=== PATIENT | male | born 1960 | race Caucasian/White ===

== ENCOUNTER 2020-09-14 10:01 | Inpatient (IN) | payer OTHER ==
[2020-09-14] MEDS ORDERED: Glucagon,Human Recombinant 1 MG Vial IM PRN (13:56)
[2020-09-14] MEDS ORDERED: TADALAFIL 10 MG PO PRN (13:56)
[2020-09-14] MEDS ORDERED: 50% Dextrose in Water 50 ML Syringe IVPUSH PRN (13:56)
[2020-09-14] MEDS ORDERED: Vancomycin/Water for INJ (PEG) 1.5 GM/300 ML Premix IV SCH (14:00)
--- OUTSIDE RECORDS SUMMARY | 2020-09-14 14:24 | XMSREPORT ---
:1960 Author Organization [facility] s Address [facility] [address] [place] [address] Care Team Providers Name Role Phone Jennifer Simon MD Primary Care Provider Jennifer Simon MD Attributed Provider Yazan Waller MD Unavailable Reason for Referral FCC Prior Auth (Routine) Status Reason Specialty Diagnoses / Referred By Referred To Procedures Contact Contact NOT REQUIRED Diagnoses Postoperative infection, unspecified type, initial encounter Timi Faith Procedures HOME INFUSION ADULT KURTIS Olvera MD [address] [place] [address] Reason for Visit Reason Comments Weakness Pt reports pain in neck and back; has apt with neurosurgery at 1130 but he has been getting progressive ly worse and today cannot walk. hx of brain tumor, had partial resection on 07/15 Fever reports fevers for 2 we eks. Auth/Cert Status Reason Specialty Diagnoses / Procedures Referred By Daysi haddad Referred To Contact Encounter Details Date Type Department Care Team Description 08/30/2020 - Hospital Encounter [facility] Sophia Sunshine MD [address] [place] [address] Infection of PROJECT CONTROL ANALYST 09/14/2020 CENTER 6AB NEURO Shell Charlton MD [address] [place] [address] [phone] (ventriculoperitone [facility] Brandy Agrawal MD [address] [place] [address], [place] [address] al) shunt (HCC) [address] Tereso Reeves MD [address] [place] [phone] [place] [address] Marcy Dawn MD [address] [place] [address], [place] [address] [phone] Saran Adams MD [address] [place] [phone] Yosvany Mcconnell MD [address] [place] [id number] Alex Leigh MD [address] [place] [address] [phone] Allergies No Known Active Allergiesdocumented as of this encounter (statuses as of 09/14/2020) Medications Medication Sig Dispensed Refills Start Date End Date Status multivitamin Take 1 tablet by 0 Active (CENTRUM SILVER) mouth 1 time per tablet day. tadalafil (CIALIS) Take 1 tablet (10 9 tablet 11 10/14/2019 Active 10 MG tablet mg) by mouth 1 time a day as needed for other (Specify) (ED) Take prior to anticipated sexual activity. omeprazole TAKE 1 CAPSULE BY 90 capsule 3 10/14/2019 Active (PRILOSEC) 20 mg MOUTH DAILY EVERY capsule MORNING lisinopril Take 1 tablet (20 90 tablet 3 10/14/2019 Active (PRINIVIL, ZESTRIL) mg) by mouth 1 time 20 mg per day tabletIndications: Essential hypertension Additional Information Patient not taking. Informan t: Self, Reported on 08/30/2020 glipiZIDE (GLUCOTROL) Take 1 tablet (10 90 tablet 3 10/14/2019 Active 10 mg mg) by mouth 1 time tabletIndications: a day with Controlled type 2 breakfast diabetes mellitus without complication, without long-term current use of insulin ([facility]) insulin needle Use once daily with 300 each 3 12/18/2019 Active ([employer]ICARE SHORT PEN Lantus E11.9 NEEDLES) 31G X 8 mm (5/16") ShortIndications: Controlled type 2 diabetes mellitus without complication, without long-term current use of insulin ([facility]) simvastatin (ZOCOR) 80 TAKE 1/2 TABLET BY 45 tablet 3 02/09/20 20 Active mg tabletIndications: MOUTH DAILY Mixed hyperlipidemia GENERIC FOR ZOCOR metFORMIN (GLUCOPHAGE) TAKE 1 TABLET BY 180 tablet 1 0 Active 500 MG MOUTH TWICE A DAY tabletIndications: WITH MEALS Controlled type 2 diabetes mellitus without complication, without long-term current use of insulin ([facility]) aspirin 325 mg tablet Take 325 mg by 0 Active mouth 1 time per day cefepime (MAXIPIME) Administer 2,000 mg 0 09/10/202009/15 Active 2,000 mg in sodium intravenously Every 8 chloride 0.9% 50 12 hours 21 mLIndications: Postoperative infection, unspecified type, initial encounter vancomycin (VANCOCIN) Administer 1,500 mg 0 09/11/19 21 09/15 Active 1,500 mg in sodium intravenously Every 8 chloride 0.9% 250 12 hours 21 mLIndications: Postoperative infection, unspecified type, initial encounter metroNIDAZOLE (FLAGYL) Take 1 tablet (500 93 tablet 0 09/11/19 21 09/15 Active 500 mg mg) by mouth 3 12/03 tabletIndications: times a day 21 Postoperative infection, unspecified type, initial encounter insulin glargine Inject 20 Units 15 mL 1 09/14/2020 Active (LANTUS SOLOSTARE) subcutaneously subcutaneous injection every night at solution bedtime (pen)Indications: Controlled type 2 diabetes mellitus without complication, without long-term current use of insulin ([facility]) carVEDilol (COREG) Take 1 tablet 180 tablet 4 09/14/20200 Active 3.125 mg (3.125 mg) by mouth 10/03 tabletIndications: 2 times a day with 22 Essential hypertension meals amLODIPine (NORVASC) 5 Take 1 tablet (5 90 tablet 4 09/14/20200 Active mg tabletIndications: mg) by mouth every 10/03 Essential hypertension night at bedtime 22 levETIRAcetam (KEPPRA) Take 1 tablet (500 60 tablet 0 07/21/19 21 08/14 Discontinued 500 mg mg) by mouth 2 11/02 (entry engineer tabletIndications: S/P times a day 21 error) craniotomy Previous medication prescribed by Neurosurgery and should be continued as initial written LANTUS SOLOSTARE INJECT 50 UNITS 15 mL 1 08/09/2020 Discontinued subcutaneous injection SUBCUTANEOUSLY (Reorder) solution EVERY NIGHT AT 21 (pen)Indications: BEDTIME MAX DAILY Controlled type 2 DOSE-50 UNITS diabetes mellitus without complication, without long-term current use of insulin (HCC) documented as of this encounter (statuses as of 09/14/2020) Active Problems Problem Noted Date 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 Esophageal reflux Hypospadias Diabetes type 2, controlled Mixed hyperlipidemia documented as of this encounter (statuses as of 09/14/2020) Resolved Problems Problem Noted Date Resolved Date Special screening for malignant neoplasm of prostate 009 06/03/2013 Type II or unspecified type diabetes mellitus without 06/03/2013 mention of complication, not stated as uncontrolled Obesity 06/03/2013 Ulcer of thigh 09/28/2016 Astigmatism 06/03/2013 documented as of this encounter (statuses as of 09/14/2020) Immunizations Name Administration Dates Next Due Pneumococcal Polysaccharide PPSV23 11/05/2008 TDAP 11/05/2008 documented as of this encounter Social History Tobacco Use Types Packs/Day Years Used Date Current Every Day Smoker Cigarettes 1 45 Smokeless Tobacco: Never Used Tobacco Cessation: Ready to Quit: No; Co unseling Given: No Comments: 08/31/20: 0.5 PPD Alcohol Use Standard Drinks/Week Comments Not Currently 0 (1 standard drink = 0.6 oz pure alcoho l) 12 pack at least every week Alcohol Habits Answer Date Recorded How often do you have a drink containing alcohol? Monthly or less 09/11/2020 How many drinks containing alcohol do you have on a Patient refused 09/11/2020 typical day when you are drinking? How often do you have six or more drinks on one Patient refu sed 09/11/2020 occasion? Physical Activity Answer Date Recorded On average, how many days per week do you engage in moderate 0 days 02/17/2019 to strenuous exercise (like walking fast, running, jogging, dancing, swimming, biking, or other activities that cause a light or heavy sweat)? On average, how many minutes do you engage in exercise at No t asked this level? Sexually Active Control Partners Comments Yes Female Sex Assigned at Date Recorded Not on file documented as of this encounter Last Filed Vital Signs Vital Sign Reading Time Taken Comments Blood Pressure 159/130 09/14/2020 10:05 AM CDT Pulse 91 09/14/2020 10:05 AM CDT Temperature 36.9 C (98.5 F) 09/14/2020 10:05 AM CDT Respiratory Rate 18 09/14/2020 10:05 AM CDT Oxygen Saturation 93% 09/14/2020 10:05 AM CDT Inhaled Oxygen Concentration - - Weight 87.8 kg (193 lb 8 oz) 09/13/2020 9:50 AM CDT Height 182.9 cm (6') 08/30/2020 4:02 PM CDT Body Mass Index 26.24 08/30/2020 4:02 PM CDT documented in this encounter Functional Status Functional Status Response Date of Assessment Is the person deaf or does he/she have serious difficulty No 11/16/2017 hearing? Is this person blind or does he/she have difficulty No 11/16/2017 seeing even when wearing glasses? Do you have difficulty with walking, balance, climbing No 07/13/2020 stairs, or had a fall in the last 3 months? Does the patient have difficulty dressing or bathing? No 11/16/2017 Because of a physical, mental, or emotional condition; No 11/16/2017 does this person have difficulty doing errands alone such as visiting a doctor's office or shopping? Cognitive Status Response Date of Assessment Because of a physical, mental, or emotional condition; No 11/16/2017 does this person have serious difficulty concentrating, remembering, or making decisions? documented as of this encounter Discharge Summaries Not on filedocumented in this encounter Discharge Instructions Katerin Frausto RN - 09/02/2020 Images from the original note were not included. Discharge Instructions: Caring for Your Peripherally Inserted Central Catheter (PICC) You are going home with a peripherally inserted central catheter (PICC). This small, soft tube has been placed in a vein in your arm. It is often used when treatment requires medicines or nutrition forweeks or months. At home, you need to take care of your PICC to keep it working.Because a PICC line has a high infection risk, you must take extra care washing your hands and preventing the spread ofgerms. This sheet will help you remember what to do to care for your PICC at home. Understanding your role A nurse or other healthcare provider will teach you and your caregivers how to care for the PICC.Before leaving the hospital, make sure you understand what to do at home, how long you may need the PICC, and when to have a follow-up visit. You will likely be told to flush the PICC with saline or heparin solution. You may also be told to change the catheters injection caps and change the dressing (bandage). Or, a nurse may do this for you during a follow-up visit. Only do these things if youre told to, following the instructionsyou were given. Protecting the PICC If the PICC gets damaged, it wont work right and could raise your chance of infection. Call your healthcare team right away if any damage occurs. To protect the PICC at home: Prevent infection. Use good hand hygiene by following the guidelines on this sheet. Dont touchthe catheter or dressing unless you need to. And always clean your hands before and after you come in contact with any part of the PICC. Your caregivers, family members, and any visitors should use good hand hygiene, too. Keep the PICC dry. The catheter and dressing must stay dry. Dont take baths, go swimming, use a hot tub, or do other things that could get the PICC wet. Take a sponge bath to avoid getting your catheter wet, unless your healthcare provider tells you otherwise. Ask your provider about the best way to keep your catheter dry when bathing or showering. If the dressing does get wet, change it only if you have been shown how. Otherwise, call your healthcare team right away for help. Avoid damage. Dont use any sharp or pointy objects around the catheter. This includes scissors, pins, knives, razors, or anything else that could cut it or put a hole in it (puncture it). Also, dont let anything pull or rub on the catheter, such as clothing. Watch for signs of problems. Pay attention to how much of the catheter sticks out from your skin.If this changes at all, let your healthcare provider know. Also watch for cracks, leaks, or other damage. If the dressing becomes dirty, loose, or wet, change it (if you have been instructed to). Or call your healthcare team right away. Avoid lowering your chest below your waist. This includes bending at the waist to do things like tying your shoes. When your chest is below your waist, especially for a long time, the catheters internal tip could slip out of place in the vein. Tell your healthcare team if you vomit or have severe coughing. This can also make the catheter slip out of place. Protecting your arm The arm with the PICC is at risk for developing blood clots (thrombosis). This is a serious problem.To help prevent it: As much as possible, use the arm with the PICC in it for normal daily activities. Lack of movement can lead to blood clots. So its important to move your arm as you normally would. Your healthcare team may suggest light arm exercises. Avoid activities or exercises that require major use of your arm, such as sports, unless your healthcare provider says its OK. Avoid any activities that cause mild pain in your arm. Talk to your healthcare team if you have concerns about pain or range of motion. Dont lift anything heavier than 10 pounds with the affected arm. Drink plenty of water. Staying hydrated helps keep clots from forming. Prevent infection with good hand hygiene A PICC can let germs into your body. This can lead to serious and sometimes deadly infections. To prevent infection, its very important that you, your caregivers, and others around you use good handhygiene. This means washing your hands well with soap and water, and cleaning them with an alcohol-based hand gel as directed. Never touch the PICC or dressing without first using one of these methods. To wash your hands with soap and water: Wet your hands with warm water. (Avoid hot water, which can cause skin irritation when you wash your hands often.) Apply enough soap to cover the whole surface of your hands, including your fingers. Rub your hands together vigorously for at least 15 seconds. Make sure to rub the front and back of each hand up to the wrist, your fingers and fingernails, between the fingers, and each thumb. Rinse your hands with warm water. Dry your hands completely with a new, unused paper towel. Dont use a cloth towel or other reusable towel. These can harbor germs. Use the paper towel to turn off the faucet, then throw it away. If youre in a bathroom, also use a paper towel to open the door instead of touching the handle. When you dont have access to soap and water: Use an alcohol-based hand gel to clean your hands.The gel should have at least 60% alcohol. Follow the instructions on the package. Your healthcare team can answer any questions you have about when to use hand gel, or when its better to wash with soap and water. When to seek medical care Call your provider right away if you have any of the following: Pain or burning in your shoulder, chest, back, arm, or leg Fever of 100.4F (38.0C) or higher Chills Signs of infection at the catheter site (pain, redness, drainage, burning, or stinging) Coughing, wheezing, or shortness of breath A racing or irregular heartbeat Muscle stiffness or trouble moving Tightness in your arm, above the catheter site Gurgling noises coming from the catheter The catheter falls out, breaks, cracks, leaks, or has other damage Date Last Reviewed: 10/15/201519995664-2826 [employer]. [address] [place] [address]. All rights reserved. This information is not intended as a substitute for professional medical care. Always follow your healthcare professional's instructions. Central Line Infections Good handwashing helps prevent central line infections. You need a central line as part of your treatment. Its also called a central venous access device(CVAD) or central venous catheter (CVC). A small, soft tube called a catheter is put in a vein that leads to your heart. The central line is used instead of a standard IV (intravenous) line. It does not need to be replaced as often as a standard IV. This means less pain and fewer needlesticks during treatment. But central lines come with a risk of infection. This sheet tells you more about central line infections and what hospitals are doing to prevent them. And it explains how an infection is treated, if one occurs. Types of central lines With a central line, a catheter is inserted into your body through a vein that leads to the large vein near the heart (vena cava). Types of central lines and their risk of infection are listed below. Which type is best for you depends on your needs and your overall health. Your healthcare provider cantell you which type of line you need, and why. Peripherally inserted central catheter (PICC).This is placed in a large vein in the upper arm, or near the bend of the elbow. Subclavian line. Thisis placed in a vein that runs behind the collarbone. Internal jugular line.This is placed into a large vein in the neck. Infection risk is higher than with a PICC or subclavian line, but lower than with a femoral line. Femoral line.This may be placed in a large vein in the groin. This site is generally not usedbecause of an increased risk for infection. Tunneled catheter. This is run through the soft tissue under the skin before it enters a vein. A small cuff helps hold the catheter in place. Both the tunnel and the cuff help prevent infection. This type of catheter may be placed in any of the above locations. Port. This small device is placed completely under the skin on the arm or chest. Its connectedto a catheter that is threaded into the vena cava. Types of infections A central line provides a direct path into your bloodstream. This gives germs possible access into your body. All types of central lines are associated with some risk of infection. Often, the germs that cause a central line infection come from your own skin. There are 2 possible types of infection: Local infection. This can occur where the central line enters your body. Symptoms include redness, pain, or swelling at or near the catheter site, pain or tenderness along the path of the catheter, and drainage from the skin around the catheter. Systemic infection (also called bacteremia). This can occur if germs get into the bloodstream. This is very serious and can be fatal. Symptoms include sudden fever, shaking chills, a racing heartbeat, confusion, change in behavior, and a skin rash. Risk factors for infection Anyone who has a central line can get an infection. Your risk is higher if you: Are in the intensive care unit (ICU). Have a weakened immune system or serious illness. Are receiving bone marrow or chemotherapy. Have the line for an extended time. Have a central line in your neck or groin. How central line infections are treated Treatment depends on the type of central line, how severe the infection is, and your overall health.Your healthcare provider will prescribe antibiotics to fight the infection. The line may also need to be removed. In some cases, the line is flushed with high doses of antibiotics. This may kill the germs causing the infection, so the line doesnt have to be removed. What hospitals do to prevent infection Hospitals have a plan to reduce central line infections. This plan includes: Good hand hygiene. Hospital staff clean their hands before and after touching the line. They washtheir hands with soap and water. Or they use an alcohol-based hand aircraft cabin cleaner containing at least 60% alcohol. Using sterile practices during placement. The healthcare worker who places the line wears germ-free (sterile) clothing including a long-sleeved gown and gloves. Before the line is placed, your skin is cleaned with an antiseptic solution. During placement, you are fully covered with a large sterile sheet (a sterile drape). Only the spot where the line is placed is exposed. After placement, the sitewhere the line enters the body is covered with a sterile bandage (dressing). Choosing a lower-risk vein. Whenever possible, the line is placed in the vein that's right for your treatment and has the lowest infection risk. Some hospitals use lines coated with an antiseptic toreduce the chance of infection. Checking for infection. The line is checked frequently for infection. It is removed as soon as you no longer need it. What you can do to prevent infection Before you get a central line, ask questions. Find out why you need the line and where it will be placed. Learn what steps the hospital is taking to reduce your infection risk. Once the line has been placed, you, your caretakers, and any visitors can help prevent infection by doing the following: Use good hand hygiene. Wash your hands often with soap and water, and use alcohol-based hand gel as directed. To clean your hands effectively, follow the guidelines on this sheet. Visitors should wash hands well when they arrive and when they leave. Make sure healthcare staff clean their hands. They should use soap and water or an alcohol-based hand aircraft cabin cleaner before and after checking the line. Dont be afraid to remind them. Keep the line dry. Follow your providers guidelines for showering. If the dressing does get wet, tell your healthcare provider right away. Dont touch the line. Even when your hands are clean, try not to touch the catheter or dressing. Learn the sterile dressing technique. This is important if you will be caring for the line at home. Your provider can show you what to do. Risk for blood clot If a blood clot forms it can block blood flow through the vein where the catheter is placed. Signs of a blood clot include pain or swelling in the neck, face, chest, or arm. If you have any of these symptoms, call your healthcare provider right away. You may need an ultrasound exam to locate the bloodclot and receive treatment with a blood thinner. How to wash your hands To protect the central line from germs, its very important to wash your hands often and clean them well. You and anyone who comes in contact with you should follow these steps: Wet your hands with warm water. (Avoid hot water. It can cause skin irritation when you wash yourhands often.) Apply enough soap to cover the entire surface of your hands, including your fingers. Rub your hands together briskly for at least 15 seconds. Make sure to rub the front and back of each hand up to the wrist, your fingers and fingernails, between the fingers, and each thumb. Rinse your hands with warm water. Dry your hands completely with a new, unused paper towel. Dont use a cloth towel or other reusable towel. These can harbor germs. Use the paper towel to turn off the faucet, then throw it away. If youre in a bathroom, also use a paper towel to open the door instead of touching the handle. Using alcohol-based hand gels When you dont have access to soap and water, alcohol-based hand gels are a good choice for cleaning your hands. The gel should have at least 60% alcohol. Note that some germs can't be killed by alcohol. Your healthcare team can answer any questions you have about when to use hand gel, or when its better to wash with soap and water. Follow these steps: Spread about 1 tablespoon of gel in the palm of one hand. (Check the package for specific guidelines.) Rub your hands together briskly. Clean the backs of your hands, the palms, between your fingers, and up your wrists. Rub until the gel is gone and your hands are completely dry. When to seek medical care Call your healthcare provider right away if you have a central line and develop any of the following: Pain or burning in your shoulder, chest, back, arm, or leg Fever of 100.4F (38.0C) or higher Chills Signs of infection at the catheter site (pain, redness, drainage, burning, or stinging) Coughing, wheezing, or shortness of breath A racing or irregular heartbeat Muscle stiffness or trouble moving Gurgling noises coming from the catheter The catheter falls out, breaks, cracks, leaks, or has other damage Date Last Reviewed: 10/15/201519997424-3281 [employer]. [address] [place] [address]. All rights reserved. This information is not intended as a substitute for professional medical care. Always follow your healthcare professional's instructions. Problems with your PICC: Sunday through Sunday 8am - 6:00pm Call - Ask for PICC Nurse on beeper #[phone] Evenings My Aggie Nurse - [phone] or Rescue Nurse Call Ask for the Rescue Nurse documented in this encounter Medications at Time of Discharge Medication Sig Dispensed Refills Start Date End Date insulin glargine Inject 20 Units 15 mL 1 09/14/2020 (LANTUS SOLOSTARE) subcutaneously every subcutaneous injection night at bedtime solution (pen)Indications: Controlled type 2 diabetes mellitus without complication, without long-term current use of insulin ([facility]) carVEDilol (COREG) Take 1 tablet (3.125 180 tablet 4 021 09/19/2021 3.125 mg mg) by mouth 2 times a tabletIndications: day with meals Essential hypertension amLODIPine (NORVASC) 5 Take 1 tablet (5 mg) 90 tablet 4 04/202009/19/2021 mg tabletIndications: by mouth every night Essential hypertension at bedtime metroNIDAZOLE (FLAGYL) Take 1 tablet (500 mg) 93 tablet 0 0 09/10/2020 10/11/2020 500 mg by mouth 3 times a day tabletIndications: Postoperative infection, unspecified type, initial encounter aspirin 325 mg tablet Take 325 mg by mouth 1 0 time per day metFORMIN (GLUCOPHAGE) TAKE 1 TABLET BY MOUTH 180 tablet 1 1 05/31/2019 500 MG TWICE A DAY WITH tabletIndications: MEALS Controlled type 2 diabetes mellitus without complication, without long-term current use of insulin ([facility]) simvastatin (ZOCOR) 80 TAKE 1/2 TABLET BY 45 tablet 3 02/08 mg tabletIndications: MOUTH DAILY GENERIC Mixed hyperlipidemia FOR ZOCOR tadalafil (CIALIS) 10 Take 1 tablet (10 mg) 9 tablet 11 MG tablet by mouth 1 time a day as needed for other (Specify) (ED) Take prior to anticipated sexual activity. omeprazole (PRILOSEC) TAKE 1 CAPSULE BY 90 capsule 3 020 20 mg capsule MOUTH DAILY EVERY MORNING glipiZIDE (GLUCOTROL) Take 1 tablet (10 mg) 90 tablet 3 10 mg by mouth 1 time a day tabletIndications: with breakfast Controlled type 2 diabetes mellitus without complication, without long-term current use of insulin ([facility]) multivitamin (CENTRUM Take 1 tablet by mouth 0 SILVER) tablet 1 time per day. cefepime (MAXIPIME) Administer 2,000 mg 0 021 10/11/2020 2,000 mg in sodium intravenously Every 12 chloride 0.9% 50 hours mLIndications: Postoperative infection, unspecified type, initial encounter vancomycin (VANCOCIN) Administer 1,500 mg 0 09/1010/11/2020 1,500 mg in sodium intravenously Every 12 chloride 0.9% 250 hours mLIndications: Postoperative infection, unspecified type, initial encounter insulin needle Use once daily with 300 each 3 12/18/2019 ([facility] SHORT PEN Lantus E11.9 NEEDLES) 31G X 8 mm (16") ShortIndications: Controlled type 2 diabetes mellitus without complication, without long-term current use of insulin ([facility]) lisinopril (PRINIVIL, Take 1 tablet (20 mg) 90 tablet 3 ZESTRIL) 20 mg by mouth 1 time per tabletIndications: day Essential hypertension documented as of this encounter Progress Notes Zev Cortez PA-C - 09/14/2020 9:58 AM CDT Neurosurgery Daily Progress Note Sandra Johns is a 60year old male who wasadmitted on 08/30/2020 for reinforcer shunt removal and placement of right frontal EVD, performed byDr. Ruggiero, due to activeinfection. Patient has a hx of resection of hemangioblastoma x 3 along with right PROJECT CONTROL ANALYST shunt placement and repair of pseudomeningocele. Patientleft AMA and did not follow up. Came to ER with wound drainage, fever, abscess near shunt catheter. Underwent a suboccipital washout and cranioplasty on 09/03/[address] Ruggiero. The EVD was subsequently pulled later in the day. S: Laying in bed No pain No complaints Denies drainage from incision No acute events overnight O: Current Vital Signs BP: 132/74 Temp: 97.8 F (36.6 C) Pulse: 70 Resp: 16 Physical Exam: Neurologic Exam: Psych/Mental Status: Level of Alertness: Alert Orientation: Oriented to conversation Memory: Intact in regular conversation Speech/Language: Spontaneous speech, clear, fluent, and appropriate Cranial Nerves: Dysarthria: None Pupils: Equal, round, reactive to light CN 3, 4, 6 (EOM): Extraocular movements intact, no nystagmus. CN 5 (Trigeminal): Normal facial sensation CN 7 (Facial): Normal strength and symmetry. CN 8 (Auditory): Intact to finger rub bilaterally. CN 9, 10 (Glossopharyngeal): Palate elevates symmetrically. CN 11 (Spinal Accessory): Trapezius and SCM with full strength bilaterally. CN 12 (Hypoglossal): Tongue is midline on protrusion. Motor: Right: deltoid 5/5,bicep 5/5, tricep 5/5 Left: deltoid 5/5,bicep 5/5, tricep 5/5 Right: Iliopsoas 5/5, quadricep 5/5, hamstring 5/5, DF 5/5, PF 5/5 Left: Iliopsoas 5/5, quadricep 5/5, hamstring 5/5, DF 5/5, PF 5/5 Sensory: Sensation: Intact to light touch Gait: Not tested Wound: Wound edges well approx; clean and dry; nylon No drainage from incision appreciated A: 11 Days Post-Op S/P Procedure(s): SUBOCCIPITAL WOUND WASH OUT, CRANIOPLASTY Hx of PROJECT CONTROL ANALYST shunt infection Hx of type 2 DM Hx of mixed hyperlipidemia Hx of smoking Hx of essential hypertension Hx of brain tumor Hx of aspiration pneumonia P: Continue to monitor incision closely for drainage Care per primary team Diet as tolerated ID following Therapies following , recommend low intensity SCDs and heparin SQ for DVT prophylaxis No plan for subsequent shunt placement. ID antibiotic regimen in place for outpatient. Waiting on SNF placement. Okay to discharge once placement is found. Follow-up orders are entered. Sutures out on 09/24/20. 6 week follow-up in neurosurgery clinic. This patient was discussed with Dr. Ruggiero and he agrees with the assessment and plan. Luz Maria Shafer PA-C - 09/13/2020 7:55 AM CDT Neurosurgery Daily Progress Note Sandra Johns is a 60year old male who wasadmitted on 08/30/2020 for reinforcer shunt removal and placement of right frontal EVD, performed byDr. Ruggiero, due to activeinfection. Patient has a hx of resection of hemangioblastoma x 3 along with right PROJECT CONTROL ANALYST shunt placement and repair of pseudomeningocele. Patientleft AMA and did not follow up. Came to ER with wound drainage, fever, abscess near shunt catheter. Underwent a suboccipital washout and cranioplasty on 09/03/[address] Ruggiero. The EVD was subsequently pulled later in the day. S: Laying in bed No complaints Denies drainage from incision No acute events overnight O: Current Vital Signs BP: 154/84 Temp: 98.4 F (36.9 C) Pulse: 85 Resp: 16 Physical Exam: Neurologic Exam: Psych/Mental Status: Level of Alertness: Alert Orientation: Oriented to conversation Memory: Intact in regular conversation Speech/Language: Spontaneous speech, clear, fluent, and appropriate Cranial Nerves: Dysarthria: None Pupils: Equal, round, reactive to light CN 3, 4, 6 (EOM): Extraocular movements intact, no nystagmus. CN 5 (Trigeminal): Normal facial sensation CN 7 (Facial): Normal strength and symmetry. CN 8 (Auditory): Intact to finger rub bilaterally. CN 9, 10 (Glossopharyngeal): Palate elevates symmetrically. CN 11 (Spinal Accessory): Trapezius and SCM with full strength bilaterally. CN 12 (Hypoglossal): Tongue is midline on protrusion. Motor: Right: deltoid 5/5,bicep 5/5, tricep 5/5 Left: deltoid 5/5,bicep 5/5, tricep 5/5 Right: Iliopsoas 5/5, quadricep 5/5, hamstring 5/5, DF 5/5, PF 5/5 Left: Iliopsoas 5/5, quadricep 5/5, hamstring 5/5, DF 5/5, PF 5/5 Sensory: Sensation: Intact to light touch Gait: Not tested Wound: Wound edges well approx; clean and dry; nylon No drainage from incision appreciated A: 10 Days Post-Op S/P Procedure(s): SUBOCCIPITAL WOUND WASH OUT, CRANIOPLASTY Hx of PROJECT CONTROL ANALYST shunt infection Hx of type 2 DM Hx of mixed hyperlipidemia Hx of smoking Hx of essential hypertension Hx of brain tumor Hx of aspiration pneumonia P: Continue to monitor incision closely for drainage Care per primary team Diet as tolerated ID following Therapies following , recommend low intensity SCDs and heparin SQ for DVT prophylaxis No plan for subsequent shunt placement. ID antibiotic regimen in place for outpatient. Waiting on SNF placement. This patient was discussed with Dr. Ruggiero and he agrees with the assessment and plan. Yosvany Mcconnell MD - 09/12/2020 2:19 PM CDT 60-year-old male admitted on 08/30/2020 for PROJECT CONTROL ANALYST shunt removal and placement of right frontal EVD, performed by Dr. Ruggiero secondary to active infection. Patient has a significant history of resection of hemangioblastoma x3 along with right PROJECT CONTROL ANALYST shunt placement and repair of pseudomeningocele. Patient had left AMA and did not follow-up. Subsequently came to the ER with wound drainage, fever, abscess near shunt catheter. Patient underwent suboccipital washout and cranioplasty on 09/03/[address] Thomas. EVD was subsequently pulled later on the same day. Per neurosurgery currently no plan forsubsequent shunt placement. Patient is on long-term IV antibiotics. Currently on vancomycin being dosed by pharmacy, cefepime 2 g twice daily and p.o. Flagyl 500 mg 3 times daily. Operative cultureswere not reactive and hence patient will need broad empiric regimen to be continued. Per infectiousdisease bus info consultant, patient will need 6 weeks of current antibiotic regimen to treat the deep infection in the posterior fossa with hardware. The collection at the distal terminus of the shunt was toosmall to aspirate so infectious diseases recommended a repeat CT scan of the abdomen in 1 week to ensure resolution following completion of current antibiotic therapy, he will also need to continue suppression antibiotic therapy as he has hardware in place. 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 3 times daily. Antibiotic regimen duration: 6 weeks. Patient will need to go to SNF to complete his IV antibiotics. Per ID will then subsequently need suppressive therapy as he has hardware Patient will need repeat CT of the abdomen and pelvis in 1 week to ensure the collection at the distal terminus of the shunt has resolved. Currently patient is hemodynamically stable, afebrile. Normal WBC count. On Keppra On pain control as needed regimen, bowel regimen, DVT prophylaxis per neurosurgery team: On subcutaneous heparin 5000 units every 12 hours. Scalp Suture removal - will need to be discussed with neurosurgery prior to discharge Patient is less angry today. He did allow me to examine him. Though he says no to all review of systems question. I think he tries to minimize. Hence review of system remains unreliable. Once again doubts remain about his insight about his own medical condition and hence we will continue to use his Anahy as substitute decision-maker. Hence patient cannot sign out AGAINST MEDICAL ADVICE. We will continue fall risk precautions, have a bed alarm. Physical deconditioning: PT, OT Dietitian Evaluation: Moderate (non-severe) protein calorie malnutrition Admission BMI: 27.89 Hypertension: Continue lisinopril and Norvasc. T2DM: Continue sliding scale insulin. Continue Lantus. Glipizide and Metformin on hold Aspirin has been restarted by neuro ICU. Anemia: Hemoglobin stable Moderate (non-severe) protein calorie malnutrition Admission BMI: 27.89 GI prophylaxis on PPI DVT prophylaxis: On subcutaneous heparin 5000 units every 12 hours CODE STATUS: Full code. DISPOSITION Awaiting placement to SNF where he will complete his IV antibiotic regimen. Plan of care discussed with bedside RN and his Anahy. INTERVAL HISTORY Patient less angry today Still not cooperating with ROS . Review of system: UNRELIABLE due to patient's uncooperation. PHYSICAL EXAMINATION Current Vital Signs Temp: 98 F (36.7 C) BP: 146/86 Pulse: 87 O2 Device: Room Air O2 Flow Rate (L/min): 2 l/min Resp: 16 Pain Ratin (out of 10) Weight: 89.8 kg (197 lb 15.6 oz) SpO2: 94 % Vitals reviewed Constitutional: No distress HEENT: Surgical sutures in place. Surrounding skin healthy. Neurological: He is alert awake. Does not answer orientation questions. Does not participate in discussion to assess his insight. Moving all extremities well. Eyes: PERRLA, EOMI, conjunctive are normal. Chest: Clear to auscultation, Cardiovascular: S1-S2 heard, RRR, no murmur Abdomen: Soft nontender no guarding or rigidity, bowel sounds normal. Skin: No rash Behavior:angry Medications/pertinent test results/allergies/nursing notes reviewed. Luz Maria Shafer PA-C - 09/12/2020 10:42 AM CDT Neurosurgery Daily Progress Note Sandra Johns is a 60 year old male who was admitted on 08/30/2020 for a PROJECT CONTROL ANALYST shunt removal and placement of right frontal EVD, performed by Dr. Ruggiero, due to active infection. Patient has a hx of resection of hemangioblastoma x 3 along with right PROJECT CONTROL ANALYST shunt placement and repair of pseudomeningocele. Patient left AMA and did not follow up. Came to ER with wound drainage, fever, abscess near shunt catheter. Underwent a suboccipital washout and cranioplasty on 09/03/[address] Ruggiero. The EVD was subsequently pulled later in the day. S: Laying in bed, family in room No complaints Denies drainage from incision No acute events overnight O: Current Vital Signs BP: 141/75 Temp: 98.4 F (36.9 C) Pulse: 87 Resp: 16 Physical Exam: Neurologic Exam: Psych/Mental Status: Level of Alertness: Alert Orientation: Oriented to conversation Memory: Intact in regular conversation Speech/Language: Spontaneous speech, clear, fluent, and appropriate Cranial Nerves: Dysarthria: None Pupils: Equal, round, reactive to light CN 3, 4, 6 (EOM): Extraocular movements intact, no nystagmus. CN 5 (Trigeminal): Normal facial sensation CN 7 (Facial): Normal strength and symmetry. CN 8 (Auditory): Intact to finger rub bilaterally. CN 9, 10 (Glossopharyngeal): Palate elevates symmetrically. CN 11 (Spinal Accessory): Trapezius and SCM with full strength bilaterally. CN 12 (Hypoglossal): Tongue is midline on protrusion. Motor: Right: deltoid 5/5,bicep 5/5, tricep 5/5 Left: deltoid 5/5,bicep 5/5, tricep 5/5 Right: Iliopsoas 5/5, quadricep 5/5, hamstring 5/5, DF 5/5, PF 5/5 Left: Iliopsoas 5/5, quadricep 5/5, hamstring 5/5, DF 5/5, PF 5/5 Sensory: Sensation: Intact to light touch Gait: Not tested Wound: Wound edges well approx; clean and dry; nylon No drainage from incision appreciated A: 9 Days Post-Op S/P Procedure(s): SUBOCCIPITAL WOUND WASH OUT, CRANIOPLASTY Hx of PROJECT CONTROL ANALYST shunt infection Hx of type 2 DM Hx of mixed hyperlipidemia Hx of smoking Hx of essential hypertension Hx of brain tumor Hx of aspiration pneumonia P: Continue to monitor incision closely for drainage Care per primary team Diet as tolerated ID following Therapies following , recommend low intensity SCDs and heparin SQ for DVT prophylaxis No plan for subsequent shunt placement. ID antibiotic regimen in place for outpatient. Waiting on SNF placement. This patient was discussed with Dr. Ruggiero and he agrees with the assessment and plan. Yosvany Mcconnell MD - 09/11/2020 7:30 PM CDT 60-year-old male admitted on 08/30/2020 for PROJECT CONTROL ANALYST shunt removal and placement of right frontal EVD, performed by Dr. Ruggiero secondary to active infection. Patient has a significant history of resection of hemangioblastoma x3 along with right PROJECT CONTROL ANALYST shunt placement and repair of pseudomeningocele. Patient had left AMA and did not follow-up. Subsequently came to the ER with wound drainage, fever, abscess near shunt catheter. Patient underwent suboccipital washout and cranioplasty on 09/03/[address] Thomas. EVD was subsequently pulled later on the same day. Per neurosurgery currently no plan forsubsequent shunt placement. Patient is on long-term IV antibiotics. Currently on vancomycin being dosed by pharmacy, cefepime 2 g twice daily and p.o. Flagyl 500 mg 3 times daily. Operative cultureswere not reactive and hence patient will need broad empiric regimen to be continued. Per infectiousdisease bus info consultant, patient will need 6 weeks of current antibiotic regimen to treat the deep infection in the posterior fossa with hardware. The collection at the distal terminus of the shunt was toosmall to aspirate so infectious diseases recommended a repeat CT scan of the abdomen in 1 week to ensure resolution following completion of current antibiotic therapy, he will also need to continue suppression antibiotic therapy as he has hardware in place. 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 3 times daily. Antibiotic regimen duration: 6 weeks. Patient will need to go to SNF to complete his IV antibiotics. Per ID will then subsequently need suppressive therapy as he has hardware Patient will need repeat CT of the abdomen and pelvis in 1 week to ensure the collection at the distal terminus of the shunt has resolved. Currently patient is hemodynamically stable, afebrile. Normal WBC count. On Keppra On pain control as needed regimen, bowel regimen, DVT prophylaxis per neurosurgery team: On subcutaneous heparin 5000 units every 12 hours. Patient's mood is quite angry. He does not cooperate with review of system. He wants me to just examine him and get out of the room. His Anahy was present in the room. He does not give an opportunity for me to discuss with him whether he understands the gravity of his current illness. At this time I am not sure whether patient really understands or has proper insight of his underlying medical conditions and the need for his current level of care. Till we get a good understanding of patient's decision making capacity, we will use his Anahy as he is substitute decision-maker. Daughter is agreeable with this plan of care. Hence patient cannot sign out AGAINST MEDICAL ADVICE. We will continue fall risk precautions, have a bed alarm. Physical deconditioning: PT, OT Hypertension: Continue lisinopril and Norvasc. T2DM: Continue sliding scale insulin. Continue Lantus. Glipizide and Metformin on hold Aspirin has been restarted by neuro ICU. Anemia: Hemoglobin stable Moderate (non-severe) protein calorie malnutrition Admission BMI: 27.89 GI prophylaxis on PPI DVT prophylaxis: On subcutaneous heparin 5000 units every 12 hours CODE STATUS: Full code. DISPOSITION Awaiting placement to SNF where he will complete his IV antibiotic regimen. Total time spent in direct care of patient greater than 35 minutes. Greater than 50% time spent in counseling and coordination of care including detailed discussion with bedside RN and his Anahy. INTERVAL HISTORY Patient angry does not want to talk. He wants me to get out of the room. However upon further request he does allow me to examine him. Review of system: Limited due to patient's uncooperation. PHYSICAL EXAMINATION Vitals reviewed Constitutional: No distress HEENT: Surgical sutures in place. Surrounding skin healthy. Neurological: He is alert awake. Does not answer orientation questions. Does not participate in discussion to assess his insight. Moving all extremities well. Eyes: PERRLA, EOMI, conjunctive are normal. Chest: Clear to auscultation, Cardiovascular: S1-S2 heard, RRR, no murmur Abdomen: Soft nontender no guarding or rigidity, bowel sounds normal. Skin: No rash Behavior:angry Medications/pertinent test results/allergies/nursing notes reviewed. Luz Maria Shafer PA-C - 09/11/2020 9:55 AM CDT Neurosurgery Daily Progress Note Sandra Johns is a 60 year old male who was admitted on 08/30/2020 for a PROJECT CONTROL ANALYST shunt removal and placement of right frontal EVD, performed by Dr. Ruggiero, due to active infection. Patient has a hx of resection of hemangioblastoma x 3 along with right PROJECT CONTROL ANALYST shunt placement and repair of pseudomeningocele. Patient left AMA and did not follow up. Came to ER with wound drainage, fever, abscess near shunt catheter. Underwent a suboccipital washout and cranioplasty on 09/03/[address] Ruggiero. The EVD was subsequently pulled later in the day. S: Laying in bed No complaints Denies drainage from incision No acute events overnight O: Current Vital Signs BP: 142/83 Temp: 98.3 F (36.8 C) Pulse: 84 Resp: 16 Physical Exam: Neurologic Exam: Psych/Mental Status: Level of Alertness: Alert Orientation: Oriented to conversation Memory: Intact in regular conversation Speech/Language: Spontaneous speech, clear, fluent, and appropriate Cranial Nerves: Dysarthria: None Pupils: Equal, round, reactive to light CN 3, 4, 6 (EOM): Extraocular movements intact, no nystagmus. CN 5 (Trigeminal): Normal facial sensation CN 7 (Facial): Normal strength and symmetry. CN 8 (Auditory): Intact to finger rub bilaterally. CN 9, 10 (Glossopharyngeal): Palate elevates symmetrically. CN 11 (Spinal Accessory): Trapezius and SCM with full strength bilaterally. CN 12 (Hypoglossal): Tongue is midline on protrusion. Motor: Right: deltoid 5/5,bicep 5/5, tricep 5/5 Left: deltoid 5/5,bicep 5/5, tricep 5/5 Right: Iliopsoas 5/5, quadricep 5/5, hamstring 5/5, DF 5/5, PF 5/5 Left: Iliopsoas 5/5, quadricep 5/5, hamstring 5/5, DF 5/5, PF 5/5 Sensory: Sensation: Intact to light touch Gait: Not tested Wound: Wound edges well approx; clean and dry; nylon No drainage from incision appreciated A: 8 Days Post-Op S/P Procedure(s): SUBOCCIPITAL WOUND WASH OUT, CRANIOPLASTY Hx of PROJECT CONTROL ANALYST shunt infection Hx of type 2 DM Hx of mixed hyperlipidemia Hx of smoking Hx of essential hypertension Hx of brain tumor Hx of aspiration pneumonia P: Continue to monitor incision closely for drainage Care per primary Diet as tolerated ID following Therapies following , recommend low intensity SCDs and heparin SQ for DVT prophylaxis No plan for subsequent shunt placement. ID antibiotic regimen in place for outpatient. Waiting on SNF placement. This patient was discussed with Dr. Ruggiero and he agrees with the assessment and plan. NIAT Manuel Mcintosh PA-C - 09/10/2020 3:39 PM CDT Neurosurgery Progress Note Sandra Johns is a 60 y.o. M who was admitted on 08/30/2020 for a PROJECT CONTROL ANALYST shunt removal and placement of right frontal EVD, performewd by Dr. Ruggiero, due to active infection. Patient has a hx of resection of hemangioblastoma x 3 along with right PROJECT CONTROL ANALYST shunt placement and repair of pseudomeningocele. Patient left AMA and did not follow up. Came ot ER with wound drainage, fever, abscess near shunt catheter. Underwent a suboccipital washout on 09/03/2020. The EVD was subsequently pulled later in the day. S: Resting in bed No acute events overnight States he will leave today. States a family member is coming to pick him up, as he does not want to be here any longer. O: Vital Signs: Temp: 98.6 F (37 C) | BP: 154/91 | Pulse: 90 | Resp: 18 | Pain Ratin (out of 10) | Weight: 98 kg (216 lb 0.8 oz) | O2 Device: Room Air O2 Flow Rate (L/min): 2 l/min | SpO2: 97 % Physical Exam General: alert, no distress ENT: Swallowing intact Neuro: alert, oriented, normal speech Cranial Nerve Function Pupils: Equal, round, reactive to light Visual montoya: Full to confrontation Cranial nerves III, IV, (Extraocular movement): Extraocular movements intact, no nystagmus Cranial nerve V (Trigeminal): Normal facial sensation Cranial nerve VII (Facial): Normal strength and symmetry Cranial nerve VIII (Auditory): Intact to finger rub bilaterally Cranial nerve IX, X (Glossopharyngeal): Palate elevates symmetrically Cranial nerve XI (Spinal accessory): Trapezius and SCM with full strength bilaterally Cranial nerve XII (Hypoglossal): Tongue is midline on protrusion Upper Extremities: Right: Deltoid 5/5,bicep 5/5, tricep 5/5, wrist flexor 5/5, wrist extensor 5/5, hand intrinsic 5/5 Left: Deltoid 5/5,bicep 5/5, tricep 5/5, wrist flexor 5/5, wrist extensor 5/5, hand intrinsic 5/5 Sensation intact in bilateral upper extremities Lower Extremities: Right: Iliopsoas 5/5, quadricep 5/5, hamstring 5/5, DF 5/5, PF 5/5 Left: Iliopsoas 5/5, quadricep 5/5, hamstring 5/5, DF 5/5, PF 5/5 Sensation intact in bilateral L4-S1 dermatomes Wound: Clean, dry, well approx: Nylon suture. No subsequent drainage after over sew on 09/09/2020. Radiology: CT head w/out contrast 09/09/2020: IMPRESSION: No signs of hydrocephalus. No new intracranial abnormality. Fluid collection seen about the suboccipital cranioplasty suggesting pseudomeningocele demonstrates slight interval decrease in size. Post op CT head 08/31/2020: Expected post surgical changes. Some vasogenic edema. Removal of PROJECT CONTROL ANALYST shunt. Head CT 09/06/2020: No significant enlargement in ventricles Head CT 09/09/2020: Pseudomeningocele, slightly enlarged, otherwise no other significant changes A: 7 Days Post-Op Status Post: Procedure(s): SUBOCCIPITAL WOUND WASH OUT, CRANIOPLASTY S/p craniotomy Type II DM Hyperlipidemia HTN P: Monitor incision closely for drainage. Care per primary Diet as tolerated Keppra 500 mg BID x 7 days (last dose 09/10/2020) Neuros every 4 hours ID following PT/OT , recommend low intensity at time of discharge. SCDs for DVT prophylaxis, okay for chemoprophylaxis from neurosurgery standpoint No plan for subsequent shunt placement. ID antibiotic regimen in place for outpatient. Waiting on SNF placement. This patient was discussed with Dr. Ruggiero and he agrees with the assessment and plan. Saran Adams MD - 09/10/2020 1:34 PM CDT Images from the original note were not included. DAILY PROGRESS NOTE SUMMARY This is a 60-year-old gentleman with medical history significant for hypertension, diabetes, and history of hemangioblastoma, who is admitted to the hospital for management of infected PROJECT CONTROL ANALYST shunt. ASSESSMENT & PLAN #. 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 - Status post shunt removal and right frontal ventriculostomy placement on 08/31/2020. - On cefepime, vancomycin, and Flagyl per ID. - Status post suboccipital wound washout and cranioplasty on 09/03/2020. - EVD displaced by patient and subsequently removed by neurosurgery on 09/03/2020. - No fevers. No leukocytosis. Most recent head CT shows increase in size of pseudomeningocele. Further procedures per neurosurgery. Abx plan finalized by ID. - On Keppra. - Pain control, bowel regimen, DVT prophylaxis per neurosurgery. #. Hypertension. On lisinopril and norvasc. BP elevated, start Coreg. #. Diabetes. Continue current dose of lantus. Change SSI to low dose algorithm. Glipizide and metformin on hold. - Home dose of aspirin restarted by Neuro ICU. #. Anemia. Hemoglobin stable around 10. #. GI prophylaxis. On PPI. #. DVT prophylaxis. On subcutaneous heparin. #. CODE STATUS. Full code per admission orders. Disposition: Pending placement for IV abx. This note was created, at least in part, with the use of [employer] Voice Dictation System. Inadvertenttypographical errors, due to software recognition problems, may still exist. SUBJECTIVE/ROS No acute events overnight. No new complaints this am. No new cp, sob, or abdominal pain. Patient reports that he is not eating and drinking, as he wants to go home. No headache or nausea. Medications cefepime (MAXIPIME) 2000 mg/20 mL in sterile water IV syringe 2,000 mg IV Every 12 hours 2,000 mg at 09/10/20 0524 metroNIDAZOLE (FLAGYL) tablet 500 mg 500 mg Oral 3 times a day 500 mg at 09/10/20 0756 amLODIPine (NORVASC) tablet 5 mg 5 mg Oral at bedtime 5 mg at 09/09/20 2136 insulin glargine (LANTUS) SQ injection 20 Units Subcutaneous at bedtime 20 Units at 09/09/20 214 insulin aspart (NovoLOG) SQ correction scale (Adult) 2-8 Units Subcutaneous 3 times a day dextrose 50% IV solution 50 mL 25 g IV PRN per parameter glucagon for injection 1 mg vial 1 mg 1 mg Intramuscular PRN per parameter glucose chewable tablet 16 g 4 tablet Oral PRN per parameter Or carbohydrate 15 g 15 g Oral PRN per parameter lisinopril (PRINIVIL, ZESTRIL) tablet 20 mg 20 mg Oral Daily 20 mg at 09/10/20 0756 levETIRAcetam (KEPPRA) tablet 500 mg 500 mg Oral 2 times a day 500 mg at 09/10/20 0756 vancomycin (VANCOCIN) 1,750 mg in sodium chloride 0.9% 500 mL (Locked) 1,750 mg IV Every 12 hours 1,750 mg at 09/10/20 0149 aspirin tablet 325 mg 325 mg Oral daily 325 mg at 09/10/20 0756 heparin (porcine) injection solution 5,000 Units 5,000 Units Subcutaneous Every 12 hours 5,000 Units at 09/10/20 0756 sodium chloride 0.9% flush (adult) 10 mL 10 mL IV 2 times a day and prn 10 mL at 09/07/202032 sodium chloride 0.9% flush (adult) 10 mL 10 mL IV 2 times a day and prn 10 mL at 09/10/20 0757 sodium chloride 0.9% flush (adult) 10 mL 10 mL IV 2 times a day and prn 10 mL at 09/09/20 2138 acetaminophen (TYLENOL) tablet 650 mg 650 mg Oral Every 4 hours prn 650 mg at 09/04/20 181 nalOXone (NARCAN) injection solution (vial) 0.4 mg 0.4 mg Injection Every 2 minutes prn nalOXone (NARCAN) injection solution (vial) 0.2 mg 0.2 mg Injection Every 2 minutes prn senna-docusate sodium (SENOKOT-S;PERICOLACE) tablet 1 tablet 1 tablet Oral 2 times a day 1 tablet at 09/07/20 1008 docusate sodium (COLACE) capsule 100 mg 100 mg Oral 2 times a day 100 mg at 09/07/20 1009 polyethylene glycol (MIRALAX) packet 1 packet 1 packet Oral Daily 1 packet at 09/04/20 0835 lactulose oral solution (10 gm/15 mL) 30 mL 30 mL Oral Daily bisacodyl (DULCOLAX) suppository 10 mg 10 mg Rectal Daily ondansetron (ZOFRAN) injection solution 4 mg 4 mg IV Every 4 hours prn benzocaine-menthol (CEPACOL w/ BENZOCAINE) lozenge 1 lozenge 1 lozenge Mouth/Throat Every 4 hours prn 1 lozenge at 09/03/202110 HYDROcodone-acetaminophen (NORCO) 7.5-325 mg tablet 1 tablet 1 tablet Oral Every 4 hours prn HYDROcodone-acetaminophen (NORCO) 7.5-325 mg tablet 2 tablet 2 tablet Oral Every 4 hours prn morphine preservative free injection solution (conc: 2 mg/mL) 2 mg 2 mg IV Every 3 hours prn omeprazole (priLOSEC) capsule 20 mg 20 mg Oral 1 time a day before breakfast 20 mg at 09/10/20 0524 sodium chloride 0.9% flush (adult) 10 mL 10 mL IV Daily and prn 10 mL at 09/09/20 1205 simvastatin (ZOCOR) tablet 40 mg 40 mg Oral at bedtime 40 mg at 09/09/202136 senna-docusate sodium (SENOKOT-S;PERICOLACE) tablet 2 tablet 2 tablet Oral 2 times a day prn And bisacodyl (DULCOLAX) suppository 10 mg 10 mg Rectal 1 time a day prn And docusate sodium (THEREVAC-SB MINI;ENEMEEZ MINI) 283 MG enema 1 enema 1 enema Rectal 1 time a day prn melatonin tablet 3 mg 3 mg Oral Bedtime prn 3 mg at 09/02/20 2324 acetaminophen (TYLENOL) tablet 1,000 mg 1,000 mg Oral Every 8 hours 1,000 mg at 09/10/20 0524 labetalol (NORMODYNE;TRANDATE) IV solution 20 mg 20 mg IV Every 3 hours prn 20 mg at 09/06/20 1327 hydrALAZINE (APRESOLINE) injection solution 20 mg 20 mg IV Every 3 hours prn 20 mg at 09/05/20 0315 LORazepam (ATIVAN) 2 mg/mL injection solution 2 mg 2 mg IV Every 2 hours prn 2 mg at 09/03/20 0245 sodium chloride 0.9% flush (adult) 10 mL 10 mL IV 2 times a day and prn 10 mL at 09/07/202032 OBJECTIVE Current Vital Signs Temp: 98.6 F (37 C) BP: 154/91 Pulse: 90 O2 Device: Room Air O2 Flow Rate (L/min): 2 l/min Resp: 18 Pain Ratin (out of 10) Weight: 98 kg (216 lb 0.8 oz) SpO2: 97 % Vitals Min/Max Last 24 Hours Vital Signs Min/Max (last 24 hours) Flowsheet Row Name Min Max Temp 97.7 F (36.5 C) 98.7 F (37.1 C) BP: Systolic 153 166 BP: Diastolic 70 93 Pulse 84 90 Resp 16 18 SpO2 93 % 97 % Intake and Output Last 24 Hours 09/09 0700 - 09/10 0659 In: 860 Out: 1900 Lines and Drains Patient Lines/Drains/Airways Status Active Lines Name: Placement date: Placement time: Site: Days: PICC Single Lumen Purple 09/02/20 1442 Basilic 7 Incision 07/15/20 Lower;Dorsal Head Incision 07/15/20 0858 Head 57 Incision 08/31/20 Upper;Dorsal;Right Head Incision 08/31/20 Head 10 Incision 09/03/20 Lower Head Incision 09/03/20 0816 Head 7 Physical Exam General Appearance: lying in bed, does not appear to be in acute distress Lungs: No use of accessory muscles of respiration, CTA lisset Heart: normal S1 S2, no pedal edema. Abdomen: soft, normal BS, non tender Neurological: alert, answering questions. Diagnostics and Labs Labs (Last day) 09/10/20 0843 - 09/10/20 0843 CHEMISTRY 09/10/20 0843 CHEMISTRY Creatinine 0.80-1.30 (mg/dL) 0.69 eGFR >=60 (mL/min/1.73m2) >90 eGFR Non- >=60 (mL/min/1.73m2) >90 09/10/20 1109 - 09/09/20 1746 GLUCOSE POINT OF CARE 09/10/20 1109 09/10/20 0514 09/09/20 2143 09/09/20 1746 GLUCOSE POINT OF CARE Glucose POC 70-99 (mg/dL) 96 92 113 91 09/10/20 0843 - 09/10/20 0843 OTHER 09/10/20 0843 OTHER Age (Years) 60 Saran Adams MD - 09/09/2020 6:58 PM CDT Images from the original note were not included. DAILY PROGRESS NOTE SUMMARY This is a 60-year-old gentleman with medical history significant for hypertension, diabetes, and history of hemangioblastoma, who is admitted to the hospital for management of infected PROJECT CONTROL ANALYST shunt. ASSESSMENT & PLAN #. 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 - Status post shunt removal and right frontal ventriculostomy placement on 08/31/2020. - On cefepime, vancomycin, and Flagyl per ID. - Status post suboccipital wound washout and cranioplasty on 09/03/2020. - EVD displaced by patient and subsequently removed by neurosurgery on 09/03/2020. - No fevers. No leukocytosis. Further procedures per neurosurgery. Abx plan finalized by ID. - On Keppra. - Pain control, bowel regimen, DVT prophylaxis per neurosurgery. #. Hypertension. On lisinopril and norvasc. #. Diabetes. Continue current dose of lantus. Change SSI to low dose algorithm. Glipizide and metformin on hold. - Home dose of aspirin restarted by Neuro ICU. #. Anemia. Hemoglobin stable around 10. #. GI prophylaxis. On PPI. #. DVT prophylaxis. On subcutaneous heparin. #. CODE STATUS. Full code per admission orders. Disposition: Pending placement for IV abx. This note was created, at least in part, with the use of [employer] System. Inadvertenttypographical errors, due to software recognition problems, may still exist. SUBJECTIVE/ROS No acute events overnight. No new complaints this am. No chest pain. No shortness of breath. No abdomen pain. Medications cefepime (MAXIPIME) 2000 mg/20 mL in sterile water IV syringe 2,000 mg IV Every 12 hours 2,000 mg at 09/09/20 1746 metroNIDAZOLE (FLAGYL) tablet 500 mg 500 mg Oral 3 times a day 500 mg at 09/09/20 1522 amLODIPine (NORVASC) tablet 5 mg 5 mg Oral at bedtime 5 mg at 09/08/202102 insulin glargine (LANTUS) SQ injection 20 Units Subcutaneous at bedtime 20 Units at 09/08/202107 insulin aspart (NovoLOG) SQ correction scale (Adult) 2-8 Units Subcutaneous 3 times a day dextrose 50% IV solution 50 mL 25 g IV PRN per parameter glucagon for injection 1 mg vial 1 mg 1 mg Intramuscular PRN per parameter glucose chewable tablet 16 g 4 tablet Oral PRN per parameter Or carbohydrate 15 g 15 g Oral PRN per parameter lisinopril (PRINIVIL, ZESTRIL) tablet 20 mg 20 mg Oral Daily 20 mg at 09/09/20 0951 levETIRAcetam (KEPPRA) tablet 500 mg 500 mg Oral 2 times a day 500 mg at 09/09/20 0951 vancomycin (VANCOCIN) 1,750 mg in sodium chloride 0.9% 500 mL (Locked) 1,750 mg IV Every 12 hours 1,750 mg at 09/09/20 1411 aspirin tablet 325 mg 325 mg Oral daily 325 mg at 09/09/20 0951 heparin (porcine) injection solution 5,000 Units 5,000 Units Subcutaneous Every 12 hours 5,000 Units at 09/09/20950 sodium chloride 0.9% flush (adult) 10 mL 10 mL IV 2 times a day and prn 10 mL at 09/07/202032 sodium chloride 0.9% flush (adult) 10 mL 10 mL IV 2 times a day and prn 10 mL at 09/07/202032 sodium chloride 0.9% flush (adult) 10 mL 10 mL IV 2 times a day and prn 10 mL at 09/08/202002 acetaminophen (TYLENOL) tablet 650 mg 650 mg Oral Every 4 hours prn 650 mg at 09/04/201812 nalOXone (NARCAN) injection solution (vial) 0.4 mg 0.4 mg Injection Every 2 minutes prn nalOXone (NARCAN) injection solution (vial) 0.2 mg 0.2 mg Injection Every 2 minutes prn senna-docusate sodium (SENOKOT-S;PERICOLACE) tablet 1 tablet 1 tablet Oral 2 times a day 1 tablet at 09/07/20 1008 docusate sodium (COLACE) capsule 100 mg 100 mg Oral 2 times a day 100 mg at 09/07/20 1009 polyethylene glycol (MIRALAX) packet 1 packet 1 packet Oral Daily 1 packet at 09/04/20 0835 lactulose oral solution (10 gm/15 mL) 30 mL 30 mL Oral Daily bisacodyl (DULCOLAX) suppository 10 mg 10 mg Rectal Daily ondansetron (ZOFRAN) injection solution 4 mg 4 mg IV Every 4 hours prn benzocaine-menthol (CEPACOL w/ BENZOCAINE) lozenge 1 lozenge 1 lozenge Mouth/Throat Every 4 hours prn 1 lozenge at 09/03/202110 HYDROcodone-acetaminophen (NORCO) 7.5-325 mg tablet 1 tablet 1 tablet Oral Every 4 hours prn HYDROcodone-acetaminophen (NORCO) 7.5-325 mg tablet 2 tablet 2 tablet Oral Every 4 hours prn morphine preservative free injection solution (conc: 2 mg/mL) 2 mg 2 mg IV Every 3 hours prn omeprazole (priLOSEC) capsule 20 mg 20 mg Oral 1 time a day before breakfast 20 mg at 09/09/20 0951 sodium chloride 0.9% flush (adult) 10 mL 10 mL IV Daily and prn 10 mL at 09/09/20 1205 simvastatin (ZOCOR) tablet 40 mg 40 mg Oral at bedtime 40 mg at 09/08/202001 senna-docusate sodium (SENOKOT-S;PERICOLACE) tablet 2 tablet 2 tablet Oral 2 times a day prn And bisacodyl (DULCOLAX) suppository 10 mg 10 mg Rectal 1 time a day prn And docusate sodium (THEREVAC-SB MINI;ENEMEEZ MINI) 283 MG enema 1 enema 1 enema Rectal 1 time a day prn melatonin tablet 3 mg 3 mg Oral Bedtime prn 3 mg at 09/02/20 2324 acetaminophen (TYLENOL) tablet 1,000 mg 1,000 mg Oral Every 8 hours 1,000 mg at 09/09/20 1522 labetalol (NORMODYNE;TRANDATE) IV solution 20 mg 20 mg IV Every 3 hours prn 20 mg at 09/06/20 1327 hydrALAZINE (APRESOLINE) injection solution 20 mg 20 mg IV Every 3 hours prn 20 mg at 09/05/20 0315 LORazepam (ATIVAN) 2 mg/mL injection solution 2 mg 2 mg IV Every 2 hours prn 2 mg at 09/03/20 0245 sodium chloride 0.9% flush (adult) 10 mL 10 mL IV 2 times a day and prn 10 mL at 09/07/202032 OBJECTIVE Current Vital Signs Temp: 98.7 F (37.1 C) BP: 153/70 Pulse: 84 O2 Device: Room Air O2 Flow Rate (L/min): 2 l/min Resp: 16 Pain Ratin (out of 10) Weight: 98 kg (216 lb 0.8 oz) SpO2: 93 % Vitals Min/Max Last 24 Hours Vital Signs Min/Max (last 24 hours) Flowsheet Row Name Min Max Temp 98.2 F (36.8 C) 98.7 F (37.1 C) BP: Systolic 134 184 BP: Diastolic 70 104 Pulse 80 91 Resp 16 18 SpO2 93 % 95 % MAP (mm Hg) 90 mm Hg 90 mm Hg Intake and Output Last 24 Hours 09/08 0700 - 09/09 0659 In: 630 Out: 2500 Lines and Drains Patient Lines/Drains/Airways Status Active Lines Name: Placement date: Placement time: Site: Days: PICC Single Lumen Purple 09/02/20 1442 Basilic 7 Incision 07/15/20 Lower;Dorsal Head Incision 07/15/20 0858 Head 56 Incision 08/31/20 Upper;Dorsal;Right Head Incision 08/31/20 Head 9 Incision 09/03/20 Lower Head Incision 09/03/20 0816 Head 6 Physical Exam General Appearance: lying in bed, does not appear to be in acute distress Lungs: No use of accessory muscles of respiration, CTA lisset Heart: normal S1 S2, no pedal edema. Abdomen: soft, normal BS, non tender Neurological: alert, answering questions. Diagnostics and Labs Labs (Last day) 09/09/20 0624 - 09/09/20 06 CHEMISTRY 09/09/20 0624 CHEMISTRY Creatinine 0.80-1.30 (mg/dL) 0.65 eGFR >=60 (mL/min/1.73m2) >90 eGFR Non- >=60 (mL/min/1.73m2) >90 09/09/20 1746 - 09/08/20 2102 GLUCOSE POINT OF CARE 09/09/20 1746 09/09/20 1158 09/09/20 0530 09/08/20 2112 09/08/20 2102 GLUCOSE POINT OF CARE Glucose POC 70-99 (mg/dL) 91 102 108 191 207 09/09/20 0624 - 09/09/20 0624 OTHER 09/09/20 0624 OTHER Age (Years) 60 Chidi Andrea PA-C - 09/09/2020 12:50 PM CDT Neurosurgery Progress Note Sandra Johns is a 60yr old male admitted on 08/30/2020 and underwent PROJECT CONTROL ANALYST shunt removal and placement of right frontal EVD with Dr. Ruggiero for infection. Patient has a hx of resection of hemangioblastoma x 3 along with right PROJECT CONTROL ANALYST shunt placement and repair of pseudomeningocele. He subsequently left AMA and did not follow up. Came ot ER with wound drainage, fever, abscess near shunt catheter. Underwent a suboccipital washout on 09/03/2020. The EVD was subsequently pulled later in the day. S: Resting in bed No acute events overnight No complaints O: Vital Signs: Temp: 98.3 F (36.8 C) | BP: 154/95 | Pulse: 91 | Resp: 18 | Pain Ratin (out of 10) | Weight: 98 kg (216 lb 0.8 oz) | O2 Device: Room Air O2 Flow Rate (L/min): 2 l/min | SpO2: 93 % Physical Exam General: alert, no distress ENT: Swallowing intact Neuro: alert, oriented, normal speech Cranial Nerve Function Pupils: Equal, round, reactive to light Visual montoya: Full to confrontation Cranial nerves III, IV, (Extraocular movement): Extraocular movements intact, no nystagmus Cranial nerve V (Trigeminal): Normal facial sensation Cranial nerve VII (Facial): Normal strength and symmetry Cranial nerve VIII (Auditory): Intact to finger rub bilaterally Cranial nerve IX, X (Glossopharyngeal): Palate elevates symmetrically Cranial nerve XI (Spinal accessory): Trapezius and SCM with full strength bilaterally Cranial nerve XII (Hypoglossal): Tongue is midline on protrusion Upper Extremities: Right: Deltoid 5/5,bicep 5/5, tricep 5/5, wrist flexor 5/5, wrist extensor 5/5, hand intrinsic 5/5 Left: Deltoid 5/5,bicep 5/5, tricep 5/5, wrist flexor 5/5, wrist extensor 5/5, hand intrinsic 5/5 Sensation intact in bilateral upper extremities Lower Extremities: Right: Iliopsoas 5/5, quadricep 5/5, hamstring 5/5, DF 5/5, PF 5/5 Left: Iliopsoas 5/5, quadricep 5/5, hamstring 5/5, DF 5/5, PF 5/5 Sensation intact in bilateral L4-S1 dermatomes Wound: small amount of drainage of inferior portion of dressing, Nylon with oversew on inferior portion of wound. Well-approximated. Unable to express any drainage. No active drainage Labs 09/07/2020: WBC: 10.3 Hgb: 10.7 Na: 141 Radiology: Post op CT head 08/31/2020: Expected post surgical changes. Some vasogenic edema. Removal of PROJECT CONTROL ANALYST shunt. Head CT 09/06/2020: No significant enlargement in ventricles Head CT 09/09/2020: Pseudomeningocele, slightly enlarged, otherwise no other significant changes A: 6 Days Post-Op Status Post: Procedure(s): SUBOCCIPITAL WOUND WASH OUT, CRANIOPLASTY GERD Hypospadias DM2 Hyperlipidemia HTN Astigmatism Smoker S/p craniotomy P: Monitor incision closely for drainage. Care per primary Diet as tolerated Keppra 500 mg BID x 7 days (last dose 09/10/2020) Neuros every 4 hours ID following PT/OT , recommend low intensity SCDs for DVT prophylaxis, okay for chemoprophylaxis from neurosurgery standpoint No plan for subsequent shunt placement, abx plan per ID. Please contact Jamar Andrea PA-C for any neurosurgical questions/concerns until 5pm; After 5pm please contact neurosurgery PA environmental programs specialist This patient was discussed with Dr. Ruggiero and he agrees with the assessment and plan. Saran Adams MD - 09/08/2020 9:56 PM CDT Images from the original note were not included. DAILY PROGRESS NOTE SUMMARY This is a 60-year-old gentleman with medical history significant for hypertension, diabetes, and history of hemangioblastoma, who is admitted to the hospital for management of infected PROJECT CONTROL ANALYST shunt. ASSESSMENT & PLAN #. 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 - Status post shunt removal and right frontal ventriculostomy placement on 08/31/2020. - On cefepime, vancomycin, and Flagyl per ID. - Status post suboccipital wound washout and cranioplasty on 09/03/2020. - EVD displaced by patient and subsequently removed by neurosurgery on 09/03/2020. - No fevers. No leukocytosis. Further procedures per neurosurgery. abx plan finalized by ID. - On Keppra. - Pain control, bowel regimen, DVT prophylaxis per neurosurgery. #. Hypertension. On lisinopril and norvasc. BP elevated. Increase dose of norvasc. #. Diabetes. Low blood glucose today. Will decrease dose of lantus. Change SSI to low dose algorithm. Glipizide and metformin on hold. - Home dose of aspirin restarted by Neuro ICU. #. Anemia. Hemoglobin stable around 10. #. GI prophylaxis. On PPI. #. DVT prophylaxis. On subcutaneous heparin. #. CODE STATUS. Full code per admission orders. Disposition: Pending placement for IV abx. This note was created, at least in part, with the use of [employer] System. Inadvertenttypographical errors, due to software recognition problems, may still exist. SUBJECTIVE/ROS No acute events overnight. No new complaints this am. No chest pain. No shortness of breath. No abdomen pain. Medications cefepime (MAXIPIME) 2000 mg/20 mL in sterile water IV syringe 2,000 mg IV Every 12 hours 2,000 mg at 09/08/20 173 metroNIDAZOLE (FLAGYL) tablet 500 mg 500 mg Oral 3 times a day 500 mg at 09/08/202002 amLODIPine (NORVASC) tablet 5 mg 5 mg Oral at bedtime 5 mg at 09/08/202102 insulin glargine (LANTUS) SQ injection 20 Units Subcutaneous at bedtime 20 Units at 09/08/202107 [START ON 09/09/2020] insulin aspart (NovoLOG) SQ correction scale (Adult) 2-8 Units Subcutaneous 3 times a day dextrose 50% IV solution 50 mL 25 g IV PRN per parameter glucagon for injection 1 mg vial 1 mg 1 mg Intramuscular PRN per parameter glucose chewable tablet 16 g 4 tablet Oral PRN per parameter Or carbohydrate 15 g 15 g Oral PRN per parameter lisinopril (PRINIVIL, ZESTRIL) tablet 20 mg 20 mg Oral Daily 20 mg at 09/08/20 1015 levETIRAcetam (KEPPRA) tablet 500 mg 500 mg Oral 2 times a day 500 mg at 09/08/202001 vancomycin (VANCOCIN) 1,750 mg in sodium chloride 0.9% 500 mL (Locked) 1,750 mg IV Every 12 hours 1,750 mg at 09/08/20 1419 aspirin tablet 325 mg 325 mg Oral daily 325 mg at 09/08/20 1015 heparin (porcine) injection solution 5,000 Units 5,000 Units Subcutaneous Every 12 hours 5,000 Units at 09/08/202004 sodium chloride 0.9% flush (adult) 10 mL 10 mL IV 2 times a day and prn 10 mL at 09/07/202032 sodium chloride 0.9% flush (adult) 10 mL 10 mL IV 2 times a day and prn 10 mL at 09/07/202032 sodium chloride 0.9% flush (adult) 10 mL 10 mL IV 2 times a day and prn 10 mL at 09/08/202002 acetaminophen (TYLENOL) tablet 650 mg 650 mg Oral Every 4 hours prn 650 mg at 09/04/201812 nalOXone (NARCAN) injection solution (vial) 0.4 mg 0.4 mg Injection Every 2 minutes prn nalOXone (NARCAN) injection solution (vial) 0.2 mg 0.2 mg Injection Every 2 minutes prn senna-docusate sodium (SENOKOT-S;PERICOLACE) tablet 1 tablet 1 tablet Oral 2 times a day 1 tablet at 09/07/20 1008 docusate sodium (COLACE) capsule 100 mg 100 mg Oral 2 times a day 100 mg at 09/07/20 1009 polyethylene glycol (MIRALAX) packet 1 packet 1 packet Oral Daily 1 packet at 09/04/20 0835 lactulose oral solution (10 gm/15 mL) 30 mL 30 mL Oral Daily bisacodyl (DULCOLAX) suppository 10 mg 10 mg Rectal Daily ondansetron (ZOFRAN) injection solution 4 mg 4 mg IV Every 4 hours prn benzocaine-menthol (CEPACOL w/ BENZOCAINE) lozenge 1 lozenge 1 lozenge Mouth/Throat Every 4 hours prn 1 lozenge at 09/03/202110 HYDROcodone-acetaminophen (NORCO) 7.5-325 mg tablet 1 tablet 1 tablet Oral Every 4 hours prn HYDROcodone-acetaminophen (NORCO) 7.5-325 mg tablet 2 tablet 2 tablet Oral Every 4 hours prn morphine preservative free injection solution (conc: 2 mg/mL) 2 mg 2 mg IV Every 3 hours prn omeprazole (priLOSEC) capsule 20 mg 20 mg Oral 1 time a day before breakfast 20 mg at 09/08/20 1015 sodium chloride 0.9% flush (adult) 10 mL 10 mL IV Daily and prn 10 mL at 09/08/20 1017 simvastatin (ZOCOR) tablet 40 mg 40 mg Oral at bedtime 40 mg at 09/08/202001 senna-docusate sodium (SENOKOT-S;PERICOLACE) tablet 2 tablet 2 tablet Oral 2 times a day prn And bisacodyl (DULCOLAX) suppository 10 mg 10 mg Rectal 1 time a day prn And docusate sodium (THEREVAC-SB MINI;ENEMEEZ MINI) 283 MG enema 1 enema 1 enema Rectal 1 time a day prn melatonin tablet 3 mg 3 mg Oral Bedtime prn 3 mg at 09/02/202323 acetaminophen (TYLENOL) tablet 1,000 mg 1,000 mg Oral Every 8 hours 1,000 mg at 09/08/202102 labetalol (NORMODYNE;TRANDATE) IV solution 20 mg 20 mg IV Every 3 hours prn 20 mg at 09/06/20 1327 hydrALAZINE (APRESOLINE) injection solution 20 mg 20 mg IV Every 3 hours prn 20 mg at 09/05/20 0315 LORazepam (ATIVAN) 2 mg/mL injection solution 2 mg 2 mg IV Every 2 hours prn 2 mg at 09/03/20 0245 sodium chloride 0.9% flush (adult) 10 mL 10 mL IV 2 times a day and prn 10 mL at 09/07/202032 OBJECTIVE Current Vital Signs Temp: 98.5 F (36.9 C) BP: 152/81 Pulse: 88 O2 Device: Room Air O2 Flow Rate (L/min): 2 l/min Resp: 18 Pain Ratin (out of 10) Weight: 98 kg (216 lb 0.8 oz) SpO2: 95 % Vitals Min/Max Last 24 Hours Vital Signs Min/Max (last 24 hours) Flowsheet Row Name Min Max Temp 97.7 F (36.5 C) 98.5 F (36.9 C) BP: Systolic 126 152 BP: Diastolic 81 105 Pulse 80 90 Resp 16 18 SpO2 92 % 95 % Intake and Output Last 24 Hours 09/07 0700 - 09/08 0659 In: 1125 Out: 2875 Lines and Drains Patient Lines/Drains/Airways Status Active Lines Name: Placement date: Placement time: Site: Days: PICC Single Lumen Purple 09/02/20 1442 Basilic 6 Incision 07/15/20 Lower;Dorsal Head Incision 07/15/20 0858 Head 55 Incision 08/31/20 Upper;Dorsal;Right Head Incision 08/31/20 Head 8 Incision 09/03/20 Lower Head Incision 09/03/20 0816 Head 5 Physical Exam General Appearance: lying in bed, does not appear to be in acute distress Lungs: No use of accessory muscles of respiration, CTA lisset Heart: normal S1 S2, no pedal edema. Abdomen: soft, normal BS, non tender Neurological: alert, answering questions. 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 PROJECT CONTROL ANALYST shunt and deep cranial infection:Final antibiotic plan in place. per neurosurgery, no plans to replace shunt. Thus, can complete six weeks of his current therapy. Stop date 10/11/2020. Continue vanco per kinetics, cefepime 2 g BID, and PO flagyl 500 mg PO TID. Operative cultures non dir ective, so will need the broad, empiric regimen continued. Needs six weeks for the deep infection in the posterior fossa with hardware. The collection at the distal terminus of the shunt was too small to aspirate, so should repeat a CT scan of the abdomen in one week to ensure resolution. will needsuppression as hardware in place.will need placement to complete his abx. 2. Thank you. Will follow more peripherally/electronically. Awaiting placement now. Interval History Sandra Johns is seen in f/u Afebrile. Denies headache, pain. Denies N/V. Ate fine yesterday, not feeling hungry this am. Expressing desire to go home. Rest of ROS as above otherwise (-) Antibiotics Antibiotics: Antibiotics (From admission, onward) Start Stop Route Frequency Ordered 09/08/20 1700 cefepime (MAXIPIME) 2000 mg/20 mL in sterile water IV syringe -- IV Every twelve hours 09/08/20 0916 09/08/20 1500 metroNIDAZOLE (FLAGYL) tablet 500 mg -- PO Three times a day 09/08/20 0916 09/05/20 1430 vancomycin (VANCOCIN) 1,750 mg in sodium chloride 0.9% 500 mL (Locked) -- IV Every twelve hours 09/05/20 1401 09/04/20 0200 vancomycin (VANCOCIN) 2,000 mg in sodium chloride 0.9% 500 mL (Locked) Status: Discontinued 09/05 1401 IV Every twelve hours 09/03/20 1441 09/03/20 1545 vancomycin (VANCOCIN) 500 mg in sodium chloride 0.9% 100 mL 09/03 1726 IV One time 09/03/20 1441 09/03/20 0925 ceFAZolin (ANCEF) 2000 mg/20 mL sterile water IV syringe (ceFAZolin (ANCEF) 2 g IV (for patient weight 120 kg OR LESS or weight NOT available)) Status: Discontinued 09/03 0933 IV Give in OR 09/03/20 0924 08/31/20 214 vancomycin (VANCOCIN) 1,000 mg in sodium chloride irrigation 0.9 % 1,000 mL OR Irrigation Status: Discontinued 08/31 2247 INTRAOP 08/31/20 2148 08/30/20 2100 cefepime (MAXIPIME) 2000 mg/20 mL in sterile water IV syringe Status: Discontinued 09/08 0916 IV Every eight hours 08/30/20 1531 08/30/20 2100 metroNIDAZOLE (FLAGYL) IV piggyback in sodium chloride 0.79% (premix) 500 mg Status: Discontinued 09/08 0916 IV Every eight hours 08/30/20 1535 08/30/20 1430 vancomycin (VANCOCIN) 2,000 mg in sodium chloride 0.9% 500 mL (Locked) 08/30 1648 IV One time 08/30/20 1328 08/30/20 1330 cefepime (MAXIPIME) 2000 mg/20 mL in sterile water IV syringe (ED - Emergency Department Antibiotics) 08/30 1338 IV Now 08/30/20 1327 08/30/20 1330 metroNIDAZOLE (FLAGYL) IV piggyback in sodium chloride 0.79% (premix) 500 mg (ED - Emergency Department Antibiotics) 08/30 1442 IV Now 08/30/20 1327 08/30/20 1330 ED STAT 1x VANCOMYCIN DOSE ADJUST (ED - Emergency Department Antibiotics) Status:Discontinued 08/30 1328 IV Now 08/30/20 1327 08/30/20 0130 vancomycin (VANCOCIN) 1,500 mg in sodium chloride 0.9% 250 mL (Locked) Status: Discontinued 09/03 1441 IV Every twelve hours 08/30/20 1540 Physical Exam Current Vital Signs Temp: 97.8 F (36.6 C) BP: 152/83 Pulse: 90 O2 Device: Room Air O2 Flow Rate (L/min): 2 l/min Resp: 17 Pain Ratin (out of 10) Weight: 98 kg (216 lb 0.8 oz) SpO2: 93 % Maximum Temperatures (last 24 hours) Temperature Maximum Max Temp 99.2 F (37.3 C) Physical Exam Constitutional: General: He is not in acute distress. HENT: Head: Comments: Incisions c/d/i Cardiovascular: Rate and Rhythm: Normal rate and regular rhythm. Pulmonary: Effort: No respiratory distress. Breath sounds: Normal breath sounds. No wheezing or rales. Abdominal: General: Bowel sounds are normal. Palpations: Abdomen is soft. Skin: Comments: picc c/d/i Neurological: Mental Status: He is alert. Labs and Imaging reviewed Lab Results Component Value Date WBC 10.3 09/07/2020 NUCRBC 0 09/06/2020 RBC 3.76 (L) 09/07/2020 HEMOGLOBIN 10.7 (L) 09/07/2020 HEMATOCRIT 32.5 (L) 09/07/2020 MCV 86.4 09/07/2020 MCH 28.5 09/07/2020 MCHC 32.9 09/07/2020 PLTCOUNT 483 (H) 09/07/2020 NEUTROPCT 70.6 09/06/2020 LYMPHSPCT 17.8 09/06/2020 MONOSPCT 6.6 09/06/2020 EOSPCT 3.3 09/06/2020 BASOPHILPCT 0.5 09/06/2020 Lab Results Component Value Date ALBUMIN 2.5 (L) 09/07/2020 ALBUMIN 2.5 (L) 09/07/2020 BILITOTAL 0.2 09/07/2020 CA 8.4 (L) 09/07/2020 CL 108 09/07/2020 CREATSERUM 0.64 (L) 09/07/2020 GLUCOSE 75 09/08/2020 ALKPHOS 92 09/07/2020 POTASSIUM 3.4 (L) 09/07/2020 NA 141 09/07/2020 AST 15 09/07/2020 BUN 4 (L) 09/07/2020 PROTEINTOTAL 5.1 (L) 09/07/2020 CO2 25 09/07/2020 ALT 19 09/07/2020 Lab Results Component Value Date ESR 74 (H) 08/30/2020 Lab Results Component Value Date CRP 201.6 (H) 08/30/2020 Medical Decision Making I have reviewed all the new labs, x-rays, pertinent microbiology, and provider notes from the last 24 hours. Chidi Andrea PA-C - 09/08/2020 9:20 AM CDT Neurosurgery Progress Note Sandra Johns is a 60yr old male admitted on 08/30/2020 and underwent PROJECT CONTROL ANALYST shunt removal and placement of right frontal EVD with Dr. Ruggiero for infection. Patient has a hx of resection of hemangioblastoma x 3 along with right PROJECT CONTROL ANALYST shunt placement and repair of pseudomeningocele. He subsequently left AMA and did not follow up. Came ot ER with wound drainage, fever, abscess near shunt catheter. Underwent a suboccipital washout on 09/03/2020. The EVD was subsequently pulled later in the day. S: Resting in bed No acute events overnight No complaints O: Vital Signs: Temp: 97.8 F (36.6 C) | BP: 152/83 | Pulse: 90 | Resp: 17 | Pain Ratin (out of 10) | Weight: 98 kg (216 lb 0.8 oz) | O2 Device: Room Air O2 Flow Rate (L/min): 2 l/min | SpO2: 93 % Physical Exam General: alert, no distress ENT: Swallowing intact Neuro: alert, oriented, normal speech Cranial Nerve Function Pupils: Equal, round, reactive to light Visual montoya: Full to confrontation Cranial nerves III, IV, (Extraocular movement): Extraocular movements intact, no nystagmus Cranial nerve V (Trigeminal): Normal facial sensation Cranial nerve VII (Facial): Normal strength and symmetry Cranial nerve VIII (Auditory): Intact to finger rub bilaterally Cranial nerve IX, X (Glossopharyngeal): Palate elevates symmetrically Cranial nerve XI (Spinal accessory): Trapezius and SCM with full strength bilaterally Cranial nerve XII (Hypoglossal): Tongue is midline on protrusion Upper Extremities: Right: Deltoid 5/5,bicep 5/5, tricep 5/5, wrist flexor 5/5, wrist extensor 5/5, hand intrinsic 5/5 Left: Deltoid 5/5,bicep 5/5, tricep 5/5, wrist flexor 5/5, wrist extensor 5/5, hand intrinsic 5/5 Sensation intact in bilateral upper extremities Lower Extremities: Right: Iliopsoas 5/5, quadricep 5/5, hamstring 5/5, DF 5/5, PF 5/5 Left: Iliopsoas 5/5, quadricep 5/5, hamstring 5/5, DF 5/5, PF 5/5 Sensation intact in bilateral L4-S1 dermatomes Wound: small amount of drainage of inferior portion of dressing, Nylon with oversew on inferior portion of wound. Well-approximated. Unable to express any drainage. No active drainage Labs 09/07/2020: WBC: 10.3 Hgb: 10.7 Na: 141 Radiology: Post op CT head 08/31/2020: Expected post surgical changes. Some vasogenic edema. Removal of PROJECT CONTROL ANALYST shunt. Head CT 09/06/2020: No significant enlargement in ventricles A: 5 Days Post-Op Status Post: Procedure(s): SUBOCCIPITAL WOUND WASH OUT, CRANIOPLASTY GERD Hypospadias DM2 Hyperlipidemia HTN Astigmatism Smoker S/p craniotomy P: Monitor incision closely for drainage. Care per primary Diet as tolerated Keppra 500 mg BID x 7 days (last dose 09/10/2020) Neuros every 4 hours ID following PT/OT , recommend low intensity SCDs for DVT prophylaxis, okay for chemoprophylaxis from neurosurgery standpoint No plan for subsequent shunt placement, abx plan per ID. Please contact Jamar Andrea PA-C for any neurosurgical questions/concerns until 5pm; After 5pm please contact neurosurgery PA environmental programs specialist This patient was discussed with Dr. Ruggiero and he agrees with the assessment and plan. Saran Adams MD - 09/07/2020 6:08 PM CDT Images from the original note were not included. DAILY PROGRESS NOTE SUMMARY This is a 60-year-old gentleman with medical history significant for hypertension, diabetes, and history of hemangioblastoma, who is admitted to the hospital for management of infected PROJECT CONTROL ANALYST shunt. ASSESSMENT & PLAN #. 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 - Status post shunt removal and right frontal ventriculostomy placement on 08/31/2020. - On cefepime, vancomycin, and Flagyl per ID. - Status post suboccipital wound washout and cranioplasty on 09/03/2020. - EVD displaced by patient and subsequently removed by neurosurgery on 09/03/2020. - No fevers. No leukocytosis. Further management per neurosurgery and ID. - On Keppra. - Pain control, bowel regimen, DVT prophylaxis per neurosurgery. #. Hypertension. On lisinopril. BP elevated. Add low dose norvasc. #. Diabetes. Blood glucose well controlled on the current insulin regimen. Glipizide and metforminon hold. - Home dose of aspirin restarted by Neuro ICU. #. Anemia. Hemoglobin stable around 10. #. GI prophylaxis. On PPI. #. DVT prophylaxis. On subcutaneous heparin. #. CODE STATUS. Full code per admission orders. Disposition: Per neurosurgery/ID recommendations. This note was created, at least in part, with the use of [employer] Voice Dictation System. Inadvertenttypographical errors, due to software recognition problems, may still exist. SUBJECTIVE/ROS At the time of my visit patient is lying in bed and appears comfortable. No chest pain. No shortness of breath. No abdomen pain. Medications magnesium sulfate IV replacement (premix) 4 g 4 g IV 1 time 4 g at 09/06/20 1716 [START ON 09/07/2020] lisinopril (PRINIVIL, ZESTRIL) tablet 20 mg 20 mg Oral Daily levETIRAcetam (KEPPRA) tablet 500 mg 500 mg Oral 2 times a day 500 mg at 09/06/20 0811 vancomycin (VANCOCIN) 1,750 mg in sodium chloride 0.9% 500 mL (Locked) 1,750 mg IV Every 12 hours 1,750 mg at 09/06/20 1433 aspirin tablet 325 mg 325 mg Oral daily 325 mg at 09/06/20 0811 heparin (porcine) injection solution 5,000 Units 5,000 Units Subcutaneous Every 12 hours 5,000 Units at 09/06/20 0811 insulin glargine (LANTUS) SQ injection 30 Units Subcutaneous at bedtime 30 Units at 09/05/20 2307 sodium chloride 0.9% flush (adult) 10 mL 10 mL IV 2 times a day and prn 10 mL at 09/05/202004 sodium chloride 0.9% flush (adult) 10 mL 10 mL IV 2 times a day and prn 10 mL at 09/06/20 0813 sodium chloride 0.9% flush (adult) 10 mL 10 mL IV 2 times a day and prn 10 mL at 09/05/202003 acetaminophen (TYLENOL) tablet 650 mg 650 mg Oral Every 4 hours prn 650 mg at 09/04/20 181 nalOXone (NARCAN) injection solution (vial) 0.4 mg 0.4 mg Injection Every 2 minutes prn nalOXone (NARCAN) injection solution (vial) 0.2 mg 0.2 mg Injection Every 2 minutes prn senna-docusate sodium (SENOKOT-S;PERICOLACE) tablet 1 tablet 1 tablet Oral 2 times a day 1 tablet at 09/04/20 0835 docusate sodium (COLACE) capsule 100 mg 100 mg Oral 2 times a day 100 mg at 09/04/20 0834 polyethylene glycol (MIRALAX) packet 1 packet 1 packet Oral Daily 1 packet at 09/04/20 0835 lactulose oral solution (10 gm/15 mL) 30 mL 30 mL Oral Daily bisacodyl (DULCOLAX) suppository 10 mg 10 mg Rectal Daily ondansetron (ZOFRAN) injection solution 4 mg 4 mg IV Every 4 hours prn benzocaine-menthol (CEPACOL w/ BENZOCAINE) lozenge 1 lozenge 1 lozenge Mouth/Throat Every 4 hours prn 1 lozenge at 09/03/20 211 HYDROcodone-acetaminophen (NORCO) 7.5-325 mg tablet 1 tablet 1 tablet Oral Every 4 hours prn HYDROcodone-acetaminophen (NORCO) 7.5-325 mg tablet 2 tablet 2 tablet Oral Every 4 hours prn morphine preservative free injection solution (conc: 2 mg/mL) 2 mg 2 mg IV Every 3 hours prn omeprazole (priLOSEC) capsule 20 mg 20 mg Oral 1 time a day before breakfast 20 mg at 09/06/20 0532 sodium chloride 0.9% flush (adult) 10 mL 10 mL IV Daily and prn 10 mL at 09/04/20 0836 insulin aspart (NovoLOG) SQ correction scale (Adult) 2-12 Units Subcutaneous 3 times a day 2 Units at 09/04/20 1639 simvastatin (ZOCOR) tablet 40 mg 40 mg Oral at bedtime 40 mg at 09/05/202001 senna-docusate sodium (SENOKOT-S;PERICOLACE) tablet 2 tablet 2 tablet Oral 2 times a day prn And bisacodyl (DULCOLAX) suppository 10 mg 10 mg Rectal 1 time a day prn And docusate sodium (THEREVAC-SB MINI;ENEMEEZ MINI) 283 MG enema 1 enema 1 enema Rectal 1 time a day prn melatonin tablet 3 mg 3 mg Oral Bedtime prn 3 mg at 09/02/20 2324 acetaminophen (TYLENOL) tablet 1,000 mg 1,000 mg Oral Every 8 hours 1,000 mg at 09/06/20 1432 labetalol (NORMODYNE;TRANDATE) IV solution 20 mg 20 mg IV Every 3 hours prn 20 mg at 09/06/20 1327 hydrALAZINE (APRESOLINE) injection solution 20 mg 20 mg IV Every 3 hours prn 20 mg at 09/05/20 0315 LORazepam (ATIVAN) 2 mg/mL injection solution 2 mg 2 mg IV Every 2 hours prn 2 mg at 09/03/20 0245 cefepime (MAXIPIME) 2000 mg/20 mL in sterile water IV syringe 2,000 mg IV Every 8 hours 2,000 mg at 09/06/20 1309 metroNIDAZOLE (FLAGYL) IV piggyback in sodium chloride 0.79% (premix) 500 mg 500 mg IV Every 8 hours 500 mg at 09/06/20 1316 sodium chloride 0.9% flush (adult) 10 mL 10 mL IV 2 times a day and prn 10 mL at 09/04/202045 OBJECTIVE Current Vital Signs Temp: 98.1 F (36.7 C) BP: 159/78 Pulse: 80 O2 Device: Room Air O2 Flow Rate (L/min): 2 l/min Resp: 16 Pain Ratin (out of 10) Weight: 98 kg (216 lb 0.8 oz) SpO2: 93 % Vitals Min/Max Last 24 Hours Vital Signs Min/Max (last 24 hours) Flowsheet Row Name Min Max Temp 98.1 F (36.7 C) 98.8 F (37.1 C) BP: Systolic 137 191 BP: Diastolic 70 115 Pulse 74 102 Resp 16 18 SpO2 93 % 100 % MAP (mm Hg) 120 mm Hg 120 mm Hg Intake and Output Last 24 Hours 09/05 0700 - 09/06 0659 In: 1059 Out: 2450 Lines and Drains Patient Lines/Drains/Airways Status Active Lines Name: Placement date: Placement time: Site: Days: PICC Single Lumen Purple 09/02/20 1442 Basilic 4 Incision 07/15/20 Lower;Dorsal Head Incision 07/15/20 0858 Head 53 Incision 08/31/20 Upper;Dorsal;Right Head Incision 08/31/20 Head 6 Incision 09/03/20 Lower Head Incision 09/03/20 0816 Head 3 Physical Exam General Appearance: lying in bed, does not appear to be in acute distress Lungs: No use of accessory muscles of respiration, CTA lisset Heart: normal S1 S2, no pedal edema. Abdomen: soft, normal BS, non tender Neurological: alert, answering questions. Diagnostics and Labs Labs (Last day) 09/06/20 08 - 09/06/20 08 CBC 09/06/20 08 CBC WBC 4.0-11.0 (K/uL) 9.8 RBC 4.40-5.80 (M/uL) 3.84 Hemoglobin 13.5-17.5 (g/dL) 10.8 Hematocrit 40.0-50.0 (%) 33.5 MCV 80.0-98.0 (fL) 87.2 MCH 25.5-34.0 (pg) 28.1 MCHC 31.5-36.5 (g/dL) 32.2 RDW-CV 11.5-15.5 (%) 14.4 RDW-SD 35.5-50.0 (fl) 45.7 Platelet Count 140-400 (K/uL) 478 MPV 8.5-12.0 (fL) 8.0 09/06/20 08 - 09/06/20 08 CHEMISTRY 09/06/20 0810 09/06/20 08 CHEMISTRY Glucose 70-100 (mg/dL) 107 Sodium 135-145 (meq/L) 142 Potassium 3.5-5.3 (meq/L) 3.7 Chloride 99-110 (meq/L) 109 CO2 20-29 (meq/L) 23 Anion Gap with K 6-20 (meq/L) 14 BUN 6-22 (mg/dL) 4 Creatinine 0.80-1.30 (mg/dL) 0.64 BUN/Creatinine Ratio 10.0-25.0 6.3 Calcium 8.5-10.5 (mg/dL) 8.4 Corrected Calcium 8.5-10.5 (mg/dL) 9.6 Phosphorus 2.5-4.5 (mg/dL) 2.6 Magnesium 1.8-2.4 (mg/dL) 1.4 Albumin 3.5-5.0 (g/dL) 2.5 eGFR >=60 (mL/min/1.73m2) >90 eGFR Non- >=60 (mL/min/1.73m2) >90 09/06/20 0810 - 09/06/20 0810 DIFFERENTIAL 09/06/20 0810 DIFFERENTIAL Seg Neut Absolute 1.8-8.0 (K/uL) 6.9 Lymphocytes Absolute 0.8-4.1 (K/uL) 1.7 Monocytes Absolute 0.0-1.0 (K/uL) 0.7 Eosinophils Absolute 0.0-0.7 (K/uL) 0.3 Basophil Absolute 0.0-0.2 (K/uL) 0.1 Immature Granulocyte Absolute 0.00-0.06 (K/uL) 0.12 Neutrophils Percent (%) 70.6 Neutrophils Abs. (Segs and Bands) (/uL) 6,900 Lymphocytes Percent (%) 17.8 Monocytes Percent (%) 6.6 Immature Granulocyte Percent (%) 1.2 Eosinophils Percent (%) 3.3 Basophil Percent (%) 0.5 Nucleated RBC (/100 WBC's) 0 09/06/20 1727 - 09/05/20 2156 GLUCOSE POINT OF CARE 09/06/20 1727 09/06/20 1123 09/06/20 0513 09/05/20 2156 GLUCOSE POINT OF CARE Glucose POC 70-99 (mg/dL) 162 99 97 117 09/06/20 0810 - 09/06/20 0810 OTHER 09/06/20 0810 OTHER Age (Years) 60 Chidi Andrea PA-C - 09/07/2020 8:43 AM CDT Neurosurgery Progress Note Sandra Mansoor Johns is a 60yr old male admitted on 08/30/2020 and underwent PROJECT CONTROL ANALYST shunt removal and placement of right frontal EVD with Dr. Ruggiero for infection. Patient has a hx of resection of hemangioblastoma x 3 along with right PROJECT CONTROL ANALYST shunt placement and repair of pseudomeningocele. He subsequently left AMA and did not follow up. Came ot ER with wound drainage, fever, abscess near shunt catheter. Underwent a suboccipital washout on 09/03/2020. The EVD was subsequently pulled later in the day. S: Resting in bed No acute events overnight No complaints O: Vital Signs: Temp: 98.3 F (36.8 C) | BP: 167/94 | Pulse: 89 | Resp: 16 | Pain Ratin (out of 10) | Weight: 98 kg (216 lb 0.8 oz) | O2 Device: Room Air O2 Flow Rate (L/min): 2 l/min | SpO2: 94 % Physical Exam General: alert, no distress ENT: Swallowing intact Neuro: alert, oriented, normal speech Cranial Nerve Function Pupils: Equal, round, reactive to light Visual montoya: Full to confrontation Cranial nerves III, IV, (Extraocular movement): Extraocular movements intact, no nystagmus Cranial nerve V (Trigeminal): Normal facial sensation Cranial nerve VII (Facial): Normal strength and symmetry Cranial nerve VIII (Auditory): Intact to finger rub bilaterally Cranial nerve IX, X (Glossopharyngeal): Palate elevates symmetrically Cranial nerve XI (Spinal accessory): Trapezius and SCM with full strength bilaterally Cranial nerve XII (Hypoglossal): Tongue is midline on protrusion Upper Extremities: Right: Deltoid 5/5,bicep 5/5, tricep 5/5, wrist flexor 5/5, wrist extensor 5/5, hand intrinsic 5/5 Left: Deltoid 5/5,bicep 5/5, tricep 5/5, wrist flexor 5/5, wrist extensor 5/5, hand intrinsic 5/5 Sensation intact in bilateral upper extremities Lower Extremities: Right: Iliopsoas 5/5, quadricep 5/5, hamstring 5/5, DF 5/5, PF 5/5 Left: Iliopsoas 5/5, quadricep 5/5, hamstring 5/5, DF 5/5, PF 5/5 Sensation intact in bilateral L4-S1 dermatomes Wound: small amount of drainage of inferior portion of dressing, Nylon with oversew on inferior portion of wound. Well-approximated. Unable to express any drainage. No active drainage Labs 09/07/2020: WBC: 10.3 Hgb: 10.7 Na: 141 Radiology: Post op CT head 08/31/2020: Expected post surgical changes. Some vasogenic edema. Removal of PROJECT CONTROL ANALYST shunt. Head CT 09/06/2020: No significant enlargement in ventricles A: 4 Days Post-Op Status Post: Procedure(s): SUBOCCIPITAL WOUND WASH OUT, CRANIOPLASTY GERD Hypospadias DM2 Hyperlipidemia HTN Astigmatism Smoker S/p craniotomy P: Monitor incision closely for drainage. Care per primary Diet as tolerated Carmen 500 mg BID x 7 days (last dose 09/10/2020) Neuros every 4 hours ID following PT/OT consulted - had conversation with patient regarding importance of getting up with PT/OT from discharge standpoint. Patient not eager to work with PT/OT but understands importance. SCDs for DVT prophylaxis, okay for chemoprophylaxis from neurosurgery standpoint No plan for subsequent shunt placement, abx plan per ID. Please contact Jamar Andrea PA-C for any neurosurgical questions/concerns until 5pm; After 5pm please contact neurosurgery PA environmental programs specialist This patient was discussed with Dr. Ruggiero and he agrees with the assessment and plan. Saran Adams MD - 09/06/2020 7:58 PM CDT Images from the original note were not included. DAILY PROGRESS NOTE SUMMARY This is a 60-year-old gentleman with medical history significant for hypertension, diabetes, and history of hemangioblastoma, who is admitted to the hospital for management of infected PROJECT CONTROL ANALYST shunt. ASSESSMENT & PLAN #. 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 - Status post shunt removal and right frontal ventriculostomy placement on 08/31/2020. - On cefepime, vancomycin, and Flagyl per ID. - Status post suboccipital wound washout and cranioplasty on 09/03/2020. - EVD displaced by patient and subsequently removed by neurosurgery on 09/03/2020. - No fevers. No leukocytosis. Repeat head CT ordered by neurosurgery today. Further management per neurosurgery and ID. - On Keppra. - Pain control, bowel regimen, DVT prophylaxis per neurosurgery. #. Hypertension. Increase the dose of lisinopril. Currently needing prn labetalol and hydralazine. #. Diabetes. Blood glucose well controlled on the current insulin regimen. Glipizide and metforminon hold. - Home dose of aspirin restarted by Neuro ICU. #. Anemia. Hemoglobin stable around 10. #. Hypomagnesemia. Replace. #. GI prophylaxis. On PPI. #. DVT prophylaxis. On subcutaneous heparin. #. CODE STATUS. Full code per admission orders. Disposition: Per neurosurgery/ID recommendations. This note was created, at least in part, with the use of [employer] Voice Dictation System. Inadvertenttypographical errors, due to software recognition problems, may still exist. SUBJECTIVE/ROS At the time of my visit patient is lying in bed and appears comfortable. No chest pain. No shortness of breath. No abdomen pain. He asks if he will have surgery. Medications magnesium sulfate IV replacement (premix) 4 g 4 g IV 1 time 4 g at 09/06/20 1716 [START ON 09/07/2020] lisinopril (PRINIVIL, ZESTRIL) tablet 20 mg 20 mg Oral Daily levETIRAcetam (KEPPRA) tablet 500 mg 500 mg Oral 2 times a day 500 mg at 09/06/20 0811 vancomycin (VANCOCIN) 1,750 mg in sodium chloride 0.9% 500 mL (Locked) 1,750 mg IV Every 12 hours 1,750 mg at 09/06/20 1433 aspirin tablet 325 mg 325 mg Oral daily 325 mg at 09/06/20 0811 heparin (porcine) injection solution 5,000 Units 5,000 Units Subcutaneous Every 12 hours 5,000 Units at 09/06/20 0811 insulin glargine (LANTUS) SQ injection 30 Units Subcutaneous at bedtime 30 Units at 09/05/20 2307 sodium chloride 0.9% flush (adult) 10 mL 10 mL IV 2 times a day and prn 10 mL at 09/05/202004 sodium chloride 0.9% flush (adult) 10 mL 10 mL IV 2 times a day and prn 10 mL at 09/06/20 0813 sodium chloride 0.9% flush (adult) 10 mL 10 mL IV 2 times a day and prn 10 mL at 09/05/202003 acetaminophen (TYLENOL) tablet 650 mg 650 mg Oral Every 4 hours prn 650 mg at 09/04/20 181 nalOXone (NARCAN) injection solution (vial) 0.4 mg 0.4 mg Injection Every 2 minutes prn nalOXone (NARCAN) injection solution (vial) 0.2 mg 0.2 mg Injection Every 2 minutes prn senna-docusate sodium (SENOKOT-S;PERICOLACE) tablet 1 tablet 1 tablet Oral 2 times a day 1 tablet at 09/04/20 0835 docusate sodium (COLACE) capsule 100 mg 100 mg Oral 2 times a day 100 mg at 09/04/20 0834 polyethylene glycol (MIRALAX) packet 1 packet 1 packet Oral Daily 1 packet at 09/04/20 0835 lactulose oral solution (10 gm/15 mL) 30 mL 30 mL Oral Daily bisacodyl (DULCOLAX) suppository 10 mg 10 mg Rectal Daily ondansetron (ZOFRAN) injection solution 4 mg 4 mg IV Every 4 hours prn benzocaine-menthol (CEPACOL w/ BENZOCAINE) lozenge 1 lozenge 1 lozenge Mouth/Throat Every 4 hours prn 1 lozenge at 09/03/20 211 HYDROcodone-acetaminophen (NORCO) 7.5-325 mg tablet 1 tablet 1 tablet Oral Every 4 hours prn HYDROcodone-acetaminophen (NORCO) 7.5-325 mg tablet 2 tablet 2 tablet Oral Every 4 hours prn morphine preservative free injection solution (conc: 2 mg/mL) 2 mg 2 mg IV Every 3 hours prn omeprazole (priLOSEC) capsule 20 mg 20 mg Oral 1 time a day before breakfast 20 mg at 09/06/20 0532 sodium chloride 0.9% flush (adult) 10 mL 10 mL IV Daily and prn 10 mL at 09/04/20 0836 insulin aspart (NovoLOG) SQ correction scale (Adult) 2-12 Units Subcutaneous 3 times a day 2 Units at 09/04/20 1639 simvastatin (ZOCOR) tablet 40 mg 40 mg Oral at bedtime 40 mg at 09/05/202001 senna-docusate sodium (SENOKOT-S;PERICOLACE) tablet 2 tablet 2 tablet Oral 2 times a day prn And bisacodyl (DULCOLAX) suppository 10 mg 10 mg Rectal 1 time a day prn And docusate sodium (THEREVAC-SB MINI;ENEMEEZ MINI) 283 MG enema 1 enema 1 enema Rectal 1 time a day prn melatonin tablet 3 mg 3 mg Oral Bedtime prn 3 mg at 09/02/20 2324 acetaminophen (TYLENOL) tablet 1,000 mg 1,000 mg Oral Every 8 hours 1,000 mg at 09/06/20 1432 labetalol (NORMODYNE;TRANDATE) IV solution 20 mg 20 mg IV Every 3 hours prn 20 mg at 09/06/20 1327 hydrALAZINE (APRESOLINE) injection solution 20 mg 20 mg IV Every 3 hours prn 20 mg at 09/05/20 0315 LORazepam (ATIVAN) 2 mg/mL injection solution 2 mg 2 mg IV Every 2 hours prn 2 mg at 09/03/20 0245 cefepime (MAXIPIME) 2000 mg/20 mL in sterile water IV syringe 2,000 mg IV Every 8 hours 2,000 mg at 09/06/20 1309 metroNIDAZOLE (FLAGYL) IV piggyback in sodium chloride 0.79% (premix) 500 mg 500 mg IV Every 8 hours 500 mg at 09/06/20 1316 sodium chloride 0.9% flush (adult) 10 mL 10 mL IV 2 times a day and prn 10 mL at 09/04/202045 OBJECTIVE Current Vital Signs Temp: 98.1 F (36.7 C) BP: 159/78 Pulse: 80 O2 Device: Room Air O2 Flow Rate (L/min): 2 l/min Resp: 16 Pain Ratin (out of 10) Weight: 98 kg (216 lb 0.8 oz) SpO2: 93 % Vitals Min/Max Last 24 Hours Vital Signs Min/Max (last 24 hours) Flowsheet Row Name Min Max Temp 98.1 F (36.7 C) 98.8 F (37.1 C) BP: Systolic 137 191 BP: Diastolic 70 115 Pulse 74 102 Resp 16 18 SpO2 93 % 100 % MAP (mm Hg) 120 mm Hg 120 mm Hg Intake and Output Last 24 Hours 09/05 0700 - 09/06 0659 In: 1059 Out: 2450 Lines and Drains Patient Lines/Drains/Airways Status Active Lines Name: Placement date: Placement time: Site: Days: PICC Single Lumen Purple 09/02/20 1442 Basilic 4 Incision 07/15/20 Lower;Dorsal Head Incision 07/15/20 0858 Head 53 Incision 08/31/20 Upper;Dorsal;Right Head Incision 08/31/20 Head 6 Incision 09/03/20 Lower Head Incision 09/03/20 0816 Head 3 Physical Exam General Appearance: lying in bed, does not appear to be in acute distress Lungs: No use of accessory muscles of respiration, CTA lisset Heart: normal S1 S2, no pedal edema. Abdomen: soft, normal BS, non tender Neurological: alert, answering questions. Diagnostics and Labs Labs (Last day) 09/06/20809 - 09/06/20 08 CBC 09/06/20 08 CBC WBC 4.0-11.0 (K/uL) 9.8 RBC 4.40-5.80 (M/uL) 3.84 Hemoglobin 13.5-17.5 (g/dL) 10.8 Hematocrit 40.0-50.0 (%) 33.5 MCV 80.0-98.0 (fL) 87.2 MCH 25.5-34.0 (pg) 28.1 MCHC 31.5-36.5 (g/dL) 32.2 RDW-CV 11.5-15.5 (%) 14.4 RDW-SD 35.5-50.0 (fl) 45.7 Platelet Count 140-400 (K/uL) 478 MPV 8.5-12.0 (fL) 8.0 09/06/20 08 - 09/06/20 08 CHEMISTRY 09/06/20 0809/06/20 08 CHEMISTRY Glucose 70-100 (mg/dL) 107 Sodium 135-145 (meq/L) 142 Potassium 3.5-5.3 (meq/L) 3.7 Chloride 99-110 (meq/L) 109 CO2 20-29 (meq/L) 23 Anion Gap with K 6-20 (meq/L) 14 BUN 6-22 (mg/dL) 4 Creatinine 0.80-1.30 (mg/dL) 0.64 BUN/Creatinine Ratio 10.0-25.0 6.3 Calcium 8.5-10.5 (mg/dL) 8.4 Corrected Calcium 8.5-10.5 (mg/dL) 9.6 Phosphorus 2.5-4.5 (mg/dL) 2.6 Magnesium 1.8-2.4 (mg/dL) 1.4 Albumin 3.5-5.0 (g/dL) 2.5 eGFR >=60 (mL/min/1.73m2) >90 eGFR Non- >=60 (mL/min/1.73m2) >90 09/06/20 0810 - 09/06/20 0810 DIFFERENTIAL 09/06/20 0810 DIFFERENTIAL Seg Neut Absolute 1.8-8.0 (K/uL) 6.9 Lymphocytes Absolute 0.8-4.1 (K/uL) 1.7 Monocytes Absolute 0.0-1.0 (K/uL) 0.7 Eosinophils Absolute 0.0-0.7 (K/uL) 0.3 Basophil Absolute 0.0-0.2 (K/uL) 0.1 Immature Granulocyte Absolute 0.00-0.06 (K/uL) 0.12 Neutrophils Percent (%) 70.6 Neutrophils Abs. (Segs and Bands) (/uL) 6,900 Lymphocytes Percent (%) 17.8 Monocytes Percent (%) 6.6 Immature Granulocyte Percent (%) 1.2 Eosinophils Percent (%) 3.3 Basophil Percent (%) 0.5 Nucleated RBC (/100 WBC's) 0 09/06/20 1727 - 09/05/20 2156 GLUCOSE POINT OF CARE 09/06/20 1727 09/06/20 1123 09/06/20 0513 09/05/20 2156 GLUCOSE POINT OF CARE Glucose POC 70-99 (mg/dL) 162 99 97 117 09/06/20 0810 - 09/06/20 0810 OTHER 09/06/20 0810 OTHER Age (Years) 60 Chidi Andrea PA-C - 09/06/2020 10:33 AM CDT Neurosurgery Progress Note Sandra Mansoor Johns is a 60yr old male admitted on 08/30/2020 and underwent PROJECT CONTROL ANALYST shunt removal and placement of right frontal EVD with Dr. Ruggiero for infection. Patient has a hx of resection of hemangioblastoma x 3 along with right PROJECT CONTROL ANALYST shunt placement and repair of pseudomeningocele. He subsequently left AMA and did not follow up. Came ot ER with wound drainage, fever, abscess near shunt catheter. Underwent a suboccipital washout on 09/03/2020. The EVD was subsequently pulled later in the day. S: Resting in bed No acute events overnight No complaints O: Vital Signs: Temp: 98.1 F (36.7 C) | BP: 137/70 | Pulse: 74 | Resp: 16 | Pain Ratin (out of 10) | Weight: 98 kg (216 lb 0.8 oz) | O2 Device: Room Air O2 Flow Rate (L/min): 2 l/min | SpO2: 93 % Physical Exam General: alert, no distress ENT: Swallowing intact Neuro: alert, oriented, normal speech Cranial Nerve Function Pupils: Equal, round, reactive to light Visual montoya: Full to confrontation Cranial nerves III, IV, (Extraocular movement): Extraocular movements intact, no nystagmus Cranial nerve V (Trigeminal): Normal facial sensation Cranial nerve VII (Facial): Normal strength and symmetry Cranial nerve VIII (Auditory): Intact to finger rub bilaterally Cranial nerve IX, X (Glossopharyngeal): Palate elevates symmetrically Cranial nerve XI (Spinal accessory): Trapezius and SCM with full strength bilaterally Cranial nerve XII (Hypoglossal): Tongue is midline on protrusion Upper Extremities: Right: Deltoid 5/5,bicep 5/5, tricep 5/5, wrist flexor 5/5, wrist extensor 5/5, hand intrinsic 5/5 Left: Deltoid 5/5,bicep 5/5, tricep 5/5, wrist flexor 5/5, wrist extensor 5/5, hand intrinsic 5/5 Sensation intact in bilateral upper extremities Lower Extremities: Right: Iliopsoas 5/5, quadricep 5/5, hamstring 5/5, DF 5/5, PF 5/5 Left: Iliopsoas 5/5, quadricep 5/5, hamstring 5/5, DF 5/5, PF 5/5 Sensation intact in bilateral L4-S1 dermatomes Wound: small amount of drainage of inferior portion of dressing, Nylon with oversew on inferior portion of wound. Well-approximated. Unable to express any drainage. No active drainage Labs 09/06/2020: WBC: 9.8 Hgb: 10.8 Na: 142 Radiology: Post op CT head 08/31/2020: Expected post surgical changes. Some vasogenic edema. Removal of PROJECT CONTROL ANALYST shunt. A: 3 Days Post-Op Status Post: Procedure(s): SUBOCCIPITAL WOUND WASH OUT, CRANIOPLASTY GERD Hypospadias DM2 Hyperlipidemia HTN Astigmatism Smoker S/p craniotomy P: Monitor incision closely for drainage. Head CT today Care per primary Diet as tolerated Keppra 500 mg BID x 7 days (last dose 09/10/2020) Neuros every 4 hours ID following PT/OT consulted SCDs for DVT prophylaxis, okay for chemoprophylaxis from neurosurgery standpoing Please contact Jamar Andrea PA-C for any neurosurgical questions/concerns until 5pm; After 5pm please contact neurosurgery PA environmental programs specialist This patient was discussed with Dr. Ruggiero and he agrees with the assessment and plan. 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 PROJECT CONTROL ANALYST shunt and deep cranial infection:continue with the current IV antibiotics, the cefepime,vancomycin and the flagyl. Operative cultures non directive, so will need the broad, empiric regimen continued. PROJECT CONTROL ANALYST shunt removed and externalized. Had EVD drain, which patient self removed. Currently day #6/14 day course. abx for the infected shunt complete on 09/14, so can have shunt replaced after that if needed. Will need six weeks total for the infection in the posterior fossa. The collection at the distal terminus too small to aspirate, so should repeat a CT scan of the abdomen prior to re-inserting the shunt to ensure resolution. will need suppression as hardware in place.will needplacement to complete his abx. 2. Thank you. Following. Interval History Sandra Johns is seen in f/u Remains afebrile. Had wound washout and cranioplasty on Sunday. Pulled EVD out over w/e. Denies pain, headache, N/V. Just wants to be left alone to sleep Rest of ROS as above otherwise (-) Antibiotics Antibiotics: Antibiotics (From admission, onward) Start Stop Route Frequency Ordered 09/05/20 1430 vancomycin (VANCOCIN) 1,750 mg in sodium chloride 0.9% 500 mL (Locked) -- IV Every twelve hours 09/05/20 1401 09/04/20 0200 vancomycin (VANCOCIN) 2,000 mg in sodium chloride 0.9% 500 mL (Locked) Status: Discontinued 09/05 1401 IV Every twelve hours 09/03/20 1441 09/03/20 1545 vancomycin (VANCOCIN) 500 mg in sodium chloride 0.9% 100 mL 09/03 1726 IV One time 09/03/20 1441 09/03/20 0925 ceFAZolin (ANCEF) 2000 mg/20 mL sterile water IV syringe (ceFAZolin (ANCEF) 2 g IV (for patient weight 120 kg OR LESS or weight NOT available)) Status: Discontinued 09/03 0933 IV Give in OR 09/03/20 0924 08/31/20 214 vancomycin (VANCOCIN) 1,000 mg in sodium chloride irrigation 0.9 % 1,000 mL OR Irrigation Status: Discontinued 08/31 2247 INTRAOP 08/31/20 2148 08/30/20 2100 cefepime (MAXIPIME) 2000 mg/20 mL in sterile water IV syringe -- IV Every eight hours 08/30/20 1531 08/30/20 2100 metroNIDAZOLE (FLAGYL) IV piggyback in sodium chloride 0.79% (premix) 500 mg -- IV Every eight hours 08/30/20 1535 08/30/20 1430 vancomycin (VANCOCIN) 2,000 mg in sodium chloride 0.9% 500 mL (Locked) 08/30 1648 IV One time 08/30/20 1328 08/30/20 1330 cefepime (MAXIPIME) 2000 mg/20 mL in sterile water IV syringe (ED - Emergency Department Antibiotics) 08/30 1338 IV Now 08/30/20 1327 08/30/20 1330 metroNIDAZOLE (FLAGYL) IV piggyback in sodium chloride 0.79% (premix) 500 mg (ED - Emergency Department Antibiotics) 08/30 1442 IV Now 08/30/20 1327 08/30/20 1330 ED STAT 1x VANCOMYCIN DOSE ADJUST (ED - Emergency Department Antibiotics) Status:Discontinued 08/30 1328 IV Now 08/30/20 1327 08/30/20 0130 vancomycin (VANCOCIN) 1,500 mg in sodium chloride 0.9% 250 mL (Locked) Status: Discontinued 09/03 1441 IV Every twelve hours 08/30/20 1540 Physical Exam Current Vital Signs Temp: 98.1 F (36.7 C) BP: 137/70 Pulse: 74 O2 Device: Room Air O2 Flow Rate (L/min): 2 l/min Resp: 16 Pain Ratin (out of 10) Weight: 98 kg (216 lb 0.8 oz) SpO2: 93 % Maximum Temperatures (last 24 hours) Temperature Maximum Max Temp 98.8 F (37.1 C) Physical Exam Constitutional: General: He is not in acute distress. HENT: Head: Comments: Incisions right temporal area c/d/i Cardiovascular: Rate and Rhythm: Normal rate and regular rhythm. Heart sounds: No murmur heard. Pulmonary: Effort: No respiratory distress. Breath sounds: Normal breath sounds. No wheezing or rales. Abdominal: General: Bowel sounds are normal. Palpations: Abdomen is soft. Neurological: Mental Status: He is alert. Mental status is at baseline. Labs and Imaging reviewed Lab Results Component Value Date WBC 9.8 09/06/2020 NUCRBC 0 09/06/2020 RBC 3.84 (L) 09/06/2020 HEMOGLOBIN 10.8 (L) 09/06/2020 HEMATOCRIT 33.5 (L) 09/06/2020 MCV 87.2 09/06/2020 MCH 28.1 09/06/2020 MCHC 32.2 09/06/2020 PLTCOUNT 478 (H) 09/06/2020 NEUTROPCT 70.6 09/06/2020 LYMPHSPCT 17.8 09/06/2020 MONOSPCT 6.6 09/06/2020 EOSPCT 3.3 09/06/2020 BASOPHILPCT 0.5 09/06/2020 Lab Results Component Value Date ALBUMIN 2.5 (L) 09/06/2020 BILITOTAL 0.4 08/30/2020 CA 8.4 (L) 09/06/2020 CL 109 09/06/2020 CREATSERUM 0.64 (L) 09/06/2020 GLUCOSE 107 (H) 09/06/2020 ALKPHOS 220 (H) 08/30/2020 POTASSIUM 3.7 09/06/2020 NA 142 09/06/2020 AST 30 08/30/2020 BUN 4 (L) 09/06/2020 PROTEINTOTAL 6.3 08/30/2020 CO2 23 09/06/2020 ALT 42 08/30/2020 Lab Results Component Value Date ESR 74 (H) 08/30/2020 Lab Results Component Value Date CRP 201.6 (H) 08/30/2020 Medical Decision Making I have reviewed all the new labs, x-rays, pertinent microbiology, and provider notes from the last 24 hours. Mignon Adrian, PHARM D - 09/05/2020 2:02 PM CDT Mr. Johns continues on Vancomycin per pharmacy protocol for [employer] infection. Labs: WBC Date/Time Value Ref Range Status 09/05/2020 10:08 AM 9.9 4.0 - 11.0 K/uL Final 09/04/2020 08:02 AM 13.5 (H) 4.0 - 11.0 K/uL Final 09/03/2020 06:13 AM 10.7 4.0 - 11.0 K/uL Final 07/28/2020 03:55 PM 17.3 (H) 4.0 - 11.0 K/uL Final 02/14/2019 09:07 AM 8.1 4.0 - 11.0 K/uL Final 11/21/2017 08:44 AM 11.2 (H) 4.0 - 11.0 K/uL Final Lab Results Component Value Date CREATSERUM 0.66 (L) 09/05/2020 CREATSERUM 0.67 (L) 09/04/2020 CREATSERUM 0.62 (L) 09/03/2020 Vancomycin Trough Date/Time Value Ref Range Status 09/05/2020 01:38 PM 20.2 (H) 10.0 - 20.0 ug/mL Final Cultures: Lab Results Component Value Date CULTGROWTH No growth 09/01/2020 Max Temperature: Temp (24hrs), Av.3 F (36.8 C), Min:98 F (36.7 C), Max:98.6 F (37 C) Estimated CrCl: Estimated Creatinine Clearance: 129 mL/min (A) (based on SCr of 0.66 mg/dL (L)). ml/min Intake/Output: Intake/Output Summary (Last 24 hours) at 09/05/2020 1402 Last data filed at 09/05/2020 1200 Gross per 24 hour Intake 1586 ml Output 2075 ml Net -489 ml Other Active Antimicrobials: Antibiotics (From admission, onward) Start Stop Route Frequency Ordered 09/05/20 1430 vancomycin (VANCOCIN) 1,750 mg in sodium chloride 0.9% 500 mL (Locked) -- IV Every twelve hours 09/05/20 1401 09/04/20 0200 vancomycin (VANCOCIN) 2,000 mg in sodium chloride 0.9% 500 mL (Locked) Status: Discontinued 09/05 1401 IV Every twelve hours 09/03/20 1441 09/03/20 1545 vancomycin (VANCOCIN) 500 mg in sodium chloride 0.9% 100 mL 09/03 1726 IV One time 09/03/20 1441 09/03/20 0925 ceFAZolin (ANCEF) 2000 mg/20 mL sterile water IV syringe (ceFAZolin (ANCEF) 2 g IV (for patient weight 120 kg OR LESS or weight NOT available)) Status: Discontinued 09/03 0933 IV Give in OR 09/03/20 0924 08/31/20 2147 vancomycin (VANCOCIN) 1,000 mg in sodium chloride irrigation 0.9 % 1,000 mL OR Irrigation Status: Discontinued 08/31 2247 INTRAOP 08/31/20 2148 08/30/20 2100 cefepime (MAXIPIME) 2000 mg/20 mL in sterile water IV syringe -- IV Every eight hours 08/30/20 1531 08/30/20 2100 metroNIDAZOLE (FLAGYL) IV piggyback in sodium chloride 0.79% (premix) 500 mg -- IV Every eight hours 08/30/20 1535 08/30/20 1430 vancomycin (VANCOCIN) 2,000 mg in sodium chloride 0.9% 500 mL (Locked) 08/30 1648 IV One time 08/30/20 1328 08/30/20 1330 cefepime (MAXIPIME) 2000 mg/20 mL in sterile water IV syringe (ED - Emergency Department Antibiotics) 08/30 1338 IV Now 08/30/20 1327 08/30/20 1330 metroNIDAZOLE (FLAGYL) IV piggyback in sodium chloride 0.79% (premix) 500 mg (ED - Emergency Department Antibiotics) 08/30 1442 IV Now 08/30/20 1327 08/30/20 1330 ED STAT 1x VANCOMYCIN DOSE ADJUST (ED - Emergency Department Antibiotics) Status:Discontinued 08/30 1328 IV Now 08/30/20 1327 08/30/20 0130 vancomycin (VANCOCIN) 1,500 mg in sodium chloride 0.9% 250 mL (Locked) Status: Discontinued 09/03 1441 IV Every twelve hours 08/30/20 1540 Assessment/Plan: The trough level is higher than the desired goal of 15-20 mg/L. Vancomycin will be changed to 1750 q12 dose/interval. Pharmacy will continue to monitor per the pharmacokinetic service policy. Mignon Adrian, PHARM D Zev Cortez PA-C - 09/05/2020 1:14 PM CDT Neurosurgery Progress Note Sandra Mansoor Johns is a 60yr old male admitted on 08/30/2020 and underwent PROJECT CONTROL ANALYST shunt removal and placement of right frontal EVD with Dr. Ruggiero for infection. Patient has a hx of resection of hemangioblastoma x 3 along with right PROJECT CONTROL ANALYST shunt placement and repair of pseudomeningocele. He subsequently left AMA and did not follow up. Came ot ER with wound drainage, fever, abscess near shunt catheter. Underwent a suboccipital washout on 09/03/2020. The EVD was subsequently pulled later in the day. S: Resting in bed No acute events overnight No complaints O: Vital Signs: Temp: 98.6 F (37 C) | BP: 150/91 | Pulse: 83 | Resp: 18 | Pain Rating: Other (specify) (Sleeping) (out of 10) | Weight: 98 kg (216 lb 0.8 oz) | O2 Device: Room Air O2 Flow Rate (L/min): 2 l/min | SpO2: 91 % Physical Exam General: alert, no distress ENT: Swallowing intact Neuro: alert, oriented, normal speech Cranial Nerve Function Pupils: Equal, round, reactive to light Visual montoya: Full to confrontation Cranial nerves III, IV, (Extraocular movement): Extraocular movements intact, no nystagmus Cranial nerve V (Trigeminal): Normal facial sensation Cranial nerve VII (Facial): Normal strength and symmetry Cranial nerve VIII (Auditory): Intact to finger rub bilaterally Cranial nerve IX, X (Glossopharyngeal): Palate elevates symmetrically Cranial nerve XI (Spinal accessory): Trapezius and SCM with full strength bilaterally Cranial nerve XII (Hypoglossal): Tongue is midline on protrusion Upper Extremities: Right: Deltoid 5/5,bicep 5/5, tricep 5/5, wrist flexor 5/5, wrist extensor 5/5, hand intrinsic 5/5 Left: Deltoid 5/5,bicep 5/5, tricep 5/5, wrist flexor 5/5, wrist extensor 5/5, hand intrinsic 5/5 Sensation intact in bilateral upper extremities Lower Extremities: Right: Iliopsoas 5/5, quadricep 5/5, hamstring 5/5, DF 5/5, PF 5/5 Left: Iliopsoas 5/5, quadricep 5/5, hamstring 5/5, DF 5/5, PF 5/5 Sensation intact in bilateral L4-S1 dermatomes Wound: Nylon. Well-approximated. Suboccipital wound is draining small amount of serosanguinous drainage from inferior most aspect of incision, dressing completely soaked Cleaned wound, injected 4 cc lidocaine 1% with epi 1:100,000 subcutaneously. 2-0 nylon running suture placed aseptically at area of drainage. Patient tolerated procedure well. Drainage ceased. Mepilex dressing applied. Labs 09/05/2020: WBC: 9.9 Hgb: 10.5 Na: 143 Radiology: Post op CT head 08/31/2020: Expected post surgical changes. Some vasogenic edema. Removal of PROJECT CONTROL ANALYST shunt. A: 2 Days Post-Op Status Post: Procedure(s): SUBOCCIPITAL WOUND WASH OUT, CRANIOPLASTY GERD Hypospadias DM2 Hyperlipidemia HTN Astigmatism Smoker S/p craniotomy P: Monitor incision for drainage. Head CT ordered, please complete Sunday AM Care per primary Diet as tolerated Keppra 500 mg BID x 7 days (last dose 09/10/2020) Okay for floor status Neuros every 4 hours ID following PT/OT consulted SCDs for DVT prophylaxis, okay for chemoprophylaxis from neurosurgery standpoing Please contact Zev Bowman PA-C for any neurosurgical questions/concerns until 5pm; After 5pm please contact neurosurgery PA environmental programs specialist This patient was discussed with Dr. Ruggiero and he agrees with the assessment and plan. NIATReji Olvera MelanieREMY-TRAIN GATEMAN - 09/05/2020 8:44 AM CDT Neuro Critical Care Progress Note Chief Complaint: s/p post suboccipital wound washout and cranioplasty History of present illness: Sandra Johns is a 60 y/o male with a past medical history significant for diabetes mellitus, essential hypertension, hyperlipidemia, and hemangioblastoma s/p resection x 3 (last surgery on 07/15), s/p right PROJECT CONTROL ANALYST shunt, repair of pseudomeningocele, pt left AMA several times, came in 08/30 with deep cranial i nfection and an infected PROJECT CONTROL ANALYST shunt, intra abdominal abcess, and sepsis. Patient was seen by ID and started on abx. On 08/31 s/p PROJECT CONTROL ANALYST shunt removal and placement of EVD under GA. Pt was subsequently extubated 09/01. On 09/03/2020 pt was taken back to the OR and is now s/p suboccipital wound washout and cranioplasty. 09/03: EVD displaced by pt and it was subsequently removed by neurosurgery. Interval History: Patient seen and evaluated this morning. Hemodynamically stable, no acute events overnight. Oxygenating well on RA. Neurologically unchanged, non focal neuro exam. Tolerating diet. Voiding. 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) Pneumonia Pseudomeningocele Past Surgical History: Procedure Laterality Date CRANIECTOMY EXC TUMOR INFRATENTRIAL POSTR FOSSA CEREBELLOPONTINE ANGLE [id number] CRANIOTOMY N/A 08/31/2017 Procedure: 15 MRI SUBOCCIPITAL CRANIOTOMY FOR TUMOR WITH STEALTH NAVIGATION;; Surgeon: Terrell Ruggiero MD CRANIOTOMY N/A 07/15/2020 Procedure: SUBOCCIPITAL CRANIOTOMY W/ AWAKE ARTERIAL LINE;; Surgeon: Terrell Ruggiero MD DEBRIDEMENT PROCEDURE Bilateral 09/04/2017 Procedure: SUBOCCIPITAL WOUND REVISION;; Surgeon: Terrell Ruggiero MD TEETH EXTRACTION VENTRICULOSTOMY Right 08/31/2020 Procedure: RIGHT VENTRICULOPERITONEAL SHUNT REMOVAL AND RIGHT FRONTAL VENTRICULOSTOMY PLACEMENT;; Surgeon: Terrell Ruggiero MD PROJECT CONTROL ANALYST & VA SHUNTS Right 11/20/2017 Procedure: RIGHT FRONTAL VENTRICULAR PERITONEAL SHUNT INSERTION, ASPIRATION OF PSEUDOMENINGOCELE;;Surgeon: Terrell Ruggiero MD Prior to Admission medications Medication Sig Start Date End Date Taking? Authorizing Provider aspirin 325 mg tablet Take 325 mg by mouth 1 time per day Yes Provider, Abstract LANTUS SOLOSTARE subcutaneous injection solution (pen) INJECT 50 UNITS SUBCUTANEOUSLY EVERY NIGHT ATBEDTIME MAX DAILY DOSE-50 UNITS 08/09/20 Yes Dejuan Simon MD metFORMIN (GLUCOPHAGE) 500 MG tablet TAKE 1 TABLET BY MOUTH TWICE A DAY WITH MEALS 03/30/20 Yes Dejuan Simon MD simvastatin (ZOCOR) 80 mg tablet TAKE 1/2 TABLET BY MOUTH DAILY GENERIC FOR ZOCOR 02/09/20 Yes Dejuan Simon MD tadalafil (CIALIS) 10 MG tablet Take 1 tablet (10 mg) by mouth 1 time a day as needed for other (Specify) (ED) Take prior to anticipated sexual activity. 10/14/19 Yes Dejuan Simon MD omeprazole (PRILOSEC) 20 mg capsule TAKE 1 CAPSULE BY MOUTH DAILY EVERY MORNING 10/14/19 Yes Dejuan Simon MD glipiZIDE (GLUCOTROL) 10 mg tablet Take 1 tablet (10 mg) by mouth 1 time a day with breakfast 10/14/19 Yes Dejuan Simon MD multivitamin (CENTRUM SILVER) tablet Take 1 tablet by mouth 1 time per day. Yes Provider, Abstract insulin needle (ULTICARE SHORT PEN NEEDLES) 31G X 8 mm (16") Short Use once daily with Lantus E11.9 12/18/19 Dejuan Simon MD lisinopril (PRINIVIL, ZESTRIL) 20 mg tablet Take 1 tablet (20 mg) by mouth 1 time per day Patient not taking: Reported on 08/30/2020 10/14/19 Dejuan Simon MD No Known Allergies Social History Tobacco Use Smoking status: Current Every Day Smoker Packs/day: 1.00 Years: 45.00 Pack years: 45.00 Types: Cigarettes Smokeless tobacco: Never Used Tobacco comment: 08/31/20: 0.5 PPD Substance Use Topics Alcohol use: Not Currently Comment: 12 pack at least every week Family History Problem Relation Age of Onset Other Father Pneumonia Negative Mother Breast Cancer Mother Diabetes Cousin Breast Cancer Maternal Grandmother Blindness Neg Hx Cataracts Neg Hx Glaucoma Neg Hx Macular Degeneration Neg Hx PHYSICAL EXAMINATION: Temp: 98.6 F (37 C) BP: 146/77 Pulse: 89 O2 Device: Room Air O2 Flow Rate (L/min): 2 l/min Resp: 17 Pain Ratin (out of 10) Weight: 98 kg (216 lb 0.8 oz) SpO2: 90 % Maximum Temperatures (last 24 hours) Temperature Maximum Max Temp 98.6 F (37 C) General: Laying bed, no current distress. HEENT: Pupils equal and reactive; conjunctiva and lids unremarkable. Sclera anicteric. Old EVD site CDI. Neck: Supple. No masses or thyromegaly. Trachea midline. Resp: Clear lung sounds bilaterally. Regular respiratory rate and effort. CV: Regular rhythm, normal rate. No murmurs or extra sounds auscultated. Abdomen: incision noted, Soft, non-tender, non-distended. No guarding, no rigidity, no rebound. Ext: No lower extremity edema or varicosities, pulses positive Skin: No rashes, lesions, or subcutaneous nodules, no petechiae. Neuro: Alert, oriented x 4. Pupils PERRL. EOM intact. Speech clear. Following all commands. Strength5/5 in all four extremities. Sensation intact. Lines: PIV LABS: Lab Results Component Value Date WBC 13.5 (H) 09/04/2020 NUCRBC 0 09/04/2020 RBC 3.65 (L) 09/04/2020 HEMOGLOBIN 10.3 (L) 09/04/2020 HEMATOCRIT 31.5 (L) 09/04/2020 MCV 86.3 09/04/2020 MCH 28.2 09/04/2020 MCHC 32.7 09/04/2020 PLTCOUNT 471 (H) 09/04/2020 NEUTROPCT 78.9 09/04/2020 LYMPHSPCT 12.9 09/04/2020 MONOSPCT 5.8 09/04/2020 EOSPCT 1.0 09/04/2020 BASOPHILPCT 0.4 09/04/2020 Lab Results Component Value Date GLUCOSE 151 (H) 09/05/2020 BUN 10 09/04/2020 CREATSERUM 0.67 (L) 09/04/2020 BCRATIO 14.9 09/04/2020 NA 141 09/04/2020 POTASSIUM 3.7 09/04/2020 CL 112 (H) 09/04/2020 CO2 21 09/04/2020 CA 8.2 (L) 09/04/2020 PROTEINTOTAL 6.3 08/30/2020 ALBUMIN 2.5 (L) 09/03/2020 ALKPHOS 220 (H) 08/30/2020 AST 30 08/30/2020 ALT 42 08/30/2020 BILITOTAL 0.4 08/30/2020 CT head: 09/03/20 1. The tip of the right frontal ventriculostomy catheter is in the scalp. Ventricular system has slightly increased in size compared to the prior exam. 2. Interval postsurgical changes of washout of the suboccipital craniotomy/cranioplasty. Previously seen extracranial fluid collection has nearly completely resolved with ill-defined foci of fluid and air about the cranioplasty. 3. Nonspecific ill-defined fluid/edema in the right temporal scalp. 4. Similar appearance of low density surgical cavity in the central/left cerebellum consistent with tumor resection. Relevant diagnostic, laboratory and radiological studies have been reviewed in the Electronic Medical Record. 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 Infected PROJECT CONTROL ANALYST shunt 3. Intracranial and intra abdominal abscess 4. S/p shunt removal and EVD placement 5. Status post washout and cranioplasty 6. Sepsis 7. Delirium 8. Hypomagnesemia 9. History of Diabetes mellitus type 2 ASSESSMENT & PLAN Hemodynamics: Hemodynamically unstable, on inotropic support. Keep SBP 100-160 PRN labetalol and hydralazine available MICROSOFT DEVELOPER: S/P removal of infected PROJECT CONTROL ANALYST shunt and placement of EVD, status post suboccipital wound washout and cranioplasty on 09/03 EVD displaced by pt and subsequently removed on 09/03 Continue antibiotics as per ID closely monitor neuro status Continue aspirin 325 mg daily per home regimen Continue Keppra 500 mg twice a day for seizure prophylaxis (last dose 09/10) STAT head CT for any change in neuro exam Continue neuro exams as ordered Cardiovascular: Normal sinus rhythm, no current issues. History of hyperlipidemia - continue Zocor 40 mg daily Pulmonary: Extubated 09/01, adequate oxygenation on RA. Keep SpO2 > 92%. Infectious Diseases: Sepsis, abx per ID, vancomycin, cefepime, flagyl CSF and OR cultures remain negative. Patient will be needing needing 6 weeks of antibiotics - appreciate ID follow-up and recommendations Renal/Fluids/Elecrlytes and Metabolic: Stable kidney functions, will monitor urine output, electrolytes and kidney functions Replace electrolytes per critical care protocol. Hematology: Anemia secondary to acute illness stable. Hgb stable. No signs of bleeding. GI: No active issues - tolerating diet. Bowel regimen as ordered. Endocrine: History of diabetes mellitus type 2. Blood sugar is monitored as per critical care protocol and patient is on insulin sliding scale. Continue scheduled Lantus Health Maintenance: Continue Omeprazole for stress ulcer prophylaxis and SCD for DVT prophylaxis. OT/PT and speech ordered. Critical care time spent with this patient for evaluation, assessment and management of the above problems is 37 minutes not including procedure time. This patient was discussed with Dr. Reeves, he agrees with the assessment and plan [facility] NIATMelanie Pruitt APRN-CNP - 09/04/2020 12:52 PM CDT Neuro Critical Care Progress Note Chief complaint: s/p post suboccipital wound washout and cranioplasty History of present illness: Sandra Johns is a 60 y/o male with a past medical history significant for diabetes mellitus, essential hypertension, hyperlipidemia, and hemangioblastoma s/p resection x 3 (last surgery on 07/15), s/p right PROJECT CONTROL ANALYST shunt, repair of pseudomeningocele, pt left AMA several times, came in 08/30 with deep cranial i nfection and an infected PROJECT CONTROL ANALYST shunt, intra abdominal abcess, and sepsis. Patient was seen by ID and started on abx. On 08/31 s/p PROJECT CONTROL ANALYST shunt removal and placement of EVD under GA. Pt was subsequently extubated 09/01. On 09/03/2020 pt was taken back to the OR and is now s/p suboccipital wound washout and cranioplasty. 09/03: EVD displaced by pt and it was subsequently removed by neurosurgery. Interval History: Patient seen and evaluated this morning. No acute events overnight, hemodynamically stable, oxygenating well on RA. SBP < 160. Alert, oriented x 4, following commands in all four extremities. 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) Pneumonia Pseudomeningocele Past Surgical History: Procedure Laterality Date CRANIECTOMY EXC TUMOR INFRATENTRIAL POSTR FOSSA CEREBELLOPONTINE ANGLE [id number] CRANIOTOMY N/A 08/31/2017 Procedure: 15 MRI SUBOCCIPITAL CRANIOTOMY FOR TUMOR WITH STEALTH NAVIGATION;; Surgeon: Terrell Ruggiero MD CRANIOTOMY N/A 07/15/2020 Procedure: SUBOCCIPITAL CRANIOTOMY W/ AWAKE ARTERIAL LINE;; Surgeon: Terrell Ruggiero MD DEBRIDEMENT PROCEDURE Bilateral 09/04/2017 Procedure: SUBOCCIPITAL WOUND REVISION;; Surgeon: Terrell Ruggiero MD TEETH EXTRACTION VENTRICULOSTOMY Right 08/31/2020 Procedure: RIGHT VENTRICULOPERITONEAL SHUNT REMOVAL AND RIGHT FRONTAL VENTRICULOSTOMY PLACEMENT;; Surgeon: Terrell Ruggiero MD PROJECT CONTROL ANALYST & VA SHUNTS Right 11/20/2017 Procedure: RIGHT FRONTAL VENTRICULAR PERITONEAL SHUNT INSERTION, ASPIRATION OF PSEUDOMENINGOCELE;;Surgeon: Terrell Ruggiero MD Prior to Admission medications Medication Sig Start Date End Date Taking? Authorizing Provider aspirin 325 mg tablet Take 325 mg by mouth 1 time per day Yes Provider, Abstract LANTUS SOLOSTARE subcutaneous injection solution (pen) INJECT 50 UNITS SUBCUTANEOUSLY EVERY NIGHT ATBEDTIME MAX DAILY DOSE-50 UNITS 08/09/20 Yes Dejuan Simon MD metFORMIN (GLUCOPHAGE) 500 MG tablet TAKE 1 TABLET BY MOUTH TWICE A DAY WITH MEALS 03/30/20 Yes Dejuan Simon MD simvastatin (ZOCOR) 80 mg tablet TAKE 1/2 TABLET BY MOUTH DAILY GENERIC FOR ZOCOR 02/09/20 Yes Dejuan Simon MD tadalafil (CIALIS) 10 MG tablet Take 1 tablet (10 mg) by mouth 1 time a day as needed for other (Specify) (ED) Take prior to anticipated sexual activity. 10/14/19 Yes Dejuan Simon MD omeprazole (PRILOSEC) 20 mg capsule TAKE 1 CAPSULE BY MOUTH DAILY EVERY MORNING 10/14/19 Yes Dejuan Simon MD glipiZIDE (GLUCOTROL) 10 mg tablet Take 1 tablet (10 mg) by mouth 1 time a day with breakfast 10/14/19 Yes Dejuan Simon MD multivitamin (CENTRUM SILVER) tablet Take 1 tablet by mouth 1 time per day. Yes Provider, Abstract insulin needle (ULTICARE SHORT PEN NEEDLES) 31G X 8 mm (516") Short Use once daily with Lantus E11.9 12/18/19 Dejuan Simon MD lisinopril (PRINIVIL, ZESTRIL) 20 mg tablet Take 1 tablet (20 mg) by mouth 1 time per day Patient not taking: Reported on 08/30/2020 10/14/19 Dejuan Simon MD No Known Allergies Social History Tobacco Use Smoking status: Current Every Day Smoker Packs/day: 1.00 Years: 45.00 Pack years: 45.00 Types: Cigarettes Smokeless tobacco: Never Used Tobacco comment: 08/31/20: 0.5 PPD Substance Use Topics Alcohol use: Not Currently Frequency: Monthly or less Comment: 12 pack at least every week Family History Problem Relation Age of Onset Other Father Pneumonia Negative Mother Breast Cancer Mother Diabetes Cousin Breast Cancer Maternal Grandmother Blindness Neg Hx Cataracts Neg Hx Glaucoma Neg Hx Macular Degeneration Neg Hx PHYSICAL EXAMINATION: Temp: 96.4 F (35.8 C) BP: 119/72 Pulse: 78 O2 Device: Room Air O2 Flow Rate (L/min): 2 l/min Resp: 22 Pain Ratin (out of 10) Weight: 98 kg (216 lb 0.8 oz) SpO2: 93 % Maximum Temperatures (last 24 hours) Temperature Maximum Max Temp 98.2 F (36.8 C) General: Laying in bed. No current distress. HEENT: Pupils equal and reactive; conjunctiva and lids unremarkable. Sclera anicteric. Old EVD site CDI. Neck: Supple. No masses or thyromegaly. Trachea midline. Resp: Clear lung sounds bilaterally. Regular respiratory rate and effort. CV: Regular rhythm, normal rate. No murmurs or extra sounds auscultated. Abdomen: incision noted, Soft, non-tender, non-distended. No guarding, no rigidity, no rebound. No hepatomegaly, no splenomegaly. No masses palpated. Ext: No lower extremity edema or varicosities, pulses positive Skin: No rashes, lesions, or subcutaneous nodules, no petechiae. Neuro: Alert, oriented x 4. Pupils PERRL, EOM intact. Speech clear. Following all commands. Strengthequal and 5/5 in all four extremities. Lines: PIV LABS: Lab Results Component Value Date WBC 13.5 (H) 09/04/2020 NUCRBC 0 09/04/2020 RBC 3.65 (L) 09/04/2020 HEMOGLOBIN 10.3 (L) 09/04/2020 HEMATOCRIT 31.5 (L) 09/04/2020 MCV 86.3 09/04/2020 MCH 28.2 09/04/2020 MCHC 32.7 09/04/2020 PLTCOUNT 471 (H) 09/04/2020 NEUTROPCT 78.9 09/04/2020 LYMPHSPCT 12.9 09/04/2020 MONOSPCT 5.8 09/04/2020 EOSPCT 1.0 09/04/2020 BASOPHILPCT 0.4 09/04/2020 Lab Results Component Value Date GLUCOSE 199 (H) 09/04/2020 BUN 10 09/04/2020 CREATSERUM 0.67 (L) 09/04/2020 BCRATIO 14.9 09/04/2020 NA 141 09/04/2020 POTASSIUM 3.7 09/04/2020 CL 112 (H) 09/04/2020 CO2 21 09/04/2020 CA 8.2 (L) 09/04/2020 PROTEINTOTAL 6.3 08/30/2020 ALBUMIN 2.5 (L) 09/03/2020 ALKPHOS 220 (H) 08/30/2020 AST 30 08/30/2020 ALT 42 08/30/2020 BILITOTAL 0.4 08/30/2020 CT head: 09/03/20 1. The tip of the right frontal ventriculostomy catheter is in the scalp. Ventricular system has slightly increased in size compared to the prior exam. 2. Interval postsurgical changes of washout of the suboccipital craniotomy/cranioplasty. Previously seen extracranial fluid collection has nearly completely resolved with ill-defined foci of fluid and air about the cranioplasty. 3. Nonspecific ill-defined fluid/edema in the right temporal scalp. 4. Similar appearance of low density surgical cavity in the central/left cerebellum consistent with tumor resection. Relevant diagnostic, laboratory and radiological studies have been reviewed in the Electronic Medical Record. 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 Infected PROJECT CONTROL ANALYST shunt 3. Intracranial and intra abdominal abscess 4. S/p shunt removal and EVD placement 5. Status post washout and cranioplasty 6. Sepsis 7. Delirium 8. History of Diabetes mellitus type 2 ASSESSMENT & PLAN Hemodynamics: Hemodynamically unstable, on inotropic support. Keep SBP 100-160 PRN labetalol and hydralazine available MICROSOFT DEVELOPER: S/P removal of infected PROJECT CONTROL ANALYST shunt and placement of EVD, status post suboccipital wound washout and cranioplasty - follow-up CT scan of the head reviewed EVD displaced by pt and subsequently removed on 09/03 Continue antibiotics as per ID closely monitor neuro status Will restart home dose aspirin 325 mg daily. Continue Keppra 500 mg twice a day for seizure prophylaxis (last dose 09/10) STAT head CT for any change in neuro exam Continue neuro exams as ordered Cardiovascular: Normal sinus rhythm, no current issues. History of hyperlipidemia - continue Zocor 40 mg daily Pulmonary: Extubated 09/01, adequate oxygenation on RA. Keep SpO2 > 92%. If needed nebs. Infectious Diseases: Sepsis, abx per ID, vancomycin, cefepime, flagyl, csf cultures and OR culturesso far negative. Patient will be needing needing 6 weeks of antibiotics - appreciate ID follow-up and recommendations Renal/Fluids/Elecrlytes and Metabolic: Stable kidney functions, will monitor urine output, electrolytes and kidney functions Replace electrolytes per critical care protocol. Hematology: Anemia secondary to acute illness stable. Hgb 10.3. no signs of bleeding. GI: No active issues - advance diet as tolerated. Endocrine: History of diabetes mellitus type 2. Blood sugar is monitored as per critical care protocol and patient is on insulin sliding scale. Continue scheduled Lantus Health Maintenance: Continue Omeprazole for stress ulcer prophylaxis and SCD for DVT prophylaxis. OT/PT and speech ordered. Critical care time spent with this patient for evaluation, assessment and management of the above problems is 38 minutes not including procedure time. This patient was discussed with Dr. Reeves, he agrees with the assessment and plan [facility] Chidi Andrea PA-C - 09/04/2020 9:54 AM CDT Neurosurgery Progress Note Sandra Johns is a 60yr old male admitted on 08/30/2020 and underwent PROJECT CONTROL ANALYST shunt removal and placement of right frontal EVD with Dr. Ruggiero for infection. Patient has a hx of resection of hemangioblastoma x 3 along with right PROJECT CONTROL ANALYST shunt placement and repair of pseudomeningocele. He subsequently left AMA and did not follow up. Came ot ER with wound drainage, fever, abscess near shunt catheter. Underwent a suboccipital washout on 09/03/2020. The EVD was subsequently pulled later in the day. S: Awake, alert Resting in bed O: Vital Signs: Temp: 96.4 F (35.8 C) | BP: 119/72 | Pulse: 78 | Resp: 22 | Pain Ratin (out of 10) | Weight: 98 kg (216 lb 0.8 oz) | O2 Device: Room Air O2 Flow Rate (L/min): 2 l/min | SpO2: 93 % Physical Exam General: healthy, alert, no distress ENT: Swallowing intact Neuro: alert, oriented, normal speech Suboccipital wound clean, dry, well approximated, nylon Upper Extremities: Right: Deltoid 5/5,bicep 5/5, tricep 5/5, wrist flexor 5/5, wrist extensor 5/5, hand intrinsic 5/5 Left: Deltoid 5/5,bicep 5/5, tricep 5/5, wrist flexor 5/5, wrist extensor 5/5, hand intrinsic 5/5 Sensation intact in bilateral upper extremities Lower Extremities: Right: Iliopsoas 5/5, quadricep 5/5, hamstring 5/5, DF 5/5, PF 5/5 Left: Iliopsoas 5/5, quadricep 5/5, hamstring 5/5, DF 5/5, PF 5/5 Sensation intact in bilateral L4-S1 dermatomes Cranial Nerve Function Pupils: Equal, round, reactive to light Visual montoya: Full to confrontation Cranial nerves III, IV, (Extraocular movement): Extraocular movements intact, no nystagmus Cranial nerve V (Trigeminal): Normal facial sensation Cranial nerve VII (Facial): Normal strength and symmetry Cranial nerve VIII (Auditory): Intact to finger rub bilaterally Cranial nerve IX, X (Glossopharyngeal): Palate elevates symmetrically Cranial nerve XI (Spinal accessory): Trapezius and SCM with full strength bilaterally Cranial nerve XII (Hypoglossal): Tongue is midline on protrusion Labs 09/04/2020: WBC: 13.5 Hgb: 10.3 Na: 141 Radiology: Post op CT head 08/31/2020: Expected post surgical changes. Some vasogenic edema. Removal of PROJECT CONTROL ANALYST shunt A: 1 Day Post-Op Status Post: Procedure(s): SUBOCCIPITAL WOUND WASH OUT, CRANIOPLASTY GERD Hypospadias DM2 Hyperlipidemia HTN Astigmatism Smoker S/p craniotomy P: NCC primary Diet as tolerated Keppra 500 mg BID x 7 days (last dose 09/10/2020) Neuros every 2 hours ID following PT/OT consulted SCDs for DVT prophylaxis Please contact Jamar Andrea PA-C for any neurosurgical questions/concerns until 5pm; After 5pm please contact neurosurgery PA environmental programs specialist This patient was discussed with Dr. Ruggiero and he agrees with the assessment and plan. Chidi Andrea PA-C [facility] [place], [place] Trang Wagner RP - 09/03/2020 2:44 PM CDT Mr. Johns continues on Vancomycin per pharmacy protocol for MICROSOFT DEVELOPER infection. The patient is on day 5 of receiving Vancomycin and current dose is (dose/interval): Vancomyin [id number]. Labs: WBC Date/Time Value Ref Range Status 09/03/2020 06:13 AM 10.7 4.0 - 11.0 K/uL Final 09/02/2020 06:19 AM 11.2 (H) 4.0 - 11.0 K/uL Final 09/01/2020 06:06 AM 17.6 (H) 4.0 - 11.0 K/uL Final 07/28/2020 03:55 PM 17.3 (H) 4.0 - 11.0 K/uL Final 02/14/2019 09:07 AM 8.1 4.0 - 11.0 K/uL Final 11/21/2017 08:44 AM 11.2 (H) 4.0 - 11.0 K/uL Final Lab Results Component Value Date CREATSERUM 0.62 (L) 09/03/2020 CREATSERUM 0.68 (L) 09/02/2020 CREATSERUM 0.79 (L) 09/01/2020 Vancomycin Trough Date/Time Value Ref Range Status 09/03/2020 02:13 PM 10.6 10.0 - 20.0 ug/mL Final Assessment/Plan: The trough level is lower than the desired goal of 15-20 mg/L. Vancomycin will be changed to 2gm q12hr. Pharmacy will continue to monitor per the pharmacokinetic service policy. Trang Epps, PharmD NIATTereso Reeves MD - 09/03/2020 11:48 AM CDT Neuro-critical care progress note History of present illness: 60 y/o male with hemangioblastoma s/p resection x 3 latest 07/15, s/p R evp general counsel shunt, repair of pseudomeningocele, pt left AMA several times, came in 08/30 with deep cranial infection and an infected PROJECT CONTROL ANALYST shunt, intra abdominal abcess, sepsis, seen by ID on abx, 08/31 s/p Display Fabrication Supervisor shunt removal and placement of evdunder GA on 08/31, extubated 09/01 He was taken back to OR on 09/03/2020 and is now status post suboccipital wound washout & cranioplasty Patient seen and evaluated in ICU, drowsy and arousable to voice following commands ICP 6-8 overnight did use when necessary medications to keep systolic blood pressure less than 160 overnight. 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) Pneumonia Pseudomeningocele Past Surgical History: Procedure Laterality Date CRANIECTOMY EXC TUMOR INFRATENTRIAL POSTR FOSSA CEREBELLOPONTINE ANGLE [id number] CRANIOTOMY N/A 08/31/2017 Procedure: 15 MRI SUBOCCIPITAL CRANIOTOMY FOR TUMOR WITH STEALTH NAVIGATION;; Surgeon: Terrell Ruggiero MD CRANIOTOMY N/A 07/15/2020 Procedure: SUBOCCIPITAL CRANIOTOMY W/ AWAKE ARTERIAL LINE;; Surgeon: Terrell Ruggiero MD DEBRIDEMENT PROCEDURE Bilateral 09/04/2017 Procedure: SUBOCCIPITAL WOUND REVISION;; Surgeon: Terrell Ruggiero MD TEETH EXTRACTION VENTRICULOSTOMY Right 08/31/2020 Procedure: RIGHT VENTRICULOPERITONEAL SHUNT REMOVAL AND RIGHT FRONTAL VENTRICULOSTOMY PLACEMENT;; Surgeon: Terrell Ruggiero MD PROJECT CONTROL ANALYST & VA SHUNTS Right 11/20/2017 Procedure: RIGHT FRONTAL VENTRICULAR PERITONEAL SHUNT INSERTION, ASPIRATION OF PSEUDOMENINGOCELE;;Surgeon: Terrell Ruggiero MD Prior to Admission medications Medication Sig Start Date End Date Taking? Authorizing Provider aspirin 325 mg tablet Take 325 mg by mouth 1 time per day Yes Provider, Abstract BEBE SOLOSTARE subcutaneous injection solution (pen) INJECT 50 UNITS SUBCUTANEOUSLY EVERY NIGHT ATBEDTIME MAX DAILY DOSE-50 UNITS 08/09/20 Yes Dejuan Simon MD metFORMIN (GLUCOPHAGE) 500 MG tablet TAKE 1 TABLET BY MOUTH TWICE A DAY WITH MEALS 03/30/20 Yes Dejuan Simon MD simvastatin (ZOCOR) 80 mg tablet TAKE 1/2 TABLET BY MOUTH DAILY GENERIC FOR ZOCOR 02/09/20 Yes Dejuan Simon MD tadalafil (CIALIS) 10 MG tablet Take 1 tablet (10 mg) by mouth 1 time a day as needed for other (Specify) (ED) Take prior to anticipated sexual activity. 10/14/19 Yes Dejuan Simon MD omeprazole (PRILOSEC) 20 mg capsule TAKE 1 CAPSULE BY MOUTH DAILY EVERY MORNING 10/14/19 Yes Dejuan Simon MD glipiZIDE (GLUCOTROL) 10 mg tablet Take 1 tablet (10 mg) by mouth 1 time a day with breakfast 10/14/19 Yes Dejuan Simon MD multivitamin (CENTRUM SILVER) tablet Take 1 tablet by mouth 1 time per day. Yes Provider, Abstract insulin needle (ULTICARE SHORT PEN NEEDLES) 31G X 8 mm (516") Short Use once daily with Lantus E11.9 12/18/19 Dejuan Simon MD lisinopril (PRINIVIL, ZESTRIL) 20 mg tablet Take 1 tablet (20 mg) by mouth 1 time per day Patient not taking: Reported on 08/30/2020 10/14/19 Dejuan Simon MD No Known Allergies Social History Tobacco Use Smoking status: Current Every Day Smoker Packs/day: 1.00 Years: 45.00 Pack years: 45.00 Types: Cigarettes Smokeless tobacco: Never Used Tobacco comment: 08/31/20: 0.5 PPD Substance Use Topics Alcohol use: Not Currently Frequency: Monthly or less Comment: 12 pack at least every week Family History Problem Relation Age of Onset Other Father Pneumonia Negative Mother Breast Cancer Mother Diabetes Cousin Breast Cancer Maternal Grandmother Blindness Neg Hx Cataracts Neg Hx Glaucoma Neg Hx Macular Degeneration Neg Hx PHYSICAL EXAMINATION: Temp: 99 F (37.2 C) BP: 157/90 Pulse: 91 O2 Device: Room Air O2 Flow Rate (L/min): 2 l/min Resp: 18 Pain Ratin (out of 10) Weight: 92.6 kg (204 lb 2.3 oz) SpO2: 92 % Maximum Temperatures (last 24 hours) Temperature Maximum Max Temp 100.6 F (38.1 C) 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 Sclera anicteric, Neck: Supple. No masses or thyromegaly. Trachea midline. Resp: Clear lung sounds bilaterally, on 2 L oxygen CV: Regular rhythm, normal rate. No murmurs or extra sounds auscultated. Abdomen: incision noted, Soft, non-tender, non-distended. No guarding, no rigidity, no rebound. No hepatomegaly, no splenomegaly. No masses palpated. Ext: No lower extremity edema or varicosities, pulses positive Skin: No rashes, lesions, or subcutaneous nodules, no petechiae. Burns catheter in place LABS: Lab Results Component Value Date WBC 10.7 09/03/2020 NUCRBC 0 09/03/2020 RBC 3.76 (L) 09/03/2020 HEMOGLOBIN 10.7 (L) 09/03/2020 HEMATOCRIT 32.2 (L) 09/03/2020 MCV 85.6 09/03/2020 MCH 28.5 09/03/2020 MCHC 33.2 09/03/2020 PLTCOUNT 435 (H) 09/03/2020 NEUTROPCT 75.8 09/03/2020 LYMPHSPCT 13.3 09/03/2020 MONOSPCT 6.3 09/03/2020 EOSPCT 3.0 09/03/2020 BASOPHILPCT 0.6 09/03/2020 Lab Results Component Value Date GLUCOSE 144 (H) 09/03/2020 BUN 6 09/03/2020 CREATSERUM 0.62 (L) 09/03/2020 BCRATIO 9.7 (L) 09/03/2020 NA 142 09/03/2020 POTASSIUM 3.6 09/03/2020 CL 111 (H) 09/03/2020 CO2 20 09/03/2020 CA 8.3 (L) 09/03/2020 PROTEINTOTAL 6.3 08/30/2020 ALBUMIN 2.5 (L) 09/03/2020 ALKPHOS 220 (H) 08/30/2020 AST 30 08/30/2020 ALT 42 08/30/2020 BILITOTAL 0.4 08/30/2020 CT head: 09/03/20 1. The tip of the right frontal ventriculostomy catheter is in the scalp. Ventricular system has slightly increased in size compared to the prior exam. 2. Interval postsurgical changes of washout of the suboccipital craniotomy/cranioplasty. Previously seen extracranial fluid collection has nearly completely resolved with ill-defined foci of fluid and air about the cranioplasty. 3. Nonspecific ill-defined fluid/edema in the right temporal scalp. 4. Similar appearance of low density surgical cavity in the central/left cerebellum consistent with tumor resection. Relevant diagnostic, laboratory and radiological studies have been reviewed in the Electronic Medical Record. 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 Infected PROJECT CONTROL ANALYST shunt intracranial and intra abdominal abscess S/p shunt removal and Evd placement Status post washout and cranioplasty Sepsis Delirium dm2 ASSESSMENT & PLAN Hemodynamics: Hemodynamically unstable, on inotropic support, goal sbp 100-160 MICROSOFT DEVELOPER: S/P removal of infected PROJECT CONTROL ANALYST shunt and placement of EVD, status post suboccipital wound washout and cranioplasty - follow-up CT scan of the head reviewed Cont to hold asa, Continue antibiotics as per ID closely monitor neuro status EVD discontinued Continue Keppra 500 mg twice a day for seizure prophylaxis Cardiovascular: PVCs overnight did require labetalol and hydralazine to keep systolic blood pressureless than 160 overnight otherwise normal sinus rhythm. Continue Zocor - discontinue dopamine Pulmonary: extubated 09/01, stable, wean oxygen as tolerated If needed nebs. Infectious Diseases: sepsis, abx per ID, vancomycin, cefepime, flagyl, csf cultures and OR culturesso far negative., Patient will be needing needing 6 weeks of antibiotics - appreciate ID follow-up and recommendations Renal/Fluids/Elecrlytes and Metabolic: Stable kidney functions, will monitor urine output, electrolytes and kidney functions Hematology: Anemia secondary to acute illness, continue to monitor GI: No active issues - nothing by mouth overnight for procedure today. Endocrine: Blood sugar is monitored as per critical care protocol and patient is on insulin sliding scale Health Maintenance: Omeprazole for stress ulcer prophylaxis and SCD for DVT prophylaxis. Critical care time spent with this patient for evaluation, assessment and management of the above problems is 38 minutes not including procedure time. Tereso Reeves MD Critical Care/ Neuro Critical Care Terrell Taylor MD - 09/03/2020 7:12 AM CDT Neurosurgery staff note: Mr. Johns is a 30 y/o man with a suboccipital craniotomy for tumor x 3. Pt has pseudomeningocele and elevated wbc. Concerning for infection. He was offered a suboccipital wound washout and cranioplasty for relief of his symptoms. Risks and goals were discussed with him and his . They agreed to proceed with the operation and signed consent. Chidi Davis PA-C - 09/02/2020 11:59 AM CDT Neurosurgery Progress Note Sandra Johns is a 60yr old male admitted on 08/30/2020 and underwent PROJECT CONTROL ANALYST shunt removal and placement of right frontal EVD with Dr. Ruggiero for infection. Patient has a hx of resection of hemangioblastoma x 3 along with right PROJECT CONTROL ANALYST shunt placement and repair of pseudomeningocele. He subsequently left AMA and did not follow up. Came ot ER yesterday with wound drainage, fever, abscess near shunt catheter. S: Awake, alert Resting in bed Extubated yesterday O: Vital Signs: Temp: 99.7 F (37.6 C) | BP: 159/74 | Pulse: 94 | Resp: 27 | Pain Ratin (out of 10) | Weight: 92.6 kg (204 lb 2.3 oz) | O2 Device: NC - no humidity O2 Flow Rate (L/min): 2 l/min | SpO2: (!) 88 % Physical Exam General: healthy, alert, no distress ENT: Swallowing intact Neuro: alert, oriented, normal speech Occipital wound with some drainage, EVD in place Upper Extremities: Right: Deltoid 5/5,bicep 5/5, tricep 5/5, wrist flexor 5/5, wrist extensor 5/5, hand intrinsic 5/5 Left: Deltoid 5/5,bicep 5/5, tricep 5/5, wrist flexor 5/5, wrist extensor 5/5, hand intrinsic 5/5 Sensation intact in bilateral upper extremities Lower Extremities: Right: Iliopsoas 5/5, quadricep 5/5, hamstring 5/5, DF 5/5, PF 5/5 Left: Iliopsoas 5/5, quadricep 5/5, hamstring 5/5, DF 5/5, PF 5/5 Sensation intact in bilateral L4-S1 dermatomes Cranial Nerve Function Pupils: Equal, round, reactive to light Visual montoya: Full to confrontation Cranial nerves III, IV, (Extraocular movement): Extraocular movements intact, no nystagmus Cranial nerve V (Trigeminal): Normal facial sensation Cranial nerve VII (Facial): Normal strength and symmetry Cranial nerve VIII (Auditory): Intact to finger rub bilaterally Cranial nerve IX, X (Glossopharyngeal): Palate elevates symmetrically Cranial nerve XI (Spinal accessory): Trapezius and SCM with full strength bilaterally Cranial nerve XII (Hypoglossal): Tongue is midline on protrusion Drain: 199 cc output of EVD. EVD patent and flowing. 10cm above EAC Labs 09/02/2020: WBC: 11.2 Hgb: 10.0 Na: 140 Radiology: Post op CT head 08/31/2020: Expected post surgical changes. Some vasogenic edema. Removal of PROJECT CONTROL ANALYST shunt A: 2 Days Post-Op Status Post: Procedure(s): RIGHT VENTRICULOPERITONEAL SHUNT REMOVAL AND RIGHT FRONTAL VENTRICULOSTOMY PLACEMENT GERD Hypospadias DM2 Hyperlipidemia HTN Astigmatism Smoker S/p craniotomy P: NCC primary Diet as tolerated EVD 10 cm above EAC, record output every 8 hours Neuros every 2 hours ID following PT/OT consulted SCDs for DVT prophylaxis OR tomorrow for wound washout with Dr. Ruggiero NPO at midnight Preop orders entered Please contact Jamar Andrea PA-C for any neurosurgical questions/concerns until 5pm; After 5pm please contact neurosurgery PA environmental programs specialist This patient was discussed with Dr. Ruggiero and he agrees with the assessment and plan. 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, s/p R evp general counsel shunt, repair of pseudomeningocele, pt left AMA several times, came in 08/30 with deep cranial infection and an infected PROJECT CONTROL ANALYST shunt, intra abdominal abcess, sepsis, seen by ID on abx, 08/31 s/p Display Fabrication Supervisor shunt removal and placement of evdunder [place] on 08/31, extubated 5/19 Patient seen and examined this morning, Minimal output from EVD, ICP stable, intermittent agitated and does not follow commands 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) Pneumonia Pseudomeningocele Past Surgical History: Procedure Laterality Date CRANIECTOMY EXC TUMOR INFRATENTRIAL POSTR FOSSA CEREBELLOPONTINE ANGLE [id number] CRANIOTOMY N/A 08/31/2017 Procedure: 15 MRI SUBOCCIPITAL CRANIOTOMY FOR TUMOR WITH STEALTH NAVIGATION;; Surgeon: Terrell Ruggiero MD CRANIOTOMY N/A 07/15/2020 Procedure: SUBOCCIPITAL CRANIOTOMY W/ AWAKE ARTERIAL LINE;; Surgeon: Terrell Ruggiero MD DEBRIDEMENT PROCEDURE Bilateral 09/04/2017 Procedure: SUBOCCIPITAL WOUND REVISION;; Surgeon: Terrell Ruggiero MD TEETH EXTRACTION VENTRICULOSTOMY Right 08/31/2020 Procedure: RIGHT VENTRICULOPERITONEAL SHUNT REMOVAL AND RIGHT FRONTAL VENTRICULOSTOMY PLACEMENT;; Surgeon: Terrell Ruggiero MD PROJECT CONTROL ANALYST & VA SHUNTS Right 11/20/2017 Procedure: RIGHT FRONTAL VENTRICULAR PERITONEAL SHUNT INSERTION, ASPIRATION OF PSEUDOMENINGOCELE;;Surgeon: Terrell Ruggiero MD Prior to Admission medications Medication Sig Start Date End Date Taking? Authorizing Provider aspirin 325 mg tablet Take 325 mg by mouth 1 time per day Yes Provider, Abstract BEBE SOLOSTARE subcutaneous injection solution (pen) INJECT 50 UNITS SUBCUTANEOUSLY EVERY NIGHT ATBEDTIME MAX DAILY DOSE-50 UNITS 08/09/20 Yes Dejuan Simon MD metFORMIN (GLUCOPHAGE) 500 MG tablet TAKE 1 TABLET BY MOUTH TWICE A DAY WITH MEALS 03/30/20 Yes Dejuan Simon MD simvastatin (ZOCOR) 80 mg tablet TAKE 1/2 TABLET BY MOUTH DAILY GENERIC FOR ZOCOR 02/09/20 Yes Dejuan Simon MD tadalafil (CIALIS) 10 MG tablet Take 1 tablet (10 mg) by mouth 1 time a day as needed for other (Specify) (ED) Take prior to anticipated sexual activity. 10/14/19 Yes Dejuan Simon MD omeprazole (PRILOSEC) 20 mg capsule TAKE 1 CAPSULE BY MOUTH DAILY EVERY MORNING 10/14/19 Yes Dejuan Simon MD glipiZIDE (GLUCOTROL) 10 mg tablet Take 1 tablet (10 mg) by mouth 1 time a day with breakfast 10/14/19 Yes Dejuan Simon MD multivitamin (CENTRUM SILVER) tablet Take 1 tablet by mouth 1 time per day. Yes Provider, Abstract insulin needle (ULTICARE SHORT PEN NEEDLES) 31G X 8 mm (516") Short Use once daily with Lantus E11.9 12/18/19 Dejuan Simon MD lisinopril (PRINIVIL, ZESTRIL) 20 mg tablet Take 1 tablet (20 mg) by mouth 1 time per day Patient not taking: Reported on 08/30/2020 10/14/19 Dejuan Simon MD No Known Allergies Social History Tobacco Use Smoking status: Current Every Day Smoker Packs/day: 1.00 Years: 45.00 Pack years: 45.00 Types: Cigarettes Smokeless tobacco: Never Used Tobacco comment: 08/31/20: 0.5 PPD Substance Use Topics Alcohol use: Not Currently Frequency: Monthly or less Comment: 12 pack at least every week Family History Problem Relation Age of Onset Other Father Pneumonia Negative Mother Breast Cancer Mother Diabetes Cousin Breast Cancer Maternal Grandmother Blindness Neg Hx Cataracts Neg Hx Glaucoma Neg Hx Macular Degeneration Neg Hx PHYSICAL EXAMINATION: Temp: 99.7 F (37.6 C) BP: 159/74 Pulse: 94 O2 Device: NC - no humidity O2 Flow Rate (L/min): 2 l/min Resp: 27 Pain Ratin (out of 10) Weight: 92.6 kg (204 lb 2.3 oz) SpO2: (!) 88 % Maximum Temperatures (last 24 hours) Temperature Maximum Max Temp 100.6 F (38.1 C) evd in place, CSF output noted MICROSOFT DEVELOPER - awake alert oriented 3, moves all extremities, following commands, speech slightly dysarthric HEENT: Pupils equal and reactive; conjunctiva and lids unremarkable. Sclera anicteric, Neck: Supple. No masses or thyromegaly. Trachea midline. Resp: Clear lung sounds bilaterally, on 2 L oxygen CV: Regular rhythm, normal rate. No murmurs or extra sounds auscultated. Abdomen: incision noted, Soft, non-tender, non-distended. No guarding, no rigidity, no rebound. No hepatomegaly, no splenomegaly. No masses palpated. Ext: No lower extremity edema or varicosities, pulses positive Skin: No rashes, lesions, or subcutaneous nodules, no petechiae. Burns catheter in place LABS: Lab Results Component Value Date WBC 11.2 (H) 09/02/2020 NUCRBC 0 09/02/2020 RBC 3.45 (L) 09/02/2020 HEMOGLOBIN 10.0 (L) 09/02/2020 HEMATOCRIT 30.3 (L) 09/02/2020 MCV 87.8 09/02/2020 MCH 29.0 09/02/2020 MCHC 33.0 09/02/2020 PLTCOUNT 430 (H) 09/02/2020 NEUTROPCT 78.6 09/02/2020 LYMPHSPCT 10.6 09/02/2020 MONOSPCT 7.0 09/02/2020 EOSPCT 2.7 09/02/2020 BASOPHILPCT 0.5 09/02/2020 Lab Results Component Value Date GLUCOSE 120 (H) 09/02/2020 BUN 10 09/02/2020 CREATSERUM 0.68 (L) 09/02/2020 BCRATIO 14.7 09/02/2020 NA 140 09/02/2020 POTASSIUM 3.4 (L) 09/02/2020 CL 111 (H) 09/02/2020 CO2 19 (L) 09/02/2020 CA 8.1 (L) 09/02/2020 PROTEINTOTAL 6.3 08/30/2020 ALBUMIN 2.4 (L) 09/02/2020 ALKPHOS 220 (H) 08/30/2020 AST 30 08/30/2020 ALT 42 08/30/2020 BILITOTAL 0.4 08/30/2020 Relevant diagnostic, laboratory and radiological studies have been reviewed in the Electronic Medical Record. PROBLEM LIST: Infected PROJECT CONTROL ANALYST shunt intracranial and intra abdminal abscess S/p shunt removal and Evd placement Sepsis Delirium dm2 ASSESSMENT & PLAN Hemodynamics: Hemodynamically unstable, on inotropic support, goal sbp 100-160 MICROSOFT DEVELOPER: Pod 2 from removal of infected PROJECT CONTROL ANALYST shunt and placement of EVD, continue EVD at 10 plan as discussed with neurosurgery is OR for incision and drainage Cont to hold asa, Continue antibiotics as per ID Neurochecks every 2 Monitor CSF output, the nondraining more than 20 mL per hour Cardiovascular: prolong qt, cont to monitor. Bradycardia on and off Pulmonary: extubated 09/01, stable, wean oxygen as tolerated If needed nebs. Infectious Diseases: sepsis, abx per ID, vancomycin, cefepime, flagyl, csf cultures and OR culturesso far negative., As per ID for PICC line placement is okay, we'll proceed with same today as patient needing 6 weeks of antibiotics Renal/Fluids/Elecrlytes and Metabolic: Stable kidney functions, will monitor urine output, electrolytes and kidney functions Hematology: Anemia secondary to acute illness, continue to monitor GI: No active issues Nutrition: Diet as tolerated Endocrine: Blood sugar is monitored as per critical care protocol and patient is on insulin sliding scale Health Maintenance: Famotidine for stress ulcer prophylaxis and SCD for DVT prophylaxis. Critical care time spent with this patient for evaluation, assessment and management of the above problems is 35 minutes [place] [id number] Brandy Agrawal MD 09/02/2020 11:32 AM CDT Beeper [id number] Timi marshall MD - 09/02/2020 10:16 AM CDT [facility] INFECTIOUS DISEASE PROGRESS NOTE Impression 60 y/o male with hemangioblastoma s/p resection 07/15, now with a deep cranial infection and an infected PROJECT CONTROL ANALYST shunt Plan 1. PROJECT CONTROL ANALYST shunt and deep cranial infection:continue with the current IV antibiotics, the cefepime,vancomycin and the flagyl. PROJECT CONTROL ANALYST shunt removed and externalized, will plan 10-14 days device free period. Currently day #2/10-14 day course. Continue to follow CSF cultures, likely will be non directive. The collection at the distal terminus too small to aspirate, so should repeat a CT scan of the abdomen prior to re-inserting the shunt to ensure resolution. Will also repeat CSF cx 48 hours prior to re-implantation. To have posterior fossa surgery on Sunday per the chart for I and D and hardware removal. This will require six weeks total to treat. picc may be placed today. 2. Thank you. Following. Interval History Sandra Mansoor Johns is seen in f/u Tc and T max 100.6. RN relates no ID concerns. Pateint denies headache, no N/V. State he aches all over. pleasant this am Rest of ROS as above otherwise (-) Antibiotics Antibiotics: Antibiotics (From admission, onward) Start Stop Route Frequency Ordered 08/31/202146 vancomycin (VANCOCIN) 1,000 mg in sodium chloride irrigation 0.9 % 1,000 mL OR Irrigation Status: Discontinued 08/31 224 INTRAOP 08/31/20 21408/30/20 2100 cefepime (MAXIPIME) 2000 mg/20 mL in sterile water IV syringe -- IV Every eight hours 08/30/20 1531 08/30/20 2100 metroNIDAZOLE (FLAGYL) IV piggyback in sodium chloride 0.79% (premix) 500 mg -- IV Every eight hours 08/30/20 1535 08/30/20 1430 vancomycin (VANCOCIN) 2,000 mg in sodium chloride 0.9% 500 mL (Locked) 08/30 1648 IV One time 08/30/20 1328 08/30/20 1330 cefepime (MAXIPIME) 2000 mg/20 mL in sterile water IV syringe (ED - Emergency Department Antibiotics) 08/30 1338 IV Now 08/30/20 1327 08/30/20 1330 metroNIDAZOLE (FLAGYL) IV piggyback in sodium chloride 0.79% (premix) 500 mg (ED - Emergency Department Antibiotics) 08/30 1442 IV Now 08/30/20 1327 08/30/20 1330 ED STAT 1x VANCOMYCIN DOSE ADJUST (ED - Emergency Department Antibiotics) Status:Discontinued 08/30 1328 IV Now 08/30/20 1327 08/30/20 0130 vancomycin (VANCOCIN) 1,500 mg in sodium chloride 0.9% 250 mL (Locked) -- IV Every twelve hours 08/30/20 1540 Physical Exam Current Vital Signs Temp: 99.7 F (37.6 C) BP: 159/74 Pulse: 94 O2 Device: NC - no humidity O2 Flow Rate (L/min): 2 l/min Resp: 27 Pain Ratin (out of 10) Weight: 92.6 kg (204 lb 2.3 oz) SpO2: (!) 88 % Maximum Temperatures (last 24 hours) Temperature Maximum Max Temp 100.6 F (38.1 C) Physical Exam Constitutional: No distress. HENT: No erythema at EVD exit site Cardiovascular: Normal rate and regular rhythm. Pulmonary/Chest: Breath sounds normal. No respiratory distress. He has no wheezes. He has no rales. Abdominal: Soft. Bowel sounds are normal. He exhibits no distension. There is no abdominal tenderness. obese Neurological: He is alert. Labs and Imaging reviewed Lab Results Component Value Date WBC 11.2 (H) 09/02/2020 NUCRBC 0 09/02/2020 RBC 3.45 (L) 09/02/2020 HEMOGLOBIN 10.0 (L) 09/02/2020 HEMATOCRIT 30.3 (L) 09/02/2020 MCV 87.8 09/02/2020 MCH 29.0 09/02/2020 MCHC 33.0 09/02/2020 PLTCOUNT 430 (H) 09/02/2020 NEUTROPCT 78.6 09/02/2020 LYMPHSPCT 10.6 09/02/2020 MONOSPCT 7.0 09/02/2020 EOSPCT 2.7 09/02/2020 BASOPHILPCT 0.5 09/02/2020 Lab Results Component Value Date ALBUMIN 2.4 (L) 09/02/2020 BILITOTAL 0.4 08/30/2020 CA 8.1 (L) 09/02/2020 CL 111 (H) 09/02/2020 CREATSERUM 0.68 (L) 09/02/2020 GLUCOSE 162 (H) 09/02/2020 ALKPHOS 220 (H) 08/30/2020 POTASSIUM 3.4 (L) 09/02/2020 NA 140 09/02/2020 AST 30 08/30/2020 BUN 10 09/02/2020 PROTEINTOTAL 6.3 08/30/2020 CO2 19 (L) 09/02/2020 ALT 42 08/30/2020 Lab Results Component Value Date ESR 74 (H) 08/30/2020 Lab Results Component Value Date CRP 201.6 (H) 08/30/2020 Medical Decision Making I have reviewed all the new labs, x-rays, pertinent microbiology, and provider notes from the last 24 hours. Chidi Yadav PA-C - 09/01/2020 11:00 AM CDT Neurosurgery Progress Note Sandra Johns is a 60yr old male admitted on 08/30/2020 and underwent PROJECT CONTROL ANALYST shunt removal and placement of right frontal EVD with Dr. Ruggiero for infection. Patient has a hx of resection of hemangioblastoma x 3 along with right PROJECT CONTROL ANALYST shunt placement and repair of pseudomeningocele. He subsequently left AMA and did not follow up. Came ot ER yesterday with wound drainage, fever, abscess near shunt catheter. S: Intubated Mildly sedated O: Vital Signs: Temp: 96.8 F (36 C) | BP: 124/69 | Pulse: 73 | Resp: 13 | Pain Ratin (out of 10) | Weight: 92.6 kg (204 lb 2.3 oz) | O2 Device: Ventilator O2 Flow Rate (L/min): 70 l/min | SpO2: 95 % Physical Exam General:alert, intubated, mildly sedated. Opens eyes to voice Neuro: Following commands in all 4 extremities. 5/5 machine strap buckler strength. Restrained in BUE. Incisions clean, dry, well approximated, nylon Drain: 0 cc output of EVD. EVD patent and flowing. Slightly pink CSF in tubing proximal to site. 10cm above EAC Labs 09/01/2020: WBC: 17.6 Hgb: 10.6 Na: 143 Radiology: Post op CT head 08/31/2020: Expected post surgical changes. Some vasogenic edema. Removal of PROJECT CONTROL ANALYST shunt A: 1 Day Post-Op Status Post: Procedure(s): RIGHT VENTRICULOPERITONEAL SHUNT REMOVAL AND RIGHT FRONTAL VENTRICULOSTOMY PLACEMENT GERD Hypospadias DM2 Hyperlipidemia HTN Astigmatism Smoker S/p craniotomy P: NCC primary Diet as tolerated EVD 10 cm above EAC, record output every 8 hours Neuros every 2 hours ID following PT/OT consulted SCDs for DVT prophylaxis Please contact Jamar Andrea PA-C for any neurosurgical questions/concerns until 5pm; After 5pm please contact neurosurgery PA environmental programs specialist This patient was discussed with Dr. Ruggiero and he agrees with the assessment and plan. 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) Pneumonia Pseudomeningocele Past Surgical History: Procedure Laterality Date CRANIECTOMY EXC TUMOR INFRATENTRIAL POSTR FOSSA CEREBELLOPONTINE ANGLE [id number] CRANIOTOMY N/A 08/31/2017 Procedure: 15 MRI SUBOCCIPITAL CRANIOTOMY FOR TUMOR WITH STEALTH NAVIGATION;; Surgeon: Terrell Ruggiero MD CRANIOTOMY N/A 07/15/2020 Procedure: SUBOCCIPITAL CRANIOTOMY W/ AWAKE ARTERIAL LINE;; Surgeon: Terrell Ruggiero MD DEBRIDEMENT PROCEDURE Bilateral 09/04/2017 Procedure: SUBOCCIPITAL WOUND REVISION;; Surgeon: Terrell Ruggiero MD TEETH EXTRACTION VENTRICULOSTOMY Right 08/31/2020 Procedure: RIGHT VENTRICULOPERITONEAL SHUNT REMOVAL AND RIGHT FRONTAL VENTRICULOSTOMY PLACEMENT;; Surgeon: Terrell Ruggiero MD PROJECT CONTROL ANALYST & VA SHUNTS Right 11/20/2017 Procedure: RIGHT FRONTAL VENTRICULAR PERITONEAL SHUNT INSERTION, ASPIRATION OF PSEUDOMENINGOCELE;;Surgeon: Terrell Ruggiero MD Prior to Admission medications Medication Sig Start Date End Date Taking? Authorizing Provider aspirin 325 mg tablet Take 325 mg by mouth 1 time per day Yes Provider, Abstract LANTUS SOLOSTARE subcutaneous injection solution (pen) INJECT 50 UNITS SUBCUTANEOUSLY EVERY NIGHT ATBEDTIME MAX DAILY DOSE-50 UNITS 08/09/20 Yes Dejuan Simon MD metFORMIN (GLUCOPHAGE) 500 MG tablet TAKE 1 TABLET BY MOUTH TWICE A DAY WITH MEALS 03/30/20 Yes Dejuan Simon MD simvastatin (ZOCOR) 80 mg tablet TAKE 1/2 TABLET BY MOUTH DAILY GENERIC FOR ZOCOR 02/09/20 Yes Dejuan Simon MD tadalafil (CIALIS) 10 MG tablet Take 1 tablet (10 mg) by mouth 1 time a day as needed for other (Specify) (ED) Take prior to anticipated sexual activity. 10/14/19 Yes Dejuan Simon MD omeprazole (PRILOSEC) 20 mg capsule TAKE 1 CAPSULE BY MOUTH DAILY EVERY MORNING 10/14/19 Yes Dejuan Simon MD glipiZIDE (GLUCOTROL) 10 mg tablet Take 1 tablet (10 mg) by mouth 1 time a day with breakfast 10/14/19 Yes Dejuan Simon MD multivitamin (CENTRUM SILVER) tablet Take 1 tablet by mouth 1 time per day. Yes Provider, Abstract insulin needle (ULTICARE SHORT PEN NEEDLES) 31G X 8 mm (516") Short Use once daily with Lantus E11.9 12/18/19 Dejuan Simon MD lisinopril (PRINIVIL, ZESTRIL) 20 mg tablet Take 1 tablet (20 mg) by mouth 1 time per day Patient not taking: Reported on 08/30/2020 10/14/19 Dejuan Simon MD No Known Allergies Social History Tobacco Use Smoking status: Current Every Day Smoker Packs/day: 1.00 Years: 45.00 Pack years: 45.00 Types: Cigarettes Smokeless tobacco: Never Used Tobacco comment: 08/31/20: 0.5 PPD Substance Use Topics Alcohol use: Not Currently Frequency: Monthly or less Comment: 12 pack at least every week Family History Problem Relation Age of Onset Other Father Pneumonia Negative Mother Breast Cancer Mother Diabetes Cousin Breast Cancer Maternal Grandmother Blindness Neg Hx Cataracts Neg Hx Glaucoma Neg Hx Macular Degeneration Neg Hx PHYSICAL EXAMINATION: Temp: 96.8 F (36 C) BP: 132/68 Pulse: 75 O2 Device: Ventilator O2 Flow Rate (L/min): 70 l/min Resp: 16 Pain Ratin (out of 10) Weight: 92.6 kg (204 lb 2.3 oz) SpO2: 95 % Maximum Temperatures (last 24 hours) Temperature Maximum Max Temp 99 F (37.2 C) evd in place, no output, flat waveform MICROSOFT DEVELOPER - eyes closed, sedated, has restraints, moves all extremities to pain, not following commands HEENT: Pupils equal and reactive; conjunctiva and lids unremarkable. Sclera anicteric, ET in place. Neck: Supple. No masses or thyromegaly. Trachea midline. Resp: on vent, clear lungs sound b/l CV: Regular rhythm, normal rate. No murmurs or extra sounds auscultated. Abdomen: incision noted, Soft, non-tender, non-distended. No guarding, no rigidity, no rebound. No hepatomegaly, no splenomegaly. No masses palpated. Ext: No lower extremity edema or varicosities, pulses positive Skin: No rashes, lesions, or subcutaneous nodules, no petechiae. LABS: Lab Results Component Value Date WBC 17.6 (H) 09/01/2020 NUCRBC 0 09/01/2020 RBC 3.64 (L) 09/01/2020 HEMOGLOBIN 10.6 (L) 09/01/2020 HEMATOCRIT 32.8 (L) 09/01/2020 MCV 90.1 09/01/2020 MCH 29.1 09/01/2020 MCHC 32.3 09/01/2020 PLTCOUNT 504 (H) 09/01/2020 NEUTROPCT 81.8 09/01/2020 LYMPHSPCT 8.1 09/01/2020 MONOSPCT 7.0 09/01/2020 EOSPCT 1.9 09/01/2020 BASOPHILPCT 0.3 09/01/2020 Lab Results Component Value Date GLUCOSE 149 (H) 09/01/2020 BUN 14 09/01/2020 CREATSERUM 0.79 (L) 09/01/2020 BCRATIO 17.7 09/01/2020 NA 143 09/01/2020 POTASSIUM 4.0 09/01/2020 CL 110 09/01/2020 CO2 22 09/01/2020 CA 8.2 (L) 09/01/2020 PROTEINTOTAL 6.3 08/30/2020 ALBUMIN 2.7 (L) 09/01/2020 ALKPHOS 220 (H) 08/30/2020 AST 30 08/30/2020 ALT 42 08/30/2020 BILITOTAL 0.4 08/30/2020 Relevant diagnostic, laboratory and radiological studies have been reviewed in the Electronic Medical Record. 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 Continue antibiotics as per ID Cardiovascular: prolong qt, cont to monitor. Bradycardia requiring dopamine support Pulmonary: full vent support overnight, cxr reviewed If needed nebs. Wean sedation and SBT trial for extubation today Infectious Diseases: sepsis, abx per ID, vancomycin, cefepime, flagyl, sent csf cultures. OR cultures pending., Renal/Fluids/Elecrlytes and Metabolic: Stable kidney functions, will monitor urine output, electrolytes and kidney functions Hematology: Anemia secondary to acute illness, continue to monitor GI: No active issues Nutrition: npo. Endocrine: Blood sugar is monitored as per critical care protocol and patient is on insulin sliding scale Health Maintenance: Famotidine for stress ulcer prophylaxis and SCD for DVT prophylaxis. Critical care time spent with this patient for evaluation, assessment and management of the above problems is 35 minutes [place] including [place]. 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 PROJECT CONTROL ANALYST shunt and deep cranial infection: s/p PROJECT CONTROL ANALYST shunt removal and EVD placement. Follow on CSF cultures. As prior, plan on treating 2-3 weeks prior to replacing shunt. The collection at the distalterminus too small to aspirate, so should repeat a CT scan of the abdomen prior to re-inserting the shunt to ensure resolution. To have posterior fossa surgery later this week for I and D and hardwareremoval. continue vancomycin, cefepime, and flagyl. Can have a picc line tomorrow. Planning on a likely six week course of IV abx. Day #3 abx. 2. Thank you. Following. Interval History Sandra Mansoor Johns is seen in f/u Afebrile. Had PROJECT CONTROL ANALYST shunt removal and EVD last pm. Currently intubated, sedated, hopefully extubationthis am. On dopamine, phenylephrine, and propofol gtts. RN relates no ID concerns. Rest of ROS as above otherwise (-) Antibiotics Antibiotics: Antibiotics (From admission, onward) Start Stop Route Frequency Ordered 08/31/20 214 vancomycin (VANCOCIN) 1,000 mg in sodium chloride irrigation 0.9 % 1,000 mL OR Irrigation Status: Discontinued 08/31 2247 INTRAOP 08/31/20 2148 08/30/20 2100 cefepime (MAXIPIME) 2000 mg/20 mL in sterile water IV syringe -- IV Every eight hours 08/30/20 1531 08/30/20 2100 metroNIDAZOLE (FLAGYL) IV piggyback in sodium chloride 0.79% (premix) 500 mg -- IV Every eight hours 08/30/20 1535 08/30/20 1430 vancomycin (VANCOCIN) 2,000 mg in sodium chloride 0.9% 500 mL (Locked) 08/30 1648 IV One time 08/30/20 1328 08/30/20 1330 cefepime (MAXIPIME) 2000 mg/20 mL in sterile water IV syringe (ED - Emergency Department Antibiotics) 08/30 1338 IV Now 08/30/20 1327 08/30/20 1330 metroNIDAZOLE (FLAGYL) IV piggyback in sodium chloride 0.79% (premix) 500 mg (ED - Emergency Department Antibiotics) 08/30 1442 IV Now 08/30/20 1327 08/30/20 1330 ED STAT 1x VANCOMYCIN DOSE ADJUST (ED - Emergency Department Antibiotics) Status:Discontinued 08/30 1328 IV Now 08/30/20 1327 08/30/20 0130 vancomycin (VANCOCIN) 1,500 mg in sodium chloride 0.9% 250 mL (Locked) -- IV Every twelve hours 08/30/20 1540 Physical Exam Current Vital Signs Temp: 96.8 F (36 C) BP: 128/68 Pulse: 72 O2 Device: Ventilator O2 Flow Rate (L/min): 70 l/min Resp: 16 Pain Ratin (out of 10) Weight: 92.6 kg (204 lb 2.3 oz) SpO2: 96 % Maximum Temperatures (last 24 hours) Temperature Maximum Max Temp 99 F (37.2 C) Physical Exam Constitutional: No distress. Intubated HENT: EVD exit site c/d/i Cardiovascular: Normal rate and regular rhythm. No murmur heard. Pulmonary/Chest: No respiratory distress. He has no wheezes. Abdominal: Soft. Bowel sounds are normal. Neurological: Intubated Labs and Imaging reviewed Lab Results Component Value Date WBC 17.6 (H) 09/01/2020 NUCRBC 0 09/01/2020 RBC 3.64 (L) 09/01/2020 HEMOGLOBIN 10.6 (L) 09/01/2020 HEMATOCRIT 32.8 (L) 09/01/2020 MCV 90.1 09/01/2020 MCH 29.1 09/01/2020 MCHC 32.3 09/01/2020 PLTCOUNT 504 (H) 09/01/2020 NEUTROPCT 81.8 09/01/2020 LYMPHSPCT 8.1 09/01/2020 MONOSPCT 7.0 09/01/2020 EOSPCT 1.9 09/01/2020 BASOPHILPCT 0.3 09/01/2020 Lab Results Component Value Date ALBUMIN 2.7 (L) 09/01/2020 BILITOTAL 0.4 08/30/2020 CA 8.2 (L) 09/01/2020 CL 110 09/01/2020 CREATSERUM 0.79 (L) 09/01/2020 GLUCOSE 149 (H) 09/01/2020 ALKPHOS 220 (H) 08/30/2020 POTASSIUM 4.0 09/01/2020 NA 143 09/01/2020 AST 30 08/30/2020 BUN 14 09/01/2020 PROTEINTOTAL 6.3 08/30/2020 CO2 22 09/01/2020 ALT 42 08/30/2020 Lab Results Component Value Date ESR 74 (H) 08/30/2020 Lab Results Component Value Date CRP 201.6 (H) 08/30/2020 Medical Decision Making I have reviewed all the new labs, x-rays, pertinent microbiology, and provider notes from the last 24 hours. 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 PROJECT CONTROL ANALYST shunt and deep cranial infection: continue current IV antibiotics, the cefepime, flagyl and vancomycin. Will await operative cultures to see if directive. To have shunt removed and externalized this pm. To have posterior fossa surgery later this week for I and D and hardware removal. Will need a prolonged course of IV abx as per yesterday's note. 2. Thank you. Following. Anahy at bedside. Interval History Sandra Mansoor Johns is seen in f/u Fevers have come down nicely since admission. Tachycardia, hypertension improved as well. patient states he aches all over, feels weak. Bruce at times. Denies headache. Rest of ROS as above otherwise (-) Antibiotics Antibiotics: Antibiotics (From admission, onward) Start Stop Route Frequency Ordered 08/30/20 2100 cefepime (MAXIPIME) 2000 mg/20 mL in sterile water IV syringe -- IV Every eight hours 08/30/20 1531 08/30/20 2100 metroNIDAZOLE (FLAGYL) IV piggyback in sodium chloride 0.79% (premix) 500 mg -- IV Every eight hours 08/30/20 1535 08/30/20 1430 vancomycin (VANCOCIN) 2,000 mg in sodium chloride 0.9% 500 mL (Locked) 08/30 1648 IV One time 08/30/20 1328 08/30/20 1330 cefepime (MAXIPIME) 2000 mg/20 mL in sterile water IV syringe (ED - Emergency Department Antibiotics) 08/30 1338 IV Now 08/30/20 1327 08/30/20 1330 metroNIDAZOLE (FLAGYL) IV piggyback in sodium chloride 0.79% (premix) 500 mg (ED - Emergency Department Antibiotics) 08/30 1442 IV Now 08/30/20 1327 08/30/20 1330 ED STAT 1x VANCOMYCIN DOSE ADJUST (ED - Emergency Department Antibiotics) Status:Discontinued 08/30 132 IV Now 08/30/20 1327 08/30/20 0130 vancomycin (VANCOCIN) 1,500 mg in sodium chloride 0.9% 250 mL (Locked) -- IV Every twelve hours 08/30/20 1540 Physical Exam Current Vital Signs Temp: 98.8 F (37.1 C) BP: 127/111 Pulse: 81 O2 Device: Room Air Resp: 18 Pain Ratin (out of 10) Weight: 93.3 kg (205 lb 11 oz) SpO2: 95 % Maximum Temperatures (last 24 hours) Temperature Maximum Max Temp 99.5 F (37.5 C) Physical Exam Constitutional: No distress. Cardiovascular: Normal rate and regular rhythm. No murmur heard. Pulmonary/Chest: Breath sounds normal. No respiratory distress. He has no wheezes. He has no rales. Neurological: He is alert. Labs and Imaging reviewed Lab Results Component Value Date WBC 16.3 (H) 08/31/2020 NUCRBC 0 08/30/2020 RBC 3.68 (L) 08/31/2020 HEMOGLOBIN 10.8 (L) 08/31/2020 HEMATOCRIT 31.8 (L) 08/31/2020 MCV 86.4 08/31/2020 MCH 29.3 08/31/2020 MCHC 34.0 08/31/2020 PLTCOUNT 400 08/31/2020 NEUTROPCT 82.9 08/30/2020 LYMPHSPCT 9.3 08/30/2020 MONOSPCT 6.5 08/30/2020 EOSPCT 0.0 08/30/2020 BASOPHILPCT 0.3 08/30/2020 Lab Results Component Value Date ALBUMIN 2.7 (L) 08/31/2020 BILITOTAL 0.4 08/30/2020 CA 8.1 (L) 08/31/2020 CL 107 08/31/2020 CREATSERUM 0.75 (L) 08/31/2020 GLUCOSE 131 (H) 08/31/2020 ALKPHOS 220 (H) 08/30/2020 POTASSIUM 3.9 08/31/2020 NA 139 08/31/2020 AST 30 08/30/2020 BUN 15 08/31/2020 PROTEINTOTAL 6.3 08/30/2020 CO2 21 08/31/2020 ALT 42 08/30/2020 Lab Results Component Value Date ESR 74 (H) 08/30/2020 Lab Results Component Value Date CRP 201.6 (H) 08/30/2020 Medical Decision Making I have reviewed all the new labs, x-rays, pertinent microbiology, and provider notes from the last 24 hours. Terrell Ruggiero MD - 08/31/2020 7:50 AM CDT Neurosurgery staff note: Mr. Johns is a 60 y/o man who underwent resection of a hemangioblastoma x 3 (), rightvp shunt placement, repair of pseudomeningocele. The patient has left ama several times and has hadwound drainage and refuses to come in. He was brought to the ER on 08/30 with minimal wound drainageand CT abd demonstrated abscess near shunt catheter. I have offered him right evp general counsel shunt removal and right frontal ventriculostomy placement for relief of his symptoms. Risks and goals were discussed with him. He agreed to proceed and signed consent. Will discuss posterior fossa surgery later this week to remove/replace hardware and wash out posterior fossa wound. 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 Most recent craniectomy wasperformed on 07/15/[address] Ruggiero - 08/30/2020: Presents to ED febrile to 104, tachycardic. ED labs significant for troponin 0.038, WBC14.7 with left shift, hemoglobin 11.6 (stable from previous), elevated alkaline phosphatase at 220, normal AST and ALT, CRP elevated at 21.6, ESR elevated at 74, lactate 1.2, procalcitonin 2.23, Covid 19 negative, U/A showing negative bacteria, LE negative, nitrate negative. CXR showing no acute cardiopulmonary process. Abdominal ultrasound showing no clear cause for abdominal pain. CT head with contrast showing increased fluid in the suboccipital region status post suboccipital craniectomy and cranioplasty with peripheral postcontrast enhancement is worrisome for abscess, Additionally, there is intracranial air in the midline posterior fossa which is typically not seen 1.5 months postoperatively which is also concerning for infection, neurosurgery consultation recommended. CT abdomen and pelvis showing findings worrisome for infected fluid/abscess in the abdomen near the PROJECT CONTROL ANALYST shunt catheter tip and within the ventral abdomen at the level of the gallbladder, perihepatic fluid appears encapsulatedas well worrisome for additional locus of abscess, submucosal edema/thickening at the ascending colon may be reactive to inflammatory peritoneal fluid. - 08/31/2020: Patient declined echo overnight. NPO for likely surgery tonight. Plan: - Neurosurgery consulted, appreciate recs. - Plan for right evp general counsel shunt removal and right frontal ventriculostomy placement at 21:20 today. - ID consulted, appreciate recs - This will require multiple surgeries, a prolonged hospital stay, a prolonged course of IV abx, and placement in SNF/rehab facility to complete his IV abx course. - Patient will need externalization of the shunt, and then a minimum 2, perhaps 3 weeks of an external shunt (EVD) and then re-placement of shunt only when it is confirmed safe to do so. - Explained that this problem (infection in resection bed) will require at least six weeks of IV abx to treat. - Medications scheduled: NS @ 100ml/hr, vancomycin, cefepime, metronidazole, acetaminophen 1000mg TID, melatonin - Medications PRN: acetaminophen, oxycodone 2.5/5, ondansetron, quetiapine, senna-docusate, bisacodyl suppository, docusate enema - Hold home lisinopril pending possible procedure - Labs daily: CBC, RFP, magnesium - F/U blood cultures - Delirium bundle # Hypertension - At home takes lisinopril - 08/30/2020: BP as high as 191/105, labetalol PRN ordered. May be in part related to pain, delirium.Patient had chest pain late in the evening, workup including troponin was overall negative. Plan: - Medications scheduled: hydralazine TID - Medications PRN: labetalol - Hold home lisinopril pending likely operation, likely resume lisinopril post-op # Type 2 Diabetes Mellitus - Baseline A1C was 5.9 on 07/28/2020 - Home regimen: metformin, glipizide, Lantus 50U at bedtime Plan: - Medications scheduled: low-dose sliding scale insulin, insulin glargine 25U - Hypoglycemia protocol - POC glucose checks four times per day # Wheezing: auscultated 08/31/2020, started duonebs PRN # Hypomagnesemia: replaced 08/31/2020 Chronic Medical Conditions: # HLD: home simvastatin # GERD: home omeprazole DVT Prophylaxis: SCDs pending possible procedure Diet: NPO except meds pending possible procedure Therapies: PT, OT, speech Code Status: DNR per , patient does not have capacity at time of admission Recommendations at Discharge: None HPI / History / ROS History Chief Complaint/Presenting Problem: Generalized weakness, fever, confusion, pain (head, neck, abdominal) History of Present Illness: Sandra Johns is a 60yr old male with a past medical history of hemangioblastoma resected March 2002 and two times since then, GERD, hyperlipidemia, type 2 diabetes who presented to the [facility] ED via family vehicle on 08/30/2020 with a chief complaint of generalized weakness. On the day of admission, history is primarily obtained from the patient's and the patient's stepson were present in the room with Mr. Johns. They describe that the patient has had long-term generalized weakness and increased irritability (uses a walker at baseline) which became acutely worse 1 week prior to admission. Around that time he also became more confused and more reclusive, only leaving his room to use the restroom and occasionally eat meals. He also developed posterior head, neck, and abdominal pain. Then, about 3-4 days ago, the patient began to develop fever with several temperatures measured around 101. The patient had a previously planned postoperative appointment with Dr. Ruggiero on the day of admission but as they were driving to [place] they decided to bring him to the emergency room because of his ongoing symptoms instead of going to the appointment. Of note, the patient's family wish the medical team to know the patient has a history of leaving leaving AM. They note that his last reason for leaving AMA was due to frequent neuro checks overnight. The purpose of these neuro checks was described as patient's family. The patient smokes 0.5 PPD, denies upper use, denies illicit drug use Interval History Overnight had chest pain. Mr. Johns feels that his symptoms are about the same overall. He is reluctant to answer questions and quickly becomes angry. Does still have some pain but does not think any changes would help. Wonders about surgery today. No other questions or concerns expressed this morning. Review of Systems A complete 12 point review of systems performed and negative except as listed in the HPI. Physical / Results Physical Exam/Vitals Vitals ranges (last 30hr): Temp: [98.5 F (36.9 C)-104.3 F (40.2 C)] Pulse: [80-118] BP: (111-191)/(56-105) Pain Ratin Resp: [16-29] SpO2: [91 %-98 %] Cardiac Rhythm: Sinus tachycardia Current Vital Signs: BP 119/75 Pulse 81 Temp 98.5 F (36.9 C) Resp 16 Ht 182.9 cm (72") Wt 93.3 kg (205 lb 11 oz) SpO2 97% BMI 27.9 kg/m2 Physical Exam: Physical Exam Constitutional: No distress. Disheveled. HENT: Head: Atraumatic. Cardiovascular: Normal rate and regular rhythm. No murmur heard. No cyanosis Pulmonary/Chest: Effort normal. No respiratory distress. He has wheezes (mild bilateral). He has no rales. Abdominal: He exhibits no distension. Musculoskeletal: General: No deformity. Neurological: He is alert. Alert, does answer some questions, but no significant change from admission. Patient does not have capacity Skin: Skin is warm and dry. He is not diaphoretic. Psychiatric: His affect is angry. He is agitated and aggressive. He expresses inappropriate judgment. Patient Lines/Drains/Airways Status Active Lines Name: Placement date: Placement time: Site: Days: Peripheral IV 08/31/20 Forearm Left;Posterior 08/31/20 0256 Forearm less than 1 Incision 11/20/17 Lateral;Right Head 11/20/17 Head 1015 Incision 11/20/17 Right Abdomen 11/20/17 Abdomen 1015 Incision 11/20/17 Head Puncture site 11/20/17 0920 Head 1015 Incision 07/15/20 Lower;Dorsal Head Incision 07/15/20 0858 Head 47 Intake/Output: Urine Output Yesterday (24hr): 08/30 0700 - 08/31 0659 In: 3109 [Oral:240] Out: 300 [Urine:300] Intake and Output Since Admit: 07/17 1900 - 08/31 1859 In: 3109 [Oral:240] Out: 550 [Urine:550] Net: 2559 Weight change: Labs All labs/imaging and nursing documentation reviewed. All pertinent positives and negatives reflectedin the assessment and plan. Lab Results Component Value Date GLUCOSE 131 (H) 08/31/2020 GLUCOSE 155 (H) 08/31/2020 WBC 16.3 (H) 08/31/2020 WBC 14.7 (H) 08/30/2020 HEMOGLOBIN 10.8 (L) 08/31/2020 HEMOGLOBIN 11.6 (L) 08/30/2020 MCV 86.4 08/31/2020 MCV 84.6 08/30/2020 PLTCOUNT 400 08/31/2020 PLTCOUNT 478 (H) 08/30/2020 INR 0.9 (L) 11/12/2017 INR 1.0 (L) 08/27/2017 CREATSERUM 0.75 (L) 08/31/2020 CREATSERUM 1.02 08/30/2020 NA 139 08/31/2020 NA 135 08/30/2020 POTASSIUM 3.9 08/31/2020 POTASSIUM 3.7 08/30/2020 MAGNESIUM 1.3 (L) 08/31/2020 MAGNESIUM 1.9 07/17/2020 CACORR 9.1 08/31/2020 CACORR 9.9 08/30/2020 PHOSPHORUS 3.2 08/31/2020 PHOSPHORUS 2.0 (L) 07/17/2020 Lab Results Component Value Date TROPONINI 0.026 08/31/2020 TROPONINI 0.038 (H) 08/30/2020 BNP 129 (H) 08/31/2020 BNP 40 07/15/2020 LACACDPLS 1.2 08/30/2020 PROCALCITON 2.23 (H) 08/30/2020 PROCALCITON 0.09 (H) 07/29/2020 DDIMER 1.14 (H) 07/29/2020 ANIONGAPK 15 08/31/2020 ANIONGAPK 19 08/30/2020 Lab Results Component Value Date AST 30 08/30/2020 AST 46 (H) 07/29/2020 ALT 42 08/30/2020 ALT 73 (H) 07/29/2020 ALKPHOS 220 (H) 08/30/2020 ALKPHOS 58 07/29/2020 BILITOTAL 0.4 08/30/2020 ALBUMIN 2.7 (L) 08/31/2020 Lab Results Component Value Date CULTGROWTH No Growth - Will continue to monitor for 5 days. 08/30/2020 Medications Continuous medications: sodium chloride, Last Rate: 100 mL/hr at 08/31/20 1300 Scheduled medications: omeprazole, 20 mg, daily simvastatin, 40 mg, at bedtime insulin glargine, 25 Units, at bedtime insulin aspart, 2-8 Units, 3 times a day cefepime, 2,000 mg, Every 8 hours metroNIDAZOLE, 500 mg, Every 8 hours sodium chloride, 10 mL, 2 times a day and prn vancomycin, 1,500 mg, Every 12 hours acetaminophen, 1,000 mg, Every 8 hours hydrALAZINE, 50 mg, 3 times a day melatonin, 6 mg, at bedtime PRN medications: albuterol-ipratropium, 3 mL, 4 times a day prn dextrose, 25 g, PRN per parameter glucagon, 1 mg, PRN per parameter dextrose, 4 tablet, PRN per parameter Or carbohydrate, 15 g, PRN per parameter nalOXone, 0.4 mg, Every 2 minutes prn nalOXone, 0.2 mg, Every 2 minutes prn melatonin, 3 mg, Bedtime prn senna-docusate sodium, 2 tablet, 2 times a day prn And bisacodyl, 10 mg, 1 time a day prn And docusate sodium, 1 enema, 1 time a day prn ondansetron, 4 mg, 4 times a day prn And ondansetron, 4 mg, 4 times a day prn labetalol, 20 mg, Every 3 hours prn oxyCODONE, 2.5 mg, Every 6 hours prn Or oxyCODONE, 5 mg, Every 6 hours prn QUEtiapine, 12.5 mg, Bedtime prn Consults CONSULT NEUROSURGERY CONSULT NEUROSURGERY VANCOMYCIN: PHARMACY TO DOSE CONSULT INFECTIOUS DISEASE NUTRITION REFERRAL NICOTINE / TOBACCO CESSATION REFERRAL Kenny Grissom MD Transitional Year Resident, PGY-1 [place], [place] 1 Associated attestation - Shell Charlton MD - 08/31/2020 8:39 PM CDT I reviewed resident's chart and agree with documentation below, I examined the patient myself and discussed plan of care with patient and resident. Mignon Celestin, PHARM D - 08/30/2020 3:41 PM CDT Vancomycin Initial Consult Note Mr. Johns was admitted on 08/30/2020 and today has been initiated on Vancomycin per pharmacy protocol for suspected PROJECT CONTROL ANALYST shunt infection. Labs: No results found for: KEVEN WBC Date/Time Value Ref Range Status 08/30/2020 10:12 AM 14.7 (H) 4.0 - 11.0 K/uL Final 07/28/2020 03:55 PM 17.3 (H) 4.0 - 11.0 K/uL Final Lab Results Component Value Date CREATSERUM 1.02 08/30/2020 Max Temperature: Temp (24hrs), Av.6 F (39.2 C), Min:100.9 F (38.3 C), Max:104.3 F (40.2 C) Estimated CrCl: Estimated Creatinine Clearance: 83.5 mL/min (based on SCr of 1.02 mg/dL). ml/min Intake/Output: No intake or output data in the 24 hours ending 08/30/20 1541 Other Active Antimicrobial Agents: Plan: Patient had received a one time dose of vancomycin 2000 mg in the ED. We will initiate a dose of 1500 every 12 hours. The goal trough range will be 15-20 mcg/ml. Pharmacy will monitor and if indicated, adjust dose and/or frequency per the Pharmacy and Therapeutics Committee approved pharmacokinetic service policy. Thank you very much for the consult. We will continue to follow along with you. Mignon Adrian, PHARM D Trang barton [facility] - 08/30/2020 1:34 PM CDT 08/30/2020 1:34 PM CDT Patient was seen by pharmacy for medication reconciliation. Home medications have been reconciled and updated on the home medications list to match the patient's home usage. Other information: Aspirin taken today. Prior to Admission Medications Prescriptions Last Dose Informant Patient Reported? Taking? LANTUS SOLOSTARE subcutaneous injection solution (pen) 08/29/2020 at 2000 No Yes Sig: INJECT 50 UNITS SUBCUTANEOUSLY EVERY NIGHT AT BEDTIME MAX DAILY DOSE-50 UNITS aspirin 325 mg tablet 08/30/2020 at 0800 Yes Yes Sig: Take 325 mg by mouth 1 time per day glipiZIDE (GLUCOTROL) 10 mg tablet 08/30/2020 at 0800 Self No Yes Sig: Take 1 tablet (10 mg) by mouth 1 time a day with breakfast insulin needle ([employer] SHORT PEN NEEDLES) 31G X 8 mm (08/[birth year]") Short Self No No Sig: Use once daily with Lantus E11.9 lisinopril (PRINIVIL, ZESTRIL) 20 mg tablet Not Taking at Unknown time Self No No Sig: Take 1 tablet (20 mg) by mouth 1 time per day Patient not taking: Reported on 08/30/2020 metFORMIN (GLUCOPHAGE) 500 MG tablet 08/30/2020 at 0800 Self No Yes Sig: TAKE 1 TABLET BY MOUTH TWICE A DAY WITH MEALS multivitamin (CENTRUM SILVER) tablet 08/30/2020 at 0800 Self Yes Yes Sig: Take 1 tablet by mouth 1 time per day. omeprazole (PRILOSEC) 20 mg capsule 08/30/2020 at 0800 Self No Yes Sig: TAKE 1 CAPSULE BY MOUTH DAILY EVERY MORNING simvastatin (ZOCOR) 80 mg tablet 08/29/2020 at 2000 Self No Yes Sig: TAKE 1/2 TABLET BY MOUTH DAILY GENERIC FOR ZOCOR tadalafil (CIALIS) 10 MG tablet Greater than 1 Month at Unknown time Self No Yes Sig: Take 1 tablet (10 mg) by mouth 1 time a day as needed for other (Specify) (ED) Take prior to anticipated sexual activity. 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 Most recent craniectomy wasperformed on 07/15/[address] Ruggiero - 08/30/2020: Presents to ED febrile to 104, tachycardic. ED labs significant for troponin 0.038, WBC14.7 with left shift, hemoglobin 11.6 (stable from previous), elevated alkaline phosphatase at 220, normal AST and ALT, CRP elevated at 21.6, ESR elevated at 74, lactate 1.2, procalcitonin 2.23, Covid 19 negative, U/A showing negative bacteria, LE negative, nitrate negative. CXR showing no acute cardiopulmonary process. Abdominal ultrasound showing no clear cause for abdominal pain. CT head with contrast showing increased fluid in the suboccipital region status post suboccipital craniectomy and cranioplasty with peripheral postcontrast enhancement is worrisome for abscess, Additionally, there is intracranial air in the midline posterior fossa which is typically not seen 1.5 months postoperatively which is also concerning for infection, neurosurgery consultation recommended. CT abdomen and pelvis showing findings worrisome for infected fluid/abscess in the abdomen near the PROJECT CONTROL ANALYST shunt catheter tip and within the ventral abdomen at the level of the gallbladder, perihepatic fluid appears encapsulatedas well worrisome for additional locus of abscess, submucosal edema/thickening at the ascending colon may be reactive to inflammatory peritoneal fluid. Plan: - Neurosurgery consulted, appreciate recs. - Discuss with Dr. Ruggiero removing occipital hardware, and PROJECT CONTROL ANALYST shunt. Will likely need external ventricular drain for 3 weeks before new PROJECT CONTROL ANALYST or VA shunt can be placed. - ID consulted, appreciate recs - Medications scheduled: NS@ 150ml/hr, vancomycin, cefepime, metronidazole, acetaminophen 1000mg TID - Medications PRN: acetaminophen, oxycodone 2.5/5, ondansetron, quetiapine, haloperidol, senna-docusate, bisacodyl suppository, docusate enema - Hold home lisinopril pending possible procedure - Labs daily: CBC, RFP, magnesium - Imaging/Testing: echo - F/U blood cultures - Delirium bundle # Hypertension - At home takes lisinopril - 08/30/2020: BP as high as 191/105, labetalol PRN ordered. May be in part related to pain, delirium Plan: - Medications PRN: labetalol - Hold home lisinopril pending likely operation, likely resume lisinopril post-op # Type 2 Diabetes Mellitus - Baseline A1C was 5.9 on 07/28/2020 - Home regimen: metformin, glipizide, Lantus 50U at bedtime Plan: - Medications scheduled: low-dose sliding scale insulin, insulin glargine 25U - Hypoglycemia protocol - POC glucose checks four times per day Chronic Medical Conditions: # HLD: home simvastatin # GERD: home omeprazole DVT Prophylaxis: SCDs pending possible procedure, lovenox starting 08/31/2020 Diet: NPO except meds pending possible procedure Therapies: PT, OT, speech Code Status: DNR per , patient does not have capacity at time of admission HPI / History / ROS History Chief Complaint/Presenting Problem: Generalized weakness, fever, confusion, pain (head, neck, abdominal) History of Present Illness: Sandra Johns is a 60yr old male with a past medical history of hemangioblastoma resected March 2002 and two times since then, GERD, hyperlipidemia, type 2 diabetes who presented to the [facility] ED via family vehicle on 08/30/2020 with a chief complaint of generalized weakness. On the day of admission, history is primarily obtained from the patient's and the patient's stepson were present in the room with Mr. Johns. They describe that the patient has had long-term generalized weakness and increased irritability (uses a walker at baseline) which became acutely worse 1 week prior to admission. Around that time he also became more confused and more reclusive, only leaving his room to use the restroom and occasionally eat meals. He also developed posterior head, neck, and abdominal pain. Then, about 3-4 days ago, the patient began to develop fever with several temperatures measured around 101. The patient had a previously planned postoperative appointment with Dr. Ruggiero on the day of admission but as they were driving to [place] they decided to bring him to the emergency room because of his ongoing symptoms instead of going to the appointment. Of note, the patient's family wish the medical team to know the patient has a history of leaving leaving AMA. They note that his last reason for leaving AMA was due to frequent neuro checks overnight. The purpose of these neuro checks was described as patient's family. 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) Pneumonia Pseudomeningocele Past Surgical History: Procedure Laterality Date CRANIECTOMY EXC TUMOR INFRATENTRIAL POSTR FOSSA CEREBELLOPONTINE ANGLE [id number] CRANIOTOMY N/A 08/31/2017 Procedure: 0715 MRI SUBOCCIPITAL CRANIOTOMY FOR TUMOR WITH STEALTH NAVIGATION;; Surgeon: Terrell Ruggiero MD CRANIOTOMY N/A 07/15/2020 Procedure: SUBOCCIPITAL CRANIOTOMY W/ AWAKE ARTERIAL LINE;; Surgeon: Terrell Ruggiero MD DEBRIDEMENT PROCEDURE Bilateral 09/04/2017 Procedure: SUBOCCIPITAL WOUND REVISION;; Surgeon: Terrell Ruggiero MD TEETH EXTRACTION PROJECT CONTROL ANALYST & VA SHUNTS Right 11/20/2017 Procedure: RIGHT FRONTAL VENTRICULAR PERITONEAL SHUNT INSERTION, ASPIRATION OF PSEUDOMENINGOCELE;;Surgeon: Terrell Ruggiero MD Allergies No Known Allergies Family History Family History Problem Relation Age of Onset Other Father Pneumonia Negative Mother Breast Cancer Mother Diabetes Cousin Breast Cancer Maternal Grandmother Blindness Neg Hx Cataracts Neg Hx Glaucoma Neg Hx Macular Degeneration Neg Hx Social History Social History Socioeconomic History Marital status: Spouse name: Not on file Number of children: 2 Years of education: 13 Highest education level: Not on file Occupational History 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; 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 Social Needs Financial resource strain: Not on file Food insecurity Worry: Not on file Inability: Not on file Transportation needs Medical: Not on file Non-medical: Not on file Tobacco Use Smoking status: Current Every Day Smoker Packs/day: 1.00 Years: 45.00 Pack years: 45.00 Types: Cigarettes Smokeless tobacco: Never Used Substance and Sexual Activity Alcohol use: Not Currently Frequency: Monthly or less Comment: 12 pack at least every week Drug use: Yes Types: Other-see comments Comment: Marijuana; 1-2 per month Sexual activity: Yes Partners: Female Lifestyle Physical activity Days per week: 0 days Minutes per session: Not on file Stress: Not on file Relationships Social connections Talks on phone: Not on file Gets together: Not on file Attends restorationist service: Not on file Active member of club or organization: Not on file Attends meetings of clubs or organizations: Not on file Relationship status: Not on file Intimate partner violence Fear of current or ex partner: Not on file Emotionally abused: Not on file Physically abused: Not on file Forced sexual activity: Not on file Other Topics Concern Transportation No Stress in your marriage No Stress with your relationship No Stress with your family No Parenting/Being a parent No Daycare concerns No Not enough social support No Housing problems No Financial stress Yes Safety/danger No Work/job stress No Legal stress No Time conflicts (feeling too busy) No Academic/school stress No Language difficulties No Spiritual concerns No Insurance problems No The cost of having to take medication Yes The costs of buying food/groceries Yes Illness of family member/friend/relative No of a family member/friend/relative No Violence in your relationship No Abuse/neglect No Community stress No Cultural barriers No Ability to do self cares No Social History Narrative Not on file Review of Systems A complete 12 point review of systems performed and negative except as listed in the HPI. Physical / Results Physical Exam/Vitals Vitals ranges (last 30hr): Temp: [100.9 F (38.3 C)-104.3 F (40.2 C)] Pulse: [107-118] BP: (136-191)/(74-105) Resp: [25-29] SpO2: [91 %-94 %] Cardiac Rhythm: Sinus tachycardia Current Vital Signs: BP 191/105 Pulse 114 Temp 104.3 F (40.2 C) Resp 27 Wt 91.3 kg (201 lb 4.5 oz) SpO2 92% BMI27.3 kg/m2 Physical Exam: Physical Exam Constitutional: He appears distressed. Disheveled. In-depth exam was deferred due to patient agitation, requesting two times that he not examined despite explanation about how the exam would help him. HENT: Head: Normocephalic and atraumatic. Cardiovascular: No cyanosis Pulmonary/Chest: No respiratory distress. Abdominal: He exhibits no distension. Musculoskeletal: General: No deformity. Neurological: He is alert. Alert, does answer some questions, but oriented to person and place only. Patient does not have capacity at the time of admission Skin: Skin is warm and dry. He is not diaphoretic. Psychiatric: His affect is angry. He is agitated and aggressive. He expresses inappropriate judgment. Patient Lines/Drains/Airways Status Active Lines Name: Placement date: Placement time: Site: Days: Peripheral IV 08/30/20 Forearm Right 08/30/20 1010 Forearm less than 1 Incision 11/20/17 Lateral;Right Head 11/20/17 Head 1014 Incision 11/20/17 Right Abdomen 11/20/17 Abdomen 1014 Incision 11/20/17 Head Puncture site 11/20/17 0920 Head 1014 Incision 07/15/20 Lower;Dorsal Head Incision 07/15/20 0858 Head 46 Intake/Output: Urine Output Yesterday (24hr): No intake/output data recorded. Intake and Output Since Admit: 07/16 1900 - 08/30 185 In: 1000 Out: - Net: 1000 Weight change: Labs All labs/imaging and nursing documentation reviewed. All pertinent positives and negatives reflectedin the assessment and plan. Lab Results Component Value Date GLUCOSE 315 (H) 08/30/2020 GLUCOSE 361 (H) 07/29/2020 WBC 14.7 (H) 08/30/2020 WBC 10.8 07/29/2020 HEMOGLOBIN 11.6 (L) 08/30/2020 HEMOGLOBIN 11.5 (L) 07/29/2020 MCV 84.6 08/30/2020 MCV 93.1 07/29/2020 PLTCOUNT 478 (H) 08/30/2020 PLTCOUNT 257 07/29/2020 INR 0.9 (L) 11/12/2017 INR 1.0 (L) 08/27/2017 CREATSERUM 1.02 08/30/2020 CREATSERUM 1.17 07/29/2020 NA 135 08/30/2020 NA 134 (L) 07/29/2020 POTASSIUM 3.7 08/30/2020 POTASSIUM 4.2 07/29/2020 MAGNESIUM 1.9 07/17/2020 MAGNESIUM 2.2 07/16/2020 CACORR 9.9 08/30/2020 CACORR 9.0 07/29/2020 PHOSPHORUS 2.0 (L) 07/17/2020 PHOSPHORUS 2.3 (L) 07/16/2020 Lab Results Component Value Date TROPONINI 0.038 (H) 08/30/2020 TROPONINI 0.020 07/29/2020 BNP 40 07/15/2020 LACACDPLS 1.2 08/30/2020 PROCALCITON 2.23 (H) 08/30/2020 PROCALCITON 0.09 (H) 07/29/2020 DDIMER 1.14 (H) 07/29/2020 ANIONGAPK 19 08/30/2020 ANIONGAPK 16 07/29/2020 Lab Results Component Value Date AST 30 08/30/2020 AST 46 (H) 07/29/2020 ALT 42 08/30/2020 ALT 73 (H) 07/29/2020 ALKPHOS 220 (H) 08/30/2020 ALKPHOS 58 07/29/2020 BILITOTAL 0.4 08/30/2020 ALBUMIN 3.0 (L) 08/30/2020 Lab Results Component Value Date CULTGROWTH No anaerobic growth at 5 days 07/29/2020 CULTGROWTH Normal tracy 07/29/2020 Medications Continuous medications: Scheduled medications: vancomycin, 2,000 mg, 1 time [START ON 08/31/2020] omeprazole, 20 mg, daily simvastatin, 40 mg, at bedtime insulin glargine, 25 Units, at bedtime insulin aspart, 2-8 Units, 3 times a day cefepime, 2,000 mg, Every 8 hours metroNIDAZOLE, 500 mg, Every 8 hours sodium chloride, 10 mL, 2 times a day and prn acetaminophen, 650 mg, Now vancomycin, 1,500 mg, Every 12 hours PRN medications: dextrose, 25 g, PRN per parameter glucagon, 1 mg, PRN per parameter dextrose, 4 tablet, PRN per parameter Or carbohydrate, 15 g, PRN per parameter nalOXone, 0.4 mg, Every 2 minutes prn nalOXone, 0.2 mg, Every 2 minutes prn acetaminophen, 650 mg, Every 4 hours prn melatonin, 3 mg, Bedtime prn senna-docusate sodium, 2 tablet, 2 times a day prn And bisacodyl, 10 mg, 1 time a day prn And docusate sodium, 1 enema, 1 time a day prn ondansetron, 4 mg, 4 times a day prn And ondansetron, 4 mg, 4 times a day prn And metoclopramide, 5 mg, Every 8 hours prn labetalol, 20 mg, Every 3 hours prn Consults CONSULT NEUROSURGERY CONSULT NEUROSURGERY VANCOMYCIN: PHARMACY TO DOSE CONSULT INFECTIOUS DISEASE Kenny Grissom MD Transitional Year Resident, PGY-1 [facility], [place], [place] 1 Associated attestation - Shell Charlton MD - 08/31/2020 8:39 PM CDT I reviewed resident's chart and agree with documentation below, I examined the patient myself and discussed plan of care with patient and resident. Shell Charlton documented in this encounter Consult Notes Brandy Agrawal MD - 08/31/2020 11:06 PM CDT Neuro-critical care consultation note Consulted by Dr ruggiero Reason for consult post op icu management History of present illness: 60 y/o male with hemangioblastoma s/p resection x 3 latest 07/15, s/p R evp general counsel shunt, repair of pseudomeningocele, pt left AMA several times, came in 08/30 with deep cranial infection and an infected PROJECT CONTROL ANALYST shunt, intra abdominal abcess, sepsis, seen by ID on abx Today s/p Display Fabrication Supervisor shunt removal and placement of evd under GA, 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) Pneumonia Pseudomeningocele Past Surgical History: Procedure Laterality Date CRANIECTOMY EXC TUMOR INFRATENTRIAL POSTR FOSSA CEREBELLOPONTINE ANGLE [id number] CRANIOTOMY N/A 08/31/2017 Procedure: 15 MRI SUBOCCIPITAL CRANIOTOMY FOR TUMOR WITH STEALTH NAVIGATION;; Surgeon: Terrell Ruggiero MD CRANIOTOMY N/A 07/15/2020 Procedure: SUBOCCIPITAL CRANIOTOMY W/ AWAKE ARTERIAL LINE;; Surgeon: Terrell Ruggiero MD DEBRIDEMENT PROCEDURE Bilateral 09/04/2017 Procedure: SUBOCCIPITAL WOUND REVISION;; Surgeon: Terrell Ruggiero MD TEETH EXTRACTION PROJECT CONTROL ANALYST & VA SHUNTS Right 11/20/2017 Procedure: RIGHT FRONTAL VENTRICULAR PERITONEAL SHUNT INSERTION, ASPIRATION OF PSEUDOMENINGOCELE;;Surgeon: Terrell Ruggiero MD Prior to Admission medications Medication Sig Start Date End Date Taking? Authorizing Provider aspirin 325 mg tablet Take 325 mg by mouth 1 time per day Yes Provider, Abstract LANTUS SOLOSTARE subcutaneous injection solution (pen) INJECT 50 UNITS SUBCUTANEOUSLY EVERY NIGHT ATBEDTIME MAX DAILY DOSE-50 UNITS 08/09/20 Yes Dejuan Simon MD metFORMIN (GLUCOPHAGE) 500 MG tablet TAKE 1 TABLET BY MOUTH TWICE A DAY WITH MEALS 03/30/20 Yes Dejuan Simon MD simvastatin (ZOCOR) 80 mg tablet TAKE 1/2 TABLET BY MOUTH DAILY GENERIC FOR ZOCOR 02/09/20 Yes Dejuan Simon MD tadalafil (CIALIS) 10 MG tablet Take 1 tablet (10 mg) by mouth 1 time a day as needed for other (Specify) (ED) Take prior to anticipated sexual activity. 10/14/19 Yes Dejuan Simon MD omeprazole (PRILOSEC) 20 mg capsule TAKE 1 CAPSULE BY MOUTH DAILY EVERY MORNING 10/14/19 Yes Dejuan Simon MD glipiZIDE (GLUCOTROL) 10 mg tablet Take 1 tablet (10 mg) by mouth 1 time a day with breakfast 10/14/19 Yes Dejuan Simon MD multivitamin (CENTRUM SILVER) tablet Take 1 tablet by mouth 1 time per day. Yes Provider, Abstract insulin needle ([employer] SHORT PEN NEEDLES) 31G X 8 mm (5/16") Short Use once daily with Lantus E11.9 12/18/19 Dejuan Simon MD lisinopril (PRINIVIL, ZESTRIL) 20 mg tablet Take 1 tablet (20 mg) by mouth 1 time per day Patient not taking: Reported on 08/30/2020 10/14/19 Dejuan Simon MD No Known Allergies Social History Tobacco Use Smoking status: Current Every Day Smoker Packs/day: 1.00 Years: 45.00 Pack years: 45.00 Types: Cigarettes Smokeless tobacco: Never Used Tobacco comment: 08/31/20: 0.5 PPD Substance Use Topics Alcohol use: Not Currently Frequency: Monthly or less Comment: 12 pack at least every week Family History Problem Relation Age of Onset Other Father Pneumonia Negative Mother Breast Cancer Mother Diabetes Cousin Breast Cancer Maternal Grandmother Blindness Neg Hx Cataracts Neg Hx Glaucoma Neg Hx Macular Degeneration Neg Hx Review of Systems: Review of systems not obtained dur to patient factors PHYSICAL EXAMINATION: Temp: 99 F (37.2 C) BP: 140/65 Pulse: 96 O2 Device: Room Air Resp: 16 Pain Ratin (out of 10) Weight: 93.3 kg (205 lb 11 oz) SpO2: 96 % Maximum Temperatures (last 24 hours) Temperature Maximum Max Temp 99 F (37.2 C) evd in place MICROSOFT DEVELOPER - post procedure, on sedated, on vent. Agitated, moves all, needing restraints, not following commands. HEENT: Pupils equal and reactive; conjunctiva and lids unremarkable. Sclera anicteric, ET in place. Neck: Supple. No masses or thyromegaly. Trachea midline. Resp: on vent, clear lungs sound b/l CV: Regular rhythm, normal rate. No murmurs or extra sounds auscultated. Abdomen: incision noted, Soft, non-tender, non-distended. No guarding, no rigidity, no rebound. No hepatomegaly, no splenomegaly. No masses palpated. Ext: No lower extremity edema or varicosities, pulses positive Skin: No rashes, lesions, or subcutaneous nodules, no petechiae. LABS: Lab Results Component Value Date WBC 16.3 (H) 08/31/2020 NUCRBC 0 08/30/2020 RBC 3.68 (L) 08/31/2020 HEMOGLOBIN 10.8 (L) 08/31/2020 HEMATOCRIT 31.8 (L) 08/31/2020 MCV 86.4 08/31/2020 MCH 29.3 08/31/2020 MCHC 34.0 08/31/2020 PLTCOUNT 400 08/31/2020 NEUTROPCT 82.9 08/30/2020 LYMPHSPCT 9.3 08/30/2020 MONOSPCT 6.5 08/30/2020 EOSPCT 0.0 08/30/2020 BASOPHILPCT 0.3 08/30/2020 Lab Results Component Value Date GLUCOSE 111 (H) 08/31/2020 BUN 15 08/31/2020 CREATSERUM 0.75 (L) 08/31/2020 BCRATIO 20.0 08/31/2020 NA 139 08/31/2020 POTASSIUM 3.9 08/31/2020 CL 107 08/31/2020 CO2 21 08/31/2020 CA 8.1 (L) 08/31/2020 PROTEINTOTAL 6.3 08/30/2020 ALBUMIN 2.7 (L) 08/31/2020 ALKPHOS 220 (H) 08/30/2020 AST 30 08/30/2020 ALT 42 08/30/2020 BILITOTAL 0.4 08/30/2020 Relevant diagnostic, laboratory and radiological studies have been reviewed in the Electronic Medical Record. PROBLEM LIST: Active Hospital Problems Infection of PROJECT CONTROL ANALYST (ventriculoperitoneal) shunt (HCC) intracranial and intra abdminal abscess S/p shunt removal and Evd placement Sepsis Delirium dm2 ASSESSMENT & PLAN Hemodynamics: Hemodynamically stable, no inotropic support, goal sbp 100-160 MICROSOFT DEVELOPER: Hx as above, now with infected evp general counsel shunt, posterior fossa wound abscess, s/p shunt removal, evdin place , D/w dr ruggiero, keep evd at 10, ct head post op noted, evd in place, slightly deeper. Cont to hold asa, Plan for OR for wound I and D on Sunday. Currently on vent, cont same , sedation with propofol/fentanul goal RASS -1. Cardiovascular: prolong qt, cont to monitor. Pulmonary: full vent support overnight, cxr, abg pending If needed nebs. Infectious Diseases: sepsis, abx per ID, vancomycin, cefepime, flagyl, sent csf cultures. OR cultures pending., Renal/Fluids/Elecrlytes and Metabolic: Stable kidney functions, will monitor urine output, electrolytes and kidney functions Hematology: Stable hemoglobin, hematocrit and platelets, normal coagulation profile GI: No active issues Nutrition: npo. Endocrine: Blood sugar is monitored as per critical care protocol and patient is on insulin sliding scale Health Maintenance: Famotidine for stress ulcer prophylaxis and SCD for DVT prophylaxis. Thank you for consult. Critical care time spent with this patient for evaluation, assessment and management of the above problems is 45 minutes [place]. [place] [id number] Brandy Agrawal MD 08/31/2020 11:06 PM CDT Beeper # [id number] ischof, Timi Olvera MD - 08/30/2020 5:07 PM CDT [facility] INFECTIOUS DISEASE CONSULTATION 08/30/2020 Impression 60 y/o male with hemangioblastoma s/p resection 07/15, now with a deep cranial infection and an infected PROJECT CONTROL ANALYST shunt Plan 1. PROJECT CONTROL ANALYST shunt and deep cranial infection: Explained to and son in law the gravity and seriousness of this problem in detail. Multiple questions answered. This will require multiple surgeries, a prolonged hospital stay, a prolonged course of IV abx, and placement in SNF/rehab facility to complete his IV abx course. Discussed the concepts of source control. Appreciate neurosurgery involvement. patient will need removal of the PROJECT CONTROL ANALYST shunt for source control and washout of the abscess at the terminus of the shunt. Discussed with Dr. Sullivan. We are in full agreement that patient will need externalization of the shunt, and then a minimum 2, perhaps 3 weeks of an external shunt (EVD) and then re-pl acement of shunt only when it is confirmed safe to do so. Will also need I and D for source controlfor the deep posterior infection and hopefully hardware removal. If hardware is unable to be removed, will then need chronic suppression. Explained that this problem (infection in resection bed) will require at least six weeks of IV abx to treat. Agree with current abx-the vancomycin, the cefepime and the metronidazole. This is appropriate coverage for a neurosurgical infection. Also discussed with family that should cultures be non directive, he will require a broad and empiric regimen with a combination of abx given multiple times a day. Discussed that a major challenge will be convincing patient to stay and agree to treatment and not leave AMA as he has done several times recently. Psychiatry evaluation for competency would be prudent, as if patient deemed unable to make medical decisions, than an appropriate proxy can be found. Explained to family that if patient is deemed competent to make medical decisions, he cannot be held against his will or forced to adhere to treatment r ecommendations. 2. Thank you. Following. SATISH Johns is 60yr male seen today for infectious disease consultation. Referred by Dr. Charlton for infected PROJECT CONTROL ANALYST shunt and infection s/p resection of hemangioblastoma This is a 60-year-old gentleman who infectious disease is asked to see for concerns of an infected PROJECT CONTROL ANALYST shunt and also a deep infection status post resection of a hemangioblastoma. Most of the history is obtained from chart review. Patient's , Anahy, and his son-in-law, Parker, are at bedside and they provide some history as well. When I attempted to question the patient, I asked him politely ifI could ask him some questions and he essentially stated "go away." I asked him a 2nd time and he stated the same. Again, patient does have a history of hemangioblastoma first resected approximately 17 years prior, then he had a recurrence about 3 years ago and then more recently he had surgery on 07/15/2020. At that point, he did undergo a suboccipital craniotomy with an awake arterial line. Unfortunately, during that hospital stay, patient left against medical advice. He had left within a short time after his surgery. He apparently at that point had significant blood loss with surgery, about1.6 liters, and required a transfusion post operatively. He was on Decadron. Again, despite his providers pleading with him to stay, he unfortunately did leave against medical advice about 48 hours after his surgery. He unfortunately has had problems ever since. He went to the emergency room on 07/20. By that time, there was some persistent light yellow drainagecoming from his incision. There were no fevers, chills or headaches documented at that time, nor any meningismus. There was noted to be some mild swelling along the incision, but no cellulitic change. There was no fluctuance or any tenderness. He was given a course of cephalexin. He was seen about a week later by his primary care provider locally. At that time he was noted to be extremely hypotensive with systolic blood pressures in the 60s and 70s. Again, this was on 07/28. At that time, it was recommended that he should have a CT scan, but this intervention was apparently refused as well.At that time, he had significant leukocytosis with white cell count of 17 in addition to the hypotension. Unfortunately, patient had refused any further workup at that time. He was in the emergency room on 07/29, as he was directed to come there by his primary care provider. Again at that time, he was implored to be admitted to the hospital, but again he refused and left the ER AMA. At that time, there was noted to be concerns of infection of his wound. At that time he did get ceftriaxone x 1, and then was sent home on Keflex and Bactrim, which he completed about a week prior. There was noted to be some splitting sutures at the rostral portion of the incision, as well as a 7 mm opening. In the emergency room, this wound was explored and the wound was filled with povidone and the skin was closed. Antibiotic ointment and dressings were applied. He was told to follow up with his primary neurosurgeon, Dr. Ruggiero, but he never did so unfortunately. At home, patient has not been doing very well. He has been getting progressively worse. He has also apparently had some falls at home. He unfortunately now presents with a deep postoperative infection and an infected shunt. For about the last 3-4 days, he has not been able to get out of bed or use his walker. He has had low-grade temperatures for the last several days, but this morning he had a temperature of 102.4 degrees this morning. He has been a lot more confused and irritable apparently. There has not been any erythema or any induration coming from his incision or any further drainage since his emergency room visit on the 07/29. He has also been complaining of some abdominal pain for the last week, which has been getting worse. It is on the right side. He has also had some headaches and some neck pain. Imaging did show that there is an infection of the shunt and there are also concerns of an abscess at the distal terminus of the shunt. CT scan of his head also was concerning for abscess at his resection site. When he came into the emergency room, he had a temperatures as high as 104.3 degrees and he was tachycardic. Patient has been started on vancomycin, cefepime and metronidazole. Infectious disease is now askedto further advise. PERTINENT PAST MEDICAL HISTORY: 1. Hemangioblastoma. 2. Pseudomeningocele. 3. Hypertension. 4. Dyslipidemia. 5. GERD. 6. Type 2 diabetes. Last A1c of 5.9. 7. Dyslipidemia. 8. Diabetic retinopathy. PAST SURGICAL HISTORY: 1. On 07/15/2020, a suboccipital craniotomy and resection of hemangioblastoma. 2. On 08/31/2017, a suboccipital craniotomy and tumor resection. 3. On 09/04/2017, a suboccipital wound revision. 4. Right PROJECT CONTROL ANALYST shunt. SOCIAL MEDICAL HISTORY: Patient is . 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 Again, patient still smoke. He has been a pack a day for 4-5 years. He has been smoking less the severaldays. Patient's family denies any recent alcohol use for at least 3-4 months. Per the chart, thereis also documented use of marijuana approximately 1-2 times a month. 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 Antibiotics: Antibiotics (From admission, onward) Start Stop Route Frequency Ordered 08/30/20 2100 cefepime (MAXIPIME) 2000 mg/20 mL in sterile water IV syringe -- IV Every eight hours 08/30/20 1531 08/30/20 2100 metroNIDAZOLE (FLAGYL) IV piggyback in sodium chloride 0.79% (premix) 500 mg -- IV Every eight hours 08/30/20 1535 08/30/20 1430 vancomycin (VANCOCIN) 2,000 mg in sodium chloride 0.9% 500 mL (Locked) 08/30 1648 IV One time 08/30/20 1328 08/30/20 1330 cefepime (MAXIPIME) 2000 mg/20 mL in sterile water IV syringe (ED - Emergency Department Antibiotics) 08/30 1338 IV Now 08/30/20 1327 08/30/20 1330 metroNIDAZOLE (FLAGYL) IV piggyback in sodium chloride 0.79% (premix) 500 mg (ED - Emergency Department Antibiotics) 08/30 1442 IV Now 08/30/20 1327 08/30/20 1330 ED STAT 1x VANCOMYCIN DOSE ADJUST (ED - Emergency Department Antibiotics) Status:Discontinued 08/30 1328 IV Now 08/30/20 1327 08/30/20 0130 vancomycin (VANCOCIN) 1,500 mg in sodium chloride 0.9% 250 mL (Locked) -- IV Every twelve hours 08/30/20 1540 All [facility] 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) Pneumonia Pseudomeningocele Family History Problem Relation Age of Onset Other Father Pneumonia Negative Mother Breast Cancer Mother Diabetes Cousin Breast Cancer Maternal Grandmother Blindness Neg Hx Cataracts Neg Hx Glaucoma Neg Hx Macular Degeneration Neg Hx Social History Socioeconomic History Marital status: Spouse name: Not on file Number of children: 2 Years of education: 13 Highest education level: Not on file Occupational History 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; 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 Social Needs Financial resource strain: Not on file Food insecurity Worry: Not on file Inability: Not on file Transportation needs Medical: Not on file Non-medical: Not on file Tobacco Use Smoking status: Current Every Day Smoker Packs/day: 1.00 Years: 45.00 Pack years: 45.00 Types: Cigarettes Smokeless tobacco: Never Used Substance and Sexual Activity Alcohol use: Not Currently Frequency: Monthly or less Comment: 12 pack at least every week Drug use: Yes Types: Other-see comments Comment: Marijuana; 1-2 per month Sexual activity: Yes Partners: Female Lifestyle Physical activity Days per week: 0 days Minutes per session: Not on file Stress: Not on file Relationships Social connections Talks on phone: Not on file Gets together: Not on file Attends restorationist service: Not on file Active member of club or organization: Not on file Attends meetings of clubs or organizations: Not on file Relationship status: Not on file Intimate partner violence Fear of current or ex partner: Not on file Emotionally abused: Not on file Physically abused: Not on file Forced sexual activity: Not on file Other Topics Concern Transportation No Stress in your marriage No Stress with your relationship No Stress with your family No Parenting/Being a parent No Daycare concerns No Not enough social support No Housing problems No Financial stress Yes Safety/danger No Work/job stress No Legal stress No Time conflicts (feeling too busy) No Academic/school stress No Language difficulties No Spiritual concerns No Insurance problems No The cost of having to take medication Yes The costs of buying food/groceries Yes Illness of family member/friend/relative No of a family member/friend/relative No Violence in your relationship No Abuse/neglect No Community stress No Cultural barriers No Ability to do self cares No Social History Narrative Not on file ROS Review of Systems Unable to perform ROS: Psychiatric disorder Constitutional: Unable to obtain ROS as patient is [id number] The rest of the review of systems is negative except as mentioned above. Physical Exam Current Vital Signs Temp: 103.2 F (39.6 C) BP: 191/84 Pulse: 112 O2 Device: Room Air Resp: 16 (out of 10) Weight: 93.3 kg (205 lb 11 oz) SpO2: 91 % Maximum Temperatures (last 24 hours) Temperature Maximum Max Temp 104.3 F (40.2 C) Physical Exam Constitutional: Does not participate in exam, H and P HENT: Incision at base of neck/occiput c/d/i No dehiscence No induration No erythema 4 small neli present caudally Area TTP, some bogginess, fluctuance Eyes: Pupils are equal, round, and reactive to light. No photophobia Neck: No rufino meningismus Cardiovascular: Normal rate and regular rhythm. No murmur heard. Pulmonary/Chest: Tight, occ rhonchi Abdominal: Soft. Bowel sounds are normal. He exhibits no distension. There is abdominal tenderness (right sided ). There is no rebound and no guarding. Musculoskeletal: General: No edema. Neurological: He is alert. Skin: No rash noted. No erythema. Labs and Imaging reviewed Lab Results Component Value Date WBC 14.7 (H) 08/30/2020 NUCRBC 0 08/30/2020 RBC 4.03 (L) 08/30/2020 HEMOGLOBIN 11.6 (L) 08/30/2020 HEMATOCRIT 34.1 (L) 08/30/2020 MCV 84.6 08/30/2020 MCH 28.8 08/30/2020 MCHC 34.0 08/30/2020 PLTCOUNT 478 (H) 08/30/2020 NEUTROPCT 82.9 08/30/2020 LYMPHSPCT 9.3 08/30/2020 MONOSPCT 6.5 08/30/2020 EOSPCT 0.0 08/30/2020 BASOPHILPCT 0.3 08/30/2020 Lab Results Component Value Date ALBUMIN 3.0 (L) 08/30/2020 BILITOTAL 0.4 08/30/2020 CA 9.1 08/30/2020 CL 100 08/30/2020 CREATSERUM 1.02 08/30/2020 GLUCOSE 315 (H) 08/30/2020 ALKPHOS 220 (H) 08/30/2020 POTASSIUM 3.7 08/30/2020 NA 135 08/30/2020 AST 30 08/30/2020 BUN 15 08/30/2020 PROTEINTOTAL 6.3 08/30/2020 CO2 20 08/30/2020 ALT 42 08/30/2020 Lab Results Component Value Date ESR 74 (H) 08/30/2020 Lab Results Component Value Date CRP 201.6 (H) 08/30/2020 Medical Decision Making Reviewed: previous chart, nursing note and vitals Reviewed previous: labs and x-ray Interpretation: labs and x-ray NIATKeRuben freeman MD - 08/30/2020 2:39 PM CDTAssociated Order(s): CONSULT NEUROSURGERY Images from the original note were not included. Neurosurgery Consult Assessment: Occipital wound pseudomeningocele, probable infection. Probable infected shunt with abscess in left abdomen near tube tip. Febrile 104 F. ESR 74 CRP 201 WBC 14.7 Plan: Admission to hospital. Broad spectrum antibiotics. Discuss with Dr. Ruggiero removing occipital hardware, and PROJECT CONTROL ANALYST shunt. Will likely need external ventricular drain for 3 weeks before new PROJECT CONTROL ANALYST or VA shunt can be placed. History of Present Illness: Return to ER after last visit 08/03/20 with fever, left weakness and lethargy. 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 Terrell Ruggiero who re-resected it August 2017, placed PROJECT CONTROL ANALYST shunt in November 2017 for hydrocephalus. Patient did not follow up with radiation oncology or neurosurgery, and re-presented with tumor regrowth causing brainstem compression and severe headaches, with most recent resection July 15, 2020 (pathologyconfirms hemangioblastoma grade 1). Drainage since surgery. Suture was removed by PCP 07/26/20. He had simultaneous elevated WBC 17 and hypotension, with temperature of 104. Concern for sepsis, patientrefused to come to hospital. 07/28/20 he also fell out of bed and could not get up. There followed drainage of large clear fluid from opening at caudal aspect incision at neck, soaking pillowcase. He presented to [facility] ER a month ago 07/29/20 I debided wound at bedside, staple and dress. He will accept a single intravenous dose of antibiotic, then will take oral antibiotics at home. He had appointment with radiation oncology next week, but not until August 18 with . At rostral half of incision multiple spitting sutures, and at caudal most there is a 7 mm opening. Wound was explored to 2 cm depth. Edges of opening and into visible depth were pink and bleeding. Wound filled with proviodine, and skin closed with 4 skin neli. Bacitracin ointment and island dressings applied.. IV Rocephin given. Prescriptions for oral Keflex and Bactrim DS given. Also mupirocin antibiotic ointment prescription, with instructions to family to apply ointment and a clean bandage dally, keep wound dry and covered, keep patients long hair out of wound. Family were to telephone to [facility] to see about earlier interval appointment with Dr. Ruggiero. Kept appointment with radiation oncology 08/04/20. They did not see anyone to remove neli in two weeks. Last week, patient stopped antibiotics. [place] never removed. He had appointment with Dr. Ruggiero today, but was weak and febrile, so came to [facility] ER instead. He is febrile temperature 104, lethargic but clear speech and oriented by 3. Son had to help him walk since left side is week. Imaging shows potential injection in occiput and abdomen. 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) Pneumonia Pseudomeningocele Past Surgical History: Procedure Laterality Date CRANIECTOMY EXC TUMOR INFRATENTRIAL POSTR FOSSA CEREBELLOPONTINE ANGLE [id number] CRANIOTOMY N/A 08/31/2017 Procedure: 15 MRI SUBOCCIPITAL CRANIOTOMY FOR TUMOR WITH STEALTH NAVIGATION;; Surgeon: Terrell Ruggiero MD CRANIOTOMY N/A 07/15/2020 Procedure: SUBOCCIPITAL CRANIOTOMY W/ AWAKE ARTERIAL LINE;; Surgeon: Terrell Ruggiero MD DEBRIDEMENT PROCEDURE Bilateral 09/04/2017 Procedure: SUBOCCIPITAL WOUND REVISION;; Surgeon: Terrell Ruggiero MD TEETH EXTRACTION PROJECT CONTROL ANALYST & VA SHUNTS Right 11/20/2017 Procedure: RIGHT FRONTAL VENTRICULAR PERITONEAL SHUNT INSERTION, ASPIRATION OF PSEUDOMENINGOCELE;;Surgeon: Terrell Ruggiero MD Family History Problem Relation Age of Onset Other Father Pneumonia Negative Mother Breast Cancer Mother Diabetes Cousin Breast Cancer Maternal Grandmother Blindness Neg Hx Cataracts Neg Hx Glaucoma Neg Hx Macular Degeneration Neg Hx Social History Socioeconomic History Marital status: Spouse name: Not on file Number of children: 2 Years of education: 13 Highest education level: Not on file Occupational History 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 Current Outpatient Medications on File Prior to Encounter Medication Sig Dispense Refill aspirin 325 mg tablet Take 325 mg by mouth 1 time per day LANTUS SOLOSTARE subcutaneous injection solution (pen) INJECT 50 UNITS SUBCUTANEOUSLY EVERY NIGHT AT BEDTIME MAX DAILY DOSE-50 UNITS 15 mL 1 metFORMIN (GLUCOPHAGE) 500 MG tablet TAKE 1 TABLET BY MOUTH TWICE A DAY WITH MEALS 180 tablet 1 simvastatin (ZOCOR) 80 mg tablet TAKE 1/2 TABLET BY MOUTH DAILY GENERIC FOR ZOCOR 45 tablet 3 tadalafil (CIALIS) 10 MG tablet Take 1 tablet (10 mg) by mouth 1 time a day as needed for other (Specify) (ED) Take prior to anticipated sexual activity. 9 tablet 11 omeprazole (PRILOSEC) 20 mg capsule TAKE 1 CAPSULE BY MOUTH DAILY EVERY MORNING 90 capsule 3 glipiZIDE (GLUCOTROL) 10 mg tablet Take 1 tablet (10 mg) by mouth 1 time a day with breakfast 90tablet 3 multivitamin (CENTRUM SILVER) tablet Take 1 tablet by mouth 1 time per day. insulin needle (ULTICARE SHORT PEN NEEDLES) 31G X 8 mm (08/29") Short Use once daily with Lantus E11.9 300 each 3 lisinopril (PRINIVIL, ZESTRIL) 20 mg tablet Take 1 tablet (20 mg) by mouth 1 time per day (Patient not taking: Reported on 08/30/2020) 90 tablet 3 Review of Systems: Positive for past and present illness and otherwise negative. Physical Examination: Blood pressure 174/89, pulse 108, temperature 104.3 F (40.2 C), resp. rate 26, weight 91.3 kg (201 lb 4.5 oz), SpO2 94 %. Lethargic in moderate distress Head has occipital midline incision. Most healed. Scab at center midline. Caudal aspect healed with neli in place. Pseudomeningocele. Right parietal scalp palpable shunt valve. Depresses and refills. Oriented to person, place and time Memory intact in regular conversation Spontaneous speech, clear, fluent and appropriate Pupils are equal, round and reactive; size 3 mm CN 3, 4, 6 (EOM): Extraocular movements intact, no nystagmus or diplopia CN 5 (Trigeminal): Normal facial sensation CN 7 (Facial): Normal strength and symmetry CN 8 (Auditory): Intact to finger rub bilaterally CN 9, 10 (Glossopharyngeal): Not tested CN 11 (Spinal Accessory): Trapezius and SCM with full strength bilaterally CN 12 (Hypoglossal): Tongue is midline on protrusion Reflexes 2/4 at biceps, triceps, patellas and achilles Lawrence negative bilaterally Babinski negative bilaterally No clonus bilaterally Right: Deltoid 5/5, bicep 5/5, tricep 5/5, wrist extension 5/5, finger extension 5/5, interoseous 5/5, machine strap buckler 5/5 Left: Deltoid 5/5, bicep 5/5, tricep 5/5, wrist extension 5/5, finger extension 5/5, interoseous 5/5, machine strap buckler 5/5 Right: Iliopsoas 5/5, quadricep 5/5, hamstring 5/5, DF 5/5, PF 5/5 Left: Iliopsoas 5/5, quadricep 5/5, hamstring 5/5, DF 5/5, PF 5/5 Sensation grossly intact to light touch and pinch all limbs Imaging: CT head+: Postoperative change of suboccipital craniectomy and cranioplasty. Suboccipital fluid collection is increased in size demonstrating peripheral postcontrast enhancement, currently measuring 6.4 x 1.5 cmin the axial plane. The craniocaudal extent of the fluid collection is not included on the sagittal i mages, measuring at least 4.5 cm. There is hypoattenuation within the midline posterior fossa brain parenchyma. There are foci of air within this region as well which appear increased when compared to the prior. Right anterior approach ventriculostomy catheter is stable in position. No hydrocephalus. No large vessel distribution infarct. No acute intracranial hemorrhage. CT abdomen+: Moderate colonic stool. Submucosal edema/thickening at the ascending colon. Peripherally enhancing fluid collection at the anterior abdomen at the level of the gallbladder abutting the peritoneal fascia measuring 4.5 x 0.9 cm in the axial plane by 2.2 cm craniocaudal on axial image 36. Additionally, there is a thin tube of fluid extending from the level of the ventriculoperitoneal shunt catheter withperipheral postcontrast enhancement best seen as depicted by the arrows on sagittal images 66 through 89 and then reverse through image 45. There is unencapsulated stranding within the omentum. No freeair. No destructive osseous lesion or acute fracture. Labs: Lab Results - 24 Hours Procedure Component Value Units Date/Time URINE DIP, REFLEX TO MICROSCOPIC, REFLEX TO CULTURE [[id number]] (Abnormal) Collected: 08/30/201322 Order Status: Completed Specimen: Urine from Clean Catch Updated: 08/30/201344 Color Urine Yellow Clarity Urine Clear Glucose Urine 50 mg/dL Bilirubin Urine Negative Ketones Urine 10 mg/dL Specific [place] >1.040 Blood Urine Negative PH Urine 6.0 Protein Urine 100 mg/dL Urobilinogen < 2 mg/dL Nitrite Negative Leukocyte Esterase Urine Negative Narrative: LAB ONLY-URINE MICROSCOPIC REFLEX [[id number]] (Abnormal) Collected: 08/30/201322 Order Status: Completed Specimen: Urine from Clean Catch Updated: 08/30/20 1345 WBC Urine 0-5 /hpf RBC Urine 3-5 /hpf Squamous Epithelial Cells Moderate (21-50) /lpf Bacteria Negative Hyaline Cast 3-5 /lpf Narrative: The presence of moderate or many squamous epithelial cells is suggestive of possible contamination during collection. Culture not performed - reflex criteria not met. Culture is only performed when the urine macroscopic color is reported as Bright [place], or whentwoor more of the following criteria are met: Positive Nitrite, Positive Leukocyte Esterase, WBC's >5 cells/hpf. COLLECT AND HOLD BLUE (NACIT) TOP TUBE [[id number]] Collected: 08/30/20 101 Order Status: Completed Specimen: Blood Updated: 08/30/201201 Collect and Hold Specimen Status -- Comment: RECEIVED COLLECT AND HOLD [place]OWNLE[place] (NAFL) TOP TUBE [[id number]] Collected: 08/30/20 1012 Order Status: Completed Specimen: Blood Updated: 08/30/201201 Collect and Hold Specimen Status -- Comment: RECEIVED SARS-COV-2, INFLUENZA A+B, AND/OR RSV NUCLEIC ACID TESTING PANEL [[id number]] (Normal) Collected: 08/30/20 1102 Order Status: Completed Specimen: Respiratory from Nasopharynx Updated: 08/30/20 1152 SARS-CoV-2 Not Detected Influenza A Not Detected Influenza B Not Detected RSV Not Detected Narrative: PROCALCITONIN [[id number]] (Abnormal) Collected: 08/30/20 101 Order Status: Completed Specimen: Blood Updated: 08/30/20 1132 Procalcitonin 2.23 ng/mL Narrative: Suspected Lower Respiratory Tract Infection: 0.1-0.25: Low risk for bacterial infection; Antibiotics discouraged. > 0.25: Increased likelihood for bacterial infection; Antibiotics encouraged. Suspected Sepsis: 0.1-0.5: Low likelihood for sepsis; Antibiotics discouraged. > 0.5: Increased Likelihood for sepsis; Antibiotics encouraged. > 2.0: High risk of sepsis/septic shock; Antibiotics strongly encouraged. Decisions on antibiotic use should not be based solely on procalcitonin levels. If antibiotics are administered, repeat procalcitonin testing should be performed every 2-3 days to consider early antibiotic cessation. PCT is a dynamic biomarker and most useful when trends are analyzed over time in accom paniment with other clinical data. TROPONIN I [[id number]] (Abnormal) Collected: 08/30/201011 Order Status: Completed Specimen: Blood Updated: 08/30/20 1132 Troponin I 0.038 ng/mL C-REACTIVE PROTEIN (INFLAMMATION) [[id number]] (Abnormal) Collected: 08/30/201011 Order Status: Completed Specimen: Blood Updated: 08/30/20 1112 CRP 201.6 mg/L LIPASE [[id number]] (Normal) Collected: 08/30/201011 Order Status: Completed Specimen: Blood Updated: 08/30/20 1112 Lipase 10 U/L LACTIC ACID REFLEX TO REPEAT [[id number]] (Normal) Collected: 08/30/201011 Order Status: Completed Specimen: Blood Updated: 08/30/20 1104 Lactic Acid 1.2 mmol/L ESR [[id number]] (Abnormal) Collected: 08/30/201011 Order Status: Completed Specimen: Blood Updated: 08/30/20 1103 ESR 74 mm/Hr Narrative: This result was obtained with an ESR instrument that is not based on the standard Westergren method. The sensitivity and specificity of this method for various disease states may be different from thestandard Westergren method. TROPONIN I [[id number]] Order Status: Canceled Specimen: Blood C-REACTIVE PROTEIN (INFLAMMATION) [[id number]] Order Status: Canceled Specimen: Blood ESR [[id number]] Order Status: Canceled Specimen: Blood PROCALCITONIN [[id number]] Order Status: Canceled Specimen: Blood from Venous LIPASE [[id number]] Order Status: Canceled Specimen: Blood COMPREHENSIVE METABOLIC PANEL [[id number]] (Abnormal) Collected: 08/30/20 101 Order Status: Completed Specimen: Blood Updated: 08/30/20 1038 Glucose 315 mg/dL BUN 15 mg/dL Creatinine 1.02 mg/dL BUN/Creatinine Ratio 14.7 Sodium 135 meq/L Potassium 3.7 meq/L Chloride 100 meq/L CO2 20 meq/L Anion Gap with K 19 meq/L Calcium 9.1 mg/dL Protein Total 6.3 g/dL Albumin 3.0 g/dL Alkaline Phosphatase 220 U/L AST - SGOT 30 U/L ALT - SGPT 42 U/L Bilirubin Total 0.4 mg/dL Corrected Calcium 9.9 mg/dL Age 60 Years eGFR Non- 74 mL/min/1.73m2 eGFR 90 mL/min/1.73m2 COMPLETE BLOOD COUNT WITH DIFFERENTIAL [[id number]] (Abnormal) Collected: 08/30/20 101 Order Status: Completed Specimen: Blood Updated: 08/30/20 101 Narrative: The following orders were created for panel order COMPLETE BLOOD COUNT WITH DIFFERENTIAL. Procedure Abnormality Status --------- ------ LAB ONLY-COMPLETE BLOOD ...[[id number]] Abnormal Final result Please view results for these tests on the individual orders. LAB ONLY-COMPLETE BLOOD COUNT WITH DIFFERENTIAL [[id number]] (Abnormal) Collected: 08/30/20 1012 Order Status: Completed Specimen: Blood Updated: 08/30/20 1019 WBC 14.7 K/uL RBC 4.03 M/uL Hemoglobin 11.6 g/dL Hematocrit 34.1 % MCV 84.6 fL MCH 28.8 pg MCHC 34.0 g/dL RDW-CV 13.8 % RDW-SD 43.4 fl Platelet Count 478 K/uL MPV 8.1 fL Seg Neut Absolute 12.2 K/uL Lymphocytes Absolute 1.4 K/uL Monocytes Absolute 1.0 K/uL Eosinophils Absolute 0.0 K/uL Basophil Absolute 0.1 K/uL Immature Granulocyte Absolute 0.14 K/uL Neutrophils Abs. (Segs and Bands) 12,200 /uL Neutrophils Percent 82.9 % Lymphocytes Percent 9.3 % Monocytes Percent 6.5 % Immature Granulocyte Percent 1.0 % Eosinophils Percent 0.0 % Basophil Percent 0.3 % Nucleated RBC 0 /100 WBC's documented in this encounter ED Notes Elsie Goode RN - 08/30/2020 9:49 AM CDT Plan of care includes addressing Musculoskeletal with attention to Chief Complaint Patient presents with Weakness Pt reports pain in neck and back; has apt with neurosurgery at 1130 but he has been getting progressively worse and today cannot walk. hx of brain tumor, had partial resection on 07/15 Fever reports fevers for 2 weeks. . Stevenson Sunshine MD - 08/30/2020 9:32 AM CDT DIAGNOSIS 1. Postoperative infection, unspecified type, initial encounter ASSESSMENT/PLAN/DECISION MAKING: Admission hospitalist service. Neurosurgery following. IV antibiotics. DISPOSITION Patient Admitted and Treated in this Facility Patient will be admitted. SunAugust 30, 2020 1:27 PM CDT FOLLOW UP INFORMATION DISCHARGE MEDS Medication List CONTINUE taking these medications insulin needle 31G X 8 mm (08/29") Short Commonly known as: UltiCare Short Pen [facility] Use once daily with Lantus E11.9 ASK your doctor about these medications aspirin 325 mg tablet glipiZIDE 10 mg tablet Commonly known as: GLUCOTROL Take 1 tablet (10 mg) by mouth 1 time a day with breakfast LANTUS SOLOSTARe subcutaneous injection solution (pen) Generic drug: insulin glargine INJECT 50 UNITS SUBCUTANEOUSLY EVERY NIGHT AT BEDTIME MAX DAILY DOSE-50 UNITS lisinopril 20 mg tablet Commonly known as: PRINIVIL, ZESTRIL Take 1 tablet (20 mg) by mouth 1 time per day metFORMIN 500 MG tablet Commonly known as: GLUCOPHAGE TAKE 1 TABLET BY MOUTH TWICE A DAY WITH MEALS multivitamin tablet omeprazole 20 mg capsule Commonly known as: priLOSEC TAKE 1 CAPSULE BY MOUTH DAILY EVERY MORNING simvastatin 80 mg tablet Commonly known as: ZOCOR TAKE 1/2 TABLET BY MOUTH DAILY GENERIC FOR ZOCOR tadalafil 10 MG tablet Commonly known as: CIALIS Take 1 tablet (10 mg) by mouth 1 time a day as needed for other (Specify) (ED) Take prior to anticipated sexual activity. HPI / History / ROS Chief Complaint Patient presents with Weakness Pt reports pain in neck and back; has apt with neurosurgery at 1130 but he has been getting progressively worse and today cannot walk. hx of brain tumor, had partial resection on 07/15 Fever reports fevers for 2 weeks. HPI HPI Patient presents by private vehicle with his and son-in-law. He's been experiencing generalized weakness to the point where he really hasn't gotten out of bed much the last 3 days other than to go to the bathroom or use urinal. Today his family actually had to carry him to the car. He remainedawake and conversant. Has had fever up to 102.4. Left hand tremors. No gross seizure activity.He was to see his neurosurgeon, Dr. Ruggiero, this morning but he was too weak to walk. He notes abdominal pain about a 5/10 without vomiting or diarrhea. No blood in stool. 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 Most recently had resection 07/12/20with Dr. Ruggiero. He left AMA on 07/17. Was back in the ER 07/29 with fever and he declined admission. Had been having some drainage from the cranial incision which was stapled further. Has not had these removed. Has PROJECT CONTROL ANALYST shunt. Denies cough or shortness of breath. No recent covid exposure or vaccination. 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) Smoking Essential hypertension Astigmatism Presbyopia Mild nonproliferative diabetic retinopathy of both eyes without macular edema associated with diabetes mellitus due to underlying condition (HCC) Brain tumor (HCC) S/P PROJECT CONTROL ANALYST shunt Aspiration pneumonia (HCC) S/P craniotomy MEDICAL/SURGICAL/SOCIAL HISTORY 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) Pneumonia Pseudomeningocele Past Surgical History: Procedure Laterality Date CRANIECTOMY EXC TUMOR INFRATENTRIAL POSTR FOSSA CEREBELLOPONTINE ANGLE [id number] CRANIOTOMY N/A 08/31/2017 Procedure: 15 MRI SUBOCCIPITAL CRANIOTOMY FOR TUMOR WITH STEALTH NAVIGATION;; Surgeon: Terrell Ruggiero MD CRANIOTOMY N/A 07/15/2020 Procedure: SUBOCCIPITAL CRANIOTOMY W/ AWAKE ARTERIAL LINE;; Surgeon: Terrell Ruggiero MD DEBRIDEMENT PROCEDURE Bilateral 09/04/2017 Procedure: SUBOCCIPITAL WOUND REVISION;; Surgeon: Terrell Ruggiero MD TEETH EXTRACTION PROJECT CONTROL ANALYST & VA SHUNTS Right 11/20/2017 Procedure: RIGHT FRONTAL VENTRICULAR PERITONEAL SHUNT INSERTION, ASPIRATION OF PSEUDOMENINGOCELE;;Surgeon: Terrell Ruggiero MD Family History Problem Relation Age of Onset Other Father Pneumonia Negative Mother Breast Cancer Mother Diabetes Cousin Breast Cancer Maternal Grandmother Blindness Neg Hx Cataracts Neg Hx Glaucoma Neg Hx Macular Degeneration Neg Hx Social History Socioeconomic History Marital status: Spouse name: Not on file Number of children: 2 Years of education: 13 Highest education level: Not on file Occupational History 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; 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 Tobacco Use Smoking status: Current Every Day Smoker Packs/day: 1.00 Years: 45.00 Pack years: 45.00 Types: Cigarettes Smokeless tobacco: Never Used Substance and Sexual Activity Alcohol use: Not Currently Frequency: Monthly or less Comment: 12 pack at least every week Drug use: Yes Types: Other-see comments Comment: Marijuana; 1-2 per month Sexual activity: Yes Partners: Female Lifestyle Physical activity Days per week: 0 days Minutes per session: Not on file Stress: Not on file HOME MEDICATIONS Current Outpatient Medications Medication Sig aspirin 325 mg tablet Take by mouth 1 time per day LANTUS SOLOSTARE subcutaneous injection solution (pen) INJECT 50 UNITS SUBCUTANEOUSLY EVERY NIGHT AT BEDTIME MAX DAILY DOSE-50 UNITS metFORMIN (GLUCOPHAGE) 500 MG tablet TAKE 1 TABLET BY MOUTH TWICE A DAY WITH MEALS simvastatin (ZOCOR) 80 mg tablet TAKE 1/2 TABLET BY MOUTH DAILY GENERIC FOR ZOCOR omeprazole (PRILOSEC) 20 mg capsule TAKE 1 CAPSULE BY MOUTH DAILY EVERY MORNING glipiZIDE (GLUCOTROL) 10 mg tablet Take 1 tablet (10 mg) by mouth 1 time a day with breakfast multivitamin (CENTRUM SILVER) tablet Take 1 tablet by mouth 1 time per day. insulin needle (ULTICARE SHORT PEN NEEDLES) 31G X 8 mm (08/29") Short Use once daily with Lantus E11.9 tadalafil (CIALIS) 10 MG tablet Take 1 tablet (10 mg) by mouth 1 time a day as needed for other (Specify) (ED) Take prior to anticipated sexual activity. lisinopril (PRINIVIL, ZESTRIL) 20 mg tablet Take 1 tablet (20 mg) by mouth 1 time per day (Patient not taking: Reported on 08/30/2020) ROS Review of Systems Constitutional: Positive for activity change, appetite change, fatigue and fever. HENT: Negative for congestion, ear discharge, ear pain, mouth sores, rhinorrhea, sinus pressure and sore throat. Eyes: Negative. Respiratory: Negative. Cardiovascular: Negative. Gastrointestinal: Positive for abdominal pain. Negative for vomiting. Genitourinary: Positive for decreased urine volume. Negative for dysuria, flank pain and hematuria. Musculoskeletal: Positive for back pain. Negative for neck stiffness. Allergic/Immunologic: Negative for immunocompromised state. Neurological: Positive for weakness (Generalized). Negative for light-headedness. Psychiatric/Behavioral: Negative for agitation and confusion. Physical / Results PHYSICAL EXAM ED Triage Vitals [08/30/20 0940] Temp Temp Source Pulse Resp BP SpO2 O2 Flow Rate (L/min) O2 Device 100.9 F (38.3 C) Oral 118 27 136/74 93 % -- RA Physical Exam Vitals signs and nursing note reviewed. Constitutional: Appearance: He is ill-appearing. Comments: He seems somewhat generally weak. Prefers to lay in a side. Not otherwise acutely distressed. HENT: Head: Comments: The left craniotomy incision is a little bit puffy. There is still 4 neli present in the inferior most portion of the wound. No expressed fluid or purulence. Nose: Nose normal. Mouth/Throat: Mouth: Mucous membranes are moist. Eyes: Conjunctiva/sclera: Conjunctivae normal. Pupils: Pupils are equal, round, and reactive to light. Neck: Musculoskeletal: Normal range of motion and neck supple. Cardiovascular: Rate and Rhythm: Regular rhythm. Tachycardia present. Pulmonary: Effort: Pulmonary effort is normal. Breath sounds: Normal breath sounds. Abdominal: General: There is no distension. Palpations: Abdomen is soft. Tenderness: There is abdominal tenderness. There is no guarding or rebound. Musculoskeletal: General: Tenderness present. No swelling. Right lower leg: No edema. Left lower leg: No edema. Comments: Only minimal tenderness over the lower thoracic, upper lumbar spine area. No redness or swelling noted. Skin: General: Skin is warm and dry. Neurological: Mental Status: He is alert and oriented to person, place, and time. Comments: He is able to move all extremities equally. He seems more generally weak. Some tremornoted. Psychiatric: Mood and Affect: Mood normal. Thought Content: Thought content normal. Scoring Scales [place] Coma Scale Score: 14 ED COURSE Chart reviewed as discussed above. Nurse's notes reviewed. EKG obtained and I independently visualized.Compared with previous.Sinus tachycardia. Right bundle branch block. No definite acute ischemic change. Labs obtained and reviewed.Blood culture 2 pending Results for orders placed or performed during the hospital encounter of 08/30/20 COMPREHENSIVE METABOLIC PANEL Result Value Ref Range Glucose 315 (H) 70 - 100 mg/dL BUN 15 6 - 22 mg/dL Creatinine 1.02 0.80 - 1.30 mg/dL BUN/Creatinine Ratio 14.7 10.0 - 25.0 Sodium 135 135 - 145 meq/L Potassium 3.7 3.5 - 5.3 meq/L Chloride 100 99 - 110 meq/L CO2 20 20 - 29 meq/L Anion Gap with K 19 6 - 20 meq/L Calcium 9.1 8.5 - 10.5 mg/dL Protein Total 6.3 6.0 - 8.2 g/dL Albumin 3.0 (L) 3.5 - 5.0 g/dL Alkaline Phosphatase 220 (H) 30 - 150 U/L AST - SGOT 30 0 - 35 U/L ALT - SGPT 42 0 - 55 U/L Bilirubin Total 0.4 0.2 - 1.2 mg/dL Corrected Calcium 9.9 8.5 - 10.5 mg/dL Age 60 Years eGFR Non- 74 >=60 mL/min/1.73m2 eGFR 90 >=60 mL/min/1.73m2 COLLECT AND HOLD BLUE (NACIT) TOP TUBE Result Value Ref Range Collect and Hold Specimen Status COLLECT AND HOLD BROWNLEE (NAFL) TOP TUBE Result Value Ref Range Collect and Hold Specimen Status LAB ONLY-COMPLETE BLOOD COUNT WITH DIFFERENTIAL Result Value Ref Range WBC 14.7 (H) 4.0 - 11.0 K/uL RBC 4.03 (L) 4.40 - 5.80 M/uL Hemoglobin 11.6 (L) 13.5 - 17.5 g/dL Hematocrit 34.1 (L) 40.0 - 50.0 % MCV 84.6 80.0 - 98.0 fL MCH 28.8 25.5 - 34.0 pg MCHC 34.0 31.5 - 36.5 g/dL RDW-CV 13.8 11.5 - 15.5 % RDW-SD 43.4 35.5 - 50.0 fl Platelet Count 478 (H) 140 - 400 K/uL MPV 8.1 (L) 8.5 - 12.0 fL Seg Neut Absolute 12.2 (H) 1.8 - 8.0 K/uL Lymphocytes Absolute 1.4 0.8 - 4.1 K/uL Monocytes Absolute 1.0 0.0 - 1.0 K/uL Eosinophils Absolute 0.0 0.0 - 0.7 K/uL Basophil Absolute 0.1 0.0 - 0.2 K/uL Immature Granulocyte Absolute 0.14 (H) 0.00 - 0.06 K/uL Neutrophils Abs. (Segs and Bands) 12,200 /uL Neutrophils Percent 82.9 % Lymphocytes Percent 9.3 % Monocytes Percent 6.5 % Immature Granulocyte Percent 1.0 % Eosinophils Percent 0.0 % Basophil Percent 0.3 % Nucleated RBC 0 /100 WBC's SARS-COV-2, INFLUENZA A+B, AND/OR RSV NUCLEIC ACID TESTING PANEL Result Value Ref Range SARS-CoV-2 Not Detected Not Detected Influenza A Not Detected Not Detected Influenza B Not Detected Not Detected RSV Not Detected Not Detected URINE DIP, REFLEX TO MICROSCOPIC, REFLEX TO CULTURE Specimen: Clean Catch; Urine Result Value Ref Range Color Urine Yellow Asha, Dark Yellow, Straw, Yellow, Colorless Clarity Urine Clear Clear Glucose Urine 50 mg/dL (A) Negative Bilirubin Urine Negative Negative Ketones Urine 10 mg/dL Negative, 5 mg/dL, 10 mg/dL Specific [place] >1.040 (H) 1.002 - 1.030 Blood Urine Negative Negative PH Urine 6.0 5.0, 5.5, 6.0, 6.5, 7.0, 7.5, 8.0 Protein Urine 100 mg/dL (A) Negative Urobilinogen < 2 mg/dL < 2 mg/dL Nitrite Negative Negative Leukocyte Esterase Urine Negative Negative LACTIC ACID REFLEX TO REPEAT Result Value Ref Range Lactic Acid 1.2 0.5 - 2.2 mmol/L C-REACTIVE PROTEIN (INFLAMMATION) Result Value Ref Range CRP 201.6 (H) 0.0 - 8.0 mg/L ESR Result Value Ref Range ESR 74 (H) 0 - 19 mm/Hr LIPASE Result Value Ref Range Lipase 10 5 - 80 U/L PROCALCITONIN Result Value Ref Range Procalcitonin 2.23 (H) <0.07 ng/mL TROPONIN I Result Value Ref Range Troponin I 0.038 (H) 0.000 - 0.028 ng/mL LAB ONLY-URINE MICROSCOPIC REFLEX Result Value Ref Range WBC Urine 0-5 /hpf Negative, 0-5 /hpf RBC Urine 3-5 /hpf (A) Negative, 0-2 /hpf Squamous Epithelial Cells Moderate (21-50) /lpf (A) Negative, Occ (0-10) /lpf, Few (11-20) /lpf Bacteria Negative Negative Hyaline Cast 3-5 /lpf (A) 0-2 /lpf GLUCOSE BY METER, POCT Result Value Ref Range Glucose POC 172 (H) 70 - 99 mg/dL Radiologic studies obtained. I have reviewed the images. Radiologist report reviewed Results for orders placed or performed during the hospital encounter of 08/30/20 CT ABDOMEN PELVIS WITH CONTRAST Narrative Patient Name: SANDRA JOHNS Date of : 1960 Procedure: CT ABDOMEN PELVIS WITH CONTRAST Date of Service: 08/30/2020 EXAM: CT ABDOMEN PELVIS WITH CONTRAST INDICATION:Abdominal pain, unspecified TECHNIQUE: CT imaging was performed through the abdomen and pelvis following IV contrast. COMPARISON(S): None Available FINDINGS: Lung bases are clear. No pleural or pericardial effusion. Exophytic lesion lateral left liver with nodular peripheral postcontrast enhancement likely on the basis of hepatic hemangioma. There is perihepatic free fluid which appears encapsulated along portions of the fluid. Gallbladder, biliary system and pancreas unremarkable. Spleen is unremarkable. Adrenal glands unremarkable. No hydronephrosis or hydroureter. Parapelvic renal cysts bilaterally. Bladder unremarkable. Moderate colonic stool. Submucosal edema/thickening at the ascending colon. Peripherally enhancing fluid collection at the anterior abdomen at the level of the gallbladder abutting the peritoneal fascia measuring 4.5 x 0.9 cm in the axial plane by 2.2 cm craniocaudal on axial image 36. Additionally, there is a thin tube of fluid extending from the level of the ventriculoperitoneal shunt catheter withperipheral postcontrast enhancement best seen as depicted by the arrows on sagittal images 66 through 89 and then reverse through image 45. There is unencapsulated stranding within the omentum. No freeair. No destructive osseous lesion or acute fracture. IMPRESSION: Fines worrisome for infected fluid/abscess in the abdomen near the PROJECT CONTROL ANALYST shunt catheter tip and within the ventral abdomen at the level of the gallbladder. Perihepatic fluid appears encapsulated as well worrisome for additional locus of abscess. Submucosal edema/thickening at the ascending colon may be reactive to inflammatory peritoneal fluid. Findings conveyed to STEVENSON SUNSHINE on 08/30/2020 12:40 PM CDT via the [employer] system. Finalized by: Oscar Escobar DO on 08/30/2020 12:41 PM CDT Patient/Procedure Information: [facility] MRN/ENEDINA: [id number] Order Number: [id number] Accession Number: [id number] Ordering Provider: STEVENSON SUNSHINE Authorizing Provider: STEVENSON SUNSHINE US ABDOMEN LIMITED Narrative Patient Name: SANDRA JOHNS Date of : 1960 Procedure: US ABDOMEN LIMITED Date of Service: 08/30/2020 EXAM: US ABDOMEN LIMITED INDICATION: Abdominal pain COMPARISON(S): Renal ultrasound 01/12/2005 TECHNIQUE: Multiple static brownlee-scale and Color Doppler images of the right upper quadrant were submitted. Multiple cine clips were submitted. FINDINGS: The liver echogenicity is normal. There are no masses or ductal dilatation. The gallbladder is normal. There is no stones, pericholecystic fluid, or wall thickening. The casing sewer indicated there was a negative sonographic Owusu's sign. The common bile duct measures 4 mm. No ductal stones. The size is within normal limits. The visualized portions of the pancreas are normal. The tail is slightly obscured by bowel gas. The right kidney measures 13.3 x 6.6 x 6.7. cm. No calculi, mass or hydronephrosis. IMPRESSION: No clear etiology for abdominal pain. Finalized by: Benji Khan MD on 08/30/2020 1:16 PM CDT Patient/Procedure Information: [facility] MRN/ENEIDNA: [id number] Order Number: [id number] Accession Number: [id number] Ordering Provider: STEVENSON SUNSHINE Authorizing Provider: STEVENSON SUNSHINE XRAY CHEST PORTABLE - Narrative Patient Name: SANDRA JOHNS Date of : 1960 Procedure: XRAY CHEST PORTABLE Date of Service: 08/30/2020 EXAM: XRAY CHEST PORTABLE INDICATION: fever, COMPARISON(S): 07/12/2020 TECHNIQUE: Portable AP upright FINDINGS: Cardiac silhouette is unremarkable. The aorta and pulmonary vessels are unremarkable. There is a PROJECT CONTROL ANALYST shunt courses down the right hemithorax. No focal infiltrate or effusion. IMPRESSION: No acute cardiopulmonary process Finalized by: Benji Khan MD on 08/30/2020 11:54 AM CDT Patient/Procedure Information: [facility] MRN/ENEDINA: [id number] Order Number: [id number] Accession Number: [id number] Ordering Provider: STEVENSON SUNSHINE Authorizing Provider: STEVENSON SUNSHINE CT BRAIN WITH CONTRAST Narrative Patient Name: SANDRA JOHNS Date of : 1960 Procedure: CT HEAD WITH CONTRAST Date of Service: 08/30/2020 EXAM: CT HEAD WITH CONTRAST INDICATION: Cellulitis, head, craniotomy 07/12/20. Ongoing fevers area TECHNIQUE: CT of the brain performed without and following intravenous contrast administration COMPARISON(S): Head CT dated 07/29/2020 FINDINGS: Postoperative change of suboccipital craniectomy and cranioplasty. Suboccipital fluid collection is increased in size demonstrating peripheral postcontrast enhancement, currently measuring 6.4 x 1.5 cm in the axial plane. The craniocaudal extent of the fluid collection is not included on thesagittal images, measuring at least 4.5 cm. There is hypoattenuation within the midline posterior fossa brain parenchyma. There are foci of air within this region as well which appear increased when compared to the prior. Right anterior approach ventriculostomy catheter is stable in position. No hydrocephalus. No large vessel distribution infarct. No acute intracranial hemorrhage. IMPRESSION: 1. Given clinical scenario, increased fluid in the suboccipital region status post suboccipital craniectomy and cranioplasty with peripheral postcontrast enhancement is worrisome for abscess. Additionally, there is intracranial air in the midline posterior fossa which is typically not seen 1.5 months p ostoperatively which is also concerning for infection. Neurosurgery consultation recommended. 2. Right anterior approach tracheostomy catheter is stable in position. No hydrocephalus. Findings discussed with STEVENSON SUNSHINE on 08/30/2020 12:33 PM CDT Finalized by: Oscar Escobar DO on 08/30/2020 12:33 PM CDT Patient/Procedure Information: [facility] MRN/ENEDINA: [id number] Order Number: [id number] Accession Number: [id number] Ordering Provider: STEVENSON SUNSHINE Authorizing Provider: STEVENSON SUNSHINE IV and meds ED Medication Administration from 08/30/2020 0930 to 08/30/2020 1556 Date/Time Order Dose Route Action Action by 08/30/2020 1353 acetaminophen (TYLENOL) suppository 650 mg 650 mg Rectal Refused Elsie Goode RN 08/30/2020 1338 cefepime (MAXIPIME) 2000 mg/20 mL in sterile water IV syringe 2,000 mg IV Given Elsie Goode RN 08/30/2020 1225 iohexol (OMNIPAQUE) 350 mg/mL solution 100 mL 100 mL IV Given Jose Fields, RT(R) 08/30/2020 1447 metroNIDAZOLE (FLAGYL) IV piggyback in sodium chloride 0.79% (premix) 500 mg 500 mgIV Stopped Infusion Elsie Goode RN 08/30/2020 1342 metroNIDAZOLE (FLAGYL) IV piggyback in sodium chloride 0.79% (premix) 500 mg 500 mgIV Given Elsie Goode RN 08/30/2020 1220 sodium chloride 0.9% (bolus) IV solution 1,000 mL 1,000 mL IV Stopped Infusion Elsie Goode RN 08/30/2020 1059 sodium chloride 0.9% (bolus) IV solution 1,000 mL 1,000 mL IV Given Elsie Goode RN 08/30/2020 1448 vancomycin (VANCOCIN) 2,000 mg in sodium chloride 0.9% 500 mL (Locked) 2,000 mg IV Given Elsie Goode RN Neurosurgery consulted. I discussed with Dr. Sullivan that he is familiar with patient previous. Very complex patient with what looks like a shunt/surgical infection. He is given triple antibiotics and will be admitted to hospitalist. Discussed with hospitalist navigator, Renato Antony, by telephone at 1340hours including the above H&P, ER course and workup. Patient noted to have slightly elevated troponin. Not having chest pain or EKG changes. Probably more of a demand ischemia. PROCEDURES Procedures MDM-CODING: MDM This medical record was created in part using [employer] voice to text recognition software. Inadvertent typographical errors may exist due to inherent limitations of the program. documented in this encounter Miscellaneous Notes Case Mgmt - Barbara Long RN - 09/14/2020 9:16 AM CDT CASE MANAGEMENT / SOCIAL SERVICE FINAL TRANSITION PLAN TRANSITION DATE: 09/14/2020 TRANSITION TIME: 1130 INTENDED PAYER SOURCE FOR AGENCY: Medicare TRANSITION DESTINATION: [facility] [address] [facility] [place] [address] Nurse to nurse: [phone] Fax for orders: [phone] MARKETING ASSISTANT: Please fax paperwork to above fax number Nursing: please call report at above number before or just as patient leaves. MD: please do [facility] transfer order set, ensure orders for PT, OT, ST(if needed) are included. When doing medication orders, there cannot be any range orders, and indication is needed for all meds. DOES ACCEPTING FACILITY REQUIRE COVID TESTING BEFORE DISCHARGE: N/A TRANSITION TRANSPORTATION: [facility] (P:[phone]) TRANSPORTATION PAYMENT: Billed to Case Management Due to: no funds - expedite d/c TRANSITION CHOICES OFFERED: Swing Bed DOES THE PATIENT HAVE A PRIMARY CARE PHYSICIAN? Yes Dejuan Simon MD PATIENT / SUBSTITUTE DECISION MAKER GOAL UPON TRANSITION: First Choice: Swing Bed PATIENT CHOICE EDUCATION: Choice form completed in Case Management note and copy given to patient/family MEDICARE 3 IP MIDNIGHT CRITERIA MET: Yes: . RESOURCE(S) PROVIDED: Placement and Transportation DOES PATIENT HAVE CLOTHING TO WEAR AT DISCHARGE? Yes ANTICIPATED MODE OF TRANSPORT TO AND FROM FOLLOW UP APPOINTMENTS: As arranged by accepting facility VERIFIED CORRECT PHARMACY IS ENTERED FOR DISCHARGE: No METHOD OF PRESCRIBING MEDICATIONS: Reconcile medications as Patient Transfer ("65 button") TRANSITION ROUNDING COMPLETED WITH THE FOLLOWING: Patient / family Scale And Skip Car Operator Attending MD COMMENTS / PATIENT AND FAMILY RESPONSE TO PLAN: Update provided to patient / updated provided to . Patient agreeable to d/c today. All arrangements in place. CM to assist if d/c needs arise. CURRENT READMISSION RISK SCORE / HANDOFF: Predictive Risk Score Risk of Unplanned Readmission: 27.4 Handoff given: N/A SIGNED: Barbara Long RN BSN Case Management - 6AB Rt: [id number] are Gerber - Steph Lopez RN - 09/14/2020 1:03 AM CDT Problem: RISK FOR FALLS Goal: FALL PREVENTION BEHAVIOR Description: DEFINITION: Personal or family child care development specialist actions to minimize risk factors that might precipitate falls in the personal environment. 1=Never demonstrated, 2=Rarely demonstrated, 3=Sometimes demonstrated, 4=Often demonstrated, 5=Consistently demonstrated. Outcome: NOC Rating 3 Flowsheets (Taken 09/14/2020 0103) Plan of care reviewed with: Patient Patient specific goal for the day: Pt will use call light for assistance. Patient specific goal for the stay: Pt will not have any falls/injury during his hospital stay Achieve goal for stay: By discharge Patient Progress: A/Ox4, no acute neuro changes this shift --. Mostly compliant. Bed alarm on, fall precautions in place. Will continue to monitor. Logan Mayes - Maria C Smith RN - 09/13/2020 6:33 PM CDT Problem: RISK FOR FALLS Goal: FALL PREVENTION BEHAVIOR Description: DEFINITION: Personal or family child care development specialist actions to minimize risk factors that might precipitate falls in the personal environment. 1=Never demonstrated, 2=Rarely demonstrated, 3=Sometimes demonstrated, 4=Often demonstrated, 5=Consistently demonstrated. Outcome: NOC Rating 3 Flowsheets (Taken 09/13/2020 1154) Initial Score: 3 Target Score: 4 Plan of care reviewed with: Patient Patient specific goal for the day: Pt will use call light for assistance. Patient specific goal for the stay: Pt will not have any falls/injury during his hospital stay Achieve goal for stay: By discharge Patient Progress: A/Ox4, no acute neuro changes this shift. Mostly compliant this shift. Pt refused CHG bath, pt educated on importance of CHG wipes to prevent infection, will continue to reinforce teaching. Had 1 BM this shift, pt very unsteady when ambulating. Pt encouraged to eat, had bites of lunch and supper. Bed alarm on, fall precautions in place. Will continue to monitor. Logan Mayes - Steph Lopez RN - 09/13/2020 1:31 AM CDT Problem: RISK FOR FALLS Goal: FALL PREVENTION BEHAVIOR Description: DEFINITION: Personal or family child care development specialist actions to minimize risk factors that might precipitate falls in the personal environment. 1=Never demonstrated, 2=Rarely demonstrated, 3=Sometimes demonstrated, 4=Often demonstrated, 5=Consistently demonstrated. Outcome: NOC Rating 2 Flowsheets (Taken 09/13/2020 0130) Plan of care reviewed with: Patient Patient specific goal for the day: Pt will use call light for assistance. Patient specific goal for the stay: Pt will not have any falls/injury during his hospital stay Achieve goal for stay: By discharge Patient Progress: AOx4, irritable and non-compliant at times Discussed fall precautions and use of call light. WIll continue to reinforce teachings. Fall precautions in place. Pt very unsteady with ambulation. Logan Mayes - Maria C Smith RN - 09/12/2020 6:48 PM CDT Problem: IMBALANCED NUTRITION: LESS THAN BODY REQUIREMENTS Goal: NUTRITIONAL STATUS: NUTRIENT INTAKE Description: DEFINITION: Nutrient intake to meet metabolic needs. 1=Not adequate, 2=Slightly adequate, 3=Moderately adequate, 4=Substantially adequate, 5=Totally adequate. Outcome: NOC Rating 3 Flowsheets (Taken 09/12/2020 7185) Initial Score: 2 Target Score: 4 Plan of care reviewed with: Patient Patient specific goal for the day: Consume >50% 2-3 meals + 1-2 snacks Patient specific goal for the stay: Nutrient intake to meet estimated metabolic needs Achieve goal for stay: By discharge Patient Progress: Pt refused breakfast but ate >50% of lunch and dinner with 's encouragment.No acute neuro changes this shift. SBP >160 this AM, pt given sheduled PO BP meds, BP 141/75 uponrecheck. Bed alarm on, fall precaution in place. Will continue to monitor. Logan Mayes - Steph Lopez RN - 09/12/2020 1:21 AM CDT Problem: RISK FOR INFECTION Goal: IMMUNE STATUS Description: DEFINITION: Natural and acquired appropriately targeted resistance to internal and external antigens. 1 = Severely compromised, 2 = Substantially compromised, 3 = Moderately compromised, 4 = Mildly compromised, 5 = Not compromised. Outcome: NOC Rating 3 Flowsheets (Taken 09/12/2020 0111) Intial Score: 3 Target Score: 4 Plan of care reviewed with: Patient Patient specific goal for the day: Pt will receive all antibiotics today in order to discharge to [facility] when placement is available. Patient specific goal for the stay: Discharge to swingbed and continue to receive antibiotics Achieve goal for stay: By discharge Patient Progress: Pt not as agitated this shift and has not been refusing medications or cares. Per physician note pt lacks capacity and is not allowed to leave AMA. Will continue to monitor Logan Mayes - Maria C Smith RN - 09/11/2020 6:58 PM CDT Problem: RISK FOR INFECTION Goal: IMMUNE STATUS Description: DEFINITION: Natural and acquired appropriately targeted resistance to internal and external antigens. 1 = Severely compromised, 2 = Substantially compromised, 3 = Moderately compromised, 4 = Mildly compromised, 5 = Not compromised. Outcome: NOC Rating 3 Flowsheets (Taken 09/11/2020 1245) Intial Score: 3 Target Score: 4 Plan of care reviewed with: Patient Patient specific goal for the day: Pt will receive all antibiotics today in order to discharge to [facility] when placement is available. Patient specific goal for the stay: Discharge to swingbed and continue to receive antibiotics Achieve goal for stay: By discharge Patient Progress: A/Ox4, no acute neuro changes this shift. at bedside throughout day. Pt ate some of lunch and dinner. Had BM per pt and . VSS on RA. Will continue to monitor. Tisha Goel - Bernadette Rogers RN - 09/11/2020 10:04 AM CDT This display card writer called [employer]. They are currently closed. 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 (Jade) Margarita Rogers RN BSN Weekend Scale And Skip Car Operator [facility] Pager #[phone] Corrie Bledsoe RN - 09/11/2020 7:33 AM CDT Problem: RISK FOR FALLS Goal: FALL PREVENTION BEHAVIOR Description: DEFINITION: Personal or family child care development specialist actions to minimize risk factors that might precipitate falls in the personal environment. 1=Never demonstrated, 2=Rarely demonstrated, 3=Sometimes demonstrated, 4=Often demonstrated, 5=Consistently demonstrated. Outcome: NOC Rating 3 Flowsheets (Taken 09/11/2020 0300) Initial Score: 3 Target Score: 4 Plan of care reviewed with: Patient Patient specific goal for the day: Pt will use call light for assistance. Patient specific goal for the stay: Pt will not have any falls/injury during his hospital stay Achieve goal for stay: By discharge Patient Progress: AOx4, irritable and non-compliant at times Discussed fall precautions and use of call light. WIll continue to reinforce teachings. Fall precautions in place. Steph Bland RN - 09/10/2020 11:52 PM CDT Problem: RISK FOR INFECTION Goal: IMMUNE STATUS Description: DEFINITION: Natural and acquired appropriately targeted resistance to internal and external antigens. 1 = Severely compromised, 2 = Substantially compromised, 3 = Moderately compromised, 4 = Mildly compromised, 5 = Not compromised. Outcome: NOC Rating 3 Flowsheets (Taken 09/10/2020 2351) Plan of care reviewed with: Patient Patient specific goal for the day: Afebrile today, contiue on antibiotics Patient specific goal for the stay: Discharge to swingbed and continue to receive antibiotics Achieve goal for stay: By discharge Patient Progress: A&Ox4. VSS on RA, afebrile this shift. PICC remains in place. Fall precautionsin place. Will continue to monitor. NIATCRonda Doyle RN - 09/10/2020 7:54 PM CDT Problem: RISK FOR INFECTION Goal: IMMUNE STATUS Description: DEFINITION: Natural and acquired appropriately targeted resistance to internal and external antigens. 1 = Severely compromised, 2 = Substantially compromised, 3 = Moderately compromised, 4 = Mildly compromised, 5 = Not compromised. Outcome: NOC Rating 3 Flowsheets (Taken 09/10/20201950) Plan of care reviewed with: Patient Patient specific goal for the day: Afebrile today, contiue on antibiotics Patient specific goal for the stay: Discharge to swingbed and continue to receive antibiotics Achieve goal for stay: By discharge Patient Progress: A&Ox4. VSS on RA, afebrile this shift. Patient received some of his antibiotics this shift, missed some doses due to refusal (see previous clinical note). PICC remains in place. Fall precautions in place. Will continue to monitor. linical Team - Ronda Payton RN - 09/10/2020 7:40 PM CDT This morning patient was cooperative with all cares. Once patient found out he would not be transferred or discharged today, he became very upset in the early afternoon. Patient refused all medications(including IV antibiotics), vanco trough lab draw, afternoon vitals, and any other cares offered. Patient would yell "Get out! Leave me alone!" during this display card writer's attempts to provide care. Due to patient refusal and verbal aggression, 1430 dose vancomycin was missed today, as well as 1500 dose flagyl. Provider aware. Patient's arrived late this afternoon. After visiting with for a few hours, patient becamemore agreeable and cooperative for this display card writer around 6pm today. Upon reapproaching, patient agreed to let lab draw vanco trough, this display card writer called lab to notify them. are Planning - Manju Huff RD, LRD - 09/10/2020 11:21 AM CDT Problem: IMBALANCED NUTRITION: LESS THAN BODY REQUIREMENTS Goal: NUTRITIONAL STATUS: NUTRIENT INTAKE Description: DEFINITION: Nutrient intake to meet metabolic needs. 1=Not adequate, 2=Slightly adequate, 3=Moderately adequate, 4=Substantially adequate, 5=Totally adequate. Outcome: NOC Rating 1 Flowsheets (Taken 09/10/2020 1120) Patient specific goal for the day: Consume >50% 2-3 meals + 1-2 snacks Patient specific goal for the stay: Nutrient intake to meet estimated metabolic needs Patient Progress: 09/09 intake provided ~200 kcal via 75% of one meal of fruit and sarabia. Pt refused breakfast meal thus far today. Overall, intakes have met <10% energy/protein needs due to severelycompromised appetite. Case Mgmt - Barbara Long RN - 09/10/2020 10:21 AM CDT CASE MANAGEMENT / SOCIAL SERVICE TRANSITION PLAN - PROGRESS NOTE PLAN: Awaiting Medical Doctor Recommendations for Transition Will Continue to Follow for Support and Progression Towards Final Transition Plan BARRIERS TO TRANSITION: Awaiting Placement: Snf/Swing Bed/TCU and Other: prior auth pending Medical barriers:. Pain control, neuro Q4 hrs, neuro surg following, ID following - IV abx (total of 6 weeks), PT/OT consulted DOES ACCEPTING FACILITY REQUIRE COVID TESTING BEFORE DISCHARGE: Other: TBD COMMENTS / PATIENT AND FAMILY RESPONSE TO PLAN: Chart reviewed. Met with patient in room. Update provided to . ID orders in place should patient be able to d/c over the weekend. [facility] able to offer placement for IV abx and continued therapies. Prior auth in progress - awaiting clinical reviewer. Last update was that [facility] was exped[facility] request (09/10). [facility] profile in place: Accepting bed offer: [facility] [place] screen completed and faxed: September 08, 2020 at 12:53:33 PM CDT. The confirmation number is [id number] CM to follow. IS PATIENT'S ADMISSION ASSOCIATED WITH TIA, ISCHEMIC, OR HEMORRHAGIC STROKE?: No PATIENT / SUBSTITUTE DECISION MAKER GOAL UPON TRANSITION: First Choice: Home: Family/Friend Support Second Choice: Snf Facility Swing Bed Transitional Care Transportation assistance ANTICIPATED NEEDS UPON TRANSITION: Snf Facility Swing Bed Transitional Care Transportation assistance RESOURCE(S) PROVIDED: Home Health, Placement and Transportation ANTICIPATED MODE OF TRANSPORT UPON TRANSITION: Other: TBD ANTICIPATED MODE OF TRANSPORT TO AND FROM FOLLOW UP APPOINTMENTS: Other: TBD VERIFIED CORRECT PHARMACY IS ENTERED FOR DISCHARGE: No TBD TRANSITION ROUNDING COMPLETED WITH THE FOLLOWING: Patient / family Scale And Skip Car Operator Attending MD SIGNED: Barbara Long RN BSN Case Management - 6AB Rt: [phone] Supplemental Progress Note - Timi Faith MD - 09/10/2020 10:05 AM CDT OPAT orders done should patient be able to discharge to facility over the weekend. vanco dose adjusted to 1500mg IV q 12 hours. Please see note from 09/08 for full plan. Physical Therapy - Luz Maria Herrera PT - 09/10/2020 8:50 AM CDT PT attempted to see patient, however patient adamantly refusing despite encouragement. He states "I'm leaving to go home in a couple hours and I'm not doing anything before that." Will follow up nextweek if he remains in the hospital. Luz Maria Herrera, PT, DPT Board-Certified Clinical Specialist in Geriatric Physical Therapy Certified Exercise Expert for Aging Adults [facility] Pager [phone] are Planning - Bang Alexandra RN - 09/09/2020 10:44 PM CDT Problem: RISK FOR INFECTION Goal: IMMUNE STATUS Description: DEFINITION: Natural and acquired appropriately targeted resistance to internal and external antigens. 1 = Severely compromised, 2 = Substantially compromised, 3 = Moderately compromised, 4 = Mildly compromised, 5 = Not compromised. Outcome: NOC Rating 3 Flowsheets (Taken 09/09/20201) Intial Score: 3 Target Score: 4 Plan of care reviewed with: Patient Patient specific goal for the day: To get some rest and sleep, no fever, no falls, no injury Patient specific goal for the stay: To get rid of the infection to get stronger Achieve goal for stay: By discharge Patient Progress: Patient AAOx4, VSS Room air, remains in IV antibiotics, PICC line in place. Posterior neck with some old drainage. Will continue to monitor call light within reach for assistance. Bead alarm on at all times. ccupational Therapy - Gricel Humphries OTR/Ilya - 09/09/2020 4:02 PM CDT Occupational Therapy Acute Care Progress Note Impression/Recommendations Pt demonstrated poor metacognitive skills with limited awareness of social interactions with verbal aggression and minimal redirection to task completion despite pivoting behavioral management technique integration. Pt refused to complete any OOB activity indicating, "I don't believe in your bullshit t herapies." Pt required Mod A to maintain dynamic sitting balance via long sit to don B gripper socks-below baseline level of functional performance. Pt would benefit from low intensity rehab and continued OT upon medical stability and d/c from acute hospitalization to facilitate remediation of strength/endurance required for maximized independence with transfers/ADLs. Due to pt's agitation and limited participation in OT therapeutic intervention, high intensity rehab not recommended at this time. Acute care OT to continue following during IP hospitalization to maximize independence with ADLs. Objective Cognition: Pt exhibited perseveration on task increasing frustration (I.e. suggestion to change outof soiled undergarments d/t urine onto clothing and bed linens) leading to decreased participation for therapeutic intervention. Pt exhibited poor metacognitive skills resulting in agitation by yellinginto therapists face, repeating frequent commentary of disdain for therapies, and indicating abilityto manage self-cares safely at home. Pt demonstrated poor insight in regards to level of physical assist required to safely execute ADLs. U/E: Cont to monitor, ataxia present with impaired fine motor coordination to tie gown ADLs: Feeding: Not observed Grooming: Not observed Dressing: Min A LB dressing with Mod A to maintain dynamic sitting balance with maximal assist to re-correct LOB during long sit LB dressing; Min A UB dressing to tie gown with demonstrated ability to unbutton gown buttons while seated Toileting: Total A with incontinence of urine and unwilling to change clothing Transfers: Bed: SBA supine <> EOB with all bed rails up on either side Chair: Not observed Toilet: Not observed Standing at bedside: Pt demonstrated ability to stand for 2 minutes at bedside CGA with minimal retropulsive swaying during nursing cares to change linens Gait belt, gripper socks, and FWW used for all OOB activity, ambulation/ transfer tasks for safety. Pt completed functional mobility including: supine<> EOB, and sit <> stand. Pt demonstrated impaired dynamic balance during OOB activity. Upon session completion, pt resting comfortably in bed positioned in lowest setting, with call light/ phone and tray table within reach. Education provided on using call light and waiting for staff assistance before getting up. Safety parameters such as bed alarm in place at termination of therapeutic session. No questions/ concerns. Pain: 0/10 Location: N/A Education Education/Training provided: Role of OT, plan of care Learners: Patient Readiness: Acceptance Method of Training: Verbal education, demonstration Response: Verbalized/demonstrated understanding, will benefit from continued reinfocement Adaptive Equipment Recommendations Defer to subsequent therapies pending progress Goals Patient/Family Stated Goal for Session: To go home Short Term Goals: ADL's: Patient will: #1)complete 3 grooming tasks safely in a standing position at the sink with SBA assist (ongoing) #2) Complete all functional transfers safely with SBA and AE prn (ongoing) #3) Complete UE and LE dressing with SBA and AE prn (ongoing) Cognition: Patient will: #4)be oriented X3 for 3 consecutive sessions to increase awareness of surroundings (ongoing) #5) will complete a cognitive assessment to determine safe level of supervision for ADLs/IADLs upon discharge (ongoing) UE Strengthening/conditioning: Patient will: #6)complete 15-30 minutes of continuous UE activity to increase physical conditioning for ADL tasks (ongoing) Charges Treatment/Minutes: Today's Evaluation/Treatment Self care/home management: 15 minutes Total Treatment Time: 15 minutes Treatment Session 04/20 Weekly Assessment/Plan (Day 5): Continue per POC Therapist Alpha Pager Number [phone] peech Therapy - Barbara Wise, CELLOPHANE BATH MIXER - 09/09/2020 3:19 PM CDT Speech Therapy Acute Care Progress Note Assessment/ Impression Continued non-standardized cognitive-linguistic evaluation today. Patient demonstrates overall mild cognitive-linguistic deficits characterized by difficulty with memory (delayed), higher level attention (sustained), problem solving, and verbal reasoning. The patient would benefit from ongoing ST servi abhijit. After today's therapy session, patient may be appropriate for high intensity rehab from a cognitive standpoint. Patient demonstrated better insight into current situation and current cognitive changes today. CELLOPHANE BATH MIXER will follow. Patient appears to be tolerating current diet of regular solids and thin liquids well per EMR reviewof respiratory status and biomarkers. No formal dysphagia evaluation is warranted at this time. Plan/ Recommendations Speech-Language Pathology will follow the patient 2-3 times a week for cognitive-linguistic treatment. Recommend high vs low intensity rehabilitation program upon d/c, depending on physical needs and qualifications. Barriers to return to premorbid functioning: The patient requires hour supervision due to cognitive/language impairments impacting the patients safety. The patient demonstrates poor awareness to cognitive/language deficits and is unable to compensate/cue self to improve safety. The patients communication/cognitive skills negatively affect health, safety, social, emotional, educational or vocational status. 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 PMH is significant for cerebellar hemangioblastoma s/p resection in 2001 and 2017.See EMR for further details of admission and full PMH. Patient was lying in bed resting in bed upon CELLOPHANE BATH MIXER arrival. Patient was pleasant and recalled seeing the CELLOPHANE BATH MIXER a few days ago for ST session. No pain reported or observed during the session. Objective Cognitive Therapy - Patient was verbally provided 3 concrete category members and the patient independently stated the concrete category in 40 of 50 attempts (80% accuracy). The patient named an additional concrete category member to the list in 44 of 50 attempts independently (88% accuracy). Delayed speed of processing noted intermittently. Patient used humor t/o the session. Goals/Education Patient/family goal: go home Goals Android Developer Goals: Patient will demonstrate cognitive skills consistent with level of demands to facilitate the most independent functioning within the least restrictive environment. Short Term Goals: Patient will complete processing tasks to increase speed of processing to a functional rate. Patient will complete simple organization and sequencing tasks with 90% accuracy independently. Patient will complete functional money and time management tasks with 90% accuracy independently. Patient will demonstrate appropriate executive function skills across multiple tasks/activities with90% accuracy independently. Patient will complete (sustained, selective, divided, alternating) attention tasks with 90% accuracyindependently. Patient will recall novel information following 1/3/5/10 minute delay without cues to utilize external aids. Patient will complete functional problem solving tasks with 90% accuracy independently. Patient will verbalize awareness of deficits. ONGOING Education Education regarding the results and recommendations of todays evaluation provided to: patient Patient demonstrated understanding of education with appropriate comments made and questions asked. Education Interventions: Results were documented in the patient care notes section of the patient's inpatient chart. Charges Total Time: 14 minutes Cognitive Therapy Alpha Pager [phone] Coden: [facility]: [id number] are Planning - Manju Huff RD, LRKalin - 09/09/2020 1:20 PM CDT Problem: IMBALANCED NUTRITION: LESS THAN BODY REQUIREMENTS Goal: NUTRITIONAL STATUS: NUTRIENT INTAKE Description: DEFINITION: Nutrient intake to meet metabolic needs. 1=Not adequate, 2=Slightly adequate, 3=Moderately adequate, 4=Substantially adequate, 5=Totally adequate. Outcome: NOC Rating 1 Flowsheets (Taken 09/09/2020 1320) Plan of care reviewed with: (RN) Patient Patient specific goal for the day: Consume >50% 2-3 meals + 1-2 snacks Patient specific goal for the stay: Nutrient intake to meet estimated metabolic needs Patient Progress: Overall, intakes have met <10% energy/protein needs due to severely compromisedappetite. Case Mgmt - Barbara Long, RN - 09/09/2020 1:00 PM CDT CASE MANAGEMENT / SOCIAL SERVICE TRANSITION PLAN - PROGRESS NOTE PLAN: Awaiting Medical Doctor Recommendations for Transition Will Continue to Follow for Support and Progression Towards Final Transition Plan BARRIERS TO TRANSITION: Awaiting Placement: Snf/Swing Bed/TCU and Other: prior auth pending Medical barriers:. Pain control, neuro Q4 hrs, neuro surg following, ID following - IV abx (total of 6 weeks), PT/OT consulted DOES ACCEPTING FACILITY REQUIRE COVID TESTING BEFORE DISCHARGE: Other: TBD COMMENTS / PATIENT AND FAMILY RESPONSE TO PLAN: Chart reviewed. Met with patient in room. Voicemail left for with update. Patient continues to be agreeable to transition to swing bed pending PA approval. Fermin PEGUERO able to offer placement for IV abx and continued therapies. Prior auth in progress - awaiting clinical reviewer. [facility] profile in place: Accepting bed offer: [facility] [place] screen completed and faxed: September 08, 2020 at 12:53:33 PM CDT. The confirmation number is [id number] CM to follow. IS PATIENT'S ADMISSION ASSOCIATED WITH TIA, ISCHEMIC, OR HEMORRHAGIC STROKE?: No PATIENT / SUBSTITUTE DECISION MAKER GOAL UPON TRANSITION: First Choice: Home: Family/Friend Support Second Choice: Snf Facility Swing Bed Transitional Care Transportation assistance ANTICIPATED NEEDS UPON TRANSITION: Snf Facility Swing Bed Transitional Care Transportation assistance RESOURCE(S) PROVIDED: Home Health, Placement and Transportation ANTICIPATED MODE OF TRANSPORT UPON TRANSITION: Other: TBD ANTICIPATED MODE OF TRANSPORT TO AND FROM FOLLOW UP APPOINTMENTS: Other: TBD VERIFIED CORRECT PHARMACY IS ENTERED FOR DISCHARGE: No TBD TRANSITION ROUNDING COMPLETED WITH THE FOLLOWING: Patient / family Scale And Skip Car Operator Attending MD SIGNED: Barbara Long RN BSN Case Management - 6AB Rt: [phone] Nutrition Team - Manju Huff RD, LRD - 09/09/2020 12:45 PM CDT Nutrition Therapy Follow Up Hospital Day: 10 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 - EVD displaced by patient and subsequently removed by neurosurgery on 09/03/2020. Hypertension Anemia PMH:T2DM, HTN, HLD, GERD, hemangioblastoma, s/p resection x3 with right PROJECT CONTROL ANALYST shunt placement and repair of pseudomeningocele Malnutrition Summary Malnutrition Assessment Date: 09/07/20 Dietitian Evaluation: Moderate (non-severe) protein calorie malnutrition Malnutrition Characteristics in the Context of Acute Illness or Injury: Energy Intake: Less than or equal to 50% intake of estimated energy needs for greater than or equal to 5 days Moderate Weight Loss: (>10% in 6 months) Interventions: Supplement diet with ONS (oral nutrition supplements)/nutrient dense foods;Vitamin/mineral supplementation;Monitor oral intake/advance diet as tolerated Recommendations: Encourage intake to meet nutrition needs ? accommodate pt preferences as able TheraM, one tablet, once daily Consider alternate route nutrition support NUTRITION ASSESSMENT Overall, intakes have met <10% energy/protein needs due to severely compromised appetite. Patientstates "everything tastes like medicine" and declines all suggestions and offers to accommodate preferences other than fresh fruit. Snacks were orderd BID on 09/07 but have been refused. Pt met criteria for moderate (non-severe) protein calorie malnutrition 07/13/20 based on inadequate intakes, severe weight loss, and mild muscle and fat losses. His weight appears to have remained stable since that time and his states that his appetite has been intact and his intake adequate MONUMENT MASON. Anthropometrics: Height: 182.9 cm (6') Admission Weight: Weight: 91.3 kg (201 lb 4.5 oz) as of 08/30/2020 per bed scale Most Recent Weight: Weight: 98 kg (216 lb 0.8 oz) (09/04/20 0603) per bed scale Lowest Wt Since Admission: 91.3 kg Wt Change Since Admission: (+) 6.7 kg BMI: Body mass index is 29.3 kg/m. IBW: 81 kg %IBW: 121 % (based on most recent weight) Usual Body Weight: ~230 lb per EMR and pt report Unintentional Weight Loss: 25 lbs / 11% between Mar and Jun; stable past 6-7 weeks MONUMENT MASON per EMR Adjusted Body Weight: 82 kg Estimated Needs: 2998-2174 kcal/day (28-30 kcal/kg Using: Adjusted Weight) 120 gm protein (1.5 gm/kg Using: Adjusted Weight) Estimated average intake: minimal x 10 day LOS 08/30-: NPO 09/01-: minimal (<25% needs) Intake Records: Intake Prior to Admit: During recent hospitalization, patient reportedthat he typically eats one main meal per day with frequent evening snacks. His states that he has been eating adequately though very sporadically. He was the primary cook at home though not recently. He eats most foods and particularly likes fruits. He has had no alcohol since April. He takes a daily MVM supplement. Current Intake: Sub optimal - meeting <25% of estimated needs x 10 day LOS DIET: Regular 09/03/20 at 1955 Snacks: AM PM rotation 09/02/20 at 1315 Physical Assessment: (per box spring upholsterer at 1106) Edema: BUE Trace BLE Trace GI Assessment: WD Abdominal exam: Non-tender;Rounded;Soft with Active, Audible bowel sounds Stool Frequency: 0-1x/day over the last 3 days Wounds:incisions right temporal area c/d/i Pressure Points: Coccyx;Elbow;Heel Blanchable Redness Functional Status: alert; mental status is at baseline Nutrition Focused Physical Exam: completed on 09/[address] Below the Eye (fat): Slightly Bulged Fat Pads (Within Defined Limits) [place] (muscle): Able to see/feel well-defined muscle (Within defined limits) Buccal (fat): Full, round/filled out cheeks (Within defined limits) Clavicle (muscle): Bone not prominent (Within defined limits) Shoulder (muscle)/Deltoid muscle: Rounded curves at arm/shoulder/neck (Within defined limits) Scapula (muscle): Bones not prominent, no significant depressions (Within Defined Limits) Triceps/Biceps (fat): Some depth to pinch, but not ample (mild-moderate) Hand/Interosseous (muscle): Flat to bulging muscle (Within defined limits) Calf (muscle): Thin, minimal to no muscle definition (severe) Nutritionally-Relevant Medications, Vitamins and Minerals: Dulcolax, Maxipime, Colace, Novolog, Lantus, lactulose, Keppra, Flagyl, Prilosec, Miralax, senna-docusate sodium, Zocor, vancomycin Nutritionally-Relevant Biochemical Data: 09/07/2020 09/09/2020 Glucose 123 (H) Sodium 141 Potassium 3.4 (L) BUN 4 (L) Creatinine 0.64 (L) 0.65 (L) Phosphorus 2.9 Magnesium 2.0 Albumin 2.5 (L) eGFR >90 >90 Allergies/Food Intolerance: Sandra has No Known Allergies. Culturally Lutheran Needs: NA INTERVENTIONS Reviewed adequacy of intake Conducted NFPE Encouraged adequate calories and optimal protein Discontinued snack rotation BID per pt request MONITORING/EVALUATION Ability to consume and tolerate adequate intake I&O, weight, nutrition-related labs and medications, clinical status, and plan of care Nutrition Therapy will reassess every 1-5 days Alpha P[phone] Care Planning - Sofiya Escobar LPN - 09/09/2020 11:49 AM CDT Problem: RISK FOR INFECTION Goal: IMMUNE STATUS Description: DEFINITION: Natural and acquired appropriately targeted resistance to internal and external antigens. 1 = Severely compromised, 2 = Substantially compromised, 3 = Moderately compromised, 4 = Mildly compromised, 5 = Not compromised. Outcome: NOC Rating 3 Flowsheets (Taken 09/09/2020 1143) Intial Score: 3 Target Score: 4 Plan of care reviewed with: Patient Patient specific goal for the day: To get the head CT scan done Patient specific goal for the stay: To get rid of the infection to get stronger Achieve goal for stay: By discharge Patient Progress: VSS, see flowsheet, ID is following, remains on IV antibiotics. Posterior crani/neck incision having small amount serosanguineous drainage, head CT scan ordered. Continue to monitor. are Planning - Bang Alexandra RN - 09/08/2020 9:42 PM CDT Problem: RISK FOR INFECTION Goal: IMMUNE STATUS Description: DEFINITION: Natural and acquired appropriately targeted resistance to internal and external antigens. 1 = Severely compromised, 2 = Substantially compromised, 3 = Moderately compromised, 4 = Mildly compromised, 5 = Not compromised. Outcome: NOC Rating 4 Flowsheets (Taken 09/08/2020 5010) Intial Score: 3 Target Score: 4 Plan of care reviewed with: Patient Patient specific goal for the day: No fever, no injury, no fall Patient specific goal for the stay: To get rid of the infection to get stronger Achieve goal for stay: By discharge Patient Progress: VSS on RA, Patient AAOx4 irritable at times but cooperative. Discontinued telemetry per order. Bed alarm at all times. remains in antibiotics. Will continue to monitor call light within reach for assistance. [facility] - Sofiya Escobar LPN - 09/08/2020 4:35 PM CDT Problem: RISK FOR INFECTION Goal: IMMUNE STATUS Description: DEFINITION: Natural and acquired appropriately targeted resistance to internal and external antigens. 1 = Severely compromised, 2 = Substantially compromised, 3 = Moderately compromised, 4 = Mildly compromised, 5 = Not compromised. Outcome: NOC Rating 3 Flowsheets (Taken 09/08/2020 1633) Intial Score: 3 Target Score: 4 Plan of care reviewed with: Patient Patient specific goal for the day: Find out what the plan is Patient specific goal for the stay: To get stronger and get rid of infection Achieve goal for stay: By discharge Patient Progress: VSS, see flowsheet for VS, remains on IV antibiotics, ID is following, continue tomonitor. Barbara Buckley RN - 09/08/2020 10:56 AM CDT CASE MANAGEMENT / SOCIAL SERVICE TRANSITION PLAN - PROGRESS NOTE PLAN: Awaiting Medical Doctor Recommendations for Transition Will Continue to Follow for Support and Progression Towards Final Transition Plan BARRIERS TO TRANSITION: Awaiting Placement: Snf/Swing Bed/TCU and Other: prior auth pending Medical barriers:. Pain control, neuro Q4 hrs, neuro surg following, ID following - IV abx (total of 6 weeks), PT/OT consulted DOES ACCEPTING FACILITY REQUIRE COVID TESTING BEFORE DISCHARGE: Other: TBD COMMENTS / PATIENT AND FAMILY RESPONSE TO PLAN: Chart reviewed. Met with patient in room. Spoke with by phone. Discussed need for placement forsafe administration of IV abx and continued therapy. We discussed insurance barriers to going home with IV abx and barriers with infusion center d/t needing multiple administrations and barriers with tr ansportation. Patient agreeable to placement at swing. Fermin PEGUERO able to offer placement for IV abx and continued therapies. Prior auth initiated today. Mustapha hollis started to area SNFs / [facility] (awaiting PT/OT recs to extend to [facility] re[facility]) [place] screen completed and faxed: September 08, 2020 at 12:53:33 PM CDT. The confirmation number is [id number] CM to follow. IS PATIENT'S ADMISSION ASSOCIATED WITH TIA, ISCHEMIC, OR HEMORRHAGIC STROKE?: No PATIENT / SUBSTITUTE DECISION MAKER GOAL UPON TRANSITION: First Choice: Home: Family/Friend Support Second Choice: Snf Facility Swing Bed Transitional Care Transportation assistance ANTICIPATED NEEDS UPON TRANSITION: Snf Facility Swing Bed Transitional Care Transportation assistance RESOURCE(S) PROVIDED: Home Health, Placement and Transportation ANTICIPATED MODE OF TRANSPORT UPON TRANSITION: Other: TBD ANTICIPATED MODE OF TRANSPORT TO AND FROM FOLLOW UP APPOINTMENTS: Other: TBD VERIFIED CORRECT PHARMACY IS ENTERED FOR DISCHARGE: No TBD TRANSITION ROUNDING COMPLETED WITH THE FOLLOWING: Patient / family Scale And Skip Car Operator Attending MD SIGNED: Barbara Long RN BSN Case Management - 6AB Rt: [phone] hysical Therapy - Luz Maria Herrera PT - 09/08/2020 9:50 AM CDT Physical Therapy Acute Inpatient Treatment Note ASSESSMENT/RECOMMENDATIONS Patient slightly weak, but very unsteady and impulsive during mobility. He requires assist of 1 fortransfers and short distance ambulation with FWW. Recommend continued PT at low-intensity therapy setting at discharge. If he chooses to return home, would recommend HH PT. 6-Clicks Basic Mobility Score: 17 Activity Prescription with Nursing: With assist of 1, walk in room and progressively increase to out in the kwok 3 times per day. At a minimum, up to chair for all meals or 3 times per day. SUBJECTIVE Initially declining PT. States, "I don't really have a choice. It's your decision. You're the onewho decides if I get to home or not." PT explained to patient that it is not PT's decision, but that I do make recommendations about safest discharge disposition. After conversation, patient agreeable to do only very minimal activity. OBJECTIVE Bed Mobility: stand-by assistance from supine <> sit. Transfers: Sit to/from stand with contact guard assistance from bed to FWW. Gait: Ambulated ~25' with front wheeled walker and minimal assistance. He is quite unsteady, keepsFWW very far ahead of him. Poor safety awareness. Declined any further ambulation despite encouragement. Other: Left laying supine in bed with call light within reach. Interdisciplinary Communication: Spoke with interdisciplinary team members regarding patient plan ofcare. PLAN Decrease to 3x/wk. Today's Treatment: Gait Trainin minutes Therapeutic Exercise: 0 minutes Therapeutic Activity: 8 minutes TOTAL TIMED CODES: 8 minutes TREATMENT TOTAL TIME: 8 minutes Luz Maria Herrera PT, DPT Board-Certified Clinical Specialist in Geriatric Physical Therapy Certified Exercise Expert for Aging Adults Alpha Pager [phone] are Planning - Bang Alexandra RN - 09/08/2020 5:48 AM CDT Problem: RISK FOR INFECTION Goal: IMMUNE STATUS Description: DEFINITION: Natural and acquired appropriately targeted resistance to internal and external antigens. 1 = Severely compromised, 2 = Substantially compromised, 3 = Moderately compromised, 4 = Mildly compromised, 5 = Not compromised. Outcome: NOC Rating 4 Flowsheets (Taken 09/08/2020 0540) Intial Score: 3 Target Score: 4 Plan of care reviewed with: Patient Patient specific goal for the day: Continue with antibiotics Patient specific goal for the stay: To get stronger and rid of infection Achieve goal for stay: By discharge Patient Progress: Pt AAOx4. Pleasant and cooperative. VSS, RA. PICC line within normal limits, Antibiotics scheduled. Will continue to monitor call light within reach for assistance. ccupational Therapy - Naomi Becerra OTR/Ilya - 09/07/2020 2:01 PM CDT Occupational Therapy Acute Care Re-Evaluation Impression/Recommendations Recommend low intensity therapy setting at this time upon medical stability. Patient currently presents with impaired functional cognition, agitation, impulsivity, impaired fine/gross motor coordination, general deconditioning, and poor safety/insight into deficits which decrease his independence in ADLs and IADLs. Requires assist of 1 to complete observed ADLs and functional transfers. Declined performing OOB activity this date, due to fatigue and lack of sleep. Acute OT will continue to follow patient per POC to optimize functional performance in all ADLs/IADLs prior to discharge. Admitting Diagnosis: ICD-10-CM 1. Postoperative infection, unspecified type, initial encounter T81.40XA 2. Infection B99.9 CULTURE BACTERIAL, ANAEROBE CULTURE BACTERIAL, OTHER WITH GRAM STAIN 3. Trauma T14.90XA CULTURE BACTERIAL, ANAEROBE CULTURE BACTERIAL, ANAEROBE CULTURE BACTERIAL, OTHER WITH GRAM STAIN CULTURE BACTERIAL, OTHER WITH GRAM STAIN CANCELED: CULTURE BACTERIAL, OTHER CANCELED: CULTURE BACTERIAL, OTHER CANCELED: CRE SURVEILLANCE CANCELED: TISSUE EXAM History of Present Illness: Refer to H&P for details Past Medical History: 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) Pneumonia Pseudomeningocele Activity Level: Activity as tolerated, use assistance as needed Precautions: Fall risk, HOB elevated whenever in bed Infection Control: Standard Patient History Social/Home Environment: Patient lives: lives with their spouse House: one-level with 4 steps and a railing to enter Home Environment: Bed/Bath on main: Yes Bath Setup: Combo with curtain Employment: not employed Prior Level of Function Independent with: Per chart review, patient was independent with all ADLs/IADLs at baseline Assistance needed with: No assistance required at baseline Comments: Per chart review, patient's spouse provided assist for higher level IADLs (I.e. cooking,cleaning, driving, etc.) prior to the patient's hospitalization. Patient reported this date that hisspouse is home during the day and able to provide assist for ADLs/IADLs as needed. Adaptive Equipment Available: shower chair, grab bars tub/shower, grab bars toilet, exam proctor, front-wheeled walker and hand held shower (per chart review) Present for Eval: Patient Objective Activities of Daily Living: Feeding: Demonstrated ability to drink out of a cup with his R hand and set up assist while seatedEOB Grooming: Patient brushed his teeth with set up assist and close supervision while seated EOB. Impaired coordination and slowed motor movements were observed in the L UE when the patient manipulated G/H items Upper Extremity Dressing: TBA Lower Extremity Dressing: TBA Bathing: TBA Toileting: TBA Homemaking: TBA Transfers: Bed: Quickly completed supine<>sit with CGA-SBA and use of bed rail. HOB was flat upon OT arrival (RN was notified). Tolerated sitting on the EOB for approximately 10 minutes with SBA. Patient'sBP was 195/113 on the L UE and the RN (Sofiya) was immediately notified. Noted to be mildly impulsive during functional transfers. Chair: TBA Toilet: TBA Tub/Shower: TBA Comments: Declined participating in OOB activity or further functional transfers, due to fatigue and lack of sleep. Patient stated, "I only slept for 1 hour last night." Patient positioned comfortably in bed at end of session with call light and tray table within reach. Educated patient on use of call light and need of assistance from staff prior to getting up to reduce fall risk/increase safety. Patient verbalized understanding. Bed alarm was activated at the end of the session. Pain: Pain at rest: 0/10 Pain during activity: 0/10 Location: Denied pain or discomfort this date Upper Extremity Function: Range of Motion: Right:within functional limits Left: Mildly limited- shoulder flexion was slightly less than R shoulder flexion, continue to assess Strength: Right: within functional limits Left: limited and general weakness noted due to impaired L UE coordination Endurance: limited due to limited tolerance for ADLs/mobility Oxygen Level: Rest >90% R Activity >90% RA Coordination: impaired in L UE during the [id number] test; R UE appeared WFL Sensation: Continue to assess Edema: None observed Dominant Hand: right per chart review Orientation: Cognition: Alert and oriented to self, month, day of the week (note the specific date), year, and place. Patient is impulsive during functional transfers and demonstrates poor insight into his physical/cognitive deficits. Patient stated "I do not see the point in you being here." Provided education on the purpose/role of Acute OT. Presents as irritable at times during conversation with OT. Read the clock with 100% accuracy. Attention: Impaired. Requires clear, [id number] instructions to complete tasks. Provided VC's to redirect his attention to the task at hand Following Directions: intact Safety Awareness: impaired Impulsivity: mild Visual/Perception: Appears intact Glasses: Yes, per chart review Education Education/Training provided: Role of OT, plan of care, discharge planning, call light, ADLs Learners: Patient Readiness: Acceptance Method of Training: Verbal education, demonstration Response: Verbalized/demonstrated understanding, will benefit from continued reinforcement Adaptive Equipment Recommendations Adaptive Equipment Recommended: Continue to assess Plan to obtain adaptive equipment: To further assess. Assessment/Plan Assessment: Patient demonstrates decreased physical conditioning, decreased fine motor coordination, decreased independence with ADL/IADL tasks, decreased independence with functional mobility and decreased safety judgement/insight into deficits Patient showing a decrease in ADL/transfer performance and will benefit from continued OT. Plan: Patient to be seen 3-5 times a week to work toward above goals Treatment plan will consist of Sunday thru Sunday sessions Goals Patient/Family Stated Goal for Session: To go home Short Term Goals: ADL's: Patient will: #1)complete 3 grooming tasks safely in a standing position at the sink with SBA assist #2) Complete all functional transfers safely with SBA and AE prn #3) Complete UE and LE dressing with SBA and AE prn Cognition: Patient will: #4)be oriented X3 for 3 consecutive sessions to increase awareness of surroundings #5) will complete a cognitive assessment to determine safe level of supervision for ADLs/IADLs upon discharge UE Strengthening/conditioning: Patient will: #6)complete 15-30 minutes of continuous UE activity to increase physical conditioning for ADL tasks Treatment Provided Education on Role of OT and discharge recommendations provided. Please see note above for further details. Acute OT will continue to address safety awareness, balance, strength, endurance/activity tolerance, functional mobility, and ADLs per POC. Charges Treatment/Minutes: Today's Evaluation/Treatment Re-evaluation: 24 minutes Total for time-based codes: 0 minutes Total treatment time: 24 minutes Evaluation Complexity PMH/Comorbidities that affect Occupational Performance: Please refer to patient's PMH Occupational Profile/Medical and Therapy History: LOW - Brief history relating to presenting problem Patient Assessment: MODERATE - 3-5 performance deficits relating to physical, cognitive, psychosocial limitations/restrictions Clinical Decision Making: LOW - Low complexity, limited amount of treatment options, no assessment modification, no comorbidities Evaluation Complexity: Low Therapist Alpha Pager Number: [phone] NIASofiya Rodriguez LPN - 09/07/2020 11:53 AM CDT Problem: RISK FOR INFECTION Goal: IMMUNE STATUS Description: DEFINITION: Natural and acquired appropriately targeted resistance to internal and external antigens. 1 = Severely compromised, 2 = Substantially compromised, 3 = Moderately compromised, 4 = Mildly compromised, 5 = Not compromised. Outcome: NOC Rating 3 Flowsheets (Taken 09/07/2020 1151) Intial Score: 3 Target Score: 4 Plan of care reviewed with: Patient Patient specific goal for the day: Continue with the antibiotics Patient specific goal for the stay: To get stronger,get rid of infection Achieve goal for stay: By discharge Patient Progress: VSS, see flowsheet for VS, ID is following, remains on IV antibiotics, continue tomonitor. [facility] Manju Rubin RD, LRD - 09/07/2020 10:29 AM CDT Problem: IMBALANCED NUTRITION: LESS THAN BODY REQUIREMENTS Goal: NUTRITIONAL STATUS: NUTRIENT INTAKE Description: DEFINITION: Nutrient intake to meet metabolic needs. 1=Not adequate, 2=Slightly adequate, 3=Moderately adequate, 4=Substantially adequate, 5=Totally adequate. Outcome: NOC Rating 1 Flowsheets (Taken 09/07/2020 1029) Plan of care reviewed with: Patient Patient specific goal for the day: Consume >50% 2-3 meals + 1-2 snacks Patient specific goal for the stay: Nutrient intake to meet estimated metabolic needs Patient Progress: Sub optimal - meeting <25% of estimated needs x 8 days Speech Therapy - Barbara Wise, CELLOPHANE BATH MIXER - 09/07/2020 9:56 AM CDT Speech Therapy Acute Care Progress Note Assessment/ Impression Continued non-standardized cognitive-linguistic evaluation today. Patient demonstrates overall mild cognitive-linguistic deficits characterized by difficulty with memory (delayed), higher level attention (sustained), problem solving, and verbal reasoning. The patient would benefit from ongoing ST servi abhijit. After today's therapy session, patient may be appropriate for high intensity rehab from a cognitive standpoint. Patient demonstrated better insight into current situation and current cognitive changes today. CELLOPHANE BATH MIXER will follow. Patient appears to be tolerating current diet of regular solids and thin liquids well per EMR reviewof respiratory status and biomarkers. No formal dysphagia evaluation is warranted at this time. Plan/ Recommendations Speech-Language Pathology will follow the patient 2-3 times a week for cognitive-linguistic treatment. Recommend high vs low intensity rehabilitation program upon d/c, depending on physical needs and qualifications. Barriers to return to premorbid functioning: The patient requires hour supervision due to cognitive/language impairments impacting the patients safety. The patient demonstrates poor awareness to cognitive/language deficits and is unable to compensate/cue self to improve safety. The patients communication/cognitive skills negatively affect health, safety, social, emotional, educational or vocational status. 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 PMH is significant for cerebellar hemangioblastoma s/p resection in 2001 and 2017.See EMR for further details of admission and full PMH. Patient was lying in bed resting in bed upon CELLOPHANE BATH MIXER arrival. He c/o being cold, so CELLOPHANE BATH MIXER gave the patienta few warm blankets. He was pleasant and agreeable to ST session today. No pain reported or observedduring the session. Objective Non-standardized cognitive-linguistic assessment (continued...) - ORIENTATION Orientation (Cognistat Scale) (WFL=10-12; Mild=7-9; Moderate=5-6; Severe= 0-4) 01/25 - unable to state exact date and correct time MEMORY Episodic recall (WFL = 12/24) 11/23 Item Recall (3 items) Immediate: 3/3 Delayed: 2/3 ATTENTION Attention Sustained attention Months in reverse: 01/25, delayed speed of processing Spelling WORLD backwards: NT Alternating attention Counting backwards by 7:NT Letters and numbers: 100%, delayed VERBAL PROBLEM SOLVING Routine/ Simple 3/3 Moderately Complex/ Alternative Solutions 3/3 Functional Math 2/4 VERBAL EXPRESSION Confrontation Naming 5/5 Naming to Description 3/3 VERBAL REASONING Similarities/ Differences Similarities: 1/3 Differences: 1/3 Improved to 100% with MIN to MOD cueing Antonyms/ Synonyms Antonyms: 2/3 Synonyms: 3/3 Analogies 3/3 Multiple Causes (3 reasons) 2/2 Deduction Puzzle NT ORGANIZATION Identify categories Simple: 2/3, 3/3 with MIN cueing Moderate: 3/3 Generation of items in a category (Average = 15 in 1 minute) Simple (Animals in 1 minute): NT Moderate (COWA): F: , A: , S: Complex (3 items in each category): 1/3, improved to 3/3 with MIN cueing AUDITORY COMPREHENSION Yes/No Questions Simple: 3/3 Moderately complex: 3/3 Complex: 2/3, 3/3 with SBA Commands 2-step: 3/3 Complex: 3/3 CLOCK DRAWING /5 Continued non-standardized cognitive-linguistic evaluation today. Patient demonstrates overall mild cognitive-linguistic deficits characterized by difficulty with memory (delayed), higher level attention (sustained), problem solving, and verbal reasoning. The patient would benefit from ongoing ST servi abhijit. After today's therapy session, patient may be appropriate for high intensity rehab from a cognitive standpoint. Patient demonstrated better insight into current situation and current cognitive changes today. CELLOPHANE BATH MIXER will follow. Goals/Education Patient/family goal: go home Goals Halfway Goals: Patient will demonstrate cognitive skills consistent with level of demands to facilitate the most independent functioning within the least restrictive environment. Short Term Goals: Patient will participate in further assessment. MET Patient will be independently oriented to person, place, date, and situation. MET Patient will complete processing tasks to increase speed of processing to a functional rate. Patient will complete simple organization and sequencing tasks with 90% accuracy independently. Patient will complete functional money and time management tasks with 90% accuracy independently. Patient will demonstrate appropriate executive function skills across multiple tasks/activities with90% accuracy independently. Patient will complete (sustained, selective, divided, alternating) attention tasks with 90% accuracyindependently. Patient will recall novel information following 1/3/5/10 minute delay without cues to utilize external aids. Patient will complete functional problem solving tasks with 90% accuracy independently. Patient will verbalize awareness of deficits. ONGOING Education Education regarding the results and recommendations of todays evaluation provided to: patient Patient was unable to express understanding secondary to impaired comprehensive/cognition Education Interventions: Results were documented in the patient care notes section of the patient's inpatient chart. 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 PROJECT CONTROL ANALYST shunt S/p shunt removal and EVD placement S/p washout on 09/03/2020 PMH:T2DM, HTN, HLD, GERD, hemangioblastoma, s/p resection x3 with right PROJECT CONTROL ANALYST shunt placement and repair of pseudomeningocele Malnutrition Summary Malnutrition Assessment Date: 09/07/20 Dietitian Evaluation: Moderate (non-severe) protein calorie malnutrition Malnutrition Characteristics in the Context of Acute Illness or Injury: Energy Intake: Less than or equal to 50% intake of estimated energy needs for greater than or equal to 5 days Moderate Weight Loss: (>10% in 6 months) Interventions: Supplement diet with ONS (oral nutrition supplements)/nutrient dense foods;Vitamin/mineral supplementation;Monitor oral intake/advance diet as tolerated Recommendations: Encourage intake to meet nutrition needs ? snacks have been ordered - pm, hs ? accommodate pt preferences as able ? PRN snacks as needed / desired TheraM, one tablet, once daily Consider alternate route nutrition support NUTRITION ASSESSMENT Overall, intakes have met <25% energy/protein needs due to NPO status and meal / snack / supplement refusal. Patient states "everything tastes like medicine" and declines all suggestions and offers to accommodate preferences other than fresh fruit. Patient was encouraged to try a milkshake. Snacks are scheduled BID to promote intake but are left untouched. Pt met criteria for moderate (non-severe) protein calorie malnutrition 07/13/20 based on inadequate intakes, severe weight loss, and mild muscle and fat losses. His weight appears to have remained stable since that time and his states that his appetite has been intact and his intake adequate. RD has been unable to assess this admission d/t pt refusal. Anthropometrics: Height: 182.9 cm (6') Admission Weight: Weight: 91.3 kg (201 lb 4.5 oz) as of 08/30/2020 per bed scale Most Recent Weight: Weight: 98 kg (216 lb 0.8 oz) (09/04/20 0603) per bed scale Lowest Wt Since Admission: 91.3 kg Wt Change Since Admission: (+) 6.7 kg BMI: Body mass index is 29.3 kg/m. IBW: 81 kg %IBW: 121 % (based on most recent weight) Usual Body Weight: ~230 lb per EMR and pt report Unintentional Weight Loss: 25 lbs / 11% between Mar and Jun; stable past 6-7 weeks MONUMENT MASON Adjusted Body Weight: 82 kg Estimated Needs: 6456-3602 kcal/day (28-30 kcal/kg Using: Adjusted Weight) 120 gm protein (1.5 gm/kg Using: Adjusted Weight) Estimated average intake: minimal x 8 days 08/30-: NPO 09/01-: minimal, (<25% needs) Intake Records: Intake Prior to Admit: During prior hospitalization, patient reportedthat he typically eats one main meal per day with frequent evening snacks. His states that he has been eating adequately though very sporadically. He was the primary cook at home though not recently. He eats most foods and particularly likes fruits. He has had no alcohol since April. He takes a daily MVM supplement. Current Intake: Sub optimal - meeting <25% of estimated needs x8 days DIET: Regular 09/03/20 at 1955 Snacks: AM PM rotation 09/02/20 at 1315 Physical Assessment: (per box spring upholsterer at 0030) Edema: Generalized Trace Facial Trace BUE Trace BLE Trace GI Assessment: WDL Abdominal exam: Non-tender;Rounded;Soft with Active, Audible bowel sounds Stool Frequency: 0-2x/day over the last 3 days Wounds:incisions right temporal area c/d/i Pressure Points: Coccyx;Elbow Blanchable Redness Functional Status:alert; mental status is at baseline Nutrition Focused Physical Exam: Deferred at this time due to pt refusal Nutritionally-Relevant Medications, Vitamins and Minerals: Dulcolax, Maxipime, Colace, Novolog, Lantus, lactulose, Flagyl, Prilosec, Miralax, senna-docusate sodium, Zocor, vancomycin Nutritionally-Relevant Biochemical Data: () Glucose 123 H Potassium 3.4 L Creatinine 0.64 L Phosphorus 2.9 Albumin 2.5 L Allergies/Food Intolerance: Sandra has No Known Allergies. Culturally Lutheran Needs: NA INTERVENTIONS Reviewed adequacy of intake Attempted NFPE; patient refused Encouraged adequate calories and optimal protein No change in current intervention; continued snack rotation BID MONITORING/EVALUATION Ability to consume and tolerate adequate intake I&O, weight, nutrition-related labs and medications, clinical status, and plan of care Nutrition Therapy will reassess every 1-5 days Alpha [phone] Case Mgmt - Barbara Long RN - 09/07/2020 8:38 AM CDT CASE MANAGEMENT / SOCIAL SERVICE TRANSITION PLAN - PROGRESS NOTE PLAN: Awaiting Medical Doctor Recommendations for Transition Will Continue to Follow for Support and Progression Towards Final Transition Plan BARRIERS TO TRANSITION: Awaiting Therapy Recommendations Discharge Needs to be Determined Medical barriers:. Pain control, neuro Q4 hrs, neuro surg following - no plans for shunt, ID following - IV abx (total of 6 weeks) PT/OT consulted DOES ACCEPTING FACILITY REQUIRE COVID TESTING BEFORE DISCHARGE: Other: TBD COMMENTS / PATIENT AND FAMILY RESPONSE TO PLAN: Chart reviewed. Met with patient in room. No family present at bedside. Patient will need placement for 6 weeks course of IV abx. No plans to replace shunt at this time. Discussed importance of working with therapy to help with regaining strength and independence, patient verbalized understanding. Attempted to update , voicemail left. Update provided to daughter and d/c planning discussed. Awaiting PT/OT recommendations, patient refusing at this time. Daughter plans to assist with encouraging and educating him on PT/OT needs. Mustapha hollis started to area SNFs / [facility] (awaiting PT/OT recs to extend to [facility] rehab) CM to follow. IS PATIENT'S ADMISSION ASSOCIATED WITH TIA, ISCHEMIC, OR HEMORRHAGIC STROKE?: No PATIENT / SUBSTITUTE DECISION MAKER GOAL UPON TRANSITION: First Choice: Home: Family/Friend Support Second Choice: Snf Facility Swing Bed Transitional Care Transportation assistance ANTICIPATED NEEDS UPON TRANSITION: Snf Facility Swing Bed Transitional Care Transportation assistance RESOURCE(S) PROVIDED: Home Health, Placement and Transportation ANTICIPATED MODE OF TRANSPORT UPON TRANSITION: Other: TBD ANTICIPATED MODE OF TRANSPORT TO AND FROM FOLLOW UP APPOINTMENTS: Other: TBD VERIFIED CORRECT PHARMACY IS ENTERED FOR DISCHARGE: No TBD TRANSITION ROUNDING COMPLETED WITH THE FOLLOWING: Patient / family Scale And Skip Car Operator Attending MD SIGNED: Barbara Long RN BSN Case Management - 6AB Rt: [phone] are Planning - Jennifer Marin RN - 09/07/2020 12:18 AM CDT Problem: RISK FOR INFECTION Goal: IMMUNE STATUS Description: DEFINITION: Natural and acquired appropriately targeted resistance to internal and external antigens. 1 = Severely compromised, 2 = Substantially compromised, 3 = Moderately compromised, 4 = Mildly compromised, 5 = Not compromised. Outcome: NOC Rating 3 Flowsheets (Taken 09/07/2020 0015) Intial Score: 3 Target Score: 4 Plan of care reviewed with: Patient Patient specific goal for the day: Resolve infection Patient specific goal for the stay: Return home with increased strength Achieve goal for stay: By discharge Patient Progress: Pt denies pain, continue to monitor. peech Therapy - Jessenia Sanabria, BARRY - 09/06/2020 3:29 PM CDT Speech Therapy Acute Care Cognitive-Linguistic Evaluation Assessment/ Impression Limited cognitive-linguistic evaluation completed today due to irritability. Patient demonstrates overall mild cognitive-linguistic deficits characterized by impaired recall and difficulty with higher level problem solving. He demonstrates no insight into cognitive deficits. Patient will benefit from o ngoing informal evaluation of cognitive skills and treatment while admitted and upon d/c. CELLOPHANE BATH MIXER will follow. Patient appears to be tolerating current diet of regular solids and thin liquids well per EMR reviewof respiratory status and brief observation of oral trials. No formal dysphagia evaluation is warranted at this time. Plan/ Recommendations Speech-Language Pathology will follow the patient 2-3 times a week for cognitive-linguistic treatment. Recommend low intensity rehabilitation program upon d/c. Barriers to return to premorbid functioning: The patient requires hour supervision due to cognitive/language impairments impacting the patients safety. The patient demonstrates poor awareness to cognitive/language deficits and is unable to compensate/cue self to improve safety. The patients communication/cognitive skills negatively affect health, safety, social, emotional, educational or vocational status. 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) Smoking Essential hypertension Astigmatism Presbyopia Mild nonproliferative diabetic retinopathy of both eyes without macular edema associated with diabetes mellitus due to underlying condition (HCC) Brain tumor (HCC) S/P PROJECT CONTROL ANALYST shunt Aspiration pneumonia (HCC) S/P craniotomy Infection of PROJECT CONTROL ANALYST (ventriculoperitoneal) shunt ([facility]) Social History: Social History Socioeconomic History Marital status: Spouse name: Not on file Number of children: 2 Years of education: 13 Highest education level: Not on file Occupational History 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; 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 Tobacco Use Smoking status: Current Every Day Smoker Packs/day: 1.00 Years: 45.00 Pack years: 45.00 Types: Cigarettes Smokeless tobacco: Never Used Tobacco comment: 08/31/20: 0.5 PPD Substance and Sexual Activity Alcohol use: Not Currently Comment: 12 pack at least every week Drug use: Yes Types: Other-see comments Comment: Marijuana; 1-2 per month Sexual activity: Yes Partners: Female Other Topics Concern Transportation No Stress in your marriage No Stress with your relationship No Stress with your family No Parenting/Being a parent No Daycare concerns No Not enough social support No Housing problems No Financial stress Yes Safety/danger No Work/job stress No Legal stress No Time conflicts (feeling too busy) No Academic/school stress No Language difficulties No Spiritual concerns No Insurance problems No The cost of having to take medication Yes The costs of buying food/groceries Yes Illness of family member/friend/relative No of a family member/friend/relative No Violence in your relationship No Abuse/neglect No Community stress No Cultural barriers No Ability to do self cares No Social History Narrative Not on file Social Determinants of Health Financial Resource Strain: Difficulty of Paying Living Expenses: Food Insecurity: Worried About Running Out of Food in the Last Year: Ran Out of Food in the Last Year: Transportation Needs: Lack of Transportation (Medical): Lack of Transportation (Non-Medical): Physical Activity: Days of Exercise per Week: Minutes of Exercise per Session: Stress: Feeling of Stress : Social Connections: Frequency of Communication with Friends and Family: Frequency of Social Gatherings with Friends and Family: Attends Lutheran Services: Active Member of Clubs or Organizations: Attends Club or Organization Meetings: Marital Status: Intimate Partner Violence: Fear of Current or Ex-Partner: Emotionally Abused: Physically Abused: Sexually Abused: Patient lives: [address] [place] [address] Previous CELLOPHANE BATH MIXER intervention: Patient was seen for a clinical dysphagia evaluation during admission in June 2020 with recommendations for easy to chew solids and thin liquids (eventually upgraded to regular). Informal cognitive evaluation was also completed during that admission and patient was found laure functioning at his baseline. Swallow and cognitive evaluations were also completed during an admission in August 2017 with no concerns documented. 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 PMH is significant for cerebellar hemangioblastoma s/p resection in 2001 and 2017.See EMR for further details of admission and full PMH. Patient was alert and resting in bed upon CELLOPHANE BATH MIXER arrival. He was reluctantly agreeable to cognitive evaluation this afternoon, but reported he "doesn't believe in this kind of therapy". He was irritable throughout the session and did not appear to be in obvious pain. Objective Cognitive assessment completed with the following results: ORIENTATION Orientation (Cognistat Scale) (WFL=10-12; Mild=7-9; Moderate=5-6; Severe= 0-4) 11 MEMORY Episodic recall (WFL = 9/10) 11/23 VERBAL PROBLEM SOLVING Routine/ Simple 3/3 Moderately Complex/ Alternative Solutions 3/3 Functional Math 2/3 Limited cognitive-linguistic evaluation completed today due to irritability. Patient demonstrates overall mild cognitive-linguistic deficits characterized by impaired recall and difficulty with higher level problem solving. He demonstrates no insight into deficits. Patient reports that he is independent with all IADLs except "dishes" at baseline. 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 Patient will benefit from ongoing informal evaluation of cognitive skills and treatment while admitted and upon d/c. CELLOPHANE BATH MIXER will follow. Goals/Education Patient/family goal: go home Goals Android Developer Goals: Patient will demonstrate cognitive skills consistent with level of demands to facilitate the most independent functioning within the least restrictive environment. Short Term Goals: Patient will participate in further assessment. Patient will be independently oriented to person, place, date, and situation. Patient will complete processing tasks to increase speed of processing to a functional rate. Patient will complete simple organization and sequencing tasks with 90% accuracy independently. Patient will complete functional money and time management tasks with 90% accuracy independently. Patient will demonstrate appropriate executive function skills across multiple tasks/activities with90% accuracy independently. Patient will complete (sustained, selective, divided, alternating) attention tasks with 90% accuracyindependently. Patient will recall novel information following 5-10 minute delay without cues to utilize external aids. Patient will complete functional problem solving tasks with 90% accuracy independently. Patient will verbalize awareness of deficits. Education Education regarding the results and recommendations of todays evaluation provided to: patient Patient was unable to express understanding secondary to impaired comprehensive/cognition Education Interventions: Results were documented in the patient care notes section of the patient's inpatient chart. Charges Total Time: 15 minutes Cognitive Evaluation Alpha Pager [phone] Coden: [facility]: [id number] hysical Therapy - Luz Maria Herrera PT - 09/06/2020 3:20 PM CDT PT attempted to see patient today, however patient adamantly refused despite encouragement and education on importance of mobility. Will follow up again tomorrow as appropriate. Luz Maria Herrera PT, DPT Board-Certified Clinical Specialist in Geriatric Physical Therapy Certified Exercise Expert for Aging Adults Alpha Pager [phone] are Planning - Sofiya Escobar LPN - 09/06/2020 3:05 PM CDT Problem: RISK FOR INFECTION Goal: IMMUNE STATUS Description: DEFINITION: Natural and acquired appropriately targeted resistance to internal and external antigens. 1 = Severely compromised, 2 = Substantially compromised, 3 = Moderately compromised, 4 = Mildly compromised, 5 = Not compromised. Outcome: NOC Rating 3 Flowsheets (Taken 09/06/2020 1503) Intial Score: 3 Target Score: 4 Plan of care reviewed with: Patient Patient specific goal for the day: To get rid of the infection Patient specific goal for the stay: To get stronger Achieve goal for stay: By discharge Patient Progress: VSS, see flowsheet, ID is following remains on IV antibiotics, continue to monitor. ase Amando - Barbara Long RN - 09/06/2020 12:02 PM CDT CASE MANAGEMENT / SOCIAL SERVICE TRANSITION PLAN - PROGRESS NOTE PLAN: Awaiting Medical Doctor Recommendations for Transition Will Continue to Follow for Support and Progression Towards Final Transition Plan BARRIERS TO TRANSITION: Awaiting Therapy Recommendations Discharge Needs to be Determined Medical barriers:. Tele, neuros Q4 hr, pain control, neuro surg following, ID following - IV abx PT/OT/CELLOPHANE BATH MIXER consulted DOES ACCEPTING FACILITY REQUIRE COVID TESTING BEFORE DISCHARGE: Other: TBD COMMENTS / PATIENT AND FAMILY RESPONSE TO PLAN: Chart reviewed. Met with patient at bedside. No family present in room. Discussed goals with patient. He states that they will bring him back for surgery tomorrow he thought. Per neuro surg, will continue to monitor Q4 neuros and wait for shunt placement until pt has had more time on abx. We discussedlong term goals and where he would received IV abx, continued monitoring, and therapies. He thought [facility] would be an acceptable placement short term as his goal is to return home. Will discuss more with . Neuro surg following. ID following. D/c planning is ongoing. [facility] profile / [facility] following. IS PATIENT'S ADMISSION ASSOCIATED WITH TIA, ISCHEMIC, OR HEMORRHAGIC STROKE?: No PATIENT / SUBSTITUTE DECISION MAKER GOAL UPON TRANSITION: First Choice: [facility] ANTICIPATED NEEDS UPON TRANSITION: [facility] Transitional Care RESOURCE(S) PROVIDED: Placement ANTICIPATED MODE OF TRANSPORT UPON TRANSITION: Other: TBD ANTICIPATED MODE OF TRANSPORT TO AND FROM FOLLOW UP APPOINTMENTS: Other: TBD VERIFIED CORRECT PHARMACY IS ENTERED FOR DISCHARGE: No TBD TRANSITION ROUNDING COMPLETED WITH THE FOLLOWING: Patient / family Scale And Skip Car Operator Attending MD SIGNED: Barbara Long RN BSN Case Management - 6AB Rt: [phone] are Planning - Doris Davis RN - 09/06/2020 6:20 AM CDT Problem: RISK FOR INFECTION Goal: IMMUNE STATUS Description: DEFINITION: Natural and acquired appropriately targeted resistance to internal and external antigens. 1 = Severely compromised, 2 = Substantially compromised, 3 = Moderately compromised, 4 = Mildly compromised, 5 = Not compromised. Outcome: NOC Rating 3 Flowsheets (Taken 09/06/2020 0020) Intial Score: 3 Target Score: 4 Plan of care reviewed with: Patient Patient specific goal for the day: To recieve IV antibiotics Patient specific goal for the stay: To discharge with no signs of infection Achieve goal for stay: By discharge Patient Progress: VSS on RA. Continues to recieve IV antibiotics. Pt up 2/GB/W, gait is very unsteady. Denied pain. linical Team - Joann Ann RN - 09/05/2020 3:45 PM CDT Upon Transfer to [facility], skin assessment completed with RINA Yanez Upon skin assessment including pressure points findings include: scattered scrapes and bruises. Blanchable redness to bilateral heels and elbows. Incision noted to back of neck that is covered with a mepilex. mepilex noted to coccyx. Plan/Intervention monitor skin linical Team - Rosalia Frey RN - 09/05/2020 3:26 PM CDT Patient is A&Ox4. Follows commands. Irritable at times. Neuros q4hr. NSR on tele. SBP goal 160>, running 140-160s. PRNs given (See MAR). VSS on RA. Denies any pain or SOB. Up with an assist of two, gb and FWW. Regular diet. One BM. Plan for CT tomorrow in the AM. Patient transferred to room [facility] at 1520. Settled into room. Report given to RINA Maravilla. linical Team - Ellen Martinez RN - 09/05/2020 6:53 AM CDT Shift Summary: [id number] Neuro: Q2 hr neuro checks stable through night, A&O X 4, follows commands, denied pain, afebrile, PERRLA - slight swelling noted to Rt eye Respiratory: 02 sat >90% on RA Cardiac: NSR HR 70's-90's - PRN BP medications given to keep SBP <160 (see MAR) GI/: Voiding w/ urinal, small smear BM X 1 - refused HS BM medications Nutrition/Diet: Tolerating PO intake regular diet - decreased appetite - states does not like food here Skin/Mobility: Independent in bed, increased swelling to Rt eye noted - puffy, no redness or drainage noted at this time IV's/Lines: single lumen PICC, PIV X 1 are Planning - Ellen Martinez RN - 09/05/2020 6:28 AM CDT Problem: RISK FOR INFECTION Goal: IMMUNE STATUS Description: DEFINITION: Natural and acquired appropriately targeted resistance to internal and external antigens. 1 = Severely compromised, 2 = Substantially compromised, 3 = Moderately compromised, 4 = Mildly compromised, 5 = Not compromised. Outcome: NOC Rating 3 Flowsheets (Taken 09/05/2020 0628) Patient specific goal for the day: pt will stay afebrile during shift Patient specific goal for the stay: with completion of full round of antibiotics Patient Progress: Pt afebrile during night, continued w/ IV abx per MAR peech Therapy - Anisa Becerril SLP - 09/04/2020 3:56 PM CDT Indirect follow up completed today to ensure tolerance of diet. No concerns reported in the documentation. He is on a regular diet/thin liquids. EMR appears stable from yesterday. Primary [employer] to follow up on Sunday. Page weekend pager [phone] if concerns on diet tolerance. Anisa Becerril MS, [facility] linical Team - Lashaun Graf RN - 09/04/2020 10:33 AM CDT Shift Summary: [id number] Pt refuse to get out of bed, benefits of getting gup and moving were educated on, p Neuro: Pt s A/O x4, afebrile, Follows commands in all extremities, equal strengths, at times inappropriate/uncoperative/irritabble/yelling. Mostly redirectable. Cardiac: NSR< SBP goal of <160 VS within goal X1 PRN Labetalol given Respiratory: RA sating 92% or greater, Clear Lung sounds GI/: Burns pulled at 0836, will continue to monitor for retention per protocol, Voided X3 no signsof urinary retention voiding well, no BM Skin: some drainage noted on the posterior incision from wound wash out minimal fresh blood coming from incision, bottom island dressing replaced Lines/Drains: X1 Lumen PICC for alf anabiotics, X2 PIC Samir RINA Graf are Planning - Lashaun Graf RN - 09/04/2020 9:14 AM CDT Problem: RISK FOR INFECTION Goal: IMMUNE STATUS Description: DEFINITION: Natural and acquired appropriately targeted resistance to internal and external antigens. 1 = Severely compromised, 2 = Substantially compromised, 3 = Moderately compromised, 4 = Mildly compromised, 5 = Not compromised. Flowsheets (Taken 09/04/2020 0914) Patient specific goal for the day: pt will stay afebrile during shift Patient specific goal for the stay: with completion of full round of antibiotics linical Team - Ellen Martinez RN - 09/04/2020 6:58 AM CDT Shift Summary: [id number] Neuro: Pt A&O X4, afebrile, follows commands, at times irritable/non- cooperative, mostly redirectable, neuro intact w/ Q2 hr neuro checks stable - reported sore throat w/ swallowing but otherwise denied pain. Respiratory: 02 sat >90% RA, diminished w/ occasional rhonchi/wheezing, clears w/ cough Cardiac: NSR HR 70's-80's, SBP goal <160 - no PRN BP medications needed through night GI/: Voiding w/ burns, to be removed today 09/04 per orders, audible bowl sounds, refused HS BM medications, no BM Nutrition/Diet: tolerating PO intake, Regular diet Skin/Mobility: Incision site to Rt/posterior head w/ EVD puncture site, incision sites/posterior head dressing c/d/i IV's/Lines: PIV X 2, Rt single lumen PICC, NS 75ml/hr are Planning - Ellen Martinez RN - 09/04/2020 6:56 AM CDT Problem: RISK FOR INFECTION Goal: IMMUNE STATUS Description: DEFINITION: Natural and acquired appropriately targeted resistance to internal and external antigens. 1 = Severely compromised, 2 = Substantially compromised, 3 = Moderately compromised, 4 = Mildly compromised, 5 = Not compromised. Outcome: NOC Rating 3 Flowsheets (Taken 09/04/2020210) Patient specific goal for the day: Pt will remain afebrile during night Patient specific goal for the stay: Pt will discharge free from s/s of worsening infection Patient Progress: Pt afebrile during night, continued w/ IV abx per MAR linical Team - Lashaun Graf RN - 09/03/2020 6:11 PM CDT Shift Summary: [id number] Neuro: A/O x4, moves all extremities, opens eyes to voice, follows commands, equal strengths 5/5, pupils equal round and reactive, pt complains of slight neck pain that is by the clean out area and resolves with the use of tylenol Cardiac: NSR, 70's 80's SBP < 160 Labetalol X1 PRN for > 160 Respiratory: RA LS clear GI/: Burns in place for procedure Skin: Posterior incision from wound wash out, underlying sutures, surface sutures and premapore, island dressing, no drainage noted assessed Q4. Samir Graf RN Occupational Therapy - Dia Guajardo OTR/Ilya - 09/03/2020 1:59 PM CDT OT continues to follow patient. Per chart review, patient had surgery this date and is currently on bedrest. Noted that therapy orders were removed this AM by provider. RN was notified of this. Will follow up as able/appropriate when new orders are placed. OSIRIS McraeR/L Pager #[phone] upplemental Progress Note - Chidi Andrea PA-C - 09/03/2020 1:22 PM CDT NSX team was notified that the patient had partially removed his EVD catheter and it was no longer draining. EVD was removed by NSX PA today and single prolene stitch was left at drain site. No further drainage was visualized coming from drain site. EVD was removed in a slow and cautious fashion. Area was cleaned with chloraprep solution x 3. Single 3-0 prolene interrupted stitch placed at drain site. No lidocaine used in procedure. Procedure was done under normal sterile conditions at bedside. Patient tolerated the procedure well. Continue to monitor for drainage in suboccipital wound site. peech Therapy - Tabitha Leavitt SLP - 09/03/2020 1:17 PM CDT Therapy orders removed this AM by provider. RN notified. [facility] [employer] [facility] will continue to follow and intervene as indicated/ if new orders are entered by primary team. are Planning - Lashaun Graf RN - 09/03/2020 12:52 PM CDT Problem: RISK FOR INFECTION Goal: IMMUNE STATUS Description: DEFINITION: Natural and acquired appropriately targeted resistance to internal and external antigens. 1 = Severely compromised, 2 = Substantially compromised, 3 = Moderately compromised, 4 = Mildly compromised, 5 = Not compromised. Flowsheets (Taken 09/03/2020 1252) Patient specific goal for the day: To show no signs of infection ostOp Progress Note - Terrell Ruggiero MD - 09/03/2020 9:30 AM CDT Immediate Post-Operative / Post Procedure Progress Note Att. Phys: Brandy Agrawal MD Pt. Type: Inpatient Operative Date: 09/03/2020 Surgeon: Surgeon(s) and Role: * Terrell Ruggiero MD - Primary Medical Social Consultant: Income Tax Analyst : Brenda Montana RN Scrub Person : Minnie Carolina ST; Maurice Amado, DRIER OPERATOR Brim Molder: Luz Maria Stafford PA-C; Manuel Mcintosh PA-C The skilled assistance of my surgical scrub technician, Manuel Wellington was necessary because of the need for retraction. They participated in positioning of the patient, assistance with the procedure, assistance with wound closure and dressing application. Pre-Operative Diagnosis: Pre-Op Diagnosis Codes: * Trauma [T14.90XA] non-applicable Post-Operative Diagnosis: Same Anesthesia Type: general Operative Procedure: Procedure(s): SUBOCCIPITAL WOUND WASH OUT, CRANIOPLASTY - Wound Class: Dirty ID Type Source Tests Collected by Time 1 : Suboccipital wound Tissue Brain CULTURE BACTERIAL, OTHER, CULTURE BACTERIAL, ANAEROBE, CULTURE BACTERIAL, OTHER WITH GRAM STAIN Terrell Ruggiero MD 09/03/2020 0859 A : Suboccipital Wound Tissue Brain CULTURE BACTERIAL, OTHER, CULTURE BACTERIAL, ANAEROBE, CULTURE BACTERIAL, OTHER WITH GRAM STAIN, CRE SURVEILLANCE, TISSUE EXAM Terrell Ruggiero MD 09/03/2020 0857 Implant Name Type Inv. Item Serial No. Tying Machine Operator Lumber Lot No. LRB No. Used Action LOG [id number] - MERGED WITH [facility] STANDARD APPROACH SMF - 1 MESH PARIETAL #4 RT 0.6MM N [id number] [facility] [id number] Neurology MESH PARIETAL #4 RT 0.6MM N [id number] [facility] N/A 1 Implanted SCREW NEURO LVL1 1.8X4MM N [facility] - [id number] ENT/Dental/Plastics SCREW NEURO LVL1 1.8X4MM N [facility] N/A 1 Implanted SCREW NEURO LVL1 1.8X4MM N [facility] - [id number] ENT/Dental/Plastics SCREW NEURO LVL1 1.8X4MM N [facility] DANNY CHICAS N/A 1 Implanted SCREW NEURO LVL1 1.8X4MM N EA - [id number] ENT/Dental/Plastics SCREW NEURO LVL1 1.8X4MM N [facility] DANNY CHICAS N/A 1 Implanted SCREW NEURO LVL1 1.8X4MM N EA - [id number] ENT/Dental/Plastics SCREW NEURO LVL1 1.8X4MM N [facility] DANNY CHICAS N/A 1 Implanted SCREW NEURO LVL1 1.8X4MM N EA - [id number] ENT/Dental/Plastics SCREW NEURO LVL1 1.8X4MM N [facility] DANNY CHICAS N/A 1 Implanted SCREW NEURO LVL1 1.8X4MM N - [id number] ENT/Dental/Plastics SCREW NEURO LVL1 1.8X4MM N [facility] DANNY CHICAS N/A 1 Implanted SCREW NEURO LVL1 1.8X4MM N EA - [id number] ENT/Dental/Plastics SCREW NEURO LVL1 1.8X4MM N [facility] DANNY CHICAS N/A 1 Implanted SCREW NEURO LVL1 1.8X4MM N - [id number] ENT/Dental/Plastics SCREW NEURO LVL1 1.8X4MM N [facility] DANNY CHICAS N/A 1 Implanted SCREW NEURO LVL1 1.8X4MM N [facility] - [id number] ENT/Dental/Plastics SCREW NEURO LVL1 1.8X4MM N [facility] DANNY CHICAS N/A 1 Implanted SCREW NEURO LVL1 1.8X4MM N [facility] - [id number] ENT/Dental/Plastics SCREW NEURO LVL1 1.8X4MM N [facility] DANNY CHICAS N/A 1 Implanted Fluids Given: See Anesthesia Record Urine Output: See Anesthesia Record Estimated Blood Loss: 50 mL Drains: evd at 10 above Findings: Pseudomeningocele Complications: none Postoperative Condition: stable hysical Therapy - Sherine Wayne, PT - 09/03/2020 8:58 AM CDT PT continues to follow. Patient is in OR. PT will follow up at a later date as able/appropriate. Sherine Wayne, PT, DPT Pager: [phone] linical Team - Renuka Lawrence, RINA - 09/03/2020 4:52 AM CDT Shift Summary: Neuro: Q2hr neuros, no acute changes. A/Ox4. Denies n/t. PERRL. No output from EVD. ICPs 6-8. Patient irritable and aggressive towards staff, ativan x1 see eMAR. Cardiovascular: NSR rates 80-90s. Infrequent PVCs. Labetalol x1, hydralazine x1 for SBP >160. Respiratory: SATs >90% on RA. LS clear. GI/: NPO at [address]. No BM. Family updated at the bedside t/o shift, all questions and concerns addressed as able. Will continueto monitor and report to oncoming nurse. linical Team - Ania Castañeda RN - 09/02/2020 6:37 PM CDT Shift Summary: With 1400 EVD check patient noted to not be draining, Dr. Agrawal updated, orders to continue to monitor, Dr. Ruggiero at bedside around 1600, updated, ok to not be draining unless LOC or neuros change. Neuro: A/o x4, odd statements at times. PERRLA, moves all extremities to command. uncooperative andverbally aggressive at times. Cardiac: NSR no acute cardiac changes noted. BP stable, BP hard to obtain in relation to patient refusing to lay still. Pulmonary: Lungs clear and diminished, RA, sats >90%. GI/: burns in place and to stay until post-op tomorrow. 2 BMs this shift. Fluids/Electrolytes: Patient needing much encouragement to eat only eating about 25% of one meal today. Labs as ordered and replaced per protocol. Skin: No new areas of skin concern noted patient moving self in bed and only allowing boosts at times. Other: Up with assist of two and gait belt to commode. Plan for OR in the AM. Family present at bedside, all questions answered and updated as able. Will update next shift. ase Mgmt - Bethany Humphreys RN - 09/02/2020 3:41 PM CDT CASE MANAGEMENT / SOCIAL SERVICE TRANSITION PLAN - PROGRESS NOTE PLAN: Will Continue to Follow for Support and Progression Towards Final Transition Plan BARRIERS TO TRANSITION: Awaiting Collateral Information Awaiting Therapy Recommendations Diagnostic Tests Pending Discharge Needs to be Determined Other: surgery DOES ACCEPTING FACILITY REQUIRE COVID TESTING BEFORE DISCHARGE: N/A COMMENTS: Patient currently requiring 4L O2 via NC, able to follow commands, neuro checks done every2 hours. EVD in place and patent, output less than 10 mls/hr, ICP within acceptable range. Plan for washout and cranioplasty tomorrow. No further questions at this time. IS PATIENT'S ADMISSION ASSOCIATED WITH TIA, ISCHEMIC, OR HEMORRHAGIC STROKE?: No PATIENT / SUBSTITUTE DECISION MAKER GOAL UPON TRANSITION: [facility] ANTICIPATED NEEDS UPON TRANSITION: [facility] RESOURCE(S) PROVIDED: nothing needed at this time ANTICIPATED MODE OF TRANSPORT UPON TRANSITION: [facility] (P:[phone]) ANTICIPATED MODE OF TRANSPORT TO AND FROM FOLLOW UP APPOINTMENTS: [facility] (P:[phone]) VERIFIED CORRECT PHARMACY IS ENTERED FOR DISCHARGE: No TRANSITION ROUNDING COMPLETED WITH THE FOLLOWING: Attending MD Residents Bedside RN SIGNED: Bethany Humphreys RN Case Manager [facility] [phone] Pager [phone] peech Therapy - Tabitha Leavitt SLP - 09/02/2020 2:51 PM CDT CE[employer] B[employer] MIXER f/u attempted. Patient busy with another discipline. RN reported no concerns with diet tolerance. He is on a regular solid and thin liquid diet. EMR is stable. CELLOPHANE BATH MIXER will f/u tomorrow to ensure diet tolerance and complete a cognitive evaluation as indicated. linical Team - Katerin Epstein RN - 09/02/2020 2:42 PM CDT Peripherally Inserted Central Catheter Insertion Indication for PICC: IV antibiotics Consent obtained: Yes; Risks and benefits, goals, and alternatives reviewed with patient/representative personal service; all questions answered. Verbal consent obtained and patient education given prior to onset of procedure. The patient/authorized decision maker wishes to proceed with the procedure. Informed verbal consent received from pt's spouse, Anahy Brand of Catheter: [employer] Lot Number: [id number] Size: 4 Setswana single Lumen PowerPICC Solo2, Power Injectable Site of Insertion: Right arm Vein accessed: basilic Diameter based vein measurement completed for desired catheter to vein ratio <45%. Catheter to vein ratio 6% at site of PICC insertion. Initial catheter length prior to trimmin cm Initial internal lumen volume prior to trimming catheter: Single: 0.73 mL Catheter length at insertion: 45 cm Length of catheter outside patient: TO THE HUB Tip Location: SVC/Right Atrial Junction Verified by: magnetic tracking/ECG tip confirmation system Amount of 1% Lidocaine administered intradermally: 1 ml Condition of cannulated arm: No abnormalities Per sterile technique, arm prepped with chloraprep. Vein accessed using ultrasound guidance, 21 gauge needle and modified seldinger technique. Catheter threaded with ease. Catheter was advanced to the point of maximal p wave peak; advanced further until p wave deflection. Catheter withdrawn and secured at point of maximal p wave height with no deflection. Stylet from catheter and sheath removed intact. Good blood return noted. Flushed with 10 ml 0.9% Sodium Chloride to the lumen without difficulty. Catheter secured in place with securement device and CHG transparent dressing. Injection cap applied. Number of attempts: 1 Estimated Blood Loss: <2 ml Procedural Tolerance: well Katerin Epstein RN 09/02/2020 3:05 PM CDT are Planning - Jeanie Quintana RD - 09/02/2020 1:13 PM CDT Problem: IMBALANCED NUTRITION: LESS THAN BODY REQUIREMENTS Goal: NUTRITIONAL STATUS: NUTRIENT INTAKE Description: DEFINITION: Nutrient intake to meet metabolic needs. 1=Not adequate, 2=Slightly adequate, 3=Moderately adequate, 4=Substantially adequate, 5=Totally adequate. Flowsheets (Taken 09/02/2020 1312) Initial Score: 2 Target Score: 4 Plan of care reviewed with: Patient Patient specific goal for the day: Consume >50% 2-3 meals + 1-2 snacks Patient specific goal for the stay: Meet >75% estimated nutritional needs Achieve goal for stay: By discharge Patient Progress: Pt declined RD visit today. Declined NFPE on initial visit per previous RD note. Pt met criteria for moderate protein calorie malnutrition in June 2020. Refusing to eat per RN. RD scheduled snacks BID to promote/encourage intakes. hysical Therapy - Sherine Wayne, PT - 09/02/2020 11:25 AM CDT Physical Therapy Acute Inpatient Treatment Note ASSESSMENT/RECOMMENDATIONS The patient is currently requiring Min A to complete transfers and Mod A and FWW to side step along EOB. Intermittently irritable, fairly redirectable. Impaired safety awareness, judgement, and insight into his deficits. At this time do not anticipate he would tolerate a high intensity therapy setting. Recommend continued therapy in a low intensity therapy setting to further progress his safety and independence with his mobility tasks. Will continue to progress mobility and update discharge recommendations as able/appropriate. 6-Clicks Basic Mobility Score: 12 Activity Prescription with Nursing: Assist patient to chair 3 times per day for 30 to 60 minutes or for all meals. Use Ax2 and FWW Use bathroom or commode rather than bedpan. SUBJECTIVE The patient was resting in bed upon therapist's arrival. Is agreeable to the PT session. OBJECTIVE RN cleared PT to mobilize patient and present present. RN clamped EVD prior to mobility. On room air. Bed Mobility: Supine to/from sit with Min A, rail, and HOB elevated. Transfers: Sit to/from stand with Min A and FWW. Gait: Side step along EOB with Mod A and FWW. Short, shuffling strides. Unsteady. Patient refusedfurther ambulation. Stairs: - Therapeutic Exercises: - Balance Training: Sat EOB with Min A. Stood with Mod A and FWW. Other: Gait belt donned for all out of bed activity. The patient was resting in bed with call light within reach at end of therapy session, bed alarm on. Education: Patient and Significant Other was educated on role of PT, POC and activity progression today through explanation. They will need reinforcement. Interdisciplinary Communication: Spoke with interdisciplinary team members regarding patient plan ofcare. PLAN Continue plan of care. 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 Malnutrition Summary - continue to assess as able. Pt declined NFPE on initial assessment and declined follow-up visit entirely today. NUTRITION ASSESSMENT Pt remained intubated s/p PROJECT CONTROL ANALYST shunt removal and placement of right EVD, however was extubated yesterday and placed on Diabetic diet. Pt has consumed 100% of 1 meal thus far since admit 3 days ago. Overall, intakes have met <25% estimated needs. Per RN, pt is refusing to eat. RD attempted to visit today and pt declined visit immediately. Regulatory Product Manager suggested she return this afternoon, and pt firmly declined. Spouse at bedside also declined dietitian visit. Will schedule snacks BID to promote/encourage intakes. Pt met criteria for moderate (non-severe) protein calorie malnutrition 07/13/20 based on inadequate intakes, severe weight loss, and mild muscle and fat losses. Unable to thoroughly assess this admission d/t pt declining NFPE on first visit, and declining follow-up visit today. Anthropometrics: Height: 182.9 cm (6') Admission Weight: Weight: 91.3 kg (201 lb 4.5 oz) as of 08/30/2020 per bed scale Most Recent Weight: Weight: 92.6 kg (204 lb 2.3 oz) (08/31/20 2330) per bed scale Lowest Weight Since Admission: 91.3 kg Weight Change: +1.3 kg (3 lb) since admission, +6.4 L since admit BMI: Body mass index is 27.69 kg/m. IBW: 81 kg %IBW: 115% (based on admit weight) Usual Body Weight: ~230 lb per EMR and pt report Unintentional Weight Loss: 25 lbs / 11% between Mar and Jun and stable past 6-7 weeks Adjusted Body Weight: 82 kg Estimated Needs: 3235-1209 kcal/day (28-30 kcal/kg Using: Adjusted Weight) 120 gm protein (1.5 gm/kg Using: Adjusted Weight) Fluids per MD Estimated average intake over the last 3 days: 08/30: NPO 08/31: NPO 09/01: 233 kcal, 10 gm protein (<25% est nutrition needs) Intake Records: Intake Prior to Admit: During prior hospitalization, patient reportedthat he typically eats one main meal per day with frequent evening snacks. His states that he has been eating adequately though very sporadically. He was the primary cook at home though not recently. He eats most foods and particularly likes fruits. He has had no alcohol since April. He takes a daily MVM supplement. Current Intake: Sub optimal - meeting <25% of estimated needs x 3 days. Pt was NPO for first 2 days of admission. Diet advanced to Diabetic yesterday. Pt refusing to eat per RN. Pt and spouse declined RD visit and requested display card writer not try again later today. Current Diet: Nutrition (From admission, onward) Start Ordered 09/01/20 1610 Diet - Diabetic Now Question: Modified Diets Answer: Diabetic 09/01/20 1609 Physical Assessment: Edema: (per box spring upholsterer at 1200 today) Generalized Edema Trace Facial Edema Trace LLE Edema Trace RLE Edema Trace GI Assessment: Abdominal exam: Non-tender and WDL with Active, Audible bowel sounds, per box spring upholsterer at 1200 today. Stool Frequency: 0x/day over the last 3 days - no BM since admission Wounds/Pressure Points: (per box spring upholsterer at 1200 today) Coccyx Blanchable Redness Elbow Left, Right, Blanchable Redness Functional Status: PT Following OT Following CELLOPHANE BATH MIXER Following Nutrition Focused Physical Exam: Deferred at this time due to pt declined. Nutritionally-Relevant Medications, Vitamins and Minerals: Bowel regimen, precedex, pepcid, Lantus, correction scale insulin, melatonin, zofran, phenylephrine,normal saline IVF Nutritionally-Relevant Biochemical Data: (09/02/2020) Glucose 162 H Potassium 3.4 L Creatinine 0.68 L Phosphorus 2.2 L Magnesium 1.7 L Albumin 2.4 L Allergies/Food Intolerance: Sandra has No Known Allergies. Culturally Lutheran Needs: NA INTERVENTIONS EMR Reviewed - attempted visit but pt declined MONITORING/EVALUATION Monitor ability to consume and tolerate adequate intake to approximate estimated needs with accomodation of preferences and tolerances until intake is sustained within desirable limits Monitor I&O, weight trends, nutrition-related labs and medications, clinical status, and planof care r/t need for nutrition intervention and provide as warranted Nutrition Therapy will reassess every 1-5 days Jeanie Quintana MS, RDN, LRD Pager #[phone] linical Team - Renuka Lawrence RN - 09/02/2020 5:21 AM CDT Shift Summary: Neuro: Q2hr. A/Ox4. Denies numbness/tingling. Following commands. Irritable at times. PERRL. EVD in place, 10cm H20 at tragus. Output 0-10mL/hr. ICPs 3-17. Cardiovascular: NS rates 70-90s. MAP goal >65. Respiratory: 4L NC. LS clear, expiratory wheeze. GI/: Burns in place. No BM. Diabetic diet. Will continue to monitor and report to oncoming nurse. ase Amando - Bethany Humphreys, RINA - 09/01/2020 2:33 PM CDT CASE MANAGEMENT / SOCIAL SERVICE TRANSITION PLAN - PROGRESS NOTE PLAN: Will Continue to Follow for Support and Progression Towards Final Transition Plan BARRIERS TO TRANSITION: Awaiting Collateral Information Awaiting Therapy Recommendations Diagnostic Tests Pending Discharge Needs to be Determined Other: surgery DOES ACCEPTING FACILITY REQUIRE COVID TESTING BEFORE DISCHARGE: N/A COMMENTS: Patient intubated/sedated, PEEP 8, FiO2 50%. EVD in place and patent. Neuro checks being done every 2 hours. Medications include IV maxipime, precedex, dopamine, pepcid, flagyl, and vancomycin. No further questions at this time. IS PATIENT'S ADMISSION ASSOCIATED WITH TIA, ISCHEMIC, OR HEMORRHAGIC STROKE?: No PATIENT / SUBSTITUTE DECISION MAKER GOAL UPON TRANSITION: First Choice: Home: Family/Friend Support ANTICIPATED NEEDS UPON TRANSITION: [facility] RESOURCE(S) PROVIDED: nothing needed at this time ANTICIPATED MODE OF TRANSPORT UPON TRANSITION: Patient Transport (to ) ANTICIPATED MODE OF TRANSPORT TO AND FROM FOLLOW UP APPOINTMENTS: As arranged by accepting facility VERIFIED CORRECT PHARMACY IS ENTERED FOR DISCHARGE: No TRANSITION ROUNDING COMPLETED WITH THE FOLLOWING: Attending MD Residents Bedside RN SIGNED: Bethany Humphreys RN Case Manager [facility] [phone] Pager [phone] vamshi Mayes - May Nicole RN - 09/01/2020 2:30 PM CDT Problem: RISK FOR INJURY Goal: SAFE HEALTH CARE ENVIRONMENT Description: DEFINITION: Physical and system arrangements to minimize factors that might cause physical harm or injury in the health care facility. 1 = Not adequate, 2 = Slightly adequate, 3 = Moderately adequate, 4 = Substantially adequate, 5 = Totally adequate. Flowsheets (Taken 09/01/2020 1300) Initial Score: 5 Target Score: 5 Plan of care reviewed with: Patient Patient specific goal for the day: Pt will have no signs of skin breakdown Patient specific goal for the stay: Pt will tolerate removal of restraints Achieve goal for stay: Within 24 hours Patient Progress: Bilateral wrist restraints removed. Q2H release, ROM, and skin check was done while restraints were on. No skin breakdown or signs of injury noted. Occupational Therapy - Dia Guajardo OTR/L - 09/01/2020 2:21 PM CDT Occupational Therapy Acute Care Evaluation Impression/Recommendations Recommend low-intensity therapy setting at this time, upon discharge with medical stability. Hopefulthat patient will progress with therapy to be able to tolerate high-intensity setting. Will continueto update. Patient demonstrating impaired functional cognition, impaired mobility, decreased overallstrength, poor safety and insight into deficits, and impulsive/easily agitated, all of which decrease independence with ADL's and IADL's. Pt requiring assist of 1 for ADL's and and Cuong x2 to stand at bedside with FWW. OT will continue to follow acutely. Admitting Diagnosis: ICD-10-CM 1. Postoperative infection, unspecified type, initial encounter T81.40XA 2. 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 Bath Setup: Combo Employment: not employed Prior Level of Function Independent with: All ADL's and IADL's at baseline. Assistance needed with: No assistance required at baseline. Comments: Patient's spouse reports that for the past several weeks, patient has been requiring assistance with higher level cognitive IADL's (cooking, cleaning, medication management, finances, and driving), which she has been providing for safety. Adaptive Equipment Available: shower chair, hand held shower, grab bars tub/shower, grab bars toilet, exam proctor and front-wheeled walker Present for Eval: Patient, pt's spouse, and pt's daughter Objective Activities of Daily Living: Feeding: Patient is able to drink out of straw cup with setup provided. Grooming: TBA Upper Extremity Dressing: Patient required assistance to adela hospital gown. Lower Extremity Dressing: Required maxA to adela slipper socks at this time. Bathing: TBA Toileting: Burns present - TBA. Homemaking: TBA - has been completing most recently for safety. Transfers: Bed: Patient required Cuong to complete supine >< sitting EOB. Patient required Cuong x2 with FWW to complete sit >< stand. Comments: Patient reports dizziness upon sitting up at EOB, however resolves after several minutes. Patient is unsteady in standing and requires assistance to prevent falling. Pt is able to take several side-steps to his left with Cuong x2 and use of FWW. At the end of the session, patient was left lying safely in bed with alarm activated and family present and supportive. Call light, phone, and side table were all placed within patient reach. Informed to call a nurse if needing to get up or any additional assistance. Pt verbalized understanding. Pain: Pain at rest: 0/10 Pain during activity: 0/10 Upper Extremity Function: Range of Motion: Right:WFL for tasks completed this date. Left: WFL for tasks completed this date. Strength: Right: Generalized weakness noted. Left: Generalized weakness noted. Endurance: limited Oxygen Level: Pt wearing 4L supplemental O2 via NC. Rest Above 90% Activity Above 90% Coordination: Continue to formally assess Sensation: Reports intact Edema: no Dominant Hand: right Orientation: Cognition: Patient is alert and oriented to his name, , month, and year. He refuses to answer any further orientation questions due to agitation. Patient is impulsive and demonstrates poor insight.Requires max encouragement to participate with therapy and to understand importance of OOB activity.Patient demonstrates labile mood and is hard to redirect at times. Requires cues for being appropriate as he is frequently verbally harsh. Patient was unable to correctly read wall clock this date due to cognitive impairment. Will further assess as able. Attention: Impaired. Following Directions: impaired - inconsistent with this. Safety Awareness: impaired Impulsivity: mild Visual/Perception: Patient is able to see the wall clock, however he is unable to correctly read due to cognitive impairments. Patient denies any blurry or double vision. Will further assess as able. Glasses: Yes. Education Education/Training provided: Role of OT, plan of care, safety, transfers, ADL's, goals Learners: Patient and family Readiness: Acceptance Method of Training: Verbal education, demonstration Response: Verbalized/demonstrated understanding inconsistently, will benefit from continued reinforcement Adaptive Equipment Recommendations Adaptive Equipment Recommended: Continue to assess - defer to post-acute rehab stay. Plan to obtain adaptive equipment: To further assess. Assessment/Plan Assessment: Patient demonstrates decreased UE strength, decreased physical conditioning, decreased independence with ADL/IADL tasks, decreased independence with functional mobility, decreased safety judgement/insight into deficits and decreased functional cognition Patient showing a decrease in ADL/transfer performance and will benefit from continued OT. Plan: Patient to be seen 3-5 times a week to work toward above goals Treatment plan will consist of Sunday thru Sunday sessions Goals Patient/Family Stated Goal for Session: none stated, agreeable to therapy session Short Term Goals: Patient will tolerate 15-30 minutes U/E exercise to further increase independence with ADL/IADLs Patient will complete grooming task safely standing at the sink with SBA using adaptive equipment asneeded. Patient will complete LB dressing safely with SBA using adaptive equipment as needed. Patient will complete toileting safely with SBA using adaptive equipment as needed. Patient will complete functional transfers safely with SBA using adaptive equipment as needed. Patient will further participate with cognitive assessment to increase safety with functional tasks. Patient will have AE in place to increase safety with ADLs by discharge Treatment Provided N/A Charges Treatment/Minutes: Today's Evaluation/Treatment Evaluation Total for time-based codes: 0 minutes Total treatment time: 31 minutes Evaluation Complexity PMH/Comorbidities that affect Occupational Performance: See PMH Occupational Profile/Medical and Therapy History: LOW - Brief history relating to presenting problem Patient Assessment: LOW - 1-3 performance deficits relating to physical, cognitive, psychosocial limitations/restrictions Clinical Decision Making: LOW - Low complexity, limited amount of treatment options, no assessment modification, no comorbidities Evaluation Complexity: Low Therapist Alpha Pager Number: [phone] Physical Therapy - Sherine Wayne, PT - 09/01/2020 2:21 PM CDT Physical Therapy Acute Inpatient Initial Evaluation ASSESSMENT/RECOMMENDATIONS Assessment/Recommendations: The patient presents with decreased activity tolerance, impaired balance, impaired functional coordination, and impaired functional mobility. He is currently requiring Cuong x 2 to safely complete his mobility tasks. Impaired safety awareness, judgement, and insight intohis deficits. Intermittently verbally aggressive/abusive during session. The patient would benefitfrom continued skilled acute PT to further improve his mobility while hospitalized. At this time do not anticipate he would tolerate a high intensity therapy setting. Recommend continued therapy in a low intensity therapy setting to further progress his safety and independence with his mobility tasks. Will continue to progress mobility and update discharge recommendations as able/appropriate. 6-Clicks Basic Mobility Score: 10 Activity Prescription with Nursing: Assist patient to chair 3 times per day for 30 to 60 minutes or for all meals. Use Ax2 and FWW Use bathroom or commode rather than bedpan. Diagnosis: ICD-10-CM 1. Postoperative infection, unspecified type, initial encounter T81.40XA 2. 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 He also has no past medical history of Amblyopia, Retinaldetachment, Strabismus, Unspecified disorder of thyroid, or Uveitis. 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 Now admitted 08/30 with deep cranial infection and an infected PROJECT CONTROL ANALYST shunt, intra abdominal abcess, sepsis. On antibiotics. S/p Display Fabrication Supervisor shunt removal and placement of EVD 08/31/20. Activity Orders: Progressive mobility bundle, HOB 40 degrees Precautions: Fall risk SUBJECTIVE Subjective: Social History: Patient lives: With spouse Home environment: House Steps: 3-4 steps to enter with railing; Bed/bath on main level; 13 steps with railing to basement/"man cave". Prior Level of Function: Mobility: Patient/ report he has required increased assistance for the past few weeks and within the last week he was unable to stand/mobilize due to instability. Has required increased assistance from and use of a FWW. Patient/ report prior to July he was independent. History of falls: Yes Home O2: No Adaptive equipment available: FWW Patient/Family Goals: Return home, improve mobility OBJECTIVE Objective: Patient was resting in bed upon therapist's arrival. RN cleared PT to mobilize patient, Co-treat with OT and and daughter present. RN clamped EVD prior to mobilization. Patient was resting in bed with call light within reach at end of therapy session, bed alarm on. Cognition: Alert. Oriented to month and year. Refused to answer additional orientation questions. Pain: Denied pain Observation: Resting in bed in no acute distress, nasal cannula: 4 liters and HR 67, SpO2 95%, andBP 108/59 at rest Strength/ROM: Within Functional Limits Except As Indicated Right Left ROM WFL WFL Strength Grossly WFL Grossly WFL Refer to Occupational Therapy report for upper extremity range of motion and strength testing. Sensation: Intact to light touch BLEs Tone: Normal tone BLEs Coordination: Impaired [id number] BLEs, impaired functional coordination noted Bed Mobility: Supine to Sit: Min A x 2 Sit to Supine: Min A x 2 Transfers: Sit to/from Stand: Min A x 2 and FWW Balance: Static Sitting Balance: Good-fair Dynamic Sitting Balance: Good-fair Static Standing: Fair w/ FWW Dynamic Standing: Fair-poor w/ FWW Gait: Side step toward HOB with Min A x 2 and FWW. Short, shuffling strides. Major LOB that required increased assistance to correct. Patient refused further ambulation. Stairs: To be assessed Response to Activity: No significant change in vital signs Education: Patient and family was educated on role of PT, POC and activity progression today throughexplanation. They will need reinforcement. Interdisciplinary Communication: Spoke with interdisciplinary team members regarding patient plan ofcare. Today's Treatment Evaluation: Completed Gait trainin minutes Therapeutic exercise: 0 minutes Therapeutic activity: 0 minutes TOTAL TIME-CODED MINUTES: 0 minutes TOTAL TREATMENT TIME: 31 minutes GOALS Goals to be achieved by discharge. Bed Mobility: Patient will transfer sit to/from supine with supervision assist. Transfers: Patient will transfer from sit to stand with supervision assist and with equipment as needed to allow for safe household mobility. Ambulation: Patient will be able to ambulate at least 150 feet over even terrain using least restrictive assistive device with supervision assist to allow for safe functional mobility in the home. Stairs: Patient will be able to negotiate 4 stairs with rail with contact guard assist and least restrictive assistive device to allow for safe functional mobility in the home. Provision of appropriate assistive device and education as needed. Patient will demonstrate adequate awareness of fall prevention tactics to reduce risk of falling. PLAN Plan: 5x/wk Physical Therapy Services: Balance training, Bed mobility training, Caregiver training, Education, Endurance conditioning, Equipment use and training, Gait training, Home exercise instruction, Neuromuscular re-education, Postural training, Therapeutic activity, Therapeutic exercise and Transfer training Sherine Wayne PT, DPT Pager: [phone] peech Therapy - Jessenia Sanabria SLP - 09/01/2020 1:28 PM CDT Speech therapy follow up. Per EMR review, patient has remained intubated following PROJECT CONTROL ANALYST shunt removal and placement of EVD yesterday. CELLOPHANE BATH MIXER will monitor peripherally; will initiate swallow evaluation as appropriate upon extubation. Pager: [phone] linical Team - May Nicole RN - 09/01/2020 12:16 PM CDT Shift Summary Summary 0900: MD at bedside. Updated on ICP and EVD. 1250: Pt extubated to 4L NC. Assessment Neurological: Q2H neuros. AOX4. Moves all extremities. Follows commands. 5/5 strengths throughout. Irritable and agitated at times. Denies numbness/tingling. PERR. Respiratory: 4L NC. Lung sounds clear/diminished. Cardiac: SR. HR 60-90. SBP <160 and MAP >65. Daniel infusing, see MAR. GI/: Burns in place, 700ml UO. Diabetic diet started, tolerating. Passing gas. No BM. Pain: Denies pain Incisions/Drains/Dressings: R) incision on head with sutures. EVD site. [place] to posterior neck. IV's/Lines: PIV x2. Respiratory Therapy - Juan Carlos William, NICOLE - 09/01/2020 10:28 AM CDT Ventilator Patient continues on Bryant ventilator on settings: Mode APVcmv, RR 14, Vt 520, PEEP 8, AfT085%. SpO2: 95 % Breath Sounds: Clear and Diminished Secretions: Scant Small, White, and Thick ABG Results: Lab Results Component Value Date PHART 7.32 (L) 09/01/2020 [id number] 43 09/01/2020 PO2ART 86 09/01/2020 BASEEXART -4 (L) 09/01/2020 Patient has a 9.0 ETT, 24 cm @ the lip. Vent checks done Q4. Extubate Patient extubated at 12:50 by Respiratory Therapy without incident and placed on Oxygen at 4 L/minute Breath sounds Clear and Diminished. No stridor heard at this time. Patient able to vocalize. Pulse: 69 Resp: 21 SpO2: 94 % Patient instructed to use IS every hour while awake. Respiratory Therapy to follow. RT to follow. linical Team - Chelsey Weaver RN - 09/01/2020 7:01 AM CDT Shift Summary: Pt to ICU at 0000 after PROJECT CONTROL ANALYST shunt removal and EVD placement. Neuro: Pt follows commands x4. Afebrile. PERRL. Hx of noncompliance and leaving AMA. EVD tragus 10. No output from EVD. MD aware and unconcerned stating pt ventricles are very small and an expected outcome. ICPs 2-8. Cardiac: NSR-bradycardic with occasional PVC. Pt became bradycardic in the 30- 40s around 0200. MD updated and dopamine started. Respiratory: ventilator, PEEP 8, FiO2 40%. LS clear. Increased oral secretions. GI: No BM on shift. Bowel sounds active. NPO. : burns, UO 600 Skin/Mobility: bedrest. EVD site. Lines: PIVx3 Drips: fent, prop, dopamine, NS. Four eyes on skin done with Ledy Alvarez. EVD site, scattered bruises to extremities, redness to coccyx( mepilex placed), neli to back of neck from PROJECT CONTROL ANALYST shunt removal. are Planning - Chelsey Weaver RN - 09/01/2020 7:01 AM CDT Problem: RISK FOR INJURY Goal: SAFE HEALTH CARE ENVIRONMENT Description: DEFINITION: Physical and system arrangements to minimize factors that might cause physical harm or injury in the health care facility. 1 = Not adequate, 2 = Slightly adequate, 3 = Moderately adequate, 4 = Substantially adequate, 5 = Totally adequate. Flowsheets (Taken 09/01/2020 0658) Initial Score: 4 Target Score: 5 Plan of care reviewed with: Patient Patient specific goal for the day: Pt will be calm and not attempt to pull at tubes and/or lines Patient specific goal for the stay: Pt will no longer need use of restraints Achieve goal for stay: Within 48 hours Patient Progress: Restraints remained on throughout NOC. Pt restless and fussy at times. On fent andprop to achieve RASS goal -1 Respiratory Therapy - Pura Vences GAS ENGINE REPAIRER - 09/01/2020 5:09 AM CDT Ventilator Patient placed on Browne ventilator on settings: Mode APVcmv, RR 14, Vt 520, PEEP 8, FiO2 70%. SpO2: 99 % Breath Sounds: Clear and Diminished Secretions: Scant Small, White, and Thick ABG Results: Lab Results Component Value Date PHART 7.32 (L) 09/01/2020 [id number] 43 09/01/2020 PO2ART 86 09/01/2020 BASEEXART -4 (L) 09/01/2020 Patient placed on a 9.0 ETT, 24 @ lips. Continues to have q4 hour vent checks. RT to follow. ostOp Progress Note - Terrell Ruggiero MD - 08/31/2020 11:08 PM CDT Immediate Post-Operative / Post Procedure Progress Note Att. Phys: Shell Charlton MD Pt. Type: Inpatient Operative Date: 08/31/2020 Surgeon: Surgeon(s) and Role: * Terrell Ruggiero MD - Primary Medical Social Consultant: Income Tax Analyst : Leopoldo Hernandez RN; Chantal Ramos RN Scrub Person : Jack Mills CST; Alhaji Bowers CST Brim Molder: Luz Maria Stafford PA-C The skilled assistance of my surgical scrub technician, Luz Maria Stafford was necessary because of the need for retraction. They participated in positioning of the patient, assistance with the procedure, assistance with wound closure and dressing application. Pre-Operative Diagnosis: Pre-Op Diagnosis Codes: * Infection [B99.9] non-applicable Post-Operative Diagnosis: Same Anesthesia Type: general Operative Procedure: Procedure(s): RIGHT VENTRICULOPERITONEAL SHUNT REMOVAL AND RIGHT FRONTAL VENTRICULOSTOMY PLACEMENT - Wound Class: Clean ID Type Source Tests Collected by Time 1 : CSF CSF Cerebrospinal Fluid CULTURE BACTERIAL, ANAEROBE, CULTURE BACTERIAL, OTHER WITH GRAM STAIN Terrell Ruggiero MD 08/31/20202200 Implant Name Type Inv. Item Serial No. Tying Machine Operator Lumber Lot No. LRB No. Used Action VALV STRATA II MDTR REG N [id number] EA1 - [id number] VALV STRATA II MDTR REG N 38034 EA1 [employer] [id number] Right 1 Explanted KT CATH VENT/PERITON JAMAL MICHELLE N 34805 EA1 - [id number] KT CATH VENT/PERITON JAMAL MICHELLE N 32892 ST1 [employer] [id number] Right 1 Explanted SHNT RSVR [place] PLST LG9.5MM N 82-1616 EA1 - [id number] SHNT RSVR [place]ICK[place] PLST LG9.5MM N 82-1616 EA1 [employer] [id number] Right 1 Explanted Fluids Given: See Anesthesia Record Urine Output: See Anesthesia Record Estimated Blood Loss: 5 mL Drains: evd at 10 above eac Findings: none Complications: none Postoperative Condition: stable are Planning - Bang Alexandra RN - 08/31/2020 6:45 PM CDT Problem: RISK FOR INFECTION Goal: IMMUNE STATUS Description: DEFINITION: Natural and acquired appropriately targeted resistance to internal and external antigens. 1 = Severely compromised, 2 = Substantially compromised, 3 = Moderately compromised, 4 = Mildly compromised, 5 = Not compromised. Outcome: NOC Rating 4 Flowsheets (Taken 08/31/2020 1310) Intial Score: 3 Target Score: 4 Plan of care reviewed with: Patient Patient specific goal for the day: To show no signs of infection Patient specific goal for the stay: To treat infection with antibiotics and to go to surgery and no complication during and after surgery Achieve goal for stay: By discharge Patient Progress: Patient Awake and Alert Oriented to Person and somewhat to situation. Afebrile during my shift. No complain of pain when patient is laying still he likes to lay on his right side. Patient had episodes of incontinent of bladder. Patient refused to remove his underwear even it's wet. He refused to have a bath. I was able to changed his linen and gown. Patient was verbally aggressive. spoke with me and she stated that patient did not take a bath for 2 weeks now. She stated that patient has been refusing to take a bath and stated that his drastically changed his behavior and the way he does not want to take care of his body. Emotional support given to the patient's . Notified the RT that patient has expiratory and Inspiratory wheezing. linical Team - Bang Alexandra RN - 08/31/2020 5:27 PM CDT Patient was able to signed the consent for surgery and Anesthesia. signed the consent for BloodTransfusion. Consents forms are in the patient's chart. wants to make sure to call the patient's daughter for any updates before and after surgery. Daughter's name: Henrietta Smith [phone]. hysical Therapy - Luz Maria Herrera PT - 08/31/2020 3:12 PM CDT PT orders received and acknowledged. PT attempted for evaluation, however patient adamantly refused. Will follow up again tomorrow as appropriate. Luz Maria Herrera PT, DPT Board-Certified Clinical Specialist in Geriatric Physical Therapy Certified Exercise Expert for Aging Adults Alpha Pager [phone] peech Therapy - Jessenia Sanabria SLP - 08/31/2020 1:28 PM CDT Speech therapy order received and acknowledged for swallow evaluation. Per discussion with RN, patient is currently NPO for surgery scheduled later today. CELLOPHANE BATH MIXER will follow up tomorrow as appropriate. Pager: [phone] ase Mgmt - Alexa Castrejon RN - 08/31/2020 11:25 AM CDT CASE MANAGEMENT / SOCIAL SERVICE TRANSITION PLAN - INITIAL ASSESSMENT TRANSITION PLAN: Awaiting Medical Doctor Recommendations for Transition Will Continue to Follow for Support and Progression Towards Final Transition Plan BARRIERS TO TRANSITION: Medical barriers:IV Cefepime/Flagyl/Vanco, to OR today for shunt removal with ventriculostomy COMMENTS / PATIENT AND FAMILY RESPONSE TO PLAN: Met with pt and Anahy at bedside this afternoon. Information was obtained from as pt was sleeping at time of visit. Anahy states that pt has been living at home but he has declined over the past month. Notably, states that pt has been sleeping 16-20 hours per day over the past week or so. He would wake for meals and medications but would go back to bed. He has been using a walker for ambulation. states they have been using a borrowed walker from a friend but it was unstable. Pt has been able to do his own dressing but has no been showering. They do have a shower chair and handicap railings in the shower. Family has been assisting with medication management as well as transportation to appointments. Plan for OR tonight. Per Neurosurgery/ID, pt will likely need external ventricular drain for 3 weeks before new PROJECT CONTROL ANALYST or VA shunt can be placed. ID also anticipating likely need for six weeks of IV abx. Pt's aware of anticipated lengthy hospital stay. Pt does have a history of leaving AMA. Anticipate possible need for Vibra or Swing Bed for alf abx once medically stable. Anticipate prolonged inpatient hospital stay due to temporary EVD. ADMISSION DX: No admission diagnoses are documented for this encounter. PATIENT STATUS: Inpatient RELEASE OF INFORMATION: No SOURCES OF INFORMATION (See demographics for contact information): Medical Record CURRENT LIVING SITUATION / LEVEL OF ASSISTANCE: Lives with COMMUNITY SERVICES: None HEALTHCARE DIRECTIVE: No POWER OF SECURITY AUDITOR: None FINANCIAL CONCERNS: No Concerns PRIMARY CARE PHYSICIAN: Yes Dejuan Simon MD : No IS PATIENT'S ADMISSION ASSOCIATED WITH TIA, ISCHEMIC, OR HEMORRHAGIC STROKE?: No LANGUAGE / COMMUNICATION BARRIERS: No PATIENT / SUBSTITUTE DECISION MAKER GOAL UPON TRANSITION: First Choice: Other: Undetermined ANTICIPATED NEEDS, TRANSITION CHOICES OFFERED: [facility] RESOURCE(S) PROVIDED: NA DOES PATIENT HAVE CLOTHING TO WEAR AT DISCHARGE? Other: TBD ANTICIPATED MODE OF TRANSPORT UPON DISCHARGE: Other: TBD pending final DC plan VERIFIED CORRECT PHARMACY IS ENTERED FOR DISCHARGE: No --TBD pending final DC plan CURRENT READMISSION RISK SCORE Predictive Risk Score Risk of Unplanned Readmission: 19 Please refer to readmission risk assessment flowsheet for further details. SIGNED: HEIDE Grande, senior java web application developer [facility] Office (): [phone] [place] (): [phone] Pager #[phone] Respiratory Therapy - Anais Rushing RRT - 08/31/2020 10:27 AM CDT Patient was seen to assess need for Nicotine Replacement Therapy. Patient is a current 0.5 pack perday smoker. Declined NRT and denies cravings. Patient declined tobacco education at this time. 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 # Sepsis # Delirium, does not have capacity # NSTEMI, likely type II # History of leaving AMA due to neuro checks # Hypertension # Type 2 Diabetes Mellitus PMH: T2DM, HTN, HLD, GERD, hemangioblastoma resected March 2002 and two times since then Recommendations: Advance to Diabetic diet as medically appropriate Adequate oral intake with attention to protein sources Oral nutrition supplement with inadequate intake or missed meals NUTRITION ASSESSMENT During June admission, patient met ASPEN criteria for non-severe or moderate malnutrition due to severe weight loss (>7.5% in 3 months), mild muscle and subcutaneous fat losses and <75% intake of est energy needs for > 1 month. His weight appears to have remained stable since that time and his states that his appetite has been intact and his intake adequate. This display card writer is unable to complete nutrition-focused physical assessment att due to patient refusal. Anthropometrics: Height: 182.9 cm (6') Admission Weight: Weight: 91.3 kg (201 lb 4.5 oz) as of 08/30/2020 per bed scale Most Recent Weight: Weight: 93.3 kg (205 lb 11 oz) (08/30/20 1602) per bed scale Lowest Wt Since Admission: 91.3 kg BMI: Body mass index is 27.9 kg/m. IBW: 81 kg %IBW: 115% (based on admit weight) Usual Body Weight: ~230 lb per EMR and pt report Unintentional Weight Loss: 25 lbs / 11% between Mar and Jun and stable past 6-7 weeks Adjusted Body Weight: 82 kg Estimated Needs: 1128-4628 kcal/day (28-30 kcal/kg Using: Adjusted Weight) 120 gm protein (1.5 gm/kg Using: Adjusted Weight) Intake Records: Prior to Admit: During prior hospitalization, patient reported that he typically eats one main meal per day with frequent evening snacks. His states that he has been eating adequately though very sporadically. He was the primary cook at home though not recently. He eats most foods and particularly likes fruits. He has had no alcohol since April. He takes a daily MVM supplement. 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) Edema: Generalized Trace Facial Trace Gastrointestinal: WDL Stool Frequency: Pt has not had a documented BM since admission Wounds/Pressure Points: Elbow Blanchable redness Functional Status: generalized weakness, uses walker at baseline; increased irritability and confusion; lacks capacity; currently calm, A/O to self and answers to simple questions appropriately Nutrition Focused Physical Exam: deferred at this time due to patient refusal Nutritionally-Relevant Medications,Vitamins and Minerals: Maxipime, Novolog, Lantus, Flagyl, Prilosec, Zocor, vancomycin, IVF Nutritionally-Relevant Biochemical Data: (08/31/2020) Glucose 155 H Sodium 139 Potassium 3.9 BUN 15 Creatinine 0.75 L Phosphorus 3.2 Magnesium 1.3 L Albumin 2.7 L GFR >90 Allergies/Food Intolerance: Sandra has No Known Allergies. Cultural / Lutheran Needs: no INTERVENTION Acknowledged referral and reviewed EMR Reviewed adequacy of intake Obtained diet history Atempted NFPE; patient refused MONITORING/EVALUATION Ability to consume and tolerate adequate intake I&O, weight, nutrition-related labs and medications, clinical status, and plan of care Need for intervention to support or optimize nutrition Nutrition Therapy will reassess every 1-4 days Alpha Pager [phone] [facility]: Occupational Therapy - Earline Manjarrez OTR/Ilya - 08/31/2020 8:33 AM CDT OT orders received and chart reviewed. OT attempted to evaluate patient, however, patient adamantlyrefused. Patient is requesting that therapy not come back. OT will follow up as able/appropriate. Earline Manjarrez Alpha pager [phone] are Planning - Tiffanie Sellers RN - 08/31/2020 7:28 AM CDT Problem: RISK FOR INFECTION Goal: IMMUNE STATUS Description: DEFINITION: Natural and acquired appropriately targeted resistance to internal and external antigens. 1 = Severely compromised, 2 = Substantially compromised, 3 = Moderately compromised, 4 = Mildly compromised, 5 = Not compromised. Flowsheets (Taken 08/31/2020 0726) Intial Score: 2 Target Score: 4 Plan of care reviewed with: Patient Patient specific goal for the day: To show no signs of infection Patient specific goal for the stay: To treat infection Achieve goal for stay: By discharge Patient Progress: AO to self. Afebrile this shift. ICU nurse consult around 0130 for chest pain 11/23, not radiating anywhere. EKG same as yesterday, RBBB. One time Toradol given, adequate relief. Pt was also SOB during incident, oxygen saturation >93%. Continue to monitor. Operative Note - Terrell Ruggiero MD - 08/31/2020 1:00 AM CDT [facility] PATIENT NAME: SANDRA JOHNS DATE OF SERVICE: 08/31/2020 ENEDINA: [id number] LOCATION: [facility] OR room 18. ATTENDING/SURGEON: Terrell Ruggiero MD. ARROW POINT ATTACHER: Luz Maria Stafford. PREOPERATIVE DIAGNOSIS: Infected ventriculoperitoneal shunt. OPERATION PROCEDURE PERFORMED: 1. Right ventriculoperitoneal shunt removal. 2. Placement of a right frontal ventriculostomy. POSTOPERATIVE DIAGNOSIS: Infected ventriculoperitoneal shunt. INDICATIONS: Mr. Johns is a 60-year-old gentleman that I had previously performed a suboccipital craniotomy for re-resection of a hemangioblastoma. He developed hydrocephalus and had a ventriculoperitoneal shunt placed. He underwent a subsequent reoperation for recurrent disease and he failed to follow up when he had some wound drainage and came back obtunded with sepsis and an abdominal abscess. He was offered removal of the PROJECT CONTROL ANALYST shunt and placement of a right frontal ventriculostomy for relief of symptoms. DESCRIPTION OF OPERATION: Patient was brought to [facility] OR room 18 and placed under endotracheal anesthesia per the anesthesia team. Patient was placed supine on the operating room table. His head wasplaced on a Bess horseshoe. The cranial incision site over the right coronal suture was demarcated. The posterior auricular incision was demarcated overlying the valve. The patient's hair overlying the posterior site was clipped. The patient was then prepped and draped in the usual sterile fashion. Timeout verification was performed demonstrating Mr. Johns was indeed the patient preoperatively consented for above procedure. The skin was infiltrated with local anesthetic, 0.5% Marcaine with1:200,000 epinephrine. The postauricular incision was opened initially with a #10 scalp blade down to the calvarium. Monopolar cautery was used to dissect out the catheter. The catheter was then cutand secured with a mosquito clamp. The Gnosticism scissors were used to dissect the valve and then the valve was pulled cranially and the gentle pulling on the distal catheter removed it from the abdomen and catheter was completely removed. Next, the coronal suture incision was opened with a #10 scalp blade down to the calvarium. Monopolar cautery was used to dissect down to the Rickham reservoir was identified. Once this was accomplished, the Rickham reservoir and ventricular catheter were removed without incident. The wound was irrigated with saline and additional ventriculostomy catheter was then passed down perpendicular to the cortical surface towards the medial canthus of the contralateral side. CSF was noted to flow from the ventricular catheter. The catheter was then tunneled posteriorly under the scalp and secured to the skin using 3-0 nylon. Thrombin-soaked Gelfoam was placed over the ventricular catheter within the burhole. The galea was reapproximated with 2-0 interrupted Vicryl sutures. Skin was closed with running 3-0 nylon suture. The posterior auricular incision was closed with 2-0 interrupted Vicryl suturesfor the galea and the skin was closed with running 3-0 nylon suture. There were no complications. The ventricular catheter was left at 10 above the EAC and the patient was transferred to PACU in stable condition. BLOOD LOSS: Approximately 5 mL. I was present during the entire procedure. Terrell Ruggiero MD Receipt: [id number] Trans ID: [id number] DRIER OPERATOR CST are Planning - Sandra Winkler RN - 08/30/2020 9:50 PM CDT Problem: RISK FOR INFECTION Goal: IMMUNE STATUS Description: DEFINITION: Natural and acquired appropriately targeted resistance to internal and external antigens. 1 = Severely compromised, 2 = Substantially compromised, 3 = Moderately compromised, 4 = Mildly compromised, 5 = Not compromised. Flowsheets (Taken 08/30/2020 2906) Intial Score: 2 Target Score: 4 Plan of care reviewed with: Patient Patient specific goal for the day: to be afebrile Patient specific goal for the stay: to be able to treat the infection with antibiotics and other treatment Achieve goal for stay: By discharge Patient Progress: Pt is A/O to self and answers to simple questions appropriately. Pt is following command and seems to be calm. Temp. is 99.5. Schedule Tylenol and abx given.Will continue to monitor. are Planning - Bang Alexandra RN - 08/30/2020 7:54 PM CDT Problem: RISK FOR INFECTION Goal: IMMUNE STATUS Description: DEFINITION: Natural and acquired appropriately targeted resistance to internal and external antigens. 1 = Severely compromised, 2 = Substantially compromised, 3 = Moderately compromised, 4 = Mildly compromised, 5 = Not compromised. Outcome: NOC Rating 2 Flowsheets (Taken 08/30/20201954) Intial Score: 2 Target Score: 4 Plan of care reviewed with: Patient Spouse/Significant Other Patient specific goal for the day: to be afebrile Patient specific goal for the stay: to be able to treat the infection with antibiotics and other treatment Achieve goal for stay: By discharge Patient Progress: Patient came to floor from ER with complained of fever for 2 weeks. Came to floor with temp of 103.2. Antibiotics started in ER. Tylenol given Temp went down to 99.5. BP of Patient isOriented to person. BP of 191/84 Labetalol 20 MG IV given BP now is 111/56. Patient is irritable anddoes not want to interact but he is calm and cooperative and obeys commands. linical Team - Bang Alexandra RN - 08/30/2020 6:26 PM CDT Upon Admission to [facility] Room 605, skin assessment completed with Radha Macario RN Upon skin assessment including pressure points findings include: Mild Red Scars from incision to hisposterior lower head incision with 3 neli. Mild redness to his groin and, mild redness to his abdominal fold. Blanchable redness to both elbows. Plan/Intervention Continue to monitor encouraged patient to turn Q2 and as needed. documented in this encounter Plan of Treatment Date Type Specialty Care Team Description 09/28/2020 Orders Only Laboratory 09/28/2020 Office Visit Family Practice Dejuan Simon MD [address] [place], [place] [address] [phone] 10/05/2020 Office Visit Infectious Diseases Prabhjot Faith MD [address] [place] [address] [phone] 10/27/2020 Office Visit Neurosurgery Terrell Ruggiero MD [address] [place] [address] [phone] 11/02/2020 Appointment Radiology Roberto Wlaler MD [address] [place] [address] [phone] 11/02/2020 Office Visit Radiation Oncology Yvonne Waller MD [address] [place] [address] [phone] 11/02/2020 Appointment Radiation Oncology Yvonne Waller MD [address] [place] [address] [phone] 11/02/2020 Office Visit Radiation Oncology Yvonne Waller MD [address] [place] [address] [phone] documented as of this encounter Implants Implanted Type Area Tying Machine Operator Lumber Device Shelf Model / Identifier Expiration Serial / Date Lot Screw Neuro Lvl1 1.5x4mm N [id number]- Ea1 - [id number] ENT /Dental/ N/A: CRANIAL DANNY CHICAS 81-585-37-01 / Implanted: Qty: 1 on 07/15/2020 by Terrell Zhu MD at [facility] Plastics / Screw Neuro Lvl1 1.5x4mm N 59-356-56-01 Ea1 - [id number] ENT /Dental/ N/A: CRANIAL DANNY CHICAS 96-635-76- / Implanted: Qty: 1 on 07/15/2020 by Terrell Zhu MD at [facility] Plastics / Screw Neuro Lvl1 1.5x4mm N 88-296-94- Ea1 - [id number] ENT /Dental/ N/A: CRANIAL DANNY CHICAS 89-225-25- / Implanted: Qty: 1 on 07/15/2020 by Terrell Zhu MD at [facility] Plastics / Screw Neuro Lvl1 1.5x4mm N 12-461-32 Ea1 - [id number] ENT /Dental/ N/A: SUDHIR CHICAS 97-472-23-01 / Implanted: Qty: 1 on 07/15/2020 by Terrell Zhu MD at [facility] Plastics / Screw Neuro Lvl1 1.5x4mm N 30-480-20-01 Ea1 - [id number] ENT /Dental/ N/A: SUDHIR CHICAS 96-340-74-01 / Implanted: Qty: 1 on 07/15/2020 by Terrell Zhu MD at [facility] Plastics / Screw Neuro Lvl1 1.5x4mm N 50-328-23 Ea1 - [id number] ENT /Dental/ N/A: SUDHIR CHICAS 36-883-76-01 / Implanted: Qty: 1 on 07/15/2020 by Terrell Zhu MD at [facility] Plastics / Screw Neuro Lvl1 1.5x4mm N 42-201-01-01 Ea1 - [id number] ENT /Dental/ N/A: SUDHIR DELGADO AVIVA 00-239-37-01 / Implanted: Qty: 1 on 07/15/2020 by Terrell Zhu MD at [facility] Plastics / Screw Neuro Lvl1 1.5x4mm N 50-626-36 Ea1 - [id number] ENT /Dental/ N/A: SUDHIR DELGADO AVIVA 89-168-35 / Implanted: Qty: 1 on 07/15/2020 by Terrell Zhu MD at [facility] Plastics / Screw Neuro Lvl1 1.5x4mm N 83-183-65 Ea1 - [id number] ENT /Dental/ N/A: SUDHIR DELGADO AVIVA 21-537-93 / Implanted: Qty: 1 on 07/15/2020 by Terrell Zhu MD at [facility] Plastics / Screw Neuro Lvl1 1.8x4mm N 95-329-6006 Ea1 - [id number] ENT/Den pito/ N/A: ZHANNA CHICAS 72-832-54-06 / Implanted: Qty: 1 on 09/03/2020 by Terrell Zhu MD at [facility] Plastics / Screw Neuro Lvl1 1.8x4mm N 56-778-24-06 Ea1 - [id number] ENT/Den pito/ N/A: ZHANNA CHICAS 76-484-86-06 / Implanted: Qty: 1 on 09/03/2020 by Terrell Zhu MD at [facility] Plastics / Screw Neuro Lvl1 1.8x4mm N 18-511-30-06 Ea1 - [id number] ENT/Den pito/ N/A: ZHANNA CHICAS 13-918-51-06 / Implanted: Qty: 1 on 09/03/2020 by Terrell Zhu MD at [facility] Plastics / Screw Neuro Lvl1 1.8x4mm N 35-257-09-06 Ea1 - [id number] ENT/Den pito/ N/A: ZHANNA CHICAS 91-980-29-06 / Implanted: Qty: 1 on 09/03/2020 by Terrell Zhu MD at [facility] Plastics / Screw Neuro Lvl1 1.8x4mm N 26-697-56-06 Ea1 - [id number] ENT/Den pito/ N/A: ZHANNA CHICAS 94-102-31-06 / Implanted: Qty: 1 on 09/03/2020 by Terrell Zhu MD at [facility] Plastics / Screw Neuro Lvl1 1.8x4mm N 00-079-58-06 Ea1 - [id number] ENT/Den pito/ N/A: ZHANNA CHICAS 08-210-71-06 / Implanted: Qty: 1 on 09/03/2020 by Terrell Zhu MD at [facility] Plastics / Screw Neuro Lvl1 1.8x4mm N 59-976-21-06 Ea1 - [id number] ENT/Den pito/ N/A: ZHANNA CHICAS 63-288-56-06 / Implanted: Qty: 1 on 09/03/2020 by Terrell Zhu MD at [facility] Plastics / Screw Neuro Lvl1 1.8x4mm N 96-838-35-06 Ea1 - [id number] ENT/Den pito/ N/A: HEAD [place] 50938-576-76-06 / Implanted: Qty: 1 on 09/03/2020 by Terrell Zhu MD at [facility] Plastics / Screw Neuro Lvl1 1.8x4mm N 52-512-03-06 Ea1 - [id number] ENT/Den pito/ N/A: HEAD [address]576-76-06 / Implanted: Qty: 1 on 09/03/2020 by Terrell Zhu MD at [facility] Plastics / Screw Neuro Lvl1 1.8x4mm N 29-793-32-06 Ea1 - [id number] ENT/Den pito/ N/A: HEAD [address]576-76-06 / Implanted: Qty: 1 on 09/03/2020 by Terrell Zhu MD at [facility] Plastics / Mesh Suboccipital #8 Lft 0.6mm N 05-203-96-09 Ea1 - [id number] Neurology N/A: CRANIAL [facility] 07/15/202128-058-03-09 / Implanted: Qty: 1 on 07/15/2020 by Terrell Zhu MD at [facility] / [address] Ed[address] Ventricl 1.5mm N 29512 Pk5/Ea1 - [id number] Neurology N/A: HEAD [employer] 11/25/2021 [id number] / Implanted: Qty: 1 on 08/31/2020 by Terrell Zhu MD at [facility] / [id number] Mesh Parietal #4 Rt 0.6mm N 65-886-87-09 Ea1 - [id number] Neurol ogy N/A: HEAD [facility] 09/03/202529-199-40-09 / Implanted: Qty: 1 on 09/03/2020 by Terrell Zhu MD at [facility] / AA Mtx Dural Duragen 3x3 N [id number] Ea5/Pc1 - [id number] Tissue N/ A: CRANIAL INTEGRA 02/13/2023 [id number] / Implanted: Qty: 1 on 07/15/2020 by Terrell Zhu MD at [facility] Synthetic LIFESCIENCES / GUS [id number] Mtx Dural Duragen Busaxepua4f8 N [id number] Ea1 - [id number] Tissu e N/A: CRANIAL INTEGRA 09/13/2021 [id number] / Implanted: Qty: 1 on 07/15/2020 by Terrell Zhu MD at [facility] Synthetic LIFESCIENCES / GUS [id number] Allo Grafixpl Prime 5t4hq=78dh N [id number] Ea1 - [id number] Vascul ar N/A: CRANIAL LOPEZ 09/14/2021 [id number] / Implanted: Qty: 1 on 07/15/2020 by Terrell Zhu MD at [facility] AUNDREA-[id number] / [id number] Allo Grafixpl Prime 7m8jr=46ab N [id number] Ea1 - [id number] Vascul ar N/A: CRANIAL LOPEZ 08/20/2021 [id number] / Implanted: Qty: 1 on 07/15/2020 by Terrell Zhu MD at [facility] HPM-[id number] 02 / [id number] Mesh Duragen Suturable 3x3 N [id number] Ea1 - Sna N/A: IN TEGRA 07/14/2018 [id number] / Implanted: Qty: 1 on 08/31/2017 by Terrell Zhu MD at [facility] CEREBELLUM LIFESCIENCES NA / GUS [id number] Mtx Durepair Dura Regen 3x3 N 63494 Ea1 - Sna N/A: MEDZuleyma [place] 09/14/2019 [id number] / Implanted: Qty: 1 on 08/31/2017 by Terrell Zhu MD at [facility] CEREBELLUM NA / [id number] Explanted Type Area Tying Machine Operator Lumber Device Shelf Model / Identifier Expiration Serial / Lot Date Shnt Rsvr Rose Plst Lg9.5mm N 82-1616 Ea1 - [id number] Right: INTEGRA 12/14/2021 [id number] / Implanted: Qty: 1 on 11/20/2017 by Terrell Zhu MD at [facility] CEREBRUM LIFESCIENCES / Explanted: Qty: 1 on 08/31/2020 by Terrell Zhu MD at [facility] GUS [id number] Val[place] N [address] Ea1 - [id number] Right: M EDTRONIC 05/16/2020 [id number] / Implanted: Qty: 1 on 11/20/2017 by Terrell Zhu MD at [facility] CEREBRUM / Explanted: Qty: 1 on 08/31/2020 by Terrell Zhu MD at [facility] [id number] Kt Cath Vent/Periton [place] N [address] Ea1 - [id number] Rig ht: MEDTRONIC 12/12/2018 30148 / Implanted: Qty: 1 on 11/20/2017 by Terrell Zhu MD at [facility] ABDOMEN / Explanted: Qty: 1 on 08/31/2020 by Terrell Zhu MD at [facility] [id number] documented as of this encounter Procedures Procedure Name Priority Date/Time Associated Comments Diagnosis GLUCOSE BY METER, Routine 09/14/2020 5:07 Result s for this POCT AM CDT procedure are i n the results section. GLUCOSE BY METER, Routine 09/13/2020 8:59 Result s for this POCT PM CDT procedure are i n the results section. GLUCOSE BY METER, Routine 09/13/2020 4:49 Result s for this POCT PM CDT procedure are i n the results section. GLUCOSE BY METER, Routine 09/13/2020 11:19 Result s for this POCT AM CDT procedure are i n the results section. LAB ONLY-COMPLETE Routine 09/13/2020 6:46 Result s for this BLOOD COUNT WITH AM CDT procedure a re in DIFFERENTIAL the results section. RENAL FUNCTION PANEL Routine 09/13/2020 6:46 Res ults for this AM CDT procedure are i n the results section. LAB ONLY-COMPLETE Routine 09/13/2020 6:46 Result s for this BLOOD COUNT WITH AM CDT procedure a re in DIFFERENTIAL the results section. GLUCOSE BY METER, Routine 09/13/2020 5:19 Result s for this POCT AM CDT procedure are i n the results section. GLUCOSE BY METER, Routine 09/12/2020 8:44 Result s for this POCT PM CDT procedure are i n the results section. GLUCOSE BY METER, Routine 09/12/2020 5:02 Result s for this POCT PM CDT procedure are i n the results section. GLUCOSE BY METER, Routine 09/12/2020 11:06 Result s for this POCT AM CDT procedure are i n the results section. GLUCOSE BY METER, Routine 09/12/2020 5:30 Result s for this POCT AM CDT procedure are i n the results section. GLUCOSE BY METER, Routine 09/11/2020 9:32 Result s for this POCT PM CDT procedure are i n the results section. GLUCOSE BY METER, Routine 09/11/2020 4:45 Result s for this POCT PM CDT procedure are i n the results section. GLUCOSE BY METER, Routine 09/11/2020 11:00 Result s for this POCT AM CDT procedure are i n the results section. GLUCOSE BY METER, Routine 09/11/2020 5:14 Result s for this POCT AM CDT procedure are i n the results section. VANCOMYCIN TROUGH Timed Routine 09/10/2020 7:12 Resul ts for this PM CDT procedure are i n the results section. GLUCOSE BY METER, Routine 09/10/2020 6:27 Result s for this POCT PM CDT procedure are i n the results section. GLUCOSE BY METER, Routine 09/10/2020 11:09 Result s for this POCT AM CDT procedure are i n the results section. CREATININE Routine 09/10/2020 8:43 Results for this AM CDT procedure are i n the results section. GLUCOSE BY METER, Routine 09/10/2020 5:14 Result s for this POCT AM CDT procedure are i n the results section. GLUCOSE BY METER, Routine 09/09/2020 9:43 Result s for this POCT PM CDT procedure are i n the results section. GLUCOSE BY METER, Routine 09/09/2020 5:46 Result s for this POCT PM CDT procedure are i n the results section. GLUCOSE BY METER, Routine 09/09/2020 11:58 Result s for this POCT AM CDT procedure are i n the results section. CT HEAD WITHOUT STAT 09/09/2020 11:18 Results for this CONTRAST AM CDT procedure are i n the results section. CREATININE Routine 09/09/2020 6:24 Results for this AM CDT procedure are i n the results section. GLUCOSE BY METER, Routine 09/09/2020 5:30 Result s for this POCT AM CDT procedure are i n the results section. GLUCOSE BY METER, Routine 09/08/2020 9:12 Result s for this POCT PM CDT procedure are i n the results section. GLUCOSE BY METER, Routine 09/08/2020 9:02 Result s for this POCT PM CDT procedure are i n the results section. GLUCOSE BY METER, Routine 09/08/2020 6:34 Result s for this POCT PM CDT procedure are i n the results section. GLUCOSE BY METER, Routine 09/08/2020 5:09 Result s for this POCT PM CDT procedure are i n the results section. GLUCOSE BY METER, Routine 09/08/2020 12:41 Result s for this POCT PM CDT procedure are i n the results section. GLUCOSE BY METER, Routine 09/08/2020 10:47 Result s for this POCT AM CDT procedure are i n the results section. GLUCOSE BY METER, Routine 09/08/2020 6:53 Result s for this POCT AM CDT procedure are i n the results section. GLUCOSE BY METER, Routine 09/07/2020 9:13 Result s for this POCT PM CDT procedure are i n the results section. GLUCOSE BY METER, Routine 09/07/2020 5:19 Result s for this POCT PM CDT procedure are i n the results section. GLUCOSE BY METER, Routine 09/07/2020 12:18 Result s for this POCT PM CDT procedure are i n the results section. GLUCOSE BY METER, Routine 09/07/2020 5:36 Result s for this POCT AM CDT procedure are i n the results section. COMPLETE BLOOD COUNT Routine 09/07/2020 2:38 Res ults for this WITHOUT DIFFERENTIAL AM CDT procedu re are in the results section. HEPATIC FUNCTION Routine 09/07/2020 2:38 Results for this PANEL AM CDT procedure are i n the results section. MAGNESIUM Routine 09/07/2020 2:38 Results for this AM CDT procedure are i n the results section. VANCOMYCIN TROUGH Timed Routine 09/07/2020 2:38 Resul ts for this AM CDT procedure are i n the results section. RENAL FUNCTION PANEL Routine 09/07/2020 2:38 Res ults for this AM CDT procedure are i n the results section. GLUCOSE BY METER, Routine 09/06/2020 9:10 Result s for this POCT PM CDT procedure are i n the results section. GLUCOSE BY METER, Routine 09/06/2020 5:27 Result s for this POCT PM CDT procedure are i n the results section. GLUCOSE BY METER, Routine 09/06/2020 11:23 Result s for this POCT AM CDT procedure are i n the results section. CT HEAD WITHOUT AND Routine 09/06/2020 10:54 Resu lts for this WITH CONTRAST AM CDT procedure are in the results section. LAB ONLY-COMPLETE Routine 09/06/2020 8:10 Result s for this BLOOD COUNT WITH AM CDT procedure a re in DIFFERENTIAL the results section. MAGNESIUM Routine 09/06/2020 8:10 Results for this AM CDT procedure are i n the results section. RENAL FUNCTION PANEL Routine 09/06/2020 8:10 Res ults for this AM CDT procedure are i n the results section. LAB ONLY-COMPLETE Routine 09/06/2020 8:10 Result s for this BLOOD COUNT WITH AM CDT procedure a re in DIFFERENTIAL the results section. GLUCOSE BY METER, Routine 09/06/2020 5:13 Result s for this POCT AM CDT procedure are i n the results section. GLUCOSE BY METER, Routine 09/05/2020 9:56 Result s for this POCT PM CDT procedure are i n the results section. GLUCOSE BY METER, Routine 09/05/2020 5:26 Result s for this POCT PM CDT procedure are i n the results section. VANCOMYCIN TROUGH Timed Routine 09/05/2020 1:38 Resul ts for this PM CDT procedure are i n the results section. GLUCOSE BY METER, Routine 09/05/2020 11:47 Result s for this POCT AM CDT procedure are i n the results section. LAB ONLY-COMPLETE Routine 09/05/2020 10:08 Result s for this BLOOD COUNT WITH AM CDT procedure a re in DIFFERENTIAL the results section. MAGNESIUM Routine 09/05/2020 10:08 Results for this AM CDT procedure are i n the results section. RENAL FUNCTION PANEL Routine 09/05/2020 10:08 Res ults for this AM CDT procedure are i n the results section. LAB ONLY-COMPLETE Routine 09/05/2020 10:08 Result s for this BLOOD COUNT WITH AM CDT procedure a re in DIFFERENTIAL the results section. GLUCOSE BY METER, Routine 09/05/2020 5:42 Result s for this POCT AM CDT procedure are i n the results section. GLUCOSE BY METER, Routine 09/04/2020 7:44 Result s for this POCT PM CDT procedure are i n the results section. GLUCOSE BY METER, Routine 09/04/2020 4:01 Result s for this POCT PM CDT procedure are i n the results section. GLUCOSE BY METER, Routine 09/04/2020 11:29 Result s for this POCT AM CDT procedure are i n the results section. LAB ONLY-COMPLETE Routine 09/04/2020 8:02 Result s for this BLOOD COUNT WITH AM CDT procedure a re in DIFFERENTIAL the results section. BASIC METABOLIC Routine 09/04/2020 8:02 Results for this PANEL AM CDT procedure are i n the results section. LAB ONLY-COMPLETE Routine 09/04/2020 8:02 Result s for this BLOOD COUNT WITH AM CDT procedure a re in DIFFERENTIAL the results section. GLUCOSE BY METER, Routine 09/04/2020 5:57 Result s for this POCT AM CDT procedure are i n the results section. GLUCOSE BY METER, Routine 09/03/2020 8:42 Result s for this POCT PM CDT procedure are i n the results section. GLUCOSE BY METER, Routine 09/03/2020 3:49 Result s for this POCT PM CDT procedure are i n the results section. VANCOMYCIN TROUGH Timed Routine 09/03/2020 2:13 Resul ts for this PM CDT procedure are i n the results section. GLUCOSE BY METER, Routine 09/03/2020 12:03 Result s for this POCT PM CDT procedure are i n the results section. CT HEAD WITHOUT Routine 09/03/2020 10:50 Results for this CONTRAST AM CDT procedure are i n the results section. GLUCOSE BY METER, Routine 09/03/2020 9:51 Result s for this POCT AM CDT procedure are i n the results section. CULTURE BACTERIAL, Routine 09/03/2020 8:59 Trauma Resul ts for this OTHER WITH GRAM AM CDT procedure ar e in STAIN the results section. CULTURE BACTERIAL, Routine 09/03/2020 8:59 Trauma Resul ts for this ANAEROBE AM CDT procedure are i n the results section. CULTURE BACTERIAL, Routine 09/03/2020 8:57 Trauma Resul ts for this OTHER WITH GRAM AM CDT procedure ar e in STAIN the results section. CULTURE BACTERIAL, Routine 09/03/2020 8:57 Trauma Resul ts for this ANAEROBE AM CDT procedure are i n the results section. CRANIOPLASTY 09/03/2020 6:22 Trauma AM CDT Special Needs 2 HRS, PRONE, PINS, 1ST CASE GLUCOSE BY METER, POCT Routine 09/03/2020 6:15 AM Results for this CDT procedure are i n the results section. LAB ONLY-COMPLETE BLOOD Routine 09/03/2020 6:13 AM Results for this COUNT WITH DIFFERENTIAL CDT proc edure are in the results section. CALCIUM, IONIZED Routine 09/03/2020 6:13 AM Resu lts for this CDT procedure are i n the results section. MAGNESIUM Routine 09/03/2020 6:13 AM Results for this CDT procedure are i n the results section. LACTIC ACID Routine 09/03/2020 6:13 AM Results for this CDT procedure are i n the results section. CK Routine 09/03/2020 6:13 AM Results for this CDT procedure are i n the results section. RENAL FUNCTION PANEL Routine 09/03/2020 6:13 AM Results for this CDT procedure are i n the results section. LAB ONLY-COMPLETE BLOOD Routine 09/03/2020 6:13 AM Results for this COUNT WITH DIFFERENTIAL CDT proc edure are in the results section. GLUCOSE BY METER, POCT Routine 09/02/2020 8:47 PM Results for this CDT procedure are i n the results section. GLUCOSE BY METER, POCT Routine 09/02/2020 5:17 PM Results for this CDT procedure are i n the results section. GLUCOSE BY METER, POCT Routine 09/02/2020 11:15 AM Results for this CDT procedure are i n the results section. LAB ONLY-COMPLETE BLOOD Routine 09/02/2020 6:19 AM Results for this COUNT WITH DIFFERENTIAL CDT proc edure are in the results section. CALCIUM, IONIZED Routine 09/02/2020 6:19 AM Resu lts for this CDT procedure are i n the results section. MAGNESIUM Routine 09/02/2020 6:19 AM Results for this CDT procedure are i n the results section. LACTIC ACID Routine 09/02/2020 6:19 AM Results for this CDT procedure are i n the results section. CK Routine 09/02/2020 6:19 AM Results for this CDT procedure are i n the results section. RENAL FUNCTION PANEL Routine 09/02/2020 6:19 AM Results for this CDT procedure are i n the results section. LAB ONLY-COMPLETE BLOOD Routine 09/02/2020 6:19 AM Results for this COUNT WITH DIFFERENTIAL CDT proc edure are in the results section. GLUCOSE BY METER, POCT Routine 09/02/2020 5:20 AM Results for this CDT procedure are i n the results section. GLUCOSE BY METER, POCT Routine 09/01/2020 8:39 PM Results for this CDT procedure are i n the results section. GLUCOSE BY METER, POCT Routine 09/01/2020 5:55 PM Results for this CDT procedure are i n the results section. CULTURE BACTERIAL, OTHER Routine 09/01/2020 4:07 PM Results for this WITH GRAM STAIN CDT procedure ar e in the results section. MENINGITIS/ENCEPHALITIS Routine 09/01/2020 4:06 PM Results for this PANEL, NAD CDT procedure are i n the results section. LAB ONLY-DIFFERENTIAL, Routine 09/01/2020 4:06 PM Results for this CSF CDT procedure are i n the results section. LAB ONLY-CELL COUNT, CSF Routine 09/01/2020 4:06 PM Results for this CDT procedure are i n the results section. CELL COUNT AND DIFF, CSF Routine 09/01/2020 4:06 PM Results for this CDT procedure are i n the results section. PROTEIN, CSF Routine 09/01/2020 4:06 PM Results for this CDT procedure are i n the results section. GLUCOSE, CSF Routine 09/01/2020 4:06 PM Results for this CDT procedure are i n the results section. VANCOMYCIN TROUGH Timed Routine 09/01/2020 1:55 PM Re sults for this CDT procedure are i n the results section. GLUCOSE BY METER, POCT Routine 09/01/2020 12:10 PM Results for this CDT procedure are i n the results section. GLUCOSE BY METER, POCT Routine 09/01/2020 9:39 AM Results for this CDT procedure are i n the results section. LAB ONLY-COMPLETE BLOOD Routine 09/01/2020 6:06 AM Results for this COUNT WITH DIFFERENTIAL CDT proc edure are in the results section. CALCIUM, IONIZED Routine 09/01/2020 6:06 AM Resu lts for this CDT procedure are i n the results section. TROPONIN I Routine 09/01/2020 6:06 AM Results for this CDT procedure are i n the results section. TRIGLYCERIDE Routine 09/01/2020 6:06 AM Results for this CDT procedure are i n the results section. MAGNESIUM Routine 09/01/2020 6:06 AM Results for this CDT procedure are i n the results section. LACTIC ACID Routine 09/01/2020 6:06 AM Results for this CDT procedure are i n the results section. CK Routine 09/01/2020 6:06 AM Results for this CDT procedure are i n the results section. RENAL FUNCTION PANEL Routine 09/01/2020 6:06 AM Results for this CDT procedure are i n the results section. LAB ONLY-COMPLETE BLOOD Routine 09/01/2020 6:06 AM Results for this COUNT WITH DIFFERENTIAL CDT proc edure are in the results section. GLUCOSE BY METER, POCT Routine 09/01/2020 4:52 AM Results for this CDT procedure are i n the results section. GLUCOSE BY METER, POCT Routine 09/01/2020 2:30 AM Results for this CDT procedure are i n the results section. BLOOD GAS ARTERIAL WITH Routine 09/01/2020 2:02 AM Results for this IONIZED CALCIUM CDT procedure ar e in the results section. XRAY CHEST PORTABLE Routine 09/01/2020 12:23 AM R esults for this CDT procedure are i n the results section. CT HEAD WITHOUT CONTRAST Routine 08/31/2020 11:01 PM Results for this CDT procedure are i n the results section. GLUCOSE BY METER, POCT Routine 08/31/2020 10:30 PM Results for this CDT procedure are i n the results section. CULTURE BACTERIAL, OTHER Routine 08/31/2020 10:01 PM Infection Results for this WITH GRAM STAIN CDT procedure ar e in the results section. CULTURE BACTERIAL, Routine 08/31/2020 10:01 PM Infection Re sults for this ANAEROBE CDT procedure are i n the results section. VENTRICULOSTOMY 08/31/2020 8:50 PM Infection CDT GLUCOSE BY METER, POCT Routine 08/31/2020 8:41 PM Results for this CDT procedure are i n the results section. GLUCOSE BY METER, POCT Routine 08/31/2020 6:44 PM Results for this CDT procedure are i n the results section. GLUCOSE BY METER, POCT Routine 08/31/2020 11:22 AM Results for this CDT procedure are i n the results section. XRAY CHEST PORTABLE Routine 08/31/2020 6:27 AM R esults for this CDT procedure are i n the results section. TYPE AND SCREEN WHITNEY 08/31/2020 5:58 AM Resul ts for this CDT procedure are i n the results section. COMPLETE BLOOD COUNT Routine 08/31/2020 5:58 AM Results for this WITHOUT DIFFERENTIAL CDT procedu re are in the results section. TROPONIN I Routine 08/31/2020 5:58 AM Results for this CDT procedure are i n the results section. MAGNESIUM Routine 08/31/2020 5:58 AM Results for this CDT procedure are i n the results section. RENAL FUNCTION PANEL Routine 08/31/2020 5:58 AM Results for this CDT procedure are i n the results section. BRAIN NATRIURETIC Routine 08/31/2020 5:58 AM Res ults for this PEPTIDE CDT procedure are i n the results section. GLUCOSE BY METER, POCT Routine 08/31/2020 5:18 AM Results for this CDT procedure are i n the results section. EKG Routine 08/31/2020 1:51 AM Results for this CDT procedure are i n the results section. GLUCOSE BY METER, POCT Routine 08/30/2020 8:46 PM Results for this CDT procedure are i n the results section. GLUCOSE BY METER, POCT Routine 08/30/2020 5:05 PM Results for this CDT procedure are i n the results section. LAB ONLY-URINE STAT 08/30/2020 1:23 PM Result s for this MICROSCOPIC REFLEX CDT procedure are in the results section. URINE DIP, REFLEX TO STAT 08/30/2020 1:23 PM Results for this MICROSCOPIC, REFLEX TO CDT proce dure are in CULTURE the results section. CT ABDOMEN PELVIS WITH STAT 08/30/2020 12:31 PM Results for this CONTRAST CDT procedure are i n the results section. CT HEAD WITH CONTRAST STAT 08/30/2020 12:28 PM Results for this CDT procedure are i n the results section. US ABDOMEN LIMITED STAT 08/30/2020 11:56 AM Re sults for this CDT procedure are i n the results section. CULTURE, BLOOD STAT 08/30/2020 11:43 AM Result s for this CDT procedure are i n the results section. XRAY CHEST PORTABLE WHITNEY 08/30/2020 11:17 AM R esults for this CDT procedure are i n the results section. SARS-COV-2, INFLUENZA WHITNEY 08/30/2020 11:02 AM Results for this A+B, AND/OR RSV NUCLEIC CDT proc edure are in ACID TESTING PANEL the resul ts section. CULTURE, BLOOD STAT 08/30/2020 11:02 AM Result s for this CDT procedure are i n the results section. EKG Routine 08/30/2020 10:18 AM Results for this CDT procedure are i n the results section. LACTIC ACID REFLEX TO STAT 08/30/2020 10:12 AM Results for this REPEAT CDT procedure are i n the results section. LAB ONLY-COMPLETE BLOOD STAT 08/30/2020 10:12 AM Results for this COUNT WITH DIFFERENTIAL CDT proc edure are in the results section. COLLECT AND HOLD BROWNLEE STAT 08/30/2020 10:12 AM Results for this (NAFL) TOP TUBE CDT procedure ar e in the results section. COLLECT AND HOLD BLUE STAT 08/30/2020 10:12 AM Results for this (NACIT) TOP TUBE CDT procedure a re in the results section. PROCALCITONIN STAT 08/30/2020 10:12 AM Results for this CDT procedure are i n the results section. ESR STAT 08/30/2020 10:12 AM Results for this CDT procedure are i n the results section. C-REACTIVE PROTEIN STAT 08/30/2020 10:12 AM Re sults for this (INFLAMMATION) CDT procedure are in the results section. TROPONIN I STAT 08/30/2020 10:12 AM Results for this CDT procedure are i n the results section. LIPASE STAT 08/30/2020 10:12 AM Results for this CDT procedure are i n the results section. COMPREHENSIVE METABOLIC STAT 08/30/2020 10:12 AM Results for this PANEL CDT procedure are i n the results section. LAB ONLY-COMPLETE BLOOD STAT 08/30/2020 10:12 AM Results for this COUNT WITH DIFFERENTIAL CDT proc edure are in the results section. documented in this encounter Results GLUCOSE BY METER, POCT (09/14/2020 5:07 AM CDT) Pathologist Sig nature Glucose POC 87 70 - 99 mg/dL [facility] POINT OF CARE TESTING Specimen Blood - Blood specimen (specimen) Performing Organization Address [facility]/ZIP Code Phon e Number [address] [address] OF CARE TESTING GLUCOSE BY METER, POCT (09/13/2020 8:59 PM CDT) Pathologist Sig nature Glucose POC 175 (H) 70 - 99 mg/dL [facility] POINT OF CARE TESTING Specimen Blood - Blood specimen (specimen) Performing Organization Address [facility]/ZIP Code Phon e Number [address] [address] 04 OF CARE TESTING GLUCOSE BY METER, POCT (09/13/2020 4:49 PM CDT) Pathologist Sig nature Glucose POC 314 (H) 70 - 99 mg/dL [facility] POINT OF CARE TESTING Specimen Blood - Blood specimen (specimen) Performing Organization Address [facility]/ZIP Code Phon e Number [address] [address] 04 OF CARE TESTING GLUCOSE BY METER, POCT (09/13/2020 11:19 AM CDT) Pathologist Sig nature Glucose POC 145 (H) 70 - 99 mg/dL [facility] POINT OF CARE TESTING Specimen Blood - Blood specimen (specimen) Performing Organization Address [facility]/State/ZIP Code Phon e Number [facility] POINT [address] [place], [place] [address] OF CARE TESTING LAB ONLY-COMPLETE BLOOD COUNT WITH DIFFERENTIAL (09/13/2020 6:46 AM CDT) Pathologist Sig nature WBC 6.9 4.0 - 11.0 K/uL [address] RBC 4.01 (L) 4.40 - 5.[address] M/uL Hemoglobin 11.4 (L) 13.5 - 17.[address] g/dL Hematocrit 34.9 (L) 40.0 - 50.0 % [address] MCV 87.0 80.0 - 98.[address] MCH 28.4 25.5 - 34.[address] MCHC 32.7 31.5 - 36.[address] g/dL RDW-CV 14.8 11.5 - 15.5 % [address] RDW-SD 47.2 35.5 - 50.[address] Platelet Count 386 140 - 400 K/uL [address] MPV 8.9 8.5 - 12.[address] Seg Neut Absolute 4.4 1.8 - 8.0 K/uL [address] Lymphocytes Absolute 1.6 0.8 - 4.1 K/uL [place] [id number] [facility] Monocytes Absolute 0.6 0.0 - 1.0 K/uL [address] Eosinophils Absolute 0.2 0.0 - 0.7 K/uL [place] [address] [facility] Basophil Absolute 0.1 0.0 - 0.2 K/uL [address] Immature Granulocyte 0.03 0.00 - 0.06 [place] [address] [facility] Absolute K/uL Neutrophils Abs. 4,400 /uL [address] (Segs and Bands) Neutrophils Percent 63.6 % [address] Lymphocytes Percent 23.5 % [address] Monocytes Percent 8.5 % [address] Immature Granulocyte 0.4 % [address] Percent Eosinophils Percent 3.0 % [address] Basophil Percent 1.0 % [address] Nucleated RBC 0 /[address] Specimen Blood - Blood specimen (specimen) Performing Organization Address City/[facility] Phon e Number [address] [place] [id number] RENAL FUNCTION PANEL (09/13/2020 6:46 AM CDT) Pathologist Sig nature Glucose 152 (H) 70 - 100 mg/dL [address] BUN 6 6 - 22 mg/dL [address] Creatinine 0.66 (L) 0.80 - 1.[address] mg/dL BUN/Creatinine Ratio 9.1 (L) 10.0 - 25.[address] Sodium 142 135 - 145 meq/L [address] Potassium 3.6 3.5 - 5.3 meq/L [address] Chloride 108 99 - 110 meq/L [address] CO2 24 20 - 29 meq/L [address] Anion Gap with K 14 6 - 20 meq/L [address] Calcium 8.7 8.5 - 10.[address] mg/dL Phosphorus 3.4 2.5 - 4.5 mg/dL [address] Albumin 2.7 (L) 3.5 - 5.0 g/dL [address] Corrected Calcium 9.7 8.5 - 10.[address] mg/dL Age [address] eGFR Non- >90 >=[address] [place] mL/min/1.73m2 eGFR >90 >=[address] mL/min/1.73m2 Specimen Blood - Blood specimen (specimen) Performing Organization Address City/[facility]/ZIP Code Phon e Number [place] [id number] [place] [address] GLUCOSE BY METER, POCT (09/13/2020 5:19 AM CDT) Pathologist Sig nature Glucose POC 161 (H) 70 - 99 mg/dL [facility] O POINT OF CARE TESTING Specimen Blood - Blood specimen (specimen) Performing Organization Address City/[facility]/ZIP Code Phon e Number [facility] [address] [facility] [place] [address] OF CARE TESTING GLUCOSE BY METER, POCT (09/12/2020 8:44 PM CDT) Pathologist Sig nature Glucose POC 162 (H) 70 - 99 mg/dL [facility] POINT OF CARE TESTING Specimen Blood - Blood specimen (specimen) Performing Organization Address City/State/ZIP Code Phon e Number [facility] [address], [place] [address] OF CARE TESTING GLUCOSE BY METER, POCT (09/12/2020 5:02 PM CDT) Pathologist Sig nature Glucose POC 265 (H) 70 - 99 mg/dL [facility] POINT OF CARE TESTING Specimen Blood - Blood specimen (specimen) Performing Organization Address City/[facility]/ZIP Code Phon e Number [facility] [address] [place] [address] OF CARE TESTING GLUCOSE BY METER, POCT (09/12/2020 11:06 AM CDT) Pathologist Sig nature Glucose POC 154 (H) 70 - 99 mg/dL [facility] POINT OF CARE TESTING Specimen Blood - Blood specimen (specimen) Performing Organization Address City/State/ZIP Code Phon e Number [facility] [address] [place], [place] [address] OF CARE TESTING GLUCOSE BY METER, POCT (09/12/2020 5:30 AM CDT) Pathologist Sig nature Glucose POC 143 (H) 70 - 99 mg/dL [facility] POINT OF CARE TESTING Specimen Blood - Blood specimen (specimen) Performing Organization Address City/State/ZIP Code Phon e Number [facility] [address] [place] [address] OF CARE TESTING GLUCOSE BY METER, POCT (09/11/2020 9:32 PM CDT) Pathologist Sig nature Glucose POC 210 (H) 70 - 99 mg/dL [facility] POINT OF CARE TESTING Specimen Blood - Blood specimen (specimen) Performing Organization Address City/State/ZIP Code Phon e Number [facility] [address] [place], [place] [address] OF CARE TESTING GLUCOSE BY METER, POCT (09/11/2020 4:45 PM CDT) Pathologist Sig nature Glucose POC 212 (H) 70 - 99 mg/dL [facility] POINT OF CARE TESTING Specimen Blood - Blood specimen (specimen) Performing Organization Address City/State/ZIP Code Phon e Number [facility] [address] [place], [place] [address] OF CARE TESTING GLUCOSE BY METER, POCT (09/11/2020 11:00 AM CDT) Pathologist Sig nature Glucose POC 161 (H) 70 - 99 mg/dL [facility] POINT OF CARE TESTING Specimen Blood - Blood specimen (specimen) Performing Organization Address [facility]/ZIP Code Phon e Number [facility] [address] [place] [address], [place] [address] 04 OF CARE TESTING GLUCOSE BY METER, POCT (09/11/2020 5:14 AM CDT) Pathologist Sig nature Glucose POC 139 (H) 70 - 99 mg/dL [facility] POINT OF CARE TESTING Specimen Blood - Blood specimen (specimen) Performing Organization Address City/[facility]/ZIP Code Phon e Number [facility] [address] [place] [address], [place] [address] 04 OF CARE TESTING VANCOMYCIN TROUGH (09/10/2020 7:12 PM CDT) Pathologist Sig nature Vancomycin Trough 14.4 10.0 - 20.0 ug/mL [facility] Specimen Blood - Blood specimen (specimen) Performing Organization Address City/State/ZIP Code Phon e Number [facility] [address] [place] [address], [place] [address] GLUCOSE BY METER, POCT (09/10/2020 6:27 PM CDT) Pathologist Sig nature Glucose POC 242 (H) 70 - 99 mg/dL [facility] POINT OF CARE TESTING Specimen Blood - Blood specimen (specimen) Performing Organization Address City/State/ZIP Code Phon e Number [facility] [address] [place], [place] [address] 04 OF CARE TESTING GLUCOSE BY METER, POCT (09/10/2020 11:09 AM CDT) Pathologist Sig nature Glucose POC 96 70 - 99 mg/dL [facility] POINT OF CARE TESTING Specimen Blood - Blood specimen (specimen) Performing Organization Address City/State/ZIP Code Phon e Number [facility] [address] [place] [address] 581 04 OF CARE TESTING CREATININE (09/10/2020 8:43 AM CDT) Pathologist Sig nature Creatinine 0.69 (L) 0.80 - 1.[address] mg/dL Age [address] eGFR Non- >90 >=[address] [place] mL/min/1.73m2 eGFR >90 >=[address] mL/min/1.73m2 Specimen Blood - Blood specimen (specimen) Performing Organization Address City/State/ZIP Code Phon e Number [address] [address] GLUCOSE BY METER, POCT (09/10/2020 5:14 AM CDT) Pathologist Sig nature Glucose POC 92 70 - 99 mg/dL [facility] POINT OF CARE TESTING Specimen Blood - Blood specimen (specimen) Performing Organization Address City/[facility]/ZIP Code Phon e Number [address] 5[address] 04 OF CARE TESTING GLUCOSE BY METER, POCT (09/09/2020 9:43 PM CDT) Pathologist Sig nature Glucose POC 113 (H) 70 - 99 mg/dL [facility] POINT OF CARE TESTING Specimen Blood - Blood specimen (specimen) Performing Organization Address City/State/ZIP Code Phon e Number [facility] [address] [place] [address] 581 04 OF CARE TESTING GLUCOSE BY METER, POCT (09/09/2020 5:46 PM CDT) Pathologist Sig nature Glucose POC 91 70 - 99 mg/dL [facility] POINT OF CARE TESTING Specimen Blood - Blood specimen (specimen) Performing Organization Address City/State/ZIP Code Phon e Number [facility] [address] [place] [address] 581 04 OF CARE TESTING GLUCOSE BY METER, POCT (09/09/2020 11:58 AM CDT) Pathologist Sig nature Glucose POC 102 (H) 70 - 99 mg/dL [facility] O POINT OF CARE TESTING Specimen Blood - Blood specimen (specimen) Performing Organization Address City/State/ZIP Code Phon e Number [facility] [address] [place], [place] [address] HEAD WITHOUT CONTRAST (09/09/2020 11:18 AM CDT)Only the most recent of3 resultswithin the time period is included. Specimen Narrative Performed At [facility] Patient Name: SANDRA JOHNS Date of : 1960 Procedure: CT HEAD WITHOUT CONTRAST Date of Service: 09/09/2020 EXAM: CT HEAD WITHOUT CONTRAST INDICATION: drainage TECHNIQUE: CT of the brain performed wit hout IV contrast. COMPARISON(S): 09/06/2020 FINDINGS: There are postsurgical changes of suboccipital craniop lasty for tumor resection. The fluid collection seen about the area of cranioplasty demonstrates slight interval decrease in size currentl y measuring 3.2 x 5.9 cm, previously 3.4 x 6.8 cm when measured in a sim ilar fashion. Ventricles remain stable in size and configuration wit hout evidence for hydrocephalus. No mass effect or midline shift. No lar ge territory infarcts. The visualized portions of the orbits, paran emeka sinuses, and mastoids are normal. IMPRESSION: 1. 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 2. No hydrocephalus. 3. No new intracranial abnormality. Finalized by: Kenny Kearney MD on 2020 11:49 AM CDT Patient/Procedure Information: [facility] MRN/ENEDINA: [id number] Order Number: [id number] Accession Number: [id number] Ordering Provider: CHIDI ANDREA Authorizing Provider: CHIDI ANDREA Procedure Note Interface, Radiantres - 09/09/2020 11:51 AM CDT Patient Name: SANDRA JOHNS Date of : 1960 Procedure: CT HEAD WITHOUT CONTRAST Date of Service: 09/09/2020 EXAM: CT HEAD WITHOUT CONTRAST INDICATION: drainage TECHNIQUE: CT of the brain performed wit hout IV contrast. COMPARISON(S): 09/06/2020 FINDINGS: There are postsurgical changes of subocc ipital cranioplasty for tumor resection. The fluid collection seen about the area of cranioplasty demonstrates slight interval decrease in size currently measuring 3.2 x 5.9 cm, previously 3.4 x 6.8 cm when erin sured in a similar fashion. Ventricles remain stable in size and configuration without evidence for hydrocephalus. No mass effect or midline shift. No large territory infarcts. The visualized portions of the orbits, paranasal sinuses, and mastoids are normal. IMPRESSION: 1. Fluid collection seen about the subo ccipital cranioplasty suggesting pseudomeningocele demonstrates slight interval decrease in size. 2. No hydrocephalus. 3. No new intracranial abnormality. Finalized by: Kenny Kearney MD on 2020 11:49 AM CDT Patient/Procedure Information: [facility] MRN/ENEDINA: [id number] Order Number: [id number] Accession Number: [id number] Ordering Provider: CHIDI ANDREA Authorizing Provider: CHIDI ANDREA Performing Organization Address [facility]/ZIP [facility] Phon e Number [id number] CREATININE (09/09/2020 6:24 AM CDT) Pathologist Kody raymond Creatinine 0.65 (L) 0.80 - 1.[address] mg/dL Age [address] eGFR Non- >90 >=[address] [place] mL/min/1.73m2 eGFR >90 >=[address] mL/min/1.73m2 Specimen Blood - Blood specimen (specimen) Performing Organization Address City/[facility]/ZIP Code Phon e Number [place] [address] [facility] [place] [address] GLUCOSE BY METER, POCT (09/09/2020 5:30 AM CDT) Pathologist Sig segunod Glucose POC 108 (H) 70 - 99 mg/dL [facility] O POINT OF CARE TESTING Specimen Blood - Blood specimen (specimen) Performing Organization Address [facility]/ZIP [facility] Phon e Number [facility] [address] [facility], [place] 5[address] 04 OF CARE TESTING GLUCOSE BY METER, POCT (09/08/2020 9:12 PM CDT) Pathologist Sig nature Glucose POC 191 (H) 70 - 99 mg/dL [facility] POINT OF CARE TESTING Specimen Blood - Blood specimen (specimen) Performing Organization Address City/[facility]/ZIP Code Phon e Number [facility] [address] [place], [place] [address] 04 OF CARE TESTING GLUCOSE BY METER, POCT (09/08/2020 9:02 PM CDT) Pathologist Sig nature Glucose POC 207 (H) 70 - 99 mg/dL [facility] POINT OF CARE TESTING Specimen Blood - Blood specimen (specimen) Performing Organization Address [facility]/ZIP Code Phon e Number [facility] [address] [place] [address] 04 OF CARE TESTING GLUCOSE BY METER, POCT (09/08/2020 6:34 PM CDT) Pathologist Sig nature Glucose POC 163 (H) 70 - 99 mg/dL [facility] POINT OF CARE TESTING Specimen Blood - Blood specimen (specimen) Performing Organization Address [facility]/ZIP Code Phon e Number [facility] [address] [place] [address], [place] [address] 04 OF CARE TESTING GLUCOSE BY METER, POCT (09/08/2020 5:09 PM CDT) Pathologist Sig nature Glucose POC 68 (L) 70 - 99 mg/dL [facility] POINT OF CARE TESTING Specimen Blood - Blood specimen (specimen) Performing Organization Address City/[facility]/ZIP Code Phon e Number [facility] [address] [place] [address] 04 OF CARE TESTING GLUCOSE BY METER, POCT (09/08/2020 12:41 PM CDT) Pathologist Sig nature Glucose POC 117 (H) 70 - 99 mg/dL [facility] POINT OF CARE TESTING Specimen Blood - Blood specimen (specimen) Performing Organization Address City/[facility]/ZIP Code Phon e Number [facility] [address] [place], [place] [address] 04 OF CARE TESTING GLUCOSE BY METER, POCT (09/08/2020 10:47 AM CDT) Pathologist Sig nature Glucose POC 62 (L) 70 - 99 mg/dL [facility] POINT OF CARE TESTING Specimen Blood - Blood specimen (specimen) Performing Organization Address City/[facility]/ZIP Code Phon e Number [facility] [address] [place] [address] 04 OF CARE TESTING GLUCOSE BY METER, POCT (09/08/2020 6:53 AM CDT) Pathologist Sig nature Glucose POC 75 70 - 99 mg/dL [facility] POINT OF CARE TESTING Specimen Blood - Blood specimen (specimen) Performing Organization Address City/[facility]/ZIP Code Phon e Number [address] 5[address] 04 OF CARE TESTING GLUCOSE BY METER, POCT (09/07/2020 9:13 PM CDT) Pathologist Sig nature Glucose POC 152 (H) 70 - 99 mg/dL [facility] POINT OF CARE TESTING Specimen Blood - Blood specimen (specimen) Performing Organization Address City/[facility]/ZIP Code Phon e Number [address] 581 04 OF CARE TESTING GLUCOSE BY METER, POCT (09/07/2020 5:19 PM CDT) Pathologist Sig nature Glucose POC 96 70 - 99 mg/dL [facility] POINT OF CARE TESTING Specimen Blood - Blood specimen (specimen) Performing Organization Address City/[facility]/ZIP Code Phon e Number [address] 581 04 OF CARE TESTING GLUCOSE BY METER, POCT (09/07/2020 12:18 PM CDT) Pathologist Sig nature Glucose POC 174 (H) 70 - 99 mg/dL [facility] POINT OF CARE TESTING Specimen Blood - Blood specimen (specimen) Performing Organization Address City/[facility]/ZIP Code Phon e Number [address] 581 04 OF CARE TESTING GLUCOSE BY METER, POCT (09/07/2020 5:36 AM CDT) Pathologist Sig nature Glucose POC 122 (H) 70 - 99 mg/dL [facility] O POINT OF CARE TESTING Specimen Blood - Blood specimen (specimen) Performing Organization Address [facility] Phon e Number [facility] [address] [place] [address] 581 04 OF CARE TESTING HEPATIC FUNCTION PANEL (09/07/2020 2:38 AM CDT) Pathologist Sig nature Alkaline Phosphatase 92 30 - 150 U/L [address] AST - SGOT 15 0 - 35 U/L [address] ALT - SGPT 19 0 - 55 U/L [address] Bilirubin Total 0.2 0.2 - 1.2 mg/dL [address] Bilirubin Indirect 0.1 0.0 - 0.8 mg/dL [address] Bilirubin Direct 0.1 0.0 - 0.4 mg/dL [address] Albumin 2.5 (L) 3.5 - 5.0 g/dL [address] Protein Total 5.1 (L) 6.0 - 8.2 g/dL [address] Specimen Blood - Blood specimen (specimen) Performing Organization Address [facility] Phon e Number [place] [address] [facility] [address] [place] [address] MAGNESIUM (09/07/2020 2:38 AM CDT) Pathologist Sig nature Magnesium 2.0 1.8 - 2.4 mg/dL [address] Specimen Blood - Blood specimen (specimen) Performing Organization Address [facility] Phon e Number [place] [address] [facility] [address] [place] [address] RENAL FUNCTION PANEL (09/07/2020 2:38 AM CDT) Pathologist Sig nature Glucose 123 (H) 70 - 100 mg/dL [address] BUN 4 (L) 6 - 22 mg/dL [place] [address] [facility] Creatinine 0.64 (L) 0.80 - 1.[address] mg/dL BUN/Creatinine Ratio 6.3 (L) 10.0 - 25.[address] Sodium 141 135 - 145 meq/L [address] Potassium 3.4 (L) 3.5 - 5.3 meq/L [address] Chloride 108 99 - 110 meq/L [address] CO2 25 20 - 29 meq/L [address] Anion Gap with K 11 6 - 20 meq/L [address] Calcium 8.4 (L) 8.5 - 10.[address] mg/dL Phosphorus 2.9 2.5 - 4.5 mg/dL [address] Albumin 2.5 (L) 3.5 - 5.0 g/dL [address] Corrected Calcium 9.6 8.5 - 10.[address] mg/dL Age [address] eGFR Non- >90 >=[address] [place] mL/min/1.73m2 eGFR >90 >=[address] mL/min/1.73m2 Specimen Blood - Blood specimen (specimen) Performing Organization Address [facility] Phon e Number [address], [place] [address] COMPLETE BLOOD COUNT WITHOUT DIFFERENTIAL (09/07/2020 2:38 AM CDT) Pathologist [facility] nature WBC 10.3 4.0 - 11.0 K/uL [address] RBC 3.76 (L) 4.40 - 5.80 M/uL [address] Hemoglobin 10.7 (L) 13.5 - 17.5 g/dL [address] Hematocrit 32.5 (L) 40.0 - 50.0 % [address] MCV 86.4 80.0 - 98.[address] MCH 28.5 25.5 - 34.[address] MCHC 32.9 31.5 - 36.5 g/dL [address] RDW-CV 14.4 11.5 - 15.5 % [address] RDW-SD 45.1 35.5 - 50.[address] Platelet Count 483 (H) 140 - 400 K/uL [address] MPV 8.0 (L) 8.5 - 12.[address] Specimen Blood - Blood specimen (specimen) Performing Organization Address City/[facility]/ZIP Code Phon e Number [address] [place] [address] VANCOMYCIN TROUGH (09/07/2020 2:38 AM CDT) Pathologist Sig nature Vancomycin Trough 19.1 10.0 - 20.0 ug/mL [place] [address] [facility] Specimen Blood - Blood specimen (specimen) Performing Organization Address [facility]/ZIP Code Phon e Number [address], [place] [address] GLUCOSE BY METER, POCT (09/06/2020 9:10 PM CDT) Pathologist Sig nature Glucose POC 153 (H) 70 - 99 mg/dL [facility] O POINT OF CARE TESTING Specimen Blood - Blood specimen (specimen) Performing Organization Address [facility]/ZIP Code Phon e Number [facility] [address] [place], [place] 5[address] 04 OF CARE TESTING GLUCOSE BY METER, POCT (09/06/2020 5:27 PM CDT) Pathologist Sig nature Glucose POC 162 (H) 70 - 99 mg/dL [facility] O POINT OF CARE TESTING Specimen Blood - Blood specimen (specimen) Performing Organization Address [facility]/ZIP Code Phon e Number [facility] [address] [place] [address] 581 04 OF CARE TESTING GLUCOSE BY METER, POCT (09/06/2020 11:23 AM CDT) Pathologist Sig nature Glucose POC 99 70 - 99 mg/dL [facility] POINT OF CARE TESTING Specimen Blood - Blood specimen (specimen) Performing Organization Address [facility]/ZIP Code Phon e Number [address] HEAD WITHOUT AND WITH CONTRAST (09/06/2020 10:54 AM CDT) Specimen Narrative Performed At [facility] Patient Name: SANDRA JOHNS Date of : 1960 Procedure: CT HEAD WITHOUT AND WITH CON TRAST Date of Service: 09/06/2020 EXAM: CT HEAD WITHOUT AND WITH CONTRAST INDICATION: s/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 COMPARISON(S): CT dated 09/03/2020 FINDINGS: Right frontal ventriculostomy catheter has been remove d. Previously seen ill-defined fluid in the right temporal scalp has near ly completely resolved. Mild decrease in persistent ill-defined fat stranding over the right frontal tyler hole. Size and configuration of the ventricular system is si milar compared to the prior exam. Postsurgical changes of posterior craniotomy and tumor resection with cranioplasty. New/increased fluid collection superfici al to the cranioplasty plate up to 6.3 x 0.8 cm in the axial jose ne that communicates with the fluid collection deep to the aircraft maintenance manager nioplasty plate with multiple foci of air. Slight increase in blood pr oducts in the posterior and left posterior scalp. Grossly similar ap pearance of the low density surgical cavity in the centr al/left cerebellum. No evidence of large vascular distribution infarct. Or bits are unremarkable. Multiple small mucous retention cysts/po lyps in the paranasal sinuses. Mastoid air cells are clear. Small amount of material in the external auditory canals bilatera lly. IMPRESSION: 1. New/increased fluid collection superficial to the c ranioplasty plate communicates with fluid collection deep to the craniop lasty plate with multiple small foci of air this suspicious for pseudom eningocele - superimposed infection cannot be exclude d. 2. Size and configuration the ventricular system is si milar compared to prior. Finalized by: Jose Garcia MD on 2020 11:21 AM CDT Patient/Procedure Information: [facility] MRN/ENEDINA: [id number] Order Number: [id number] Accession Number: [id number] Ordering Provider: ZEV DICKINSON MA CK Authorizing Provider: ZEV BOWMAN Procedure Note Interface, Radiantres - 09/06/2020 11:23 AM CDT Patient Name: SANDRA JOHNS Date of : 1960 Procedure: CT HEAD WITHOUT AND WITH CON TRAST Date of Service: 09/06/2020 EXAM: CT HEAD WITHOUT AND WITH CONTRAST INDICATION: s/p PROJECT CONTROL ANALYST shunt abscess, EVD re moval, subocc crani TECHNIQUE: CT of the brain performed per formed after the administration of IV contrast. COMPARISON(S): CT dated 09/03/2020 FINDINGS: Right frontal ventriculostomy catheter h as been removed. Previously seen ill- defined fluid in the right temporal scalp has nearly completely resolved. Mild decrease in persistent ill-defined fat stranding over the right frontal tyler hole. Size and configuration of the ventricula r system is similar compared to the prior exam. Postsurgical changes of posterior cranio cornel and tumor resection with cranioplasty. New/increased fluid collection superficial to the cranioplasty plate up to 6.3 x 0.8 cm in the axial plane that communicates with the fluid collection deep to the cr anioplasty plate with multiple foci of air. Slight increase in blood products in the posterior and left posterior scalp. Grossly similar appearance of the low density surgical cavity in the central/left cerebellum. No evidence of large vascular distributi on infarct. Orbits are unremarkable. Multiple small mucous retention cysts/polyps in the paranasal sinuses. Mastoid air cells are clear. Small amount of material in the external auditory canals bilaterally. IMPRESSION: 1. New/increased fluid collection superf icial to the cranioplasty plate communicates with fluid collection deep to the cranioplasty plate with multiple small foci of air this suspicious for pseudomeningocele - superimposed infection cannot be exclude d. 2. Size and configuration the ventricula r system is similar compared to prior. Finalized by: Jose Garcia MD on 2020 11:21 AM CDT Patient/Procedure Information: [facility] MRN/ENEDINA: [id number] Order Number: [id number] Accession Number: [id number] Ordering Provider: ZEV DICKINSON MA CK Authorizing Provider: ZEV BOWMAN Performing Organization Address City/State/ZIP Code Phon e Number [id number] LAB ONLY-COMPLETE BLOOD COUNT WITH DIFFERENTIAL (09/06/2020 8:10 AM CDT) Pathologist Sig nature WBC 9.8 4.0 - 11.0 K/uL [address] RBC 3.84 (L) 4.40 - 5.[address] M/uL Hemoglobin 10.8 (L) 13.5 - 17.[address] g/dL Hematocrit 33.5 (L) 40.0 - 50.0 % [address] MCV 87.2 80.0 - 98.[address] MCH 28.1 25.5 - 34.[address] MCHC 32.2 31.5 - 36.[address] g/dL RDW-CV 14.4 11.5 - 15.5 % [address] RDW-SD 45.7 35.5 - 50.[address] Platelet Count 478 (H) 140 - 400 K/uL [address] MPV 8.0 (L) 8.5 - 12.[address] Seg Neut Absolute 6.9 1.8 - 8.0 K/uL [address] Lymphocytes Absolute 1.7 0.8 - 4.1 K/uL [place] [address] [facility] Monocytes Absolute 0.7 0.0 - 1.0 K/uL [address] Eosinophils Absolute 0.3 0.0 - 0.7 K/uL [place] [address] [facility] Basophil Absolute 0.1 0.0 - 0.2 K/uL [address] Immature Granulocyte 0.12 (H) 0.00 - 0.[address] Absolute K/uL Neutrophils Abs. 6,900 /uL [address] (Segs and Bands) Neutrophils Percent 70.6 % [address] Lymphocytes Percent 17.8 % [address] Monocytes Percent 6.6 % [address] Immature Granulocyte 1.2 % [address] Percent Eosinophils Percent 3.3 % [address] Basophil Percent 0.5 % [address] Nucleated RBC 0 /[address] Specimen Blood - Blood specimen (specimen) Performing Organization Address City/[facility]/ZIP Code Phon e Number [address] [place] [address] MAGNESIUM (09/06/2020 8:10 AM CDT) Pathologist Sig nature Magnesium 1.4 (L) 1.8 - 2.4 mg/dL [address] Specimen Blood - Blood specimen (specimen) Performing Organization Address City/[facility] Phon e Number [address], [place] [address] RENAL FUNCTION PANEL (09/06/2020 8:10 AM CDT) Pathologist Sig nature Glucose 107 (H) 70 - 100 mg/dL [address] BUN 4 (L) 6 - 22 mg/dL [address] Creatinine 0.64 (L) 0.80 - 1.[address] mg/dL BUN/Creatinine Ratio 6.3 (L) 10.0 - 25.[address] Sodium 142 135 - 145 meq/L [address] Potassium 3.7 3.5 - 5.3 meq/L [address] Chloride 109 99 - 110 meq/L [address] CO2 23 20 - 29 meq/L [address] Anion Gap with K 14 6 - 20 meq/L [address] Calcium 8.4 (L) 8.5 - 10.[address] mg/dL Phosphorus 2.6 2.5 - 4.5 mg/dL [address] Albumin 2.5 (L) 3.5 - 5.0 g/dL [address] Corrected Calcium 9.6 8.5 - 10.[address] mg/dL Age [address] eGFR Non- >90 >=[address] [place] mL/min/1.73m2 eGFR >90 >=[address] mL/min/1.73m2 Specimen Blood - Blood specimen (specimen) Performing Organization Address City/State/ZIP Code Phon e Number [address] [place] [address] GLUCOSE BY METER, POCT (09/06/2020 5:13 AM CDT) Pathologist Sig nature Glucose POC 97 70 - 99 mg/dL [facility] O POINT OF CARE TESTING Specimen Blood - Blood specimen (specimen) Performing Organization Address City/[facility]/ZIP [facility] Phon e Number [facility] [address] [facility], [place] [address] 04 OF CARE TESTING GLUCOSE BY METER, POCT (09/05/2020 9:56 PM CDT) Pathologist Sig nature Glucose POC 117 (H) 70 - 99 mg/dL [facility] POINT OF CARE TESTING Specimen Blood - Blood specimen (specimen) Performing Organization Address [facility]/ZIP Code Phon e Number [facility] [address] [place] [address] 581 04 OF CARE TESTING GLUCOSE BY METER, POCT (09/05/2020 5:26 PM CDT) Pathologist Sig nature Glucose POC 126 (H) 70 - 99 mg/dL [facility] POINT OF CARE TESTING Specimen Blood - Blood specimen (specimen) Performing Organization Address City/[facility]/ZIP Code Phon e Number [facility] [address] [place] [address] 581 04 OF CARE TESTING VANCOMYCIN TROUGH (09/05/2020 1:38 PM CDT) Pathologist Sig nature Vancomycin Trough 20.2 (H) 10.0 - 20.[address] ug/mL Specimen Blood - Blood specimen (specimen) Performing Organization Address [facility]/ZIP Code Phon e Number [address] [place] [address] 47368 GLUCOSE BY METER, POCT (09/05/2020 11:47 AM CDT) Pathologist Sig nature Glucose POC 147 (H) 70 - 99 mg/dL [facility] POINT OF CARE TESTING Specimen Blood - Blood specimen (specimen) Performing Organization Address [facility]/ZIP Code Phon e Number [facility] [address] [place] [address] 581 04 OF CARE TESTING LAB ONLY-COMPLETE BLOOD COUNT WITH DIFFERENTIAL (09/05/2020 10:08 AM CDT) Pathologist Sig nature WBC 9.9 4.0 - 11.0 K/uL [address] RBC 3.65 (L) 4.40 - 5.[address] M/uL Hemoglobin 10.5 (L) 13.5 - 17.[address] g/dL Hematocrit 31.5 (L) 40.0 - 50.0 % [address] MCV 86.3 80.0 - 98.[address] MCH 28.8 25.5 - 34.[address] MCHC 33.3 31.5 - 36.[address] g/dL RDW-CV 14.5 11.5 - 15.5 % [address] RDW-SD 46.1 35.5 - 50.[address] Platelet Count 440 (H) 140 - 400 K/uL [address] MPV 8.1 (L) 8.5 - 12.[address] Seg Neut Absolute 7.0 1.8 - 8.0 K/uL [address] Lymphocytes Absolute 1.7 0.8 - 4.1 K/uL [place] [address] [facility] Monocytes Absolute 0.7 0.0 - 1.0 K/uL [address] Eosinophils Absolute 0.3 0.0 - 0.7 K/uL [place] [address] [facility] Basophil Absolute 0.1 0.0 - 0.2 K/uL [address] Immature Granulocyte 0.11 (H) 0.00 - 0.[address] Absolute K/uL Neutrophils Abs. 7,000 /uL [address] (Segs and Bands) Neutrophils Percent 71.2 % [address] Lymphocytes Percent 17.1 % [address] Monocytes Percent 6.9 % [address] Immature Granulocyte 1.1 % [address] Percent Eosinophils Percent 3.2 % [address] Basophil Percent 0.5 % [address] Nucleated RBC 0 /[address] Specimen Blood - Blood specimen (specimen) Performing Organization Address [facility] Phon e Number [address] [place] [address] 38128 MAGNESIUM (09/05/2020 10:08 AM CDT) Pathologist Sig nature Magnesium 1.4 (L) 1.8 - 2.4 mg/dL [address] Specimen Blood - Blood specimen (specimen) Performing Organization Address [facility] Phon e Number [address] [place] [address], [place] [address] RENAL FUNCTION PANEL (09/05/2020 10:08 AM CDT) Pathologist Sig nature Glucose 153 (H) 70 - 100 mg/dL [address] BUN 5 (L) 6 - 22 mg/dL [address] Creatinine 0.66 (L) 0.80 - 1.[address] mg/dL BUN/Creatinine Ratio 7.6 (L) 10.0 - 25.[address] Sodium 143 135 - 145 meq/L [address] Potassium 3.5 3.5 - 5.3 meq/L [address] Chloride 112 (H) 99 - 110 meq/L [address] CO2 23 20 - 29 meq/L [address] Anion Gap with K 12 6 - 20 meq/L [address] Calcium 8.0 (L) 8.5 - 10.[address] mg/dL Phosphorus 2.5 2.5 - 4.5 mg/dL [address] Albumin 2.4 (L) 3.5 - 5.0 g/dL [address] Corrected Calcium 9.3 8.5 - 10.[address] mg/dL Age [address] eGFR Non- >90 >=[address] [place] mL/min/1.73m2 eGFR >90 >=[address] mL/min/1.73m2 Specimen Blood - Blood specimen (specimen) Performing Organization Address City/[facility]/ZIP Code Phon e Number [place] [address] [place] [address] GLUCOSE BY METER, POCT (09/05/2020 5:42 AM CDT) Pathologist Sig nature Glucose POC 151 (H) 70 - 99 mg/dL [facility] POINT OF CARE TESTING Specimen Blood - Blood specimen (specimen) Performing Organization Address City/[facility]/ZIP Code Phon e Number [facility] [address] [facility], [place] 581 04 OF CARE TESTING GLUCOSE BY METER, POCT (09/04/2020 7:44 PM CDT) Pathologist Sig nature Glucose POC 165 (H) 70 - 99 mg/dL [facility] O POINT OF CARE TESTING Specimen Blood - Blood specimen (specimen) Performing Organization Address City/[facility]/ZIP Code Phon e Number [facility] [address] [place] [address] 58 04 OF CARE TESTING GLUCOSE BY METER, POCT (09/04/2020 4:01 PM CDT) Pathologist Sig nature Glucose POC 194 (H) 70 - 99 mg/dL [facility] O POINT OF CARE TESTING Specimen Blood - Blood specimen (specimen) Performing Organization Address City/[facility]/ZIP [facility] Phon e Number [facility] [address] [place] [address] 04 OF CARE TESTING GLUCOSE BY METER, POCT (09/04/2020 11:29 AM CDT) Pathologist Sig nature Glucose POC 199 (H) 70 - 99 mg/dL [facility] POINT OF CARE TESTING Specimen Blood - Blood specimen (specimen) Performing Organization Address [facility] Phon e Number [place] [phone] 04 OF CARE TESTING LAB ONLY-COMPLETE BLOOD COUNT WITH DIFFERENTIAL (09/04/2020 8:02 AM CDT) Pathologist Sig nature WBC 13.5 (H) 4.0 - 11.0 K/uL [address] RBC 3.65 (L) 4.40 - 5.[address] M/uL Hemoglobin 10.3 (L) 13.5 - 17.[address] g/dL Hematocrit 31.5 (L) 40.0 - 50.0 % [address] MCV 86.3 80.0 - 98.[address] MCH 28.2 25.5 - 34.[address] MCHC 32.7 31.5 - 36.[address] g/dL RDW-CV 14.2 11.5 - 15.5 % [address] RDW-SD 45.8 35.5 - 50.[address] Platelet Count 471 (H) 140 - 400 K/uL [address] MPV 8.1 (L) 8.5 - 12.[address] Seg Neut Absolute 10.7 (H) 1.8 - 8.0 K/uL [address] Lymphocytes Absolute 1.8 0.8 - 4.1 K/uL [place] [address] [facility] Monocytes Absolute 0.8 0.0 - 1.0 K/uL [place] [address] [facility] Eosinophils Absolute 0.1 0.0 - 0.7 K/uL [place] [address] [facility] Basophil Absolute 0.1 0.0 - 0.2 K/uL [address] Immature Granulocyte 0.14 (H) 0.00 - 0.06 [place] [address] [facility] Absolute K/uL Neutrophils Abs. 10,700 /uL [address] (Segs and Bands) Neutrophils Percent 78.9 % [address] Lymphocytes Percent 12.9 % [address] Monocytes Percent 5.8 % [address] Immature Granulocyte 1.0 % [address] Percent Eosinophils Percent 1.0 % [address] Basophil Percent 0.4 % [address] Nucleated RBC 0 /[address] Specimen Blood - Blood specimen (specimen) Performing Organization Address City/State/ZIP Code Phon e Number [address] [place] [address] BASIC METABOLIC PANEL (09/04/2020 8:02 AM CDT) Pathologist Sig nature Glucose 224 (H) 70 - 100 mg/dL [address] BUN 10 6 - 22 mg/dL [address] Creatinine 0.67 (L) 0.80 - 1.[address] mg/dL BUN/Creatinine Ratio 14.9 10.0 - 25.[address] Sodium 141 135 - 145 meq/L [address] Potassium 3.7 3.5 - 5.3 meq/L [address] Chloride 112 (H) 99 - 110 meq/L [address] CO2 21 20 - 29 meq/L [address] Anion Gap with K 12 6 - 20 meq/L [address] Calcium 8.2 (L) 8.5 - 10.[address] mg/dL Age [address] eGFR Non- >90 >=[address] [place] mL/min/1.73m2 eGFR >90 >=[address] mL/min/1.73m2 Specimen Blood - Blood specimen (specimen) Performing Organization Address [facility]/ZIP Code Phon e Number [place] [address] [facility] [address] [place] [address] 11444 GLUCOSE BY METER, POCT (09/04/2020 5:57 AM CDT) Pathologist Sig nature Glucose POC 232 (H) 70 - 99 mg/dL [facility] POINT OF CARE TESTING Specimen Blood - Blood specimen (specimen) Performing Organization Address City/State/ZIP Code Phon e Number [facility] [address] [place] [address] 581 04 OF CARE TESTING GLUCOSE BY METER, POCT (09/03/2020 8:42 PM CDT) Pathologist Sig nature Glucose POC 301 (H) 70 - 99 mg/dL [facility] POINT OF CARE TESTING Specimen Blood - Blood specimen (specimen) Performing Organization Address [facility]/ZIP Code Phon e Number [facility] [address] [place] [address] 581 04 OF CARE TESTING GLUCOSE BY METER, POCT (09/03/2020 3:49 PM CDT) Pathologist Sig nature Glucose POC 255 (H) 70 - 99 mg/dL [facility] POINT OF CARE TESTING Specimen Blood - Blood specimen (specimen) Performing Organization Address [facility]/ZIP Code Phon e Number [facility] [address] [place] [address] 581 04 OF CARE TESTING VANCOMYCIN TROUGH (09/03/2020 2:13 PM CDT) Pathologist Sig nature Vancomycin Trough 10.6 10.0 - 20.0 ug/mL [place] [address] [facility] Specimen Blood - Blood specimen (specimen) Performing Organization Address [facility]/ZIP Code Phon e Number [place] [address] [facility] [address] [place] [address]40 GLUCOSE BY METER, POCT (09/03/2020 12:03 PM CDT) Pathologist Sig nature Glucose POC 162 (H) 70 - 99 mg/dL [facility] POINT OF CARE TESTING Specimen Blood - Blood specimen (specimen) Performing Organization Address [facility]/ZIP Code Phon e Number [facility] [address] [facility], [place] 581 04 OF CARE TESTING GLUCOSE BY METER, POCT (09/03/2020 9:51 AM CDT) Pathologist Sig nature Glucose POC 144 (H) 70 - 99 mg/dL [facility] O POINT OF CARE TESTING Specimen Blood - Blood specimen (specimen) Performing Organization Address City/[facility]/ZIP Code Phon e Number [facility] [address] [facility], [place] 581 04 OF CARE TESTING CULTURE BACTERIAL, OTHER WITH GRAM STAIN (09/03/2020 8:59 AM CDT)Only the most recent of4 resultswithin the time period is included. Culture Result No growth [facility] Gram Stain Many (>25/LPF) WBC's [facility] Gram Stain Few (1 to 9/LPF) [facility] RBC's LABORATORY Gram Stain No epithelial cells [facility] seen LABORATORY Gram Stain No organisms seen [facility] Specimen Tissue - Specimen from brain (specimen) Narrative Performed At Specimen was collected on a swab. [facility] Performing Organization Address [facility]/ZIP Code Phon e Number [facility] [address] [place] [address] [address] CULTURE BACTERIAL, ANAEROBE (09/03/2020 8:59 AM CDT)Only the most recent of3 resultswithin the time period is included. Pathologist Sig nature Culture Result No anaerobic growth [facility] at 5 days LABORATORY Specimen Tissue - Specimen from brain (specimen) Narrative Performed At Specimen was collected on a swab. [facility] Performing Organization Address City/[facility]/ZIP Code Phon e Number [facility] [address] [place] [address] LAB[address] GLUCOSE BY METER, POCT (09/03/2020 6:15 AM CDT) Pathologist Sig nature Glucose POC 158 (H) 70 - 99 mg/dL [facility] O POINT OF CARE TESTING Specimen Blood - Blood specimen (specimen) Performing Organization Address City/[facility]/ZIP Code Phon e Number [facility] [address] [place], [place] 581 04 OF CARE TESTING LAB ONLY-COMPLETE BLOOD COUNT WITH DIFFERENTIAL (09/03/2020 6:13 AM CDT) [facility] nature WBC 10.7 4.0 - 11.0 K/uL [address] RBC 3.76 (L) 4.40 - 5.[address] M/uL Hemoglobin 10.7 (L) 13.5 - 17.[address] g/dL Hematocrit 32.2 (L) 40.0 - 50.0 % [address] MCV 85.6 80.0 - 98.[address] MCH 28.5 25.5 - 34.[address] MCHC 33.2 31.5 - 36.[address] g/dL RDW-CV 14.2 11.5 - 15.5 % [address] RDW-SD 44.5 35.5 - 50.[address] Platelet Count 435 (H) 140 - 400 K/uL [address] MPV 7.9 (L) 8.5 - 12.[address] Seg Neut Absolute 8.1 (H) 1.8 - 8.0 K/uL [address] Lymphocytes Absolute 1.4 0.8 - 4.1 K/uL [place] [address] [facility] Monocytes Absolute 0.7 0.0 - 1.0 K/uL [address] Eosinophils Absolute 0.3 0.0 - 0.7 K/uL [place] [address] [facility] Basophil Absolute 0.1 0.0 - 0.2 K/uL [address] Immature Granulocyte 0.11 (H) 0.00 - 0.06 [place] [address] [facility] Absolute K/uL Neutrophils Abs. 8,100 /uL [address] (Segs and Bands) Neutrophils Percent 75.8 % [address] Lymphocytes Percent 13.3 % [address] Monocytes Percent 6.3 % [address] Immature Granulocyte 1.0 % [address] Percent Eosinophils Percent 3.0 % [address] Basophil Percent 0.6 % [address] Nucleated RBC 0 /[address] Specimen Blood - Blood specimen (specimen) Performing Organization Address City/[facility] Phon e Number [address] [place] [id number] RENAL FUNCTION PANEL (09/03/2020 6:13 AM CDT) Pathologist Sig nature Glucose 154 (H) 70 - 100 mg/dL [address] BUN 6 6 - 22 mg/dL [address] Creatinine 0.62 (L) 0.80 - 1.[address] mg/dL BUN/Creatinine Ratio 9.7 (L) 10.0 - 25.[address] Sodium 142 135 - 145 meq/L [address] Potassium 3.6 3.5 - 5.3 meq/L [address] Chloride 111 (H) 99 - 110 meq/L [address] CO2 20 20 - 29 meq/L [address] Anion Gap with K 15 6 - 20 meq/L [address] Calcium 8.3 (L) 8.5 - 10.[address] mg/dL Phosphorus 2.8 2.5 - 4.5 mg/dL [address] Albumin 2.5 (L) 3.5 - 5.0 g/dL [address] Corrected Calcium 9.5 8.5 - 10.[address] mg/dL Age [address] eGFR Non- >90 >=[address] [place] mL/min/1.73m2 eGFR >90 >=[address] mL/min/1.73m2 Specimen Blood - Blood specimen (specimen) Performing Organization Address City/[facility]/ZIP Code Phon e Number [place] [address] [facility] [address] [place] [address] 26583 MAGNESIUM (09/03/2020 6:13 AM CDT) Pathologist Sig nature Magnesium 1.7 (L) 1.8 - 2.4 mg/dL [address] Specimen Blood - Blood specimen (specimen) Performing Organization Address City/[facility] Phon e Number [address] [place] [address] LACTIC ACID (09/03/2020 6:13 AM CDT) Pathologist Sig nature Lactic Acid 0.6 0.5 - 2.2 mmol/L [address] Specimen Blood - Blood specimen (specimen) Performing Organization Address [facility] Code Phon e Number [address] [place] [address] CALCIUM, IONIZED (09/03/2020 6:13 AM CDT) Pathologist Sig nature Ionized Calcium 1.09 (L) 1.12 - 1.[address] [facility] mmol/L [facility] - RESPIRATORY THERAPY Specimen Blood - Blood specimen (specimen) Performing Organization Address [facility] Phon e Number [address] [place] [address] RESPIRATORY THERAPY CK (09/03/2020 6:13 AM CDT) Pathologist Sig nature CK 45 30 - 200 U/L [address] Specimen Blood - Blood specimen (specimen) Performing Organization Address [facility]/ZIP Code Phon e Number [address] [place] [address] GLUCOSE BY METER, POCT (09/02/2020 8:47 PM CDT) Pathologist Sig nature Glucose POC 170 (H) 70 - 99 mg/dL [facility] POINT OF CARE TESTING Specimen Blood - Blood specimen (specimen) Performing Organization Address [facility]/ZIP [facility] Phon e Number [address] 581 04 OF CARE TESTING GLUCOSE BY METER, POCT (09/02/2020 5:17 PM CDT) Pathologist Sig nature Glucose POC 204 (H) 70 - 99 mg/dL [facility] POINT OF CARE TESTING Specimen Blood - Blood specimen (specimen) Performing Organization Address [facility] Phon e Number [address] 581 04 OF CARE TESTING GLUCOSE BY METER, POCT (09/02/2020 11:15 AM CDT) Pathologist Sig nature Glucose POC 120 (H) 70 - 99 mg/dL [facility] O POINT OF CARE TESTING Specimen Blood - Blood specimen (specimen) Performing Organization Address City/State/ZIP Code Phon e Number [facility] [address] [facility] [place], [place] 581 04 OF CARE TESTING LAB ONLY-COMPLETE BLOOD COUNT WITH DIFFERENTIAL (09/02/2020 6:19 AM CDT) Pathologist Sig nature WBC 11.2 (H) 4.0 - 11.0 K/uL [address] RBC 3.45 (L) 4.40 - 5.[address] M/uL Hemoglobin 10.0 (L) 13.5 - 17.[address] g/dL Hematocrit 30.3 (L) 40.0 - 50.0 % [address] MCV 87.8 80.0 - 98.[address] MCH 29.0 25.5 - 34.[address] MCHC 33.0 31.5 - 36.[address] g/dL RDW-CV 14.4 11.5 - 15.5 % [address] RDW-SD 46.3 35.5 - 50.[address] Platelet Count 430 (H) 140 - 400 K/uL [address] MPV 8.1 (L) 8.5 - 12.[address] Seg Neut Absolute 8.8 (H) 1.8 - 8.0 K/uL [address] Lymphocytes Absolute 1.2 0.8 - 4.1 K/uL [place] [address] [facility] Monocytes Absolute 0.8 0.0 - 1.0 K/uL [address] Eosinophils Absolute 0.3 0.0 - 0.7 K/uL [place] [address] [facility] Basophil Absolute 0.1 0.0 - 0.2 K/uL [address] Immature Granulocyte 0.07 (H) 0.00 - 0.[address] Absolute K/uL Neutrophils Abs. 8,800 /uL [address] (Segs and Bands) Neutrophils Percent 78.6 % [address] Lymphocytes Percent 10.6 % [address] Monocytes Percent 7.0 % [address] Immature Granulocyte 0.6 % [place] [address] [facility] Percent Eosinophils Percent 2.7 % [place] [address] [facility] Basophil Percent 0.5 % [address] Nucleated RBC 0 /[address] Specimen Blood - Blood specimen (specimen) Performing Organization Address [facility] Phon e Number [address] [place] [address]27 RENAL FUNCTION PANEL (09/02/2020 6:19 AM CDT) Pathologist Sig nature Glucose 162 (H) 70 - 100 mg/dL [address] BUN 10 6 - 22 mg/dL [address] Creatinine 0.68 (L) 0.80 - 1.[address] mg/dL BUN/Creatinine Ratio 14.7 10.0 - 25.[address] Sodium 140 135 - 145 meq/L [address] Potassium 3.4 (L) 3.5 - 5.3 meq/L [address] Chloride 111 (H) 99 - 110 meq/L [address] CO2 19 (L) 20 - 29 meq/L [address] Anion Gap with K 13 6 - 20 meq/L [address] Calcium 8.1 (L) 8.5 - 10.[address] mg/dL Phosphorus 2.2 (L) 2.5 - 4.5 mg/dL [address] Albumin 2.4 (L) 3.5 - 5.0 g/dL [address] Corrected Calcium 9.4 8.5 - 10.[address] mg/dL Age [address] eGFR Non- >90 >=[address] [place] mL/min/1.73m2 eGFR >90 >=[address] mL/min/1.73m2 Specimen Blood - Blood specimen (specimen) Performing Organization Address [facility] Phon e Number [place] [address] [facility] [address] [place] [address] MAGNESIUM (09/02/2020 6:19 AM CDT) Pathologist Sig nature Magnesium 1.7 (L) 1.8 - 2.4 mg/dL [address] Specimen Blood - Blood specimen (specimen) Performing Organization Address [facility] Phon e Number [address] [place] [address] LACTIC ACID (09/02/2020 6:19 AM CDT) Pathologist Sig nature Lactic Acid 0.6 0.5 - 2.2 mmol/L [address] Specimen Blood - Blood specimen (specimen) Performing Organization Address [facility] e Number [address] [place] [address] CALCIUM, IONIZED (09/02/2020 6:19 AM CDT) Pathologist Sig nature Ionized Calcium 1.10 (L) 1.12 - 1.[address] [facility] mmol/L [facility] - RESPIRATORY THERAPY Specimen Blood - Blood specimen (specimen) Performing Organization Address [facility] e [address] [address] RESPIRATORY THERAPY CK (09/02/2020 6:19 AM CDT) Pathologist Sig nature CK 81 30 - 200 U/L [address] Specimen Blood - Blood specimen (specimen) Performing Organization Address [facility] e Number [address] [place] [address] GLUCOSE BY METER, POCT (09/02/2020 5:20 AM CDT) Pathologist Sig nature Glucose POC 156 (H) 70 - 99 mg/dL [facility] POINT OF CARE TESTING Specimen Blood - Blood specimen (specimen) Performing Organization Address [facility] Phon e Number [facility] [address] [place] [address] [place] 581 04 OF CARE TESTING GLUCOSE BY METER, POCT (09/01/2020 8:39 PM CDT) Pathologist Sig nature Glucose POC 243 (H) 70 - 99 mg/dL [facility] O POINT OF CARE TESTING Specimen Blood - Blood specimen (specimen) Performing Organization Address [facility] Phon e Number [address] 581 04 OF CARE TESTING GLUCOSE BY METER, POCT (09/01/2020 5:55 PM CDT) Pathologist Sig segundo Glucose POC 313 (H) 70 - 99 mg/dL [facility] O POINT OF CARE TESTING Specimen Blood - Blood specimen (specimen) Performing Organization Address [facility]/ZIP Code Phon e Number [facility] [address] [place], [place] 5[address] 04 OF CARE TESTING LAB ONLY-DIFFERENTIAL, CSF (09/01/2020 4:06 PM CDT) Pathologist Sig nature % Neutrophils CSF 27 % [facility] % Lymphocytes CSF 70 % [facility] % Eosinophils CSF 2 (H) <=0 % [facility] % Basophils CSF 1 % [place] [id number] [facility] Specimen CSF - Cerebrospinal fluid sample (specim en) Performing Organization Address [facility] Phon e Number [facility]94 [facility] [address] [place] [id number] LAB ONLY-CELL COUNT, CSF (09/01/2020 4:06 PM CDT) Pathologist Sig nature Clarity, CSF Slightly Cloudy [address] Color 1 CSF [place] [address] Supernate 1 CSF Colorless [address] Tube Number CSF Tube [address] CSF RBC 2,000 (H) <=0 /uL [address] CSF Nucleated Cells 71 (H) 0 - 5 /uL [address] Specimen CSF - Cerebrospinal fluid sample (specim en) Performing Organization Address [facility] Phon e Number [facility]94 [facility] [address] [place] [address], [place] [address] MENINGITIS/ENCEPHALITIS PANEL, NAD (09/01/2020 4:06 PM CDT) Escherichia coli K1 Not Detected Not Detected [facility] Haemophilus influenzae Not Detected Not Detected [facility] Listeria monocytogenes Not Detected Not Detected [facility] Neisseria meningitidis Not Detected Not Detected [facility] Streptococcus Not Detected Not Detected [facility] agalactiae (Group B) [facility] Streptococcus Not Detected Not Detected [facility] pneumoniae [facility] Cytomegalovirus Not Detected Not Detected [facility] Enterovirus Not Detected Not Detected [facility] Herpes Simplex Type 1 Not Detected Not Detected [facility] Herpes Simplex Type 2 Not Detected Not Detected [facility] Human Herpesvirus 6 Not Detected Not Detected [facility] Human Parechovirus Not Detected Not Detected [facility] Varicella Zoster Virus Not Detected Not Detected [facility] Cryptococcus Not Detected Not Detected [facility]/gattii [facility] Specimen CSF - Cerebrospinal fluid sample (specim en) Narrative Performed At This test was performed by multiplexed nested PCR and [facility] melting curve analysis on the Uni-Control instrument. Clinical testing for this panel is approved by the US Food and Drug Administration (FDA). Performing Organization Address [facility] Phon e Number [facility] [address] [place] [address] LABORATORY [address] PROTEIN, CSF (09/01/2020 4:06 PM CDT) Pathologist Sig nature Protein CSF 35.0 15.0 - 45.[address] mg/dL Tube Number CSF One [place] [address] [facility]INIC Protein Specimen CSF - Cerebrospinal fluid sample (specim en) Performing Organization Address [facility] Phon e Number [address] [place] [address] GLUCOSE, CSF (09/01/2020 4:06 PM CDT) Pathologist Sig [facility] Glucose CSF 69 50 - 80 mg/dL [address] Tube Number CSF Glucose One [place] [address] CLIN IC Specimen CSF - Cerebrospinal fluid sample (specim en) Performing Organization Address [facility] Phon e Number [address] [place] [address] VANCOMYCIN TROUGH (09/01/2020 1:55 PM CDT) Pathologist Sig nature Vancomycin Trough 15.0 10.0 - 20.0 ug/mL [place] [address] [facility]I C Specimen Blood - Blood specimen (specimen) Performing Organization Address [facility] Phon e Number [address] [place] [address] GLUCOSE BY METER, POCT (09/01/2020 12:10 PM CDT) Pathologist Sig nature Glucose POC 142 (H) 70 - 99 mg/dL [facility] O POINT OF CARE TESTING Specimen Blood - Blood specimen (specimen) Performing Organization Address City/State/ZIP Code Phon e Number [facility] [address] [place], [place] [address] OF CARE TESTING GLUCOSE BY METER, POCT (09/01/2020 9:39 AM CDT) Pathologist Sig [facility] Glucose POC 149 (H) 70 - 99 mg/dL [facility] O POINT OF CARE TESTING Specimen Blood - Blood specimen (specimen) Performing Organization Address City/[facility]/ZIP Code Phon e Number [facility] [facility] [place], [place] [address] OF CARE TESTING LAB ONLY-COMPLETE BLOOD COUNT WITH DIFFERENTIAL (09/01/2020 6:06 AM CDT) Pathologist Sig [facility] WBC 17.6 (H) 4.0 - 11.0 K/uL [address] RBC 3.64 (L) 4.40 - 5.[address] M/uL Hemoglobin 10.6 (L) 13.5 - 17.[address] g/dL Hematocrit 32.8 (L) 40.0 - 50.0 % [address] MCV 90.1 80.0 - 98.[address] MCH 29.1 25.5 - 34.[address] MCHC 32.3 31.5 - 36.[address] g/dL RDW-CV 14.5 11.5 - 15.5 % [address] RDW-SD 48.3 35.5 - 50.[address] Platelet Count 504 (H) 140 - 400 K/uL [address] MPV 7.9 (L) 8.5 - 12.[address] Seg Neut Absolute 14.4 (H) 1.8 - 8.0 K/uL [address] Lymphocytes Absolute 1.4 0.8 - 4.1 K/uL [place] [address] [facility] C Monocytes Absolute 1.2 (H) 0.0 - 1.0 K/uL [place] [address] [facility] Eosinophils Absolute 0.3 0.0 - 0.7 K/uL [place] [address] [facility] C Basophil Absolute 0.1 0.0 - 0.2 K/uL [address] Immature Granulocyte 0.16 (H) 0.00 - 0.06 [place] [address] [facility] Absolute K/uL Neutrophils Abs. 14,400 /uL [address] (Segs and Bands) Neutrophils Percent 81.8 % [address] Lymphocytes Percent 8.1 % [address] Monocytes Percent 7.0 % [address] Immature Granulocyte 0.9 % [place] [address] [facility] Percent Eosinophils Percent 1.9 % [address] Basophil Percent 0.3 % [address] Nucleated RBC 0 /[address] Specimen Blood - Blood specimen (specimen) Performing Organization Address City/[facility] Phon e Number [place] [address] [facility] [place] [address] TRIGLYCERIDE (09/01/2020 6:06 AM CDT) Pathologist [facility] Triglyceride 128 50 - 150 mg/dL [address] Specimen Blood - Blood specimen (specimen) Performing Organization Address City/[facility] Phon e Number [address] [place] [address] RENAL FUNCTION PANEL (09/01/2020 6:06 AM CDT) Pathologist Sig [facility] Glucose 164 (H) 70 - 100 mg/dL [address] BUN 14 6 - 22 mg/dL [address] Creatinine 0.79 (L) 0.80 - 1.[address] mg/dL BUN/Creatinine Ratio 17.7 10.0 - 25.[address] Sodium 143 135 - 145 meq/L [address] Potassium 4.0 3.5 - 5.3 meq/L [address] Chloride 110 99 - 110 meq/L [place] [address] [facility] CO2 22 20 - 29 meq/L [address] Anion Gap with K 15 6 - 20 meq/L [address] Calcium 8.2 (L) 8.5 - 10.[address] mg/dL Phosphorus 3.9 2.5 - 4.5 mg/dL [address] Albumin 2.7 (L) 3.5 - 5.0 g/dL [address] Corrected Calcium 9.2 8.5 - 10.[address] mg/dL Age [address] eGFR Non- >90 >=[address] Bur[place] mL/min/1.73m2 eGFR >90 >=[address] mL/min/1.73m2 Specimen Blood - Blood specimen (specimen) Performing Organization Address [facility] Phon e Number [address] [place] [address], [place] [address] TROPONIN I (09/01/2020 6:06 AM CDT) Pathologist Sig nature Troponin I 0.005 0.000 - 0.028 ng/mL [address] Specimen Blood - Blood specimen (specimen) Performing Organization Address [facility] e Number [address] [place] [address], [place] [address] MAGNESIUM (09/01/2020 6:06 AM CDT) Pathologist Sig nature Magnesium 2.1 1.8 - 2.4 mg/dL [address] Specimen Blood - Blood specimen (specimen) Performing Organization Address [facility] Phon e Number [address] [place] [address], [place] [address] LACTIC ACID (09/01/2020 6:06 AM CDT) Pathologist Sig nature Lactic Acid 0.9 0.5 - 2.2 mmol/L [address] Specimen Blood - Blood specimen (specimen) Performing Organization Address [facility] Phon e Number [address] [place] [address] [place] [address] CALCIUM, IONIZED (09/01/2020 6:06 AM CDT) Pathologist Sig nature Ionized Calcium 1.07 (L) 1.12 - 1.[address] [facility] mmol/L [facility] - RESPIRATORY THERAPY Specimen Blood - Blood specimen (specimen) Performing Organization Address [facility] Phon e Number [facility] - [address] [place] [address], [place] [address] RESPIRATORY THERAPY CK (09/01/2020 6:06 AM CDT) Pathologist Sig nature CK 24 (L) 30 - 200 U/L [place] [facility] Specimen Blood - Blood specimen (specimen) Performing Organization Address City/[facility]/ZIP Code Phon e Number [place] [facility] [address] [place] [address], [place] [address] GLUCOSE BY METER, POCT (09/01/2020 4:52 AM CDT) Pathologist Sig nature Glucose POC 155 (H) 70 - 99 mg/dL [facility] O POINT OF CARE TESTING Specimen Blood - Blood specimen (specimen) Performing Organization Address City/State/ZIP Code Phon e Number [facility] [address] [place] [address], [place] [address] OF CARE TESTING GLUCOSE BY METER, POCT (09/01/2020 2:30 AM CDT) Pathologist Sig nature Glucose POC 145 (H) 70 - 99 mg/dL [facility] POINT OF CARE TESTING Specimen Blood - Blood specimen (specimen) Performing Organization Address [facility]/ZIP Code Phon e Number [facility] [address] [place] [address] OF CARE TESTING BLOOD GAS ARTERIAL WITH IONIZED CALCIUM (09/01/2020 2:02 AM CDT) pH Arterial 7.32 (L) 7.35 - 7.45 [facility] pCO2 Arterial 43 35 - 45 mmHg [facility] pO2 Arterial 86 80 - 100 [facility] mmHg [facility] Base Excess Arterial -4 (L) -2 - 2 meq/L [facility] HCO3 (Bicarb) 22 20 - 29 [facility] mmol/L [facility] O2 Sat % Arterial 94 (L) 95 - 98 % [facility] Carbon Monoxide <1.0 0.0 - 3.0 % [facility] Methemoglobin <1.0 0.0 - 3.0 % [facility] p50 Comment: Value [facility] obtained [facility] Allens Test Positive [facility] RESPIRATORY [facility] Collection Site Arterial Line [facility] Arterial [facility] O2 Source Ventilator [facility] - RESPIRATORY THERAPY Ionized Calcium 1.16 1.12 - 1.32 [facility] mmol/L [facility] - RESPIRATORY THERAPY Specimen Blood - Arterial blood specimen (specime n) Narrative Performed At CMV: Rate 14, Vt 520, PEEP 8, FiO2 70% [facility] - RESPIRATO RY THERAPY Performing Organization Address City/State/ZIP Code Phon e Number [facility] - [address] [place] [address] RESPIRATORY THERAPY XRAY CHEST PORTABLE - (09/01/2020 12:23 AM CDT)Only the most recent of3 results within the time period is included. Specimen Narrative Performed At [facility] Patient Name: SANDRA JOHNS Date of : 1960 Procedure: XRAY CHEST PORTABLE Date of Service: 08/31/2020 EXAM: XRAY CHEST PORTABLE INDICATION: Male, 60 years year old pa tient, et position COMPARISON(S): 08/31/2020 TECHNIQUE: AP portable view FINDINGS: Support devices: Distal tip of endotracheal tube termi nates 68 mm above the mark. Lungs: The lungs are underexpanded. There are patchy g roundglass opacities in both lung bases. Pleura: There is no visible pneumothorax on either arden e. There is trace pleural effusion on the left side. Right costophrenic angle is sharp. Heart, Mediastinum and Vessels: Normal heart size. Nor mal mediastinum. There is no pulmonary edema. Normal visu alized aortic knob. IMPRESSION: Please advance ET tube by 2 cm. Bibasila r infiltrates/atelectasis. Trace left-sided pleural effusion. Finalized by: Glenis Schultz MD on 09/01/2020 1:04 AM CDT Patient/Procedure Information: [facility] MRN/ENEDINA: [id number] Order Number: [id number] Accession Number: [id number] Ordering Provider: BRANDY AGRAWAL Authorizing Provider: BRANDY AGRAWAL Procedure Note [facility] - 09/01/2020 1:06 AM CDT Patient Name: SANDRA JOHNS Date of : 1960 Procedure: XRAY CHEST PORTABLE Date of Service: 08/31/2020 EXAM: XRAY CHEST PORTABLE INDICATION: Male, 60 years year old pat ient, et position COMPARISON(S): 08/31/2020 TECHNIQUE: AP portable view FINDINGS: Support devices: Distal tip of endotrach eal tube terminates 68 mm above the mark. Lungs: The lungs are underexpanded. Ther e are patchy groundglass opacities in both lung bases. Pleura: There is no visible pneumothorax on either side. There is trace pleural effusion on the left side. Right costophrenic angle is sharp. Heart, Mediastinum and Vessels: Normal h eart size. Normal mediastinum. There is no pulmonary edema. Normal visualized aortic knob. IMPRESSION: Please advance ET tube by 2 cm. Bibasila r infiltrates/atelectasis. Trace left-sided pleural effusion. Finalized by: Glenis Schultz MD on 09/01/2020 1:04 AM CDT Patient/Procedure Information: [facility] MRN/ENEDINA: [id number] Order Number: [id number] Accession Number: [id number] Ordering Provider: BRANDY AGRAWAL Authorizing Provider: BRANDY AGRAWAL Performing Organization Address City/[facility]/ZIP Code Phon e Number [id number] GLUCOSE BY METER, POCT (08/31/2020 10:30 PM CDT) Pathologist Sig nature Glucose POC 108 (H) 70 - 99 mg/dL [facility] POINT OF CARE TESTING Specimen Blood - Blood specimen (specimen) Performing Organization Address [facility]/ZIP Code Phon e Number [facility] [address] [place] [address] OF CARE TESTING GLUCOSE BY METER, POCT (08/31/2020 8:41 PM CDT) Pathologist Sig nature Glucose POC 111 (H) 70 - 99 mg/dL [facility] POINT OF CARE TESTING Specimen Blood - Blood specimen (specimen) Performing Organization Address [facility]/ZIP Code Phon e Number [facility] [address] [facility] [place], [place] [address] OF CARE TESTING GLUCOSE BY METER, POCT (08/31/2020 6:44 PM CDT) Pathologist Sig nature Glucose POC 107 (H) 70 - 99 mg/dL [facility] POINT OF CARE TESTING Specimen Blood - Blood specimen (specimen) Performing Organization Address [facility]/ZIP [facility] Phon e Number [facility] [address] [facility], [place] [address] 04 OF CARE TESTING GLUCOSE BY METER, POCT (08/31/2020 11:22 AM CDT) Pathologist Sig nature Glucose POC 131 (H) 70 - 99 mg/dL [facility] O POINT OF CARE TESTING Specimen Blood - Blood specimen (specimen) Performing Organization Address [facility] Phon e Number [facility] [address] [facility], [place] [address] OF CARE TESTING TYPE AND SCREEN (08/31/2020 5:58 AM CDT) Pathologist Sig segundo ABO Type O [address] BLOOD BANK Rh Type Negative [address] BLOOD BANK Antibody Screen Negative [address] Comment: BLOOD BANK 08/31/2020 Allogenic Red Cells Available Expiration Date 09/03/2020 23:[address] BLOOD BANK Specimen Blood - Blood specimen (specimen) Performing Organization Address [facility] Phon e Number [address] BLOOD BANK [address] [address] RENAL FUNCTION PANEL (08/31/2020 5:58 AM CDT) Pathologist Sig nature Glucose 155 (H) 70 - 100 mg/dL [address] BUN 15 6 - 22 mg/dL [address] Creatinine 0.75 (L) 0.80 - 1.[address] mg/dL BUN/Creatinine Ratio 20.0 10.0 - 25.[address] Sodium 139 135 - 145 meq/L [address] Potassium 3.9 3.5 - 5.3 meq/L [address] Chloride 107 99 - 110 meq/L [address] CO2 21 20 - 29 meq/L [address] Anion Gap with K 15 6 - 20 meq/L [address] Calcium 8.1 (L) 8.5 - 10.[address] mg/dL Phosphorus 3.2 2.5 - 4.5 mg/dL [facility] Albumin 2.7 (L) 3.5 - 5.0 g/dL [address] Corrected Calcium 9.1 8.5 - 10.[address] mg/dL Age [address] eGFR Non- >90 >=[address] [place] mL/min/1.73m2 eGFR >90 >=[address] mL/min/1.73m2 Specimen Blood - Blood specimen (specimen) Performing Organization Address [facility] Phon e Number [address] [place] [address] MAGNESIUM (08/31/2020 5:58 AM CDT) Pathologist Sig nature Magnesium 1.3 (L) 1.8 - 2.4 mg/dL [address] Specimen Blood - Blood specimen (specimen) Performing Organization Address [facility] Phon e Number [address] [address] COMPLETE BLOOD COUNT WITHOUT DIFFERENTIAL (08/31/2020 5:58 AM CDT) Pathologist Sig nature WBC 16.3 (H) 4.0 - 11.0 K/uL [address] RBC 3.68 (L) 4.40 - 5.80 M/uL [address] Hemoglobin 10.8 (L) 13.5 - 17.5 g/dL [address] Hematocrit 31.8 (L) 40.0 - 50.0 % [address] MCV 86.4 80.0 - 98.[address] MCH 29.3 25.5 - 34.[address] MCHC 34.0 31.5 - 36.5 g/dL [address] RDW-CV 14.3 11.5 - 15.5 % [address] RDW-SD 45.3 35.5 - 50.[address] Platelet Count 400 140 - 400 K/uL [address] MPV 8.1 (L) 8.5 - 12.[address] Specimen Blood - Blood specimen (specimen) Performing Organization Address [facility] Phon e Number [address] [place] [address], [place] [address] BRAIN NATRIURETIC PEPTIDE (08/31/2020 5:58 AM CDT) Pathologist Sig nature BNP 129 (H) 0 - 100 pg/mL [address] Specimen Blood - Blood specimen (specimen) Performing Organization Address [facility] Phon e Number [place] [address] [facility] [address] [place] [address] TROPONIN I (08/31/2020 5:58 AM CDT) Pathologist Sig nature Troponin I 0.026 0.000 - 0.028 ng/mL [address] Specimen Blood - Blood specimen (specimen) Performing Organization Address [facility] Phon e Number [address] [address] GLUCOSE BY METER, POCT (08/31/2020 5:18 AM CDT) Pathologist Sig nature Glucose POC 157 (H) 70 - 99 mg/dL [facility] POINT OF CARE TESTING Specimen Blood - Blood specimen (specimen) Performing Organization Address [facility] Phon e Number [facility] [address] [place] [address], [place] 5[address] 04 OF CARE TESTING EKG (08/31/2020 1:51 AM CDT)Only the most recent of2 resultswithin the time period is included. Pathologist Sig nature EKG [employer] Normal sinus rhythm Right bundle branch block Abnormal ECG When compared with ECG of 30-AUG-2020 10:18, No significant change was found Ventricular Rate: 93 BPM Atrial Rate: 93 BPM P-R Interval: 140 ms QRS Duration: 126 ms Q-T Interval: 382 ms QTc Calculation(Bazett): 474 ms Calculated R [place]: 75 degrees Calculated T [place]: 50 degrees Specimen Narrative Performed At This result has an attachment that is no t available. Performing Organization Address [facility] Phon e Number [employer] GLUCOSE BY METER, POCT (08/30/2020 8:46 PM CDT) Pathologist Sig nature Glucose POC 131 (H) 70 - 99 mg/dL [facility] POINT OF CARE TESTING Specimen Blood - Blood specimen (specimen) Performing Organization Address [facility]/ZIP Code Phon e Number [facility] [address] [facility], [place] [address] 04 OF CARE TESTING GLUCOSE BY METER, POCT (08/30/2020 5:05 PM CDT) Pathologist Sig nature Glucose POC 172 (H) 70 - 99 mg/dL [facility] O POINT OF CARE TESTING Specimen Blood - Blood specimen (specimen) Performing Organization Address [facility] Code Phon e Number [facility] [address] [facility], [place] [address] 04 OF CARE TESTING LAB ONLY-URINE MICROSCOPIC REFLEX (08/30/2020 1:23 PM CDT) WBC Urine 0-5 /hpf Negative, 0-5 [place] [facility] /hpf CLINIC RBC Urine 3-5 /hpf (A) Negative, 0-2 [place] [facility] /hpf CLINIC Squamous Moderate (21-50) Negative, Occ [place] [address] Epithelial Cells /lpf (A) (0-10) /lpf, Few CLINIC (11-20) /lpf Bacteria Negative Negative [address] Hyaline Cast 3-5 /lpf (A) 0-2 /lpf [place] [address] [facility] Specimen Urine - Urine specimen obtained by clean catch procedure (specimen) Narrative Performed At The presence of moderate or many squamous epithelial c ells is [address] suggestive of possible contamination dur ing collection. Culture not performed - reflex criteria not met. Culture is only performed when the urine macroscopic c olor is reported as Bright [place], or whentwoor more of th e following criteria are met: Positive Nitrite, Positive Leukocyte Esterase, WBC's > 5 cells/hpf. Performing Organization Address [facility]/ZIP Code Phon e Number [place] [facility] [address] [place] [address] URINE DIP, REFLEX TO MICROSCOPIC, REFLEX TO CULTURE (08/30/2020 1:23 PM CDT) Color Urine Yellow Asha, Dark [place] [address] Yellow, Straw, CLINIC Yellow, Colorless Clarity Urine Clear Clear [place] [address] [facility] Glucose Urine 50 mg/dL (A) Negative [place] [address] [facility] Bilirubin Urine Negative Negative [address] Ketones Urine 10 mg/dL Negative, 5 [place] [address] mg/dL, 10 mg/dL [facility] Specific [place] >1.040 (H) 1.002 - 1.[address] Blood Urine Negative Negative [address] PH Urine 6.0 5.0, 5.5, 6.0, [place] [address] 6.5, 7.0, 7.5, CLINIC 8.0 Protein Urine 100 mg/dL (A) Negative [address] Urobilinogen < 2 mg/dL < 2 mg/dL [address] Nitrite Negative Negative [address] Leukocyte Esterase Negative Negative [place] [address] Urine CLINIC Specimen Urine - Urine specimen obtained by clean catch procedure (specimen) Narrative Performed At [address] The maximum specific gravity that urine can physiologi kellee attain is a value of 1.040. Specific gravity results g reater than this may be due to radiographic contrast media or othe r large molecular weight solutes such as mannito l. Specific gravity results may not agree depending upon the measuring method used. The urine "reagent strip" (dipstick) method does not m easure radiographic contrast media, glucose, protein, or othe r large molecular weight solutes such as mannito l. The refractometer based method does measure radiologic contrast media, glucose, protein and other large molecular weig ht solutes such as mannitol. Microscopic Exam Reflexed Performing Organization Address City/State/ZIP Code Phon e Number [address] [place] [facility] [place] [address] CT ABDOMEN PELVIS WITH CONTRAST (08/30/2020 12:31 PM CDT) Specimen Narrative Performed At [facility] Patient Name: SANDRA JOHNS Date of : 1960 Procedure: CT ABDOMEN PELVIS WITH CONTR AST Date of Service: 08/30/2020 EXAM: CT ABDOMEN PELVIS WITH CONTRAST INDICATION:Abdominal pain, unspecified TECHNIQUE: CT imaging was performed through the abdome n and pelvis following IV contrast. COMPARISON(S): None Available FINDINGS: Lung bases are clear. No pleural or pericardial effusi on. Exophytic lesion lateral left liver with nodular peripheral post contrast enhancement likely on the basis of hepatic hemangioma. There is perihepatic free fluid which appears encapsulated johnnie g portions of the fluid. Gallbladder, biliary system and pancreas unrema rkable. Spleen is unremarkable. Adrenal glands unremarkable. No hydronep hrosis or hydroureter. Parapelvic renal cysts bila terally. Bladder unremarkable. Moderate colonic stool. Submucosal edema/thickening at the ascending colon. Peripherally enhancing fluid collection at the anterior abdomen at the level of the gallbladder abutting the peritonea l fascia measuring 4.5 x 0.9 cm in the axial plane by 2.2 cm craniocaudal on axial image 36. Additionally, there is a thin tube of fluid extend ing from the level of the ventriculoperitoneal shunt catheter with periph eral postcontrast enhancement best seen as depicted by the arrows on sag ittal images 66 through 89 and then reverse through image 45. There is unencapsulated stranding within the omentum. No free air. No destruct thang osseous lesion or acute fracture. IMPRESSION: Fines worrisome for infected fluid/abscess in the abdo men near the PROJECT CONTROL ANALYST shunt catheter tip and within the ventral abdomen at t he level of the gallbladder. Perihepatic fluid appears encapsulated as well worrisome for additional locus of abscess. Submucosal edema/thickening at the ascending colon may be reactive to inflammatory peritoneal fluid. Findings conveyed to STEVENSON SUNSHINE on 08/30/2020 12: 40 PM CDT via the [employer] system. Finalized by: Oscar Escobar DO on 2020 12:41 PM CDT Patient/Procedure Information: [facility] MRN/ENEDINA: [id number] Order Number: [id number] Accession Number: [id number] Ordering Provider: STEVENSON SUNSHINE Authorizing Provider: STEVENSON SUNSHINE Procedure Note Interface, [facility] - 08/30/2020 12:43 PM CDT Patient Name: SANDRA JOHNS Date of : 1960 Procedure: CT ABDOMEN PELVIS WITH CONTR AST Date of Service: 08/30/2020 EXAM: CT ABDOMEN PELVIS WITH CONTRAST INDICATION:Abdominal pain, unspecified TECHNIQUE: CT imaging was performed thro ugh the abdomen and pelvis following IV contrast. COMPARISON(S): None Available FINDINGS: Lung bases are clear. No pleural or bc cardial effusion. Exophytic lesion lateral left liver with nodular peripheral postcontrast enhancement likely on the basis of hepatic hemangioma. There is perihepatic free fluid which appears encapsulated along portions of t he fluid. Gallbladder, biliary system and pancreas unremarkable. Spleen is unremarkable. Adrenal glands unremarkable. No hydronephrosis or hydroureter. Parapelvic renal cysts bilaterally. Bladder unremarkable. Moderate colonic stool. Submucosal edema /thickening at the ascending colon. Peripherally enhancing fluid collection at the anterior abdomen at the level of the gallbladder abutting the peritoneal fascia measuring 4.5 x 0.9 cm in the axial plane by 2.2 cm cr aniocaudal on axial image 36. Additionally, there is a thin tube of fluid extending from the level of the ventriculoperitoneal shunt catheter with peripheral postcontrast enhancement best seen as depicted by the arrows on sagittal images 66 through 89 and then reverse through image 45. There is unencapsulated stranding within the omentum. No free air. No destructive osseous lesion or acute fracture. IMPRESSION: Fines worrisome for infected fluid/absce ss in the abdomen near the PROJECT CONTROL ANALYST shunt catheter tip and within the ventral abdomen at the level of the gallbladder. Perihepatic fluid appears encapsulated as well worrisome for additional locus of abscess. Submucosal edema/thickening at the ascen ding colon may be reactive to inflammatory peritoneal fluid. Findings conveyed to STEVENSON SUNSHINE on 08/30/2020 12:40 PM CDT via the [employer] system. Finalized by: Oscar Escobar DO on 2020 12:41 PM CDT Patient/Procedure Information: [facility] MRN/ENEDINA: [id number] Order Number: [id number] Accession Number: [id number] Ordering Provider: STEVENSON SUNSHINE Authorizing Provider: STEVENSON SUNSHINE Performing Organization Address City/State/ZIP Code Phon e Number [facility] CT BRAIN WITH CONTRAST (08/30/2020 12:28 PM CDT) Specimen Narrative Performed At [facility] Patient Name: SANDRA JOHNS Date of : 1960 Procedure: CT HEAD WITH CONTRAST Date of Service: 08/30/2020 EXAM: CT HEAD WITH CONTRAST INDICATION: Cellulitis, head, craniotomy 07/12/20. Ongoing fevers area TECHNIQUE: CT of the brain performed without and follo wing intravenous contrast administration COMPARISON(S): Head CT dated 07/29/2020 FINDINGS: Postoperative change of suboccipital craniec cornel and cranioplasty. Suboccipital fluid collection is increas ed in size demonstrating peripheral postcontrast enhancement, cur rently measuring 6.4 x 1.5 cm in the axial plane. The craniocaudal exte nt of the fluid collection is not included on the sagittal images, erin suring at least 4.5 cm. There is hypoattenuation within the midline po sterior fossa brain parenchyma. There are foci of air within this re gion as well which appear increased when compared to the prior. Right ant erior approach ventriculostomy catheter is stable in position. No hyd rocephalus. No large vessel distribution infarct. No ac ludin intracranial hemorrhage. IMPRESSION: 1. Given clinical scenario, increased fluid in the sub occipital region status post suboccipital craniectomy and cranioplasty with peripheral postcontrast enhancement is worrisome for abscess. Add itionally, there is intracranial air in the midline posterior fossa whi ch is typically not seen 1.5 months postoperatively which is also conc erning for infection. Neurosurgery consultation rec ommended. 2. Right anterior approach tracheostomy catheter is st able in position. No hydrocephalus. Findings discussed with STEVENSON SUNSHINE on 08/30/2020 12:33 PM CDT Finalized by: Oscar Escobar DO on 2020 12:33 PM CDT Patient/Procedure Information: [facility] MRN/ENEDINA: [id number] Order Number: [id number] Accession Number: [id number] Ordering Provider: STEVENSON SUNSHINE Authorizing Provider: STEVENSON SUNSHINE Procedure Note Interface, [facility] - 08/30/2020 12:36 PM CDT Patient Name: SANDRA JOHNS Date of : 1960 Procedure: CT HEAD WITH CONTRAST Date of Service: 08/30/2020 EXAM: CT HEAD WITH CONTRAST INDICATION: Cellulitis, head, craniotomy 07/12/20. Ongoing fevers area TECHNIQUE: CT of the brain performed wit hout and following intravenous contrast administration COMPARISON(S): Head CT dated 07/29/2020 FINDINGS: Postoperative change of subocc ipital craniectomy and cranioplasty. Suboccipital fluid collection is increased in size demonstrating peripheral postcontrast enhancement, currently measuring 6.4 x 1.5 cm in the axial plane. The cranioc audal extent of the fluid collection is not included on the sagittal images, measuring at least 4.5 cm. There is hypoattenuation within the midline posterior fossa brain parenchyma. There are foci of air within this region as well which appear increased when compared to the prior. Right anterior approach ventriculostomy catheter is stable in position. No hydrocephalus. No large vessel distribution infarct. No acute in tracranial hemorrhage. IMPRESSION: 1. Given clinical scenario, increased fl uid in the suboccipital region status post suboccipital craniectomy and cranioplasty with peripheral postcontrast enhancement is worrisome for abscess. Additionally, there is intracranial air in the midline posterio r fossa which is typically not seen 1.5 months postoperatively which is also concerning for infection. Neurosurgery consultation recommended. 2. Right anterior approach tracheostomy catheter is stable in position. No hydrocephalus. Findings discussed with STEVENSON SUNSHINE on 08/30/2020 12:33 PM CDT Finalized by: Oscar Escobar DO on 2020 12:33 PM CDT Patient/Procedure Information: [facility] MRN/ENEDINA: [id number] Order Number: [id number] Accession Number: [id number] Ordering Provider: STEVENSON SUNSHINE Authorizing Provider: STEVENSON SUNSHINE Performing Organization Address City/State/ZIP Code Phon e Number [facility] US ABDOMEN LIMITED (08/30/2020 11:56 AM CDT) Specimen Narrative Performed At [facility] Patient Name: SANDRA JOHNS Date of : 1960 Procedure: US ABDOMEN LIMITED Date of Service: 08/30/2020 EXAM: US ABDOMEN LIMITED INDICATION: Abdominal pain COMPARISON(S): Renal ultrasound 5 TECHNIQUE: Multiple static brownlee-scale and Color Dopple r images of the right upper quadrant were submitted. Mul tiple cine clips were submitted. FINDINGS: The liver echogenicity is normal. There are no shaka s or ductal dilatation. The gallbladder is normal. There is no stones, pericho lecystic fluid, or wall thickening. The casing sewer indicated there wa s a negative sonographic Owusu's sign. The common bile duct measures 4 mm. No ductal stones . The size is within normal limits. The visualized portions of the pancreas are normal. The tail is slightly obscured by bowel gas. The right kidney measures 13.3 x 6.6 x 6.7. cm. No mohinder culi, mass or hydronephrosis. IMPRESSION: No clear etiology for abdomi nal pain. Finalized by: Benji Khan MD on 1:16 PM CDT Patient/Procedure Information: [facility] MRN/ENEDINA: [id number] Order Number: [id number] Accession Number: [id number] Ordering Provider: STEVENSON SUNSHINE Authorizing Provider: STEVENSON SUNSHINE Procedure Note Interface, [facility] - 08/30/2020 1:18 PM CDT Patient Name: SANDRA JOHNS Date of : 1960 Procedure: US ABDOMEN LIMITED Date of Service: 08/30/2020 EXAM: US ABDOMEN LIMITED INDICATION: Abdominal pain COMPARISON(S): Renal ultrasound 5 TECHNIQUE: Multiple static brownlee-scale an d Color Doppler images of the right upper quadrant were submitted. Multiple cine clips were submitted. FINDINGS: The liver echogenicity is normal. There are no masses or ductal dilatation. The gallbladder is normal. There is no s tones, pericholecystic fluid, or wall thickening. The casing sewer indicated there was a negative sonographic Owusu's sign. The common bile duct measures 4 mm. No ductal stones. The size is within normal limits. The visualized portions of the pancreas are normal. The tail is slightly obscured by bowel gas. The right kidney measures 13.3 x 6.6 x 6 .7. cm. No calculi, mass or hydronephrosis. IMPRESSION: No clear etiology for abdomi nal pain. Finalized by: Benji Khan MD on 1:16 PM CDT Patient/Procedure Information: [facility] MRN/ENEDINA: [id number] Order Number: [id number] Accession Number: [id number] Ordering Provider: STEVENSON SUNSHINE Authorizing Provider: STEVENSON SUNSHINE Performing Organization Address City/State/ZIP Code Phon e Number [facility] CULTURE, BLOOD (08/30/2020 11:43 AM CDT)Only the most recent of2 resultswithin the time period is included. Pathologist Sig [place] Culture Result No growth at [address] [facility] days LABORATORY Specimen Blood - Venous blood specimen (specimen) Narrative Performed At [facility] LABOR[facility]ORY Peripheral draw Performing Organization Address City/State/ZIP Code Phon e Number AGGIE ADEN [address] [place] [address] LABORATORY [address] SARS-COV-2, INFLUENZA A+B, AND/OR RSV NUCLEIC ACID TESTING PANEL (08/30/2020 11:02 AM CDT) Pathologist Sig [place] SARS-CoV-2 Not Detected Not Detected [address] Influenza A Not Detected Not Detected [address] Influenza B Not Detected Not Detected [address] RSV Not Detected Not Detected [place] [address] [facility] Specimen Respiratory - Nasopharyngeal swab (speci men) Narrative Performed At Please read entire report. Results for Influenza A and B or RSV [address] may also be available depending on which viruses your provider selected for testing. Your Covid-19 test is negative: 1)Avoiding close contact is s till recommended. 2)Cover your coughs and snee zes. 3)Wash your hands often with soap and wate r for at least 20 seconds or use an alcohol-based cardio clinician con taining over 60% alcohol. Avoid touching your fa ce. 4)Avoid sharing personal household items, including dishes, cups, utensils, towels, clothing, or bedding. These items should be cleaned thoroughly with soap and water after use. Clean all "high touch" surfaces in your home d aily. 5) Monitor your symptoms. Contact your provider if you are feeling worse. If you have shortness of breath or diff iculty breathing, call 911. This assay is for in vitro diagnostic use under FDA Em ergency Use Authorization only. Optimal performance of this test requires appropriate specimen collection, storage, and transport to [facility] test site. Detection of SARS-CoV-2 RNA may be affected by sample collection methods, patient factors (eg, presence of symptoms), a nd/or stage of infection. False-negative results may arise from degradation of v iral RNA during shipping/storage. Results should be interpreted by a trained professiona l in conjunction with the patient s history and clinical signs and symptoms, and epidemi ological risk factors. Negative (Not Detected) results do not preclude infect ion with the SARS-CoV-2 virus and should not be the sole basis of patient treatment/management or public health decision. Follow up testing should be performed according to the current CDC recom mendations. This test was performed by polymerase chain reaction ( PCR) on the GeneXpert instrument. Performing Organization Address [facility] Phon e Number [address] [place] [id number] TROPONIN I (08/30/2020 10:12 AM CDT) Pathologist Sig nature Troponin I 0.038 (H) 0.000 - 0.028 ng/mL [address] Specimen Blood - Blood specimen (specimen) Performing Organization Address [facility] Phon e Number [address] [place] [address] PROCALCITONIN (08/30/2020 10:12 AM CDT) Pathologist Sig nature Procalcitonin 2.23 (H) <0.07 ng/mL [address] Specimen Blood - Blood specimen (specimen) Narrative Performed At Suspected Lower Respiratory Tract Infect ion: [address] 0.1-0.25: Low risk for bacterial infection; Antibiotic s discouraged. > 0.25: Increased likelihood for bacterial infection; Antibiotics encouraged. Suspected Sepsis: 0.1-0.5: Low likelihood for sepsis; Anti biotics discouraged. > 0.5: Increased Likelihood for sepsis; Antibiotics encouraged. > 2.0: High risk of sepsis/septic shock; Antibiotics s trongly encouraged. Decisions on antibiotic use should not be based solely on procalcitonin levels. If antibiotics are administered, repeat procalcitonin testing should be performed every 2-3 da ys to consider early antibiotic cessation. PCT is a dynamic biomarker and most useful when trends are analyzed over time in accompaniment with other clinical data. Performing Organization Address [facility] Phon e Number [address] [place] [phone] LIPASE (08/30/2020 10:12 AM CDT) Pathologist Sig nature Lipase 10 5 - 80 U/L [address] Specimen Blood - Blood specimen (specimen) Performing Organization Address [facility] Phon e Number [address] [place] [address] ESR (08/30/2020 10:12 AM CDT) Pathologist Sig nature ESR 74 (H) 0 - 19 mm/Hr [address] Specimen Blood - Blood specimen (specimen) Narrative Performed At This result was obtained with an ESR instrument that i s not based [address] on the standard Westergren method. The sensitivity and specificity of this method for various disease states may be different from the standard Westergren m ethod. Performing Organization Address [facility] Phon e Number [address] [place] [id number] C-REACTIVE PROTEIN (INFLAMMATION) (08/30/2020 10:12 AM CDT) Pathologist Sig [facility] CRP 201.6 (H) 0.0 - 8.0 mg/L [address] Specimen Blood - Blood specimen (specimen) Performing Organization Address [facility] Phon e Number [address] [place] [address] LACTIC ACID REFLEX TO REPEAT (08/30/2020 10:12 AM CDT) Pathologist Sig [facility] Lactic Acid 1.2 0.5 - 2.2 mmol/L [address] Specimen Blood - Blood specimen (specimen) Performing Organization Address [facility] Phon e Number [address] [place] [id number] LAB ONLY-COMPLETE BLOOD COUNT WITH DIFFERENTIAL (08/30/2020 10:12 AM CDT) Pathologist Sig [facility] WBC 14.7 (H) 4.0 - 11.0 K/uL [address] RBC 4.03 (L) 4.40 - 5.[address] M/uL Hemoglobin 11.6 (L) 13.5 - 17.[address] g/dL Hematocrit 34.1 (L) 40.0 - 50.0 % [address] MCV 84.6 80.0 - 98.[address] MCH 28.8 25.5 - 34.[address] MCHC 34.0 31.5 - 36.[address] g/dL RDW-CV 13.8 11.5 - 15.5 % [address] RDW-SD 43.4 35.5 - 50.[address] Platelet Count 478 (H) 140 - 400 K/uL [address] MPV 8.1 (L) 8.5 - 12.[address] Seg Neut Absolute 12.2 (H) 1.8 - 8.0 K/uL [address] Lymphocytes Absolute 1.4 0.8 - 4.1 K/uL [place] [address] [facility] Monocytes Absolute 1.0 0.0 - 1.0 K/uL [address] Eosinophils Absolute 0.0 0.0 - 0.7 K/uL [place] [address] [facility] Basophil Absolute 0.1 0.0 - 0.2 K/uL [address] Immature Granulocyte 0.14 (H) 0.00 - 0.[address] Absolute K/uL Neutrophils Abs. 12,200 /uL [address] (Segs and Bands) Neutrophils Percent 82.9 % [address] Lymphocytes Percent 9.3 % [address] Monocytes Percent 6.5 % [address] Immature Granulocyte 1.0 % [address] Percent Eosinophils Percent 0.0 % [address] Basophil Percent 0.3 % [address] Nucleated RBC 0 /[address] Specimen Blood - Blood specimen (specimen) Performing Organization Address City/[facility]/ZIP Code Phon e Number [address] [place] [address] COLLECT AND HOLD BROWNLEE (NAFL) TOP TUBE (08/30/2020 10:12 AM CDT) Collect and Hold Comment: RECEIVED [place] [id number] Specimen Status CLINIC Specimen Blood - Blood specimen (specimen) Performing Organization Address City/[facility]/ZIP [facility] Phon e Number [address] [place] [address] COLLECT AND HOLD BLUE (NACIT) TOP TUBE (08/30/2020 10:12 AM CDT) Collect and Hold Comment: RECEIVED [place] [id number] Specimen Status CLINIC Specimen Blood - Blood specimen (specimen) Performing Organization Address [facility] Phon e Number [place] [address] [facility] [address] [place] [address] COMPREHENSIVE METABOLIC PANEL (08/30/2020 10:12 AM CDT) Pathologist [facility] nature Glucose 315 (H) 70 - 100 mg/dL [place] [address] [facility] BUN 15 6 - 22 mg/dL [address] Creatinine 1.02 0.80 - 1.[address] mg/dL BUN/Creatinine Ratio 14.7 10.0 - 25.[address] Sodium 135 135 - 145 meq/L [address] Potassium 3.7 3.5 - 5.3 meq/L [address] Chloride 100 99 - 110 meq/L [address] CO2 20 20 - 29 meq/L [address] Anion Gap with K 19 6 - 20 meq/L [address] Calcium 9.1 8.5 - 10.[address] mg/dL Protein Total 6.3 6.0 - 8.2 g/dL [address] Albumin 3.0 (L) 3.5 - 5.0 g/dL [address] Alkaline Phosphatase 220 (H) 30 - 150 U/L [address] AST - SGOT 30 0 - 35 U/L [address] ALT - SGPT 42 0 - 55 U/L [address] Bilirubin Total 0.4 0.2 - 1.2 mg/dL [address] Corrected Calcium 9.9 8.5 - 10.[address] mg/dL Age 60 Years [place] [address] [facility] eGFR Non- 74 >=[address] Bur[place] mL/min/1.73m2 eGFR 90 >=[address] mL/min/1.73m2 Specimen Blood - Blood specimen (specimen) Performing Organization Address City/[facility]/ZIP [facility] Phon e Number [place] [address] [facility] [address] 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 Pediatric Patients 0 - 3 months: Maximum of 60 mg/kg/24 hours of acetaminophen. Pediatric Patients older than 3 months: Maximum of 75 mg/kg/24 hours of acetaminophen (Never exceeding 4 grams/day). Given 09/13/2020 9:00 PM CDT 1,000 mg Given 09/13/2020 2:31 PM CDT 1,000 mg acetaminophen (TYLENOL) tablet 650 mg Given 09/04/2020 6:13 PM CDT 650 mg 650 mg, Oral, Every four hours prn, Starting on Sun09/03/20 at 0931, Until Discontinued, mild pain, fever, for pain scale 3 or less, PACU - Continue Post-Op, Adult patients: Total dose of acetaminophen from all acetaminophen containing products should not exceed 4 grams (4000 mg) per day. Pediatric Patients 0 - 3 months: Maximum of 60 mg/kg/24 hours of acetaminophen. Pediatric Patients older than 3 months: Maximum of 75 mg/kg/24 hours of acetaminophen (Never exceeding 4 grams/day). Given 09/03/2020 11:52 AM CDT 650 mg amLODIPine (NORVASC) tablet 5 mg Given 09/13/2020 7:38 PM CDT 5 mg 5 mg, Oral, Bedtime, First dose (after last modification) on Sun09/08/20 at 2100, Until Discontinued, Hold for SBP less than 100 Given 09/12/2020 8:24 PM CDT 5 mg Given 09/11/2020 9:36 PM CDT 5 mg aspirin tablet 325 mg Given 09/14/2020 10:04 AM CDT 325 mg 325 mg, Oral, DAILY, First dose on Sun09/05/20 at 0900, Until Discontinued Given 09/13/2020 9:39 AM CDT 325 mg Given 09/12/2020 8:26 AM CDT 325 mg benzocaine-menthol (CEPACOL w/ Given 09/03/2020 9:11 PM CDT 1 l ozenge BENZOCAINE) lozenge 1 lozenge 1 lozenge, Mouth/Throat, Every four hours prn, Starting on Sun09/03/20 at 1953, Until Discontinued, sore throat, other (Specify), throat irritation, Post - Op, Exception: Patients with dysphagia, radiation mucositis/esophagitis or without a gag reflex. bisacodyl (DULCOLAX) suppository 10 mg 10 mg, Rectal, One time a day prn, Starting on 08/14 at 1303, Until Discontinued, constipation, Use SECOND for constipatio n. If patient cannot take oral medications, use first for constipation. carbohydrate 15 g 15 g, Oral, PRN per parameter, Starting on Sun09/08/20 at 2016, Until Discontinued, low blood glucose, Give 15 grams of carb ohydrate if blood glucose is less than 70 mg/dL, patient is responsive and able to take food or oral meds. Recheck blood glucose in 15 minutes. Repeat 1 time and call MD. If recheck is greater than 70 mg/dL and able to take food or oral meds, give 15 gram carbohydrate if meal or snack due in more than an hour. Serve meal or snack if due in less than 1 hour. See hypoglycemia treatment on cardex. S ources of 15 grams carbohydrate: a. 4 oz of fruit juice (Do NOT give orange juice to dialysis p atients due to risk of hyperkalemia) or b. 4 oz of soda pop (NOT diet) or c . 1 tablespoon of honey carVEDilol (COREG) tablet 3.125 mg Given 09/14/2020 10:04 AM CDT 3.125 mg 3.125 mg, Oral, Two times a day with meals, First dose on Sun09/10/20 at 1730, Until Discontinued, Take with food. Hold for SBP less than 100 Hold for HR less than 60 Given 09/13/2020 5:39 PM CDT 3.125 mg Given 09/13/2020 9:40 AM CDT 3.125 mg cefepime (MAXIPIME) 2000 mg/20 mL in Given 09/14/2020 5:20 AM C DT 2,000 mg sterile water IV syringe 2,000 mg, IV, Every twelve hours, First dose (after last modification) on Sun09/08/20 at 1700, Until Discontinued, 20 mL, Administer over 5 minutes. Given 09/13/2020 5:32 PM CDT 2,000 mg Given 09/13/2020 5:38 AM CDT 2,000 mg dextrose 50% IV solution 50 mL 50 mL (25 g), IV, PRN per parameter, Starting on Sun at 2016, Until Discontinued, low blood glucose, 50 mL, Give if blood glucose is less than 70 mg/dL, patient is unresponsive or NPO, a nd has IV access. Recheck blood glucose in 15 minutes and call MD. Repeat dose if r echeck less than 70 mg/dL and call MD. If recheck is greater than 70 mg/dL and abl e to take food or oral meds, give 15 gram carbohydrate if meal or snack due in mor e than an hour. Serve meal or snack if due in less than 1 hour. See hypoglycemia treatment on car dex. docusate sodium (COLACE) capsule 100 mg Given 09/11/2020 7:45 AM CDT 100 mg 100 mg, Oral, Two times a day, First dose on Sun09/03/20 at 2100, Until Discontinued, Post - Op, Hold for loose stools Given 09/07/2020 10:09 AM CDT 100 mg Given 09/04/2020 8:34 AM CDT 100 mg docusate sodium (THEREVAC-SB MINI;ENEMEE Z MINI) 283 MG enema 1 enema 1 enema, Rectal, One time a day prn, Starting on Sun at 1303, Until Discontinued, constipation, Use THIRD for constipation - if no BM 8 hours after dulcolax suppository. If patient cannot take oral medi cations, use second for constipation. glucagon for injection 1 mg vial 1 mg 1 mg, Intramuscular, PRN per parameter, Starting on 09/08/20 at 2015, Until Discontinued, low blood glucose, Give if blood glucose less than 70 mg/dL, patient is unresponsive or NPO, and has no IV ac cess. Establish IV access. Recheck blood glucose in 15 minutes and call MD. If r echeck is greater than 70 mg/dL and able to take food or oral meds, give 15 gram car bohydrate if meal or snack due in more than an hour. Serve meals or snack if due in less than 1 ho ur. See hypoglycemia treatment on cardex. Reconstitute vial with 1 mL of sterile water for injection for reconstitution for a final concentra tion of 1 mg/mL. Shake vial gently. Use immediately and discard unused portion. Reconstitute with 1 mL of sterile water for injection to yield 1 mg/mL. Shake vial gently. Use immediately and discard unused portion. glucose chewable tablet 16 g 16 g (4 tablet), Oral, PRN per parameter , Starting on Sun09/08/20 at 2015, Until Discontinued, low blood glucose, Chew before swallowin g. Give 15 gram of carbohydrate if blood glucose is less th an 70 mg/dL, patient is responsive and able to take food or oral meds. Recheck blood glucose in 15 minutes. Repeat 15 gram carbohydrate if recheck is less than 70 mg/dL and call MD. If recheck is greater than 70 mg/dL and able to take food or o ral meds, give 15 gram carbohydrate if meal or snack due in more than an hour. Serve meal or snack if due in less than 1 hour. See hypoglycemia treatment on cardex. (S ources of 15 gram carbohydrate: 4 oz fruit juice or 4 oz soda pop (NOT diet) or 1 t ablespoonful honey or 4 glucose tablets.) heparin (porcine) injection solution Given 09/14/2020 10:05 AM C DT 5,000 Units 5,000 Units 5,000 Units, Subcutaneous, Every twelve hours, First dose on 09/04/20 at 2100, Until Discontinued, 1 mL Given 09/13/2020 7:38 PM CDT 5,000 Units Given 09/13/2020 9:39 AM CDT 5,000 Units hydrALAZINE (APRESOLINE) injection solution Given 09/05/2020 3:15 AM CDT 20 mg 20 mg 20 mg, IV, Every three hours prn, Starting on Sun08/31/20 at 2331, Until Discontinued, specified parameter, systolic blood pressure greater than 160, 1 mL, Use SECOND for hypertension Call MD if target not met after 3 consecutive prn dosages of either labetalol or hydralazine. Given 09/04/2020 10:19 PM CDT 20 mg Given 09/02/2020 10:17 PM CDT 20 mg insulin aspart (NovoLOG) SQ correction Given 09/13/2020 5:30 PM CDT 7 Units scale (Adult) 2-8 Units, Subcutaneous, Three times a day, First dose (after last modification) on Sun09/09/20 at 0600, Until Discontinued, 0.08 mL, LOW DOSE SQ INSULIN ALGORITHM Premeal Glucose = Insulin Dose 150-199 2 units 200-249 3 units 250-299 5 units 300-349 7 units Over 349 8 units Given 09/13/2020 6:03 AM CDT 2 Units Given 09/12/2020 5:22 PM CDT 5 Units insulin glargine (LANTUS) SQ injection Given 09/13/2020 7:38 PM CDT 20 Units 20 Units, Subcutaneous, Bedtime, First dose (after last modification) on Sun09/08/20 at 2100, Until Discontinued, 0.2 mL, Blood Glucose greater than or equal to 100 mg/dL - Do Not Hold If Blood Glucose LESS than 100 mg/dL, if patient changed to NPO, or if tube feedings stopped - Immediately notify provider before administration. Given 09/12/2020 8:24 PM CDT 20 Units Given 09/11/2020 9:35 PM CDT 20 Units labetalol (NORMODYNE;TRANDATE) IV solution 20 Given 1:27 PM CDT 20 mg mg 20 mg, IV, Every three hours prn, Starting on Sun08/31/20 at 2331, Until Discontinued, specified parameter, systolic blood pressure greater than 160, 20 mL, Use FIRST for hypertension Call MD if target not met after 3 consecutive prn dosages of either labetalol or hydralazine Given 09/06/2020 8:14 AM CDT 20 mg Given 09/05/2020 12:05 PM CDT 20 mg lisinopril (PRINIVIL, ZESTRIL) tablet 20 mg Given 09/14/2020 10:04 AM CDT 20 mg 20 mg, Oral, Daily, First dose (after last modification) on Sun09/07/20 at 0900, Until Discontinued, Hold for SBP less than 110 . Given 09/13/2020 9:39 AM CDT 20 mg Given 09/12/2020 8:26 AM CDT 20 mg LORazepam (ATIVAN) 2 mg/mL injection solution Given 2:45 AM CDT 2 mg 2 mg 2 mg, IV, Every two hours prn, Starting on Sun08/31/20 at 2340, Until Discontinued, agitation, 1 mL, If preference is to further dilute for IV administration: First draw up patient-specific dose, then dilute with EQUAL VOLUME of 0.9% sodium chloride melatonin tablet 3 mg Given 09/02/2020 11:24 PM CDT 3 mg 3 mg, Oral, Bedtime prn, Starting on Sun09/01/20 at 1303, Until Discontinued, other (Specify), insomnia, Use FIRST for insomnia. If inadequate response in 60 minutes, may proceed to next choice option or, if no other options, contact provider. metroNIDAZOLE (FLAGYL) tablet 500 mg Given 09/14/2020 10:04 AM CDT 500 mg 500 mg, Oral, Three times a day, First dose on Sun09/08/20 at 1500, Until Discontinued Given 09/13/2020 7:37 PM CDT 500 mg Given 09/13/2020 2:31 PM CDT 500 mg omeprazole (priLOSEC) capsule 20 mg Given 09/14/2020 5:21 AM CDT 20 mg 20 mg, Oral, One time a day before breakfast, First dose on Sun09/04/20 at 0700, Until Discontinued, Post - Op, Swallow cap whole. Do not crush, chew or open. Given 09/11/2020 5:59 AM CDT 20 mg Given 09/10/2020 5:24 AM CDT 20 mg polyethylene glycol (MIRALAX) packet 1 Given 09/11/2020 7:44 AM CDT 1 packet packet 1 packet, Oral, Daily, First dose on Sun09/04/20 at 0900, Until Discontinued, Post - Op, Hold for loose stools. Dissolve in 8 ounces of water, juice, soda, coffee, tea Do NOT give if patient on thickened liquids. Contact provider for alternative if needed. Given 09/04/2020 8:35 AM CDT 1 packet senna-docusate sodium Given 09/11/2020 7:45 AM CDT 1 tablet (SENOKOT-S;PERICOLACE) tablet 1 tablet 1 tablet, Oral, Two times a day, First dose on Sun09/03/20 at 2100, Until Discontinued, Post - Op Given 09/07/2020 10:08 AM CDT 1 tablet Given 09/04/2020 8:35 AM CDT 1 tablet senna-docusate sodium (SENOKOT-S;PERICOL FREDIS) tablet 2 tablet 2 tablet, Oral, Two times a day prn, Starting on Sun at 1303, Until Discontinued, constipation, Use FIRST fo r constipation unless patient cannot take oral medications. simvastatin (ZOCOR) tablet 40 mg Given 09/13/2020 7:37 PM CDT 40 mg 40 mg, Oral, Bedtime, First dose (after last modification) on Sun09/01/20 at 2100, Until Discontinued Given 09/12/2020 8:24 PM CDT 40 mg Given 09/11/2020 9:35 PM CDT 40 mg sodium chloride 0.9% flush (adult) 10 mL Given 09/14/2020 10:08 AM CDT 10 mL 10 mL, IV, Two times a day and prn, First dose on Sun08/30/20 at 2100, Until Discontinued, 10 mL, Flush PIV line as scheduled and as often as necessary before and after meds. Use a push / pause technique when flushing to create turbulence. Given 09/13/2020 7:40 PM CDT 10 mL Given 09/13/2020 9:39 AM CDT 10 mL vancomycin (VANCOCIN) 1,750 mg in sodium Given 09/14/2020 2 :06 AM CDT 1,750 mg chloride 0.9% 500 mL (Locked) 1,750 mg, IV, Every twelve hours, First dose (after last modification) on Sun09/05/20 at 1430, Until Discontinued, 500 mL Given 09/13/2020 2:31 PM CDT 1,750 mg Given 09/13/2020 2:16 AM CDT 1,750 mg Medication Order MAR Action Action Date Dose Rate Site acetaminophen (TYLENOL) tablet Given 08/31/2020 2:48 PM CDT 1,0 00 mg 1,000 mg 1,000 mg, Oral, Every eight hours, First dose on Sun08/30/20 at 2200, Until Discontinued, Adult patients: Total dose of acetaminophen from all acetaminophen containing products should not exceed 4 grams (4000 mg) per day. Pediatric Patients 0 - 3 months: Maximum of 60 mg/kg/24 hours of acetaminophen. Pediatric Patients older than 3 months: Maximum of 75 mg/kg/24 hours of acetaminophen (Never exceeding 4 grams/day). Given 08/31/2020 5:39 AM CDT 1,000 mg Given 08/30/2020 9:35 PM CDT 1,000 mg acetaminophen (TYLENOL) tablet 650 mg Given 08/30/2020 4:25 PM CDT 650 mg 650 mg, Oral, Now, 1 dose, On 08/30/20 at 1540, Adult patients: Total dose of acetaminophen from all acetaminophen containing products should not exceed 4 grams (4000 mg) per day. alteplase (CATHFLO ACTIVASE) injection 2 mg Given 09/09/2020 11:27 AM CDT 2 mg 2 mg, IV catheter clearance, Now, 1 dose, On Peace 09/09/20 at 0915, 2 mL, Alteplase to restore patency being administered in the Purple lumen. (A) Instill a maximum of 2 mg (2 mL) of alteplase into each affected lumen. (B) After at least 30 minutes of dwell time, catheter function may be assessed by attempting to aspirate blood (C) If aspiration unsuccessful after 30 minutes, a second aspiration attempt may be made after an additional 90 minutes (total 120 minutes) of dwell time (D) If aspiration unsuccessful after 120 minutes, may repeat a second instillation of alteplase 2 mg maximum to each port, as directed above (E) When patency is restored, aspirate 4 - 5 mL of blood to remove all drug and clot residual, and gently irrigate the catheter with 0.9% sodium chloride (F) Avoid excessive pressure due to potential dislodging of the clot. The alteplase should be removed from the catheter and NOT pushed through to the patient. (G) Alteplase contains no antibacterial preservative and should be reconstituted immediately before use (within 8 hours). (H) No other medication, including 0.9% sodium chloride, may be added to alteplase while dwelling in the catheter. (I) Maximum dwell time for each alteplase instillation is 2 hours. amLODIPine (NORVASC) tablet 2.5 mg Given 09/07/2020 8:32 PM CDT 2.5 mg 2.5 mg, Oral, Bedtime, First dose on Sun09/07/20 at 2100, Until Discontinued, Hold for SBP less than 100 cefepime (MAXIPIME) 2000 mg/20 mL in Given 08/30/2020 1:38 PM C DT 2,000 mg sterile water IV syringe 2,000 mg, IV, Now, 1 dose, On Sun08/30/20 at 1330, 20 mL, Administer over 5 minutes. cefepime (MAXIPIME) 2000 mg/20 mL in Given 09/08/2020 4:52 AM C DT 2,000 mg sterile water IV syringe 2,000 mg, IV, Every eight hours, First dose on Sun08/30/20 at 2100, Until Discontinued, 20 mL, Administer over 5 minutes. Given 09/07/2020 9:07 PM CDT 2,000 mg Given 09/07/2020 12:35 PM CDT 2,000 mg chlorhexidine (PERIDEX) 0.12 % solution 15 mL Given 09/01/2020 11:32 AM CDT 15 mL 15 mL, Mouth/Throat, Two times a day, First dose on Sun09/01/20 at 0005, Until Discontinued, 473 mL, Swab and suction. Check with physician for further orders when mechanical ventilation is discontinued. Given 09/01/2020 2:21 AM CDT 15 mL dexmedetomidine (PRECEDEX) Rate Change 09/01/2020 4:00 PM 0.5 mcg /kg/hr 11.6 mL/hr 4 mcg/mL NS 100 mL IV CDT solution (Premix) 0-1.5 mcg/kg/hr 92.6 kg (0-34.725 mL/hr, rounded to 0-34.7 mL/hr), IV, at 0-34.7 mL/hr, Titrate, Starting on Sun09/01/20 at 1015, Until Sun09/05/20 at 1243, 100 mL, Initiate infusion at 0.2 mcg/kg/hr. Increase by 0.1 mcg/kg/hr increments every 15 minutes until patient has achieved a RASS score -1. If the RASS score is <-1 on current infusion rate, decrease infusion by 0.1 mcg/kg/hr every 15 minutes to acheive a RASS score of -1 on lowest effective rate. Document titrations in One Chart (MAR or I&O Flowsheet medication group). Rate Change 09/01/2020 3:45 PM CDT 0.6 mcg/kg/hr 13.9 mL/hr Rate Change 09/01/2020 3:30 PM CDT 0.7 mcg/kg/hr 16.2 mL/hr DOPamine (1600 mcg/mL) in Rate Change 09/01/2020 10:02 AM 1 mcg/kg /min 3.5 mL/hr D5W IV solution (premix)~ CDT 0-15 mcg/kg/min 92.6 kg (0-52.0875 mL/hr, rounded to 0-52.1 mL/hr), IV, at 0-52.1 mL/hr, PRN per parameter, Starting on Sun09/01/20 at 0337, Until Sun09/03/20 at 1234, blood pressure, 250 mL, Initiate drip at 3 mcg/kg/minute. Increase by 2 mcg/kg/minute every 5 minutes to maintain HR 40-50 bpm When discontinuing or tapering, decrease infusion by by 1 - 2 mcg/kg/min every 15 minutes to prevent severe hypotension. Notify physician if the highest rate in the ordered dosing range is still not able to achieve hemodynamic goal. Document titrations in One Chart (MAR or I&O Flowsheet medication group). Central line preferred if available. Acceptable to give peripherally for urgent need and one-time administration. Pursue a central line for continuous use greater than 24 hours. Rate Change 09/01/2020 9:15 AM CDT 2 mcg/kg/min 6.9 mL/hr New Bag 09/01/2020 3:45 AM CDT 3 mcg/kg/min 10.4 mL/hr famotidine (PEPCID) IV solution 20 mg Given 09/02/2020 8:18 AM CDT 20 mg 20 mg, IV, Two times a day, First dose on Sun08/31/20 at 2335, Until Discontinued, 2 mL, Medication stored in refrigerator. First draw up patient specific dose, then dilute to 10 mL with 0.9% sodium chloride and administer over 2 minutes. Given 09/01/2020 8:42 PM CDT 20 mg Given 09/01/2020 9:34 AM CDT 20 mg fentaNYL 20mcg/ml (2000mcg/100 Rate Change 09/01/2020 11:10 AM 50 mcg/hr 2.5 mL/hr ml) 0.9% sodium chloride IV CDT solution 0-200 mcg/hr (0-10 mL/hr), IV, at 0-10 mL/hr, Titrate, Starting on Sun09/01/20 at 0030, Until Sun09/01/20 at 1301, 100 mL, If more than one infusion is ordered to target RASS, use fentanyl infusion titrated to 100 mcg/hr. When fentanyl infusion is greater than 100 mcg/hr, to meet RASS goal, initiate additional sedative infusion to achieve RASS goal. Initiate infusion at 50 mcg/hr. Increase infusion rate by 25 mcg/hr every 15 minutes until patient is comfortable and has achieved a RASS score of -1. If the RASS score is less than or AT GOAL on current infusion rate and pain is controlled, decrease/wean infusion by 25 mcg/hr every 15 minutes (recommended for acute use). Document titrations in One Chart (MAR or I&O Flowsheet medication group). Patient must be intubated while on this infusion or in the process of weaning post-extubation. Call prescriber to attain weaning/discontinuation orders if the patient is not intubated. New Bag 09/01/2020 11:08 AM CDT 75 mcg/hr 3.8 mL/hr Rate Change 09/01/2020 11:00 AM CDT 75 mcg/hr 3.8 mL/hr hEParin 100 units/ mL injection for Given 09/12/2020 5:01 AM CD T 300 Units heplock FLUSH 300 Units (3 mL), IV, PRN per parameter, Starting on Sun09/12/20 at 0447, Until Sun09/12/20 at 1510, other (Specify), PICC line maintanence, 3 mL, Flush with 10 mL sodium chloride 0.9% followed by 300 units (100 units/mL) heparin after each use hydrALAZINE (APRESOLINE) tablet 50 mg Given 08/31/2020 2:48 PM CDT 50 mg 50 mg, Oral, Three times a day, First dose on Sun08/30/20 at 1930, Until Discontinued, Hold for SBP less than 100 Given 08/31/2020 9:15 AM CDT 50 mg Given 08/30/2020 8:10 PM CDT 50 mg insulin aspart (NovoLOG) SQ correction Given 08/31/2020 5:39 AM CDT 2 Units scale (Adult) 2-8 Units, Subcutaneous, Three times a day, First dose on Sun08/30/20 at 1730, Until Discontinued, 0.08 mL, Give this dose whether patient is eating or patient is NPO LOW DOSE insulin aspart (NovoLOG) subcutaneous correction scale Premeal Blood Glucose = Insulin Dose 150-199 2 units 200-249 3 units 250-299 5 units 300-349 7 units Over 349 8 units Given 08/30/2020 5:32 PM CDT 2 Units insulin aspart (NovoLOG) SQ correction Given 09/07/2020 12:35 PM CDT 2 Units scale (Adult) 2-12 Units, Subcutaneous, Three times a day, First dose on Sun09/01/20 at 1730, Until Discontinued, 0.12 mL, Give this dose whether patient is eating or patient is NPO MEDIUM DOSE insulin aspart (NovoLOG) subcutaneous correction scale Premeal Blood Glucose = Insulin Dose 150-199 2 units 200-249 4 units 250-299 7 units 300-349 10 units Over 349 12 units Given 09/06/2020 6:58 PM CDT 2 Units Given 09/04/2020 4:39 PM CDT 2 Units insulin glargine (LANTUS) SQ injection Given 09/01/2020 2:32 AM CDT 25 Units 25 Units, Subcutaneous, Bedtime, First dose on Sun08/30/20 at 2100, Until Discontinued, 0.25 mL, Blood Glucose greater than or equal to 100 mg/dL - Do Not Hold If Blood Glucose LESS than 100 mg/dL, if patient changed to NPO, or if tube feedings stopped - Immediately notify provider before administration. Given 08/30/2020 8:10 PM CDT 25 Units insulin glargine (LANTUS) SQ injection Given 09/03/2020 8:39 PM CDT 20 Units 20 Units, Subcutaneous, Bedtime, First dose on Sun09/01/20 at 2100, Until Discontinued, 0.2 mL, Blood Glucose greater than or equal to 100 mg/dL - Do Not Hold If Blood Glucose LESS than 100 mg/dL, if patient changed to NPO, or if tube feedings stopped - Immediately notify provider before administration. Given 09/02/2020 8:48 PM CDT 20 Units Given 09/01/2020 8:39 PM CDT 20 Units insulin glargine (LANTUS) SQ injection Given 09/07/2020 9:13 PM CDT 30 Units 30 Units, Subcutaneous, Bedtime, First dose (after last modification) on Sun09/04/20 at 2100, Until Discontinued, 0.3 mL, Blood Glucose greater than or equal to 100 mg/dL - Do Not Hold If Blood Glucose LESS than 100 mg/dL, if patient changed to NPO, or if tube feedings stopped - Immediately notify provider before administration. Given 09/06/2020 9:58 PM CDT 30 Units Given 09/05/2020 11:07 PM CDT 30 Units iohexol (OMNIPAQUE) 350 mg/mL solution 100 Given 08/30/2020 12:25 PM CDT 100 mL mL 100 mL, IV, Now imaging, 1 dose, Starting on Sun08/30/20 at 1229, Until Sun08/30/20 at 1225, 100 mL iohexol (OMNIPAQUE) 350 mg/mL solution 1 00 mL Given 09/06/2020 10:55 AM CDT 85 mL 100 mL, IV, Now imaging, 1 dose, Starting on Sun09/06/20 at 1054, Until Sun09/06/20 at 1055, 100 mL ketorolac (TORADOL) tablet 10 mg Given 08/31/2020 2:29 AM CDT 10 mg 10 mg, Oral, One time, 1 dose, On Sun08/31/20 at 0225 labetalol (NORMODYNE;TRANDATE) IV solution 20 Given 5:33 PM CDT 20 mg mg 20 mg, IV, Every three hours prn, Starting on Sun08/30/20 at 1539, Until Sun08/31/20 at 2317, specified parameter, systolic blood pressure greater than 160, 20 mL, HOLD if HR < 60 lactated ringers IV solution Already Infusing 09/03/2020 9:52 AM CDT 125 mL/hr IV, at 125 mL/hr, Continuous, Starting on Sun09/03/20 at 0940, Until Sun09/03/20 at 1147, 1,000 mL, PACU, TKO current fluids if patient is going to Day Unit / ARU and tolerating PO fluids without nausea. levETIRAcetam (KEPPRA) 1,000 mg in sodium Given 2020 10:12 AM CDT 1,000 mg chloride 0.9% 100 mL 1,000 mg, IV, Now, 1 dose, On Sun09/03/20 at 0955, 110 mL, Pre - Op, Administer over 15 minutes. Administer over 15 minutes. levETIRAcetam (KEPPRA) 500 mg in sodium Given 09/05/2020 8:44 A M CDT 500 mg chloride 0.9% 100 mL 500 mg, IV, Two times a day, First dose on Sun09/03/20 at 2100, Until Discontinued, 105 mL, Administer over 15 minutes. Administer over 15 minutes. Given 09/04/2020 8:45 PM CDT 500 mg Given 09/04/2020 8:35 AM CDT 500 mg levETIRAcetam (KEPPRA) tablet 500 mg Given 09/10/2020 8:10 PM CDT 500 mg 500 mg, Oral, Two times a day, 11 doses, First dose on Sun09/05/20 at 2100, Last dose on Sun09/10/20 at 2100, Splitting or crushing tablet is not recommended due to taste. Given 09/10/2020 7:56 AM CDT 500 mg Given 09/09/2020 9:37 PM CDT 500 mg lisinopril (PRINIVIL, ZESTRIL) tablet 10 mg Given 09/06/2020 8:11 AM CDT 10 mg 10 mg, Oral, Daily, First dose on Sun09/05/20 at 1400, Until Discontinued Given 09/05/2020 2:17 PM CDT 10 mg magnesium sulfate 2 g/50 mL premixed IV Given 09/02/2020 8:19 A M CDT 2 g solution 2 g, IV, Now, 1 dose, On Sun09/02/20 at 0705, 50 mL magnesium sulfate IV replacement Given 08/31/2020 9:16 AM CDT 4 g 25 mL/hr (premix) 4 g 4 g, IV, at 25 mL/hr, One time, 1 dose, On Sun08/31/20 at 0900, 100 mL magnesium sulfate IV replacement Given 09/06/2020 5:16 PM CDT 4 g 25 mL/hr (premix) 4 g 4 g, IV, at 25 mL/hr, One time, 1 dose, On Sun09/06/20 at 1645, 100 mL melatonin tablet 6 mg Given 08/30/2020 8:10 PM CDT 6 mg 6 mg, Oral, Bedtime, First dose on Sun08/30/20 at 2100, Until Discontinued metroNIDAZOLE (FLAGYL) IV piggyback in Given 08/30/2020 1:42 PM CDT 500 mg sodium chloride 0.79% (premix) 500 mg 500 mg, IV, Now, 1 dose, On Sun08/30/20 at 1330, 100 mL metroNIDAZOLE (FLAGYL) IV piggyback in Given 09/08/2020 4:53 AM CDT 500 mg sodium chloride 0.79% (premix) 500 mg 500 mg, IV, Every eight hours, First dose on Sun08/30/20 at 2100, Until Discontinued, 100 mL Given 09/07/2020 9:08 PM CDT 500 mg Given 09/07/2020 12:45 PM CDT 500 mg omeprazole (priLOSEC) capsule 20 mg Given 08/31/2020 6:48 AM CDT 20 mg 20 mg, Oral, DAILY, First dose on Sun08/31/20 at 0700, Until Discontinued, Swallow cap whole. Do not crush, chew or open. PHENYLephrine 200 mcg/mL Rate Change 09/01/2020 10:00 PM 0.1 mcg/k g/min 2.8 mL/hr in sodium chloride 0.9% CDT 250 mL 0-4 mcg/kg/min 92.6 kg (0-111.12 mL/hr, rounded to 0-111.1 mL/hr), IV, at 0-111.1 mL/hr, Titrate, Starting on Sun09/01/20 at 0145, Until Sun09/05/20 at 1243, 250 mL, Initiate the infusion at 0.1-0.5 mcg/kg/min. Increase or decrease the infusion by 0.1-0.5 mcg/kg/min every 5 minutes to keep MAP > 65 When discontinuing or weaning, decrease dose gradually by 0.1-0.5 mcg/kg/minute every 5 minutes as tolerated to prevent severe hypotension. Document titrations in One Chart (MAR or I&O Flowsheet medication group). Central line preferred if available. Acceptable to give peripherally for urgent need and one-time administration. Pursue a central line for continuous use greater than 24 hours. Rate Change 09/01/2020 6:00 PM CDT 0.2 mcg/kg/min 5.6 mL/hr Restarted 09/01/2020 5:00 PM CDT 0.5 mcg/kg/min 13.9 mL/hr potassium & sodium phosphates (PHOS-NaK) Given 021 8:18 AM CDT 2 packets 280-160-250 MG packet 2 packet 2 packet, Oral, Now, 1 dose, On Peace 09/02/20 at 0705, Mix as directed potassium chloride (KLOR-CON M20) CR tablet Given 08/15 8:18 AM CDT 40 mEq 40 mEq 40 mEq, Oral, Now, 1 dose, On Peace 09/02/20 at 0705, Tablet may be broken in half, but should not be crushed or chewed. Tablet may be dissolved in 4 oz of water. DO NOT give via feeding tube route as this can clog the tube. potassium chloride (KLOR-CON M20) CR tablet Given 08/15 11:25 AM CDT 40 mEq 40 mEq 40 mEq, Oral, Now, 1 dose, On Sun09/05/20 at 1115, Tablet may be broken in half, but should not be crushed or chewed. Tablet may be dissolved in 4 oz of water. DO NOT give via feeding tube route as this can clog the tube. potassium chloride (KLOR-CON M20) CR tablet Given 08/15 5:14 PM CDT 40 mEq 40 mEq 40 mEq, Oral, One time, 1 dose, On Sun09/07/20 at 1700, Tablet may be broken in half, but should not be crushed or chewed. Tablet may be dissolved in 4 oz of water. propofol (DIPRIVAN) 1000 New Bag 09/01/2020 9:34 AM CDT 40 mc g/kg/min 22.4 mL/hr mg/100 mL IV emulsion 0-75 mcg/kg/min 93.3 kg (0-41.985 mL/hr, rounded to 0-42 mL/hr), IV, at 0-42 mL/hr, Titrate, Starting on Sun09/01/20 at 0030, Until Sun09/01/20 at 1301, 100 mL, Initiate the infusion at 20 mcg/kg/min Titrate the infusion by 5-10 mcg/kg/min every 3 minutes as needed If RASS score is less than or AT GOAL on current infusion rate, decrease/wean infusion by 5-10 mcg/kg/min at least every 4 hours to lowest effective dose. After spontaneous breathing trial, restart sedation at half the rate previously required Propofol titration goal: RASS - 1 : Drowsy not fully alert. But has sustained awakening (eye opening/eye contact) to voice (greater than 10 seconds) Infusion, tubing and cap (needleless connector) should be changed every 12 hours Chart both the rate of infusion and the dose mcg/kg/min New Bag 09/01/2020 4:59 AM CDT 30 mcg/kg/min 16.8 mL/hr Rate Change 09/01/2020 3:56 AM CDT 40 mcg/kg/min 22.4 mL/hr simvastatin (ZOCOR) tablet 40 mg Given 08/30/2020 8:10 PM CDT 40 mg 40 mg, Oral, Bedtime, First dose on Sun08/30/20 at 2100, Until Discontinued sodium chloride 0.9% (bolus) IV solution Given 08/30/2020 10 :59 AM CDT 1,000 mL 1,000 mL 1,000 mL, IV, Bolus, 1 dose, On Sun08/30/20 at 1155, 1,000 mL, IV bolus now sodium chloride 0.9% (bolus) IV solution Given 08/30/2020 5 :33 PM CDT 1,000 mL 1,000 mL 1,000 mL, IV, Bolus, 1 dose, On Sun08/30/20 at 1720, 1,000 mL, IV bolus now sodium chloride 0.9% flush (adult) 10 mL Given 09/07/2020 8:33 PM CDT 10 mL 10 mL, IV, Two times a day and prn, First dose on Sun09/03/20 at 0930, Until Discontinued, 10 mL, Post - Op, Flush unused lumens as scheduled and as often as necessary before and after meds. Use a push/pause technique when flushing to create turbulence. Given 09/05/2020 8:05 PM CDT 10 mL Given 09/04/2020 8:46 PM CDT 10 mL sodium chloride 0.9% flush (adult) 10 mL Given 09/09/2020 12:05 PM CDT 10 mL 10 mL, IV, Daily and prn, First dose on Sun09/03/20 at 0900, Until Discontinued, 10 mL, Flush unused lumens as scheduled and as often as necessary before and after meds. Use a push / pause technique when flushing to create turbulence. Given 09/08/2020 10:17 AM CDT 10 mL Given 09/04/2020 8:36 AM CDT 10 mL sodium chloride 0.9% flush (adult) 10 mL Given 09/10/2020 7:57 AM CDT 10 mL 10 mL, IV, Two times a day and prn, First dose on Sun09/03/20 at 0925, Until Discontinued, 10 mL, Continue through discharge, Flush PIV line as scheduled and as often as necessary before and after meds. Use a push / pause technique when flushing to create turbulence. Given 09/07/2020 8:33 PM CDT 10 mL Given 09/06/2020 8:13 AM CDT 10 mL sodium chloride 0.9% flush (adult) 10 mL Given 09/09/2020 9:38 PM CDT 10 mL 10 mL, IV, Two times a day and prn, First dose on Sun09/03/20 at 2100, Until Discontinued, 10 mL, Post - Op, Flush unused lumens as scheduled and as often as necessary before and after meds. Use a push/pause technique when flushing to create turbulence. Given 09/08/2020 8:03 PM CDT 10 mL Given 09/07/2020 8:32 PM CDT 10 mL sodium chloride 0.9% IV solution New Bag/Tubing 09/01/2020 2:36 AM CDT 100 mL/hr IV, at 100 mL/hr, Continuous, Starting on Sun08/30/20 at 1725, Until Sun09/03/20 at 0922, 1,000 mL Rate Change 08/31/2020 1:00 PM CDT 100 mL/hr New Bag 08/30/2020 7:09 PM CDT 150 mL/hr sodium chloride 0.9% IV solution New Bag 09/03/2020 11:45 AM CDT 75 mL 75 mL/hr IV, at 75 mL/hr, Continuous, Starting on Sun09/03/20 at 0930, Until Sun09/03/20 at 2002, 1,000 mL Already Infusing 09/03/2020 9:56 AM CDT 75 mL/hr sodium chloride 0.9% IV solution New Bag 09/03/2020 8:45 PM CDT 75 mL/hr IV, at 75 mL/hr, Continuous, Starting on Sun09/03/20 at 2000, Until Sun09/05/20 at 1243, 1,000 mL, Post - Op sodium chloride 0.9% prefilled 10 mL syringe Given 5:01 AM CDT 10 mL (Materials Management Item) 10 mL 10 mL, IV, PRN per parameter, Starting on Sun09/12/20 at 0447, Until Sun09/12/20 at 1510, other (Specify), PICC line maintanence, 10 mL, Flush with 10 mL sodium chloride 0.9% followed by 300 units (100 units/mL) Heparin after each use vancomycin (VANCOCIN) 1,500 mg in sodium Given 09/03/2020 2 :17 PM CDT 1,500 mg chloride 0.9% 250 mL (Locked) 1,500 mg, IV, Every twelve hours, First dose on Sun08/30/20 at 0130, Until Discontinued, 250 mL Given 09/03/2020 2:02 AM CDT 1,500 mg Given 09/02/2020 2:16 PM CDT 1,500 mg vancomycin (VANCOCIN) 2,000 mg in sodium Given 08/30/2020 2 :48 PM CDT 2,000 mg chloride 0.9% 500 mL (Locked) 2,000 mg, IV, One time, 1 dose, On Sun08/30/20 at 1430, 500 mL vancomycin (VANCOCIN) 2,000 mg in sodium Given 09/05/2020 1 :18 AM CDT 2,000 mg chloride 0.9% 500 mL (Locked) 2,000 mg, IV, Every twelve hours, First dose (after last modification) on Sun09/04/20 at 0200, Until Discontinued, 500 mL Given 09/04/2020 2:19 PM CDT 2,000 mg Given 09/04/2020 1:46 AM CDT 2,000 mg vancomycin (VANCOCIN) 500 mg in sodium Given 09/03/2020 4:26 PM CDT 500 mg chloride 0.9% 100 mL 500 mg, IV, One time, 1 dose, On Sun09/03/20 at 1545, 105 mL, Give 500mg after 1500mg dose for total dose of 2000mg documented in this encounter Active and Recently Administered Medications Times are shown in CDT. 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 See MAR) should not exceed 4 grams (4000 mg) per day. Pediatric Patients 0 - 3 months: Maximum of 60 mg/kg/24 hours of acetaminophen. Pediatric Patients older than 3 months: Maximum of 75 mg/kg/24 hours of acetaminophen (Never exceeding 4 grams/day). amLODIPine (NORVASC) tablet 5 mg 2023 (Given - Provider: Michael Lopez RN) 1937 (Given - Provider: Steph Lopez RN) 2099 (Due) 5 mg, Oral, Bedtime, First dose (after l ast modification) on Sun09/08/20 at 2100, Until Discontinued, Hold for SBP less than 100 aspirin tablet 325 mg 0826 (Given - Provider: Maria C jolly RN) 0939 (Given - Provider: Maria C Smith RN) 1004 (Given - Provider: Kiarra Nathan, RINA) 325 mg, Oral, DAILY, First dose on Sun09/05/20 at 0900, Until Di scontinued bisacodyl (DULCOLAX) suppository 10 mg 0832 (Refused - Provider: Maria C Smith RN) 0948 (Held - Provider: Maria C Smith RN) 1007 (R efused - Provider: Kiarra Nathan, RINA) 10 mg, Rectal, Daily, First dose on Sun09/06/20 at 0900, Until Discontinued, Post - Op, Hold if has had an adequate BM in last 24 hours carVEDilol (COREG) tablet 3.125 mg 0826 (Given - Provi veronica: Maria C Smith RN)1721 (Given - Provider: Maria C Smith RN - Comment: BP 144/76HR 83) 0940 (Given - Provider: Maria C Smith RN - Comment: BP 151/95HR 88)1739 (Given - Provider: Maria C Smith RN - Comment: BP 156/87HR78) 1004 (Given - Provider: Kiarra Nathan RN)1730 (Due) 3.125 mg, Oral, Two times a day with erin ls, First dose on Sun09/10/20 at 1730, Until Discontinued, Take with food. Hold for SBP less than 100 Hold for HR less than 60 cefepime (MAXIPIME) 2000 mg/20 mL in sterile water IV syringe 0500 (Given - Provider: Steph Lopez RN)1715 (Given - Provider: Maria C Smith RN) 0538 (Given - Provider: Steph Lopez RN)1732 (Given - Provider: Maria C Smith RN) 0520 (Given - Provider: Steph pena RN)1700 (Due) 2,000 mg, IV, Every twelve hours, First dose (after last modification) on Sun09/08/20 at 1700, Until Discontinued, 20 mL, Administer over 5 minutes. docusate sodium (COLACE) capsule 100 mg 0832 (Refused - Provider: Maria C Smith RN)2129 (Refused - Provider: Steph Lopez RN) 0948 (Held - Provider: Maria C Smith RN)1944 (Refused - Provider: tSeph Lopez RN - Comment: Pt having stools, see flowsheets) 1007 (Refused - Provider: Kiarra Nathan RN)2100 (Due) 100 mg, Oral, Two times a day, First dos e on Sun09/03/20 at 2100, Until Discontinued, Post - Op, Hold for loose stools heparin (porcine) injection solution 5,000 Units 0826 (Given - Provider: Maria C Smith RN)2024 (Given - Provider: Steph Lopez RN) 0939 (Given - Provider: Maria C Smith RN)1938 (Given - Provider: Steph Lopez RN) 1005 (Given - Provider: Kiarra miner RN)2100 (Due) 5,000 Units, Subcutaneous, Every twelve hours, First dose on Sun09/04/20 at 2100, Until Discontinued, 1 mL insulin aspart (NovoLOG) SQ correction scale (Adult) 0 551 (Not Indicated - Provider: Steph Lopez RN - Comment: [phone] (Given - Provider: Maria C Smith RN - Comment: BG 154)1722 (Given - Provider: Maria C Smith RN - Comment: BG 265) 0603 (Given - Provider: Steph pena RN - Comment: [phone] (Not Indicated - Provider: Maria C Smith RN - Comment: BG 145)1730 (Given - Provider: Maria C Smith RN - Comment: BG 314) 0524 (Not Indicated - Provider: Steph Lopez RN)1130 (Due)1730 (Due) 2-8 Units, Subcutaneous, Three times a d ay, First dose (after last modification) on Sun09/09/20 at 0600, Until Discontinued, 0.08 mL, LOW DOSE SQ INSULIN ALGORITHM Premeal Glucose = Insulin Dose 15 0-199 2 units 2 00-249 3 units 250-299 5 units 300-349 7 units Over 349 8 units insulin glargine (LANTUS) SQ injection 2023 (Given - P rovider: Steph Lopez RN) 193 (Given - Provider: Steph Lopez RN) 2100 (D ue) 20 Units, Subcutaneous, Bedtime, First d ose (after last modification) on Sun09/08/20 at 2100, Until Discontinued, 0.2 mL, Blood Glucose greater than or equal to 100 mg/dL - Do Not Hold If Blood Glucose LESS than 100 mg/dL, if patient changed to NPO, or if tube feedings stopped - Immediately notify provider before administration. lactulose oral solution (10 gm/15 mL) 30 mL 0832 (Refu sed - Provider: Maria C Smith RN) 0948 (Held - Provider: Maria C Smith RN) 1007 (R efused - Provider: Kiarra Nathan, RINA) 30 mL, Oral, Daily, First dose on Sun at 0900, Until Discontinued, 30 mL, Post - Op, Hold if has had an adequate BM in last 24 hours lisinopril (PRINIVIL, ZESTRIL) tablet 20 mg 0826 (Give n - Provider: Maria C Smith RN) 0939 (Given - Provider: Maria C Smith RN) 1004 ( Given - Provider: Kiarra Nathan, RINA) 20 mg, Oral, Daily, First dose (after la st modification) on Sun09/07/20 at 0900, Until Discontinued, Hold for SBP less than 110 . metroNIDAZOLE (FLAGYL) tablet 500 mg 0825 (Given - Pro vider: Maria C Smith RN)1459 (Given - Provider: Maria C Smith RN)2023 (Given - Provider: Steph Lopez RN) 0939 (Given - Provider: Maria C schultz RN)1431 (Given - Provider: Maria C Smith RN)193 (Given - Provider: Steph Lopez RN) 1004 (Given - Provider: Kiarra miner RN)1500 (Due)2100 (Due) 500 mg, Oral, Three times a day, First d ose on Sun09/08/20 at 1500, Until Discontinued omeprazole (priLOSEC) capsule 20 mg 0501 (Refused - Pr ovider: Steph Lopez RN) 0603 (Refused - Provider: Steph Lopez RN) 0521 (Given - Provider: Steph Lpoez RN) 20 mg, Oral, One time a day before break fast, First dose on 09/04/20 at 0700, Until Discontinued, Post - Op, Swallow cap whole. Do not crush, chew or open. polyethylene glycol (MIRALAX) packet 1 packet 0832 (Re fused - Provider: Maria C Smith RN) 0948 (Held - Provider: Maria C Smith RN) 1008 (R efused - Provider: Kiarra Nathan RN) 1 packet, Oral, Daily, First dose on 09/04/20 at 0900, Until Discontinued, Post - Op, Hold for loose stools. Dissolve in 8 ounces of water, juice, soda, coffee, tea Do NOT give if patient on thickene d liquids. Contact provider for alternative if needed. senna-docusate sodium (SENOKOT-S;PERICOLACE) tablet 1 tablet 0832 (Refused - Provider: Maria C Smith RN)2130 (Refused - Provider: Steph Lopez RN) 0949 (Refused - Provider: Maria C jolly RN)194 (Refused - Provider: Steph Lopez RN - Comment: Pt having stools, see flowsheets) 1008 (Refused - Provider: Kiarra Nathan RN)2099 (Due) 1 tablet, Oral, Two times a day, First d ose on Sun09/03/20 at 2100, Until Discontinued, Post - Op simvastatin (ZOCOR) tablet 40 mg 2023 (Given - Provider: Michael Lopez RN) 193 (Given - Provider: Steph Lopez RN) 2099 (Due) 40 mg, Oral, Bedtime, First dose (after last modification) on Sun09/01/20 at 2100, Until Discontinued sodium chloride 0.9% flush (adult) 10 mL 0826 (Given - Provider: Maria C Smith RN)2025 (Given - Provider: Steph Lopez RN) 0939 (Given - Provider: Maria C Smith RN)1940 (Given - Provider: Steph Lopez RN) 1008 (Given - Provider: Kiarra Nathan, RINA)2100 (Due) 10 mL, IV, Two times a day and prn, Firs t dose on Sun08/30/20 at 2100, Until Discontinued, 10 mL, Flush PIV line as scheduled and as often as necessary before and after meds. Use a push / pause technique when flushing to create turbulence. vancomycin (VANCOCIN) 1,750 mg in sodium chloride 0.9% 500 mL (Locked) 0243 (Given - Provider: Steph Lopez RN)0503 (Stopped Infusion - Provider: Steph Lopez RN)1459 (Given - Provider: Maria C Smith RN)1659 (Stopped Infusion - Provider: Maria C Smith RN) 0216 (Given - Provider: Steph Lopez RN)0452 (Stopped Infusion - Provider: Steph Lopez RN)1431 (Given - Provider: Maria C Smith RN)1631 (Stopped Infusion - Provider: Maria C Smith RN) 0206 (Given - Provider: Steph pena RN)0415 (Stopped Infusion - Provider: Steph Lopez RN)1430 (Due) 1,750 mg, IV, Every twelve hours, First dose (after last modification) on Sun09/05/20 at 1430, Until Discontinued, 500 mL Medication Order 09/12/2020 09/13/2020 09/14/2020 acetaminophen (TYLENOL) tablet 650 mg 650 mg, Oral, Every four hours prn, Star ting on Sun09/03/20 at 0931, Until Discontinued, mild pain, fever, for pain scale 3 or less, PACU - Continue Post- Op, Adult patients: Total dose of acetaminophen from all acetaminophen containing produc ts should not exceed 4 grams (4000 mg) per day. Pediatric Patients 0 - 3 months: Maximum of 60 mg/kg/24 hours of acetaminophen. Pediatric Patients older than 3 m onths: Maximum of 75 mg/kg/24 hours of acetaminophen (Never exceeding 4 grams/day). benzocaine-menthol (CEPACOL w/ BENZOCAINE) lozenge 1 lozenge 1 lozenge, Mouth/Throat, Every four hour s prn, Starting on Sun09/03/20 at 1953, Until Discontinued, sore throat, other (Specify), throat irritation, Post - Op, Exception: Patients with dysphagia, radiat ion mucositis/esophagitis or without a gag reflex. bisacodyl (DULCOLAX) suppository 10 mg(Linked Group 1) 10 mg, Rectal, One time a day prn, Start ing on Sun09/01/20 at 1303, Until Discontinued, constipation, Use SECOND for constipation. If patient cannot take oral medications, use first for constipation. carbohydrate 15 g(Linked Group 2) 15 g, Oral, PRN per parameter, Starting on Sun09/08/20 at 2015, Until Discontinued, low blood glucose, Give 15 grams of carbohydrate if blood glucose is less than 70 mg/dL, patient is responsive and abl e to take food or oral meds. Recheck b lood glucose in 15 minutes. Repeat 1 time and call MD. If recheck is greater than 70 mg/dL and able to take food or oral meds, give 15 gram carbohydrate if meal or snack due in more than an hour. Serve meal or snack if due in less than 1 hour. See hypoglycemia treatment on cardex. Sources of 15 grams carbohydrate: a. 4 oz of fruit juice (Do NOT give orange j uice to dialysis patients due to risk of hyperkalemia) or b. 4 oz of soda pop (NOT diet) or c. 1 tablespoon of honey dextrose 50% IV solution 50 mL 50 mL (25 g), IV, PRN per parameter, Sta rting on Sun09/08/20 at 2015, Until Discontinued, low blood glucose, 50 mL, Give if blood glucose is less than 70 mg/dL, patient is unresponsive or NPO, and has I V access. Recheck blood glucose in 15 mi nutes and call MD. Repeat dose if recheck less than 70 mg/dL and call MD. If recheck is greater than 70 mg/dL and able to take food or oral meds, give 15 gram car bohydrate if meal or snack due in more t baez an hour. Serve meal or snack if due in less than 1 hour. See hypoglycemia treatment on cardex. docusate sodium (THEREVAC-SB MINI;ENEMEE Z MINI) 283 MG enema 1 enema(Linked Group 1) 1 enema, Rectal, One time a day prn, Sta rting on Sun09/01/20 at 1303, Until Discontinued, constipation, Use THIRD for constipation - if no BM 8 hours after dulcolax suppository. If patient cannot take oral medications, use second for constipation. glucagon for injection 1 mg vial 1 mg 1 mg, Intramuscular, PRN per parameter, Starting on Sun09/08/20 at 2015, Until Discontinued, low blood glucose, Give if blood glucose less than 70 mg/dL, patient is unresponsive or NPO, and has no IV ac cess. Establish IV access. Recheck bloo d glucose in 15 minutes and call MD. If recheck is greater than 70 mg/dL and able to take food or oral meds, give 15 gram carbohydrate if meal or snack due in mo re than an hour. Serve meals or snack if due in less than 1 hour. See hypoglycemia treatment on cardex. Reconstitute vial with 1 mL of sterile water for injection for reconstitution for a final concent ration of 1 mg/mL. Shake vial gently. U se immediately and discard unused portion. Reconstitute with 1 mL of sterile water for injection to yield 1 mg/mL. Shake vial gently. Use immediately and discard unused portion. glucose chewable tablet 16 g(Linked Group 2) 16 g (4 tablet), Oral, PRN per parameter , Starting on Sun09/08/20 at 2015, Until Discontinued, low blood glucose, Chew before swallowing. Give 15 gram of carbohydrate if blood glucose is less than 70 mg /dL, patient is responsive and able to t denita food or oral meds. Recheck blood glucose in 15 minutes. Repeat 15 gram carbohydrate if recheck is less than 70 mg/dL and call MD. If recheck is greater than 70 mg/dL and able to take food or oral m eds, give 15 gram carbohydrate if meal or snack due in more than an hour. Serve meal or snack if due in less than 1 hour. See hypoglycemia treatment on cardex. ( Sources of 15 gram carbohydrate: 4 oz fr uit juice or 4 oz soda pop (NOT diet) or 1 tablespoonful honey or 4 glucose tablets.) hEParin 100 units/ mL injection for heplock FLUSH (CAN CELED) 0501 (Given - Provider: Steph Lopez RN) 300 Units (3 mL), IV, PRN per parameter, Starting on 09/12/20 at 0447, Until 09/12/20 at 1510, other (Specify), PICC line maintanence, 3 mL, Flush with 10 mL sodium chloride 0.9% followed by 300 units (100 units/mL) heparin after each use hydrALAZINE (APRESOLINE) injection solution 20 mg 20 mg, IV, Every three hours prn, Starti ng on Sun08/31/20 at 2331, Until Discontinued, specified parameter, systolic blood pressure greater than 160, 1 mL, Use SECOND for hypertension Call MD if target not met after 3 consecutive prn dosages of either labetalol or hydralazine. HYDROcodone-acetaminophen (NORCO) 7.5-325 mg tablet 1 tablet 1 tablet, Oral, Every four hours prn, St arting on Sun09/03/20 at 1953, Until Discontinued, moderate pain, Post - Op, for pain Scale 4 to 6 or pain not relieved by medications for Pain Scale 1 - 3 HYDROcodone-acetaminophen (NORCO) 7.5-325 mg tablet 2 tablet 2 tablet, Oral, Every four hours prn, St arting on Sun09/03/20 at 1953, Until Discontinued, severe pain, Post - Op, for pain Scale 7 or greater or pain not relieved by medications for Pain Scale 4 to 6 labetalol (NORMODYNE;TRANDATE) IV solution 20 mg 20 mg, IV, Every three hours prn, Starti ng on Sun08/31/20 at 2331, Until Discontinued, specified parameter, systolic blood pressure greater than 160, 20 mL, Use FIRST for hypertension Call MD if target not met after 3 consecutive prn dosages of either labetalol or hydralazine LORazepam (ATIVAN) 2 mg/mL injection solution 2 mg 2 mg, IV, Every two hours prn, Starting on Sun08/31/20 at 2340, Until Discontinued, agitation, 1 mL, If preference is to further dilute for IV administration: First draw up patient-specific dose, then dilute with EQUAL VOLUME of 0.9% sodium chloride melatonin tablet 3 mg 3 mg, Oral, Bedtime prn, Starting on Sun09/01/20 at 1303, Until Discontinued, other (Specify), insomnia, Use FIRST for insomnia. If inadequate response in 60 minutes, may proceed to next choice option or, if no other options, contact provider. morphine preservative free injection solution (conc: 2 mg/mL) 2 mg 2 mg, IV, Every three hours prn, Startin g on Sun09/03/20 at 1953, Until Discontinued, severe pain, 1 mL, Post - Op, Use 2nd for pain score 7 or greater nalOXone (NARCAN) injection solution (vial) 0.2 mg 0.2 mg, Injection, Every two minutes prn , Starting on Sun09/03/20 at 1953, Until Discontinued, other (Specify), opioid induced respiratory depression - PARTIAL reversal, 0.5 mL, Post - Op, PARTIAL REVER VERONIKA/RESPIRATORY DEPRESSION If respirator y rate less than 8/minute - call rapid response and administer (until respiratory rate increases to 10/minute). Give IV (preferred), IM or SUBQ nalOXone (NARCAN) injection solution (vial) 0.4 mg 0.4 mg, Injection, Every two minutes prn , Starting on Sun09/03/20 at 1953, Until Discontinued, other (Specify), opioid induced respiratory arrest - FULL reversal, 1 mL, Post - Op, FULL REVERSAL/RESPIRAT ORY ARREST If patient is not breathing - call CODE BLUE and administer. Give IV (preferred), IM or SUBQ ondansetron (ZOFRAN) injection solution 4 mg 4 mg, IV, Every four hours prn, Starting on Sun09/03/20 at 1953, Until Discontinued, nausea, vomiting, 2 mL, Post - Op, Use FIRST. If ineffective after 15 minutes use haloperidol. If preference is to fu rther dilute for IV administration: Firs t draw up patient-specific dose, then dilute to 10 mL with 0.9% sodium chloride. senna-docusate sodium (SENOKOT-S;PERICOLACE) tablet 2 tablet(Irina ked Group 1) 2 tablet, Oral, Two times a day prn, Sta rting on Sun09/01/20 at 1303, Until Discontinued, constipation, Use FIRST for constipation unless patient cannot take oral medications. sodium chloride 0.9% prefilled 10 mL syr jillian (Materials Management Item) 10 mL (CANCELED) 0501 (Given - Provider: Steph Lopez RN) 10 mL, IV, PRN per parameter, Starting o n 09/12/20 at 0447, Until 09/12/20 at 1510, other (Specify), PICC line maintanence, 10 mL, Flush with 10 mL sodium chloride 0.9% followed by 300 units (100 units/mL) Heparin after each use Order Group 1: senna-docusate sodium (SENOKOT-S;PERICOLACE) tablet 2 tabletJump to med 2 tablet, Oral, Two times a day prn, Sta rting on Sun09/01/20 at 1303, Until Discontinued, constipation
Use FIRST for constipation unless patient cannot take oral medications.
And bisacodyl (DULCOLAX) suppository 10 mgJump to med 10 mg, Rectal, One time a day prn, Start ing on Sun09/01/20 at 1303, Until Discontinued, constipation
Use SECOND for constipation. If patient cannot take oral medications, use first for constipation.
And docusate sodium (THEREVAC-SB MINI;ENEMEEZ MINI) 283 MG enema 1 enemaJump to med 1 enema, Rectal, One time a day prn, Sta rting on Sun09/01/20 at 1303, Until Discontinued, constipation
Use THIRD for constipation - if no BM 8 hours after dulcolax suppository. If patient canno t take oral medications, use second for constipation.
Group 2: glucose chewable tablet 16 gJump to med 16 g (4 tablet), Oral, PRN per parameter , Starting on Sun09/08/20 at 2016, Until Discontinued, low blood glucose
Chew before swallowing. Give 15 gram of carbohydrate if blood glucose i s less than 70 mg/dL, patient is respons thang and able to take food or oral meds. Recheck blood glucose in 15 minutes. Repeat 15 gram carbohydrate if recheck is less than 70 mg/dL and call . &a mp;nbsp;If recheck is greater than 70 mg /dL and able to take food or oral meds, give 15 gram carbohydrate if meal or snack due in more than an hour. Serve meal or snack if due in less than 1 hour.&n bsp; See hypoglycemia treatment on cardex. (Sources of 15 gram carbohydrate: 4 oz fruit juice or 4 oz soda pop (NOT diet) or 1 tablespoonful honey or 4 glucose tablets.)
Or carbohydrate 15 gJump to med 15 g, Oral, PRN per parameter, Starting on Sun09/08/20 at 2016, Until Discontinued, low blood glucose
Give 15 grams of carbohydrate if blood glucose is less than 70 mg/dL, patient is responsive and able to take food or oral meds. &nb sp; Recheck blood glucose in 15 minutes. Repeat 1 time and call MD. If recheck is greater than 70 mg/dL and able to take food or o ral meds, give 15 gram carbohydrate if m eal or snack due in more than an hour. Serve meal or snack if due in less than 1 hour. See hypoglycemia treatment on cardex. &nbsp ;Sources of 15 grams carbohydrate: a. 4 oz of fruit juice (Do NOT give orange juice to dialysis patients due to risk of hyperkalemia) or b. 4 oz of soda pop (NOT diet) or c. 1 tablespoon of honey
documented in this encounter
--- NOTE | 2020-09-14 14:48 | PCM.HP.2 ---
H&P History of Present Illness - General Date of Service: 09/14/20 Admit Problem/Dx: Admission Diagnosis/Problem Admission Diagnosis/Problem Encephalitis - History of Present Illness Initial Comments - Free Text/Narative: Cosmo is a pleasant 60 yo male who is coming from [facility]. 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 He is being for IV antibiotics (Cefepime,Flagyl and Vancomycin)until 10/11,as well as PT and OT. He is 11 days post suboccipital wound washout and cranioplasty.He has a h/o DM2,HTN,HLD,MDD Generalized Pain Score (Numeric/FACES): 3 - Related Data Allergies/Adverse Reactions: Allergies Allergy/AdvReac Type Severity Reaction Status Date / Time No Known Allergies Allergy Verified 08/22/17 14:10 Home Medications: Home Meds Aspirin [Ecotrin EC] 325 mg PO DAILY 09/14/20 [History] Cefepime [Maxipime] 2 gm IVPUSH Q12H 09/14/20 [History] Heparin Sodium,Porcine/PF [Heparin Lock Flush 100 Unit/ml] 300 unit FLUSH ASDI RECTED PRN 09/14/20 [History] Insulin Glarg,Human.Rec.Analog [Lantus Solostar] 20 units SUBCUT BEDTIME 09/14/20 [History] Multivitamin 1 tab PO DAILY 09/14/20 [History] Omeprazole 20 mg PO DAILY@0600 09/14/20 [History] Simvastatin [Zocor] 40 mg PO BEDTIME 09/14/20 [History] Tadalafil [Cialis] 10 mg PO DAILY PRN 09/14/20 [History] VANCOmycin 1.5 GM/300 ML 1.5 gm IV Q12H 09/14/20 [History] amLODIPine [Norvasc] 5 mg PO BEDTIME 09/14/20 [History] carvediloL [Carvedilol] 3.125 mg PO BIDMEALS 09/14/20 [History] glipiZIDE [Glucotrol] 10 mg PO WITHBREAKFAST 09/14/20 [History] lisinopriL [Lisinopril] 20 mg PO DAILY 09/14/20 [History] metFORMIN [Glucophage] 500 mg PO BIDMEALS 09/14/20 [History] metroNIDAZOLE [Flagyl] 500 mg PO TID 09/14/20 [History] Past Medical History HEENT History: Reports: Impaired Vision Cardiovascular History: Reports: Hypertension Endocrine/Metabolic History: Reports: Diabetes, Type II Social & Family History - Family History Family Medical History: No Pertinent Family History - Tobacco Use Tobacco Use Status *Q: Current Every Day Tobacco User Years of Tobacco use: 50 Packs/Tins Daily: 0.5 - Caffeine Use Caffeine Use: Reports: None - Recreational Drug Use Recreational Drug Use: No H&P Review of Systems - Review of Systems: Review Of Systems: Comprehensive ROS is negative, except as noted in HPI. Exam - Exam Exam: See Below - Vital Signs Vital Signs: Last Vital Signs Temp 97.7 F 09/14/20 13:12 Pulse 80 09/14/20 13:12 Resp 16 09/14/20 13:12 BP 149/92 H 09/14/20 13:12 Pulse Ox 95 09/14/20 13:12 Weight: 88.587 kg - Exam General: Alert, Oriented HEENT: PERRLA Neck: Supple Lungs: Clear to Auscultation Cardiovascular: Regular Rate GI/Abdominal Exam: Normal Bowel Sounds (Male) Exam: No Hernia Rectal (Males) Exam: Deferred Back Exam: Normal Inspection Extremities: Normal Inspection Skin: Warm Neurological: Cranial Nerves Intact Neuro Extensive - Mental Status: Alert Neuro Extensive - Motor, Sensory, Reflexes: CN II-XII Intact Psychiatric: Alert, Normal Affect Sepsis Event Note - Evaluation Sepsis Screening Result: No Definite Risk - Focused Exam Vital Signs: Vital Signs Temp Pulse Resp BP Pulse Ox 09/14/20 13:12 97.7 F 80 16 149/92 H 95 - Problem List (1) Weakness SNOMED Code(s): 08170047 ICD Code: R53.1 - WEAKNESS Status: Acute Current Visit: Yes (2) Encephalitis SNOMED Code(s): 23701419 ICD Code: G04.90 - ENCEPHALITIS AND ENCEPHALOMYELITIS, UNSPECIFIED Status: Acute Current Visit: Yes (3) DM2 (diabetes mellitus, type 2) SNOMED Code(s): 64080907 ICD Code: E11.9 - TYPE 2 DIABETES MELLITUS WITHOUT COMPLICATIONS Status: Acute Current Visit: Yes Qualifiers: Diabetes mellitus long term care pharmacist insulin use: unspecified assisted insulin use status (4) HTN (hypertension) SNOMED Code(s): 96374991 ICD Code: I10 - ESSENTIAL (PRIMARY) HYPERTENSION Status: Chronic Current Visit: Yes Qualifiers: Hypertension type: essential hypertension Qualified Code(s): I10 - Essential (primary) hypertension (5) HLD (hyperlipidemia) SNOMED Code(s): 77562914 ICD Code: E78.5 - HYPERLIPIDEMIA, UNSPECIFIED Status: Suspected Current Visit: Yes (6) GERD (gastroesophageal reflux disease) SNOMED Code(s): 482768868 ICD Code: K21.9 - GASTRO-ESOPHAGEAL REFLUX DISEASE WITHOUT ESOPHAGITIS Status: Chronic Current Visit: Yes Qualifiers: Esophagitis presence: esophagitis presence not specified Qualified Code(s): K21.9 - Gastro-esophageal reflux disease without esophagitis (7) H/O craniotomy SNOMED Code(s): 368241917, 217872115 ICD Code: Z98.890 - OTHER SPECIFIED POSTPROCEDURAL STATES Status: Acute Current Visit: Yes Problem List Initiated/Reviewed/Updated: Yes Orders Last 24hrs: Active Orders 24 hr Category Date Time Status Patient Status [ADT] Routine ADT 09/14/20 13:54 Ordered Height and Weight [RC] WEEKLY Care 09/14/20 13:54 Ordered Oxygen Therapy [RC] PRN Care 09/14/20 13:54 Ordered VTE/DVT Education [RC] Per Unit Routine Care 09/14/20 13:54 Ordered Vital Signs [RC] PER UNIT ROUTINE Care 09/14/20 13:54 Ordered OT Evaluation and Treatment [CONS] Routine Cons 09/14/20 13:54 Ordered PT Evaluation and Treatment [CONS] Routine Cons 09/14/20 13:54 Ordered Regular Diet [DIET] Diet 09/14/20 Breakfast Ordered CBC WITH AUTO DIFF [HEME] Q7D Lab 09/20/20 15:00 Ordered CBC WITH AUTO DIFF [HEME] Q7D Lab 09/27/20 15:00 Ordered CBC WITH AUTO DIFF [HEME] Q7D Lab 10/04/20 15:00 Ordered CBC WITH AUTO DIFF [HEME] Q7D Lab 10/11/20 15:00 Ordered COMPREHENSIVE METABOLIC PN,CMP [CHEM] Q7D Lab 09/20/20 15:00 Ordered COMPREHENSIVE METABOLIC PN,CMP [CHEM] Q7D Lab 09/27/20 15:00 Ordered COMPREHENSIVE METABOLIC PN,CMP [CHEM] Q7D Lab 10/04/20 15:00 Ordered COMPREHENSIVE METABOLIC PN,CMP [CHEM] Q7D Lab 10/11/20 15:00 Ordered CREATININE W/GFR [CHEM] TH Lab 09/16/20 15:00 Ordered CREATININE W/GFR [CHEM] TH Lab 09/23/20 15:00 Ordered CREATININE W/GFR [CHEM] TH Lab 09/30/20 15:00 Ordered CREATININE W/GFR [CHEM] TH Lab 10/07/20 15:00 Ordered CRP [C-REACTIVE PROTEIN] [CHEM] Q7D Lab 09/20/20 15:00 Ordered CRP [C-REACTIVE PROTEIN] [CHEM] Q7D Lab 09/27/20 15:00 Ordered CRP [C-REACTIVE PROTEIN] [CHEM] Q7D Lab 10/04/20 15:00 Ordered CRP [C-REACTIVE PROTEIN] [CHEM] Q7D Lab 10/11/20 15:00 Ordered ESR [SEDIMENTATION RATE MANUAL] [HEME] Q7D Lab 09/20/20 15:00 Ordered ESR [SEDIMENTATION RATE MANUAL] [HEME] Q7D Lab 09/27/20 15:00 Ordered ESR [SEDIMENTATION RATE MANUAL] [HEME] Q7D Lab 10/04/20 15:00 Ordered ESR [SEDIMENTATION RATE MANUAL] [HEME] Q7D Lab 10/11/20 15:00 Ordered VANCOMYCIN TROUGH [CHEM] MOTH Lab 09/16/20 15:00 Ordered VANCOMYCIN TROUGH [CHEM] MOTH Lab 09/20/20 15:00 Ordered VANCOMYCIN TROUGH [CHEM] MOTH Lab 09/23/20 15:00 Ordered VANCOMYCIN TROUGH [CHEM] MOTH Lab 09/27/20 15:00 Ordered VANCOMYCIN TROUGH [CHEM] MOTH Lab 09/30/20 15:00 Ordered VANCOMYCIN TROUGH [CHEM] MOTH Lab 10/04/20 15:00 Ordered VANCOMYCIN TROUGH [CHEM] MOTH Lab 10/07/20 15:00 Ordered VANCOMYCIN TROUGH [CHEM] MOTH Lab 10/11/20 15:00 Ordered Aspirin [Ecotrin] Med 09/15/20 09:00 Ordered 325 mg PO DAILY Cefepime [Maxipime] Med 09/14/20 14:00 Ordered 2 gm IVPUSH Q12H Dextrose 50% in Water Med 09/14/20 13:56 Ordered 50 ml IVPUSH ASDIRECTED PRN Glucagon,Human Recombinant [GlucaGen] Med 09/14/20 13:56 Ordered 1 mg IM ASDIRECTED PRN Heparin Sodium [Heparin Lock Flush 100 Units/ML] Med 09/14/20 17:15 Active 300 units FLUSH Q12H Heparin Sodium,Porcine/PF [Heparin Lock Flush 100 Unit/ Med 09/14/20 13:56 Ordered ml] 300 unit FLUSH ASDIRECTED PRN Insulin Glarg,Human.Rec.Analog [LantUS Solostar] Med 09/14/20 21:00 Ordered 20 units SUBCUT BEDTIME Multivitamin [Multivitamin] Med 09/15/20 09:00 Ordered 1 tab PO DAILY Omeprazole [Omeprazole] Med 09/15/20 06:00 Ordered 20 mg PO DAILY@0600 Simvastatin [Zocor] Med 09/14/20 21:00 Ordered 40 mg PO BEDTIME Sodium Chloride 0.9% [Saline Flush] Med 09/14/20 14:15 Active 10 ml FLUSH ASDIRECTED Tadalafil [Cialis] Med 09/14/20 13:56 Ordered 10 mg PO DAILY PRN VANCOmycin 1.5 GM/300 ML 300 ml Med 09/14/20 15:30 Active IV Q12H amLODIPine [Norvasc] Med 09/14/20 21:00 Ordered 5 mg PO BEDTIME carvediloL [Coreg] Med 09/14/20 18:00 Ordered 3.125 mg PO BIDMEALS glipiZIDE [Glucotrol] Med 09/15/20 08:00 Ordered 10 mg PO WITHBREAKFAST lisinopriL [Prinivil] Med 09/15/20 09:00 Ordered 20 mg PO DAILY metFORMIN [Glucophage] Med 09/14/20 18:00 Ordered 500 mg PO BIDMEALS metroNIDAZOLE [Flagyl] Med 09/14/20 14:00 Ordered 500 mg PO TID Resuscitation Status Routine Resus Stat 09/14/20 13:54 Ordered Medication Orders Amlodipine Besylate (Amlodipine 5 Mg Tab) 5 mg PO BEDTIME [facility] Aspirin (Aspirin 325 Mg Tab.Ec) 325 mg PO DAILY [facility] Carvedilol (Carvedilol 3.125 Mg Tab) 3.125 mg PO BIDMEALS [place] Cefepime HCl (Cefepime 2 Gm Vial) 2 gm IVPUSH Q12H [place] Dextrose/Water (50% Dextrose In Water 50 Ml Syringe) 50 ml IVPUSH ASDIRECTED PRN PRN Reason: Hypoglycemia Glipizide (Glipizide 10 Mg Tab) 10 mg PO WITHBREAKFAST [facility] Glucagon (Glucagon,Human Recombinant 1 Mg Vial) 1 mg IM ASDIRECTED PRN PRN Reason: Hypoglycemia Heparin Sodium (Porcine) (Heparin Sodium 100 Units/Ml 5 Ml Syringe) 300 units FLUSH ASDIRECTED PRN PRN Reason: LINE PATENCY Heparin Sodium (Porcine) (Heparin Sodium 100 Units/Ml 5 Ml Syringe) 300 units FLUSH Q12H [facility] Vancomycin HCl (Vancomycin 1.5 Gm/300 Ml) 300 mls @ 200 mls/hr IV Q12H [facility] Insulin Glargine (Insulin Glargine,Human Rec. Analog 100 Units/Ml 3 Ml Pen) 20 units SUBCUT BEDTIME [facility] Lisinopril (Lisinopril 20 Mg Tab) 20 mg PO DAILY [facility] Metformin HCl (Metformin 500 Mg Tab) 500 mg PO BIDMEALS [facility] Metronidazole (Metronidazole 500 Mg Tab) 500 mg PO TID [facility] Multivitamins/Minerals/Vitamin C (Multivitamin Tab) 1 tab PO DAILY [facility] Non-Formulary Medication (Tadalafil [Cialis]) 10 mg PO DAILY PRN PRN Reason: SEXUAL ACTIVITY Pantoprazole Sodium (Pantoprazole 40 Mg Tab.Cr) 40 mg PO DAILY@0600 [facility] Simvastatin (Simvastatin 40 Mg Tab) 40 mg PO BEDTIME [facility] Sodium Chloride (Sodium Chloride 0.9% 10 Ml Syringe) 10 ml FLUSH ASDIRECTED [facility] Assessment/Plan Comment:: Admit to Swing Bed with consults to PT/OT. Continue IV antibiotics as outlined by ID.
[2020-09-14] MEDS: VANCOmycin 1.5 GM/300 ML 300 ML IV SCH (15:20)
[2020-09-14] MEDS: METRONIDAZOLE 500 MG PO SCH ×2 (15:20→20:45)
[2020-09-14] MEDS: Cefepime 2 GM Vial IVPUSH SCH (16:58)
[2020-09-14] MEDS: Sodium Chloride 0.9% 10 ML Syringe FLUSH SCH (17:05)
[2020-09-14] MEDS: Carvedilol 3.125 MG Tab PO SCH (17:08)
[2020-09-14] MEDS: metFORMIN 500 MG Tab PO SCH (17:15)
[2020-09-14] MEDS ORDERED: Insulin Glargine,Human Rec. Analog 100 Units/ML 3 ML Pen SUBCUT ONE (20:48)
[2020-09-14] MEDS: Insulin Glargine,Human Rec. Analog 100 Units/ML 3 ML Pen SUBCUT SCH (20:50)
[2020-09-14] MEDS: amLODIPine 5 MG Tab PO SCH (20:51)
[2020-09-14] MEDS: Simvastatin 40 MG Tab PO SCH (20:52)
[2020-09-15] MEDS: Sodium Chloride 0.9% 10 ML Syringe FLUSH SCH ×3 (03:52→17:15)
[2020-09-15] MEDS: VANCOmycin 1.5 GM/300 ML 300 ML IV SCH ×2 (03:53→15:39)
[2020-09-15] MEDS: Cefepime 2 GM Vial IVPUSH SCH ×2 (05:28→17:13)
[2020-09-15] MEDS: Pantoprazole 40 MG Tab.CR PO SCH (05:32)
[2020-09-15] MEDS: Carvedilol 3.125 MG Tab PO SCH ×2 (08:02→17:17)
[2020-09-15] MEDS: METRONIDAZOLE 500 MG PO SCH ×3 (08:03→21:02)
[2020-09-15] MEDS: Aspirin 325 MG Tab.EC PO SCH (08:03)
[2020-09-15] MEDS: metFORMIN 500 MG Tab PO SCH ×2 (08:03→17:25)
[2020-09-15] MEDS: Lisinopril 20 MG Tab PO SCH (08:04)
[2020-09-15] MEDS: Multivitamin Tab PO SCH (08:04)
[2020-09-15] MEDS: amLODIPine 5 MG Tab PO SCH (21:02)
[2020-09-15] MEDS: Insulin Glargine,Human Rec. Analog 100 Units/ML 3 ML Pen SUBCUT SCH (21:03)
[2020-09-15] MEDS: Simvastatin 40 MG Tab PO SCH (21:03)
[2020-09-16] MEDS: VANCOmycin 1.5 GM/300 ML 300 ML IV SCH ×2 (03:24→16:02)
[2020-09-16] MEDS: Sodium Chloride 0.9% 10 ML Syringe FLUSH SCH ×4 (03:26→17:41)
[2020-09-16] MEDS: Cefepime 2 GM Vial IVPUSH SCH ×2 (05:10→17:39)
[2020-09-16] MEDS: Pantoprazole 40 MG Tab.CR PO SCH (05:19)
[2020-09-16] MEDS: Carvedilol 3.125 MG Tab PO SCH ×2 (08:28→17:58)
[2020-09-16] MEDS: metFORMIN 500 MG Tab PO SCH ×2 (08:29→17:58)
[2020-09-16] MEDS: Aspirin 325 MG Tab.EC PO SCH (08:29)
[2020-09-16] MEDS: Multivitamin Tab PO SCH (08:30)
[2020-09-16] MEDS: METRONIDAZOLE 500 MG PO SCH ×3 (08:30→20:38)
[2020-09-16] MEDS: Lisinopril 20 MG Tab PO SCH (08:30)
[2020-09-16] MEDS: Acetaminophen 325 MG Tab PO PRN (13:20)
[2020-09-16] MEDS: amLODIPine 5 MG Tab PO SCH (20:38)
[2020-09-16] MEDS: Simvastatin 40 MG Tab PO SCH (20:38)
[2020-09-16] MEDS: Insulin Glargine,Human Rec. Analog 100 Units/ML 3 ML Pen SUBCUT SCH (20:39)
[2020-09-17] MEDS: VANCOmycin 1.5 GM/300 ML 300 ML IV SCH ×2 (04:05→15:05)
[2020-09-17] MEDS: Sodium Chloride 0.9% 10 ML Syringe FLUSH SCH ×5 (05:35→16:39)
[2020-09-17] MEDS: Cefepime 2 GM Vial IVPUSH SCH ×2 (05:59→16:35)
[2020-09-17] MEDS: Pantoprazole 40 MG Tab.CR PO SCH (06:30)
[2020-09-17] MEDS: Carvedilol 3.125 MG Tab PO SCH ×2 (08:43→17:42)
[2020-09-17] MEDS: Multivitamin Tab PO SCH (08:44)
[2020-09-17] MEDS: Lisinopril 20 MG Tab PO SCH (08:44)
[2020-09-17] MEDS: Aspirin 325 MG Tab.EC PO SCH (08:45)
[2020-09-17] MEDS: METRONIDAZOLE 500 MG PO SCH ×3 (08:45→20:41)
[2020-09-17] MEDS: metFORMIN 500 MG Tab PO SCH ×2 (10:24→17:41)
[2020-09-17] MEDS: amLODIPine 5 MG Tab PO SCH (20:41)
[2020-09-17] MEDS: Simvastatin 40 MG Tab PO SCH (20:41)
[2020-09-17] MEDS: Insulin Glargine,Human Rec. Analog 100 Units/ML 3 ML Pen SUBCUT SCH (20:43)
[2020-09-18] MEDS: Cefepime 2 GM Vial IVPUSH SCH ×2 (04:05→17:32)
[2020-09-18] MEDS: Sodium Chloride 0.9% 10 ML Syringe FLUSH SCH ×2 (04:10→05:40)
[2020-09-18] MEDS: VANCOmycin 1.5 GM/300 ML 300 ML IV SCH ×2 (04:12→17:32)
[2020-09-18] MEDS: Pantoprazole 40 MG Tab.CR PO SCH (05:43)
[2020-09-18] MEDS: Carvedilol 3.125 MG Tab PO SCH ×2 (08:51→18:27)
[2020-09-18] MEDS: Multivitamin Tab PO SCH (08:52)
[2020-09-18] MEDS: Aspirin 325 MG Tab.EC PO SCH (08:52)
[2020-09-18] MEDS: metFORMIN 500 MG Tab PO SCH ×2 (08:52→18:28)
[2020-09-18] MEDS: Lisinopril 20 MG Tab PO SCH (08:53)
[2020-09-18] MEDS: METRONIDAZOLE 500 MG PO SCH ×3 (08:55→21:00)
[2020-09-18] MEDS: Insulin Glargine,Human Rec. Analog 100 Units/ML 3 ML Pen SUBCUT SCH (21:01)
[2020-09-18] MEDS: Simvastatin 40 MG Tab PO SCH (21:01)
[2020-09-18] MEDS: amLODIPine 5 MG Tab PO SCH (21:01)
[2020-09-19] MEDS: Cefepime 2 GM Vial IVPUSH SCH ×2 (04:40→17:31)
[2020-09-19] MEDS: Sodium Chloride 0.9% 10 ML Syringe FLUSH SCH ×3 (04:46→16:08)
[2020-09-19] MEDS: VANCOmycin 1.5 GM/300 ML 300 ML IV SCH ×2 (04:50→16:12)
[2020-09-19] MEDS: Pantoprazole 40 MG Tab.CR PO SCH (06:43)
[2020-09-19] MEDS: Carvedilol 3.125 MG Tab PO SCH ×2 (08:51→17:31)
[2020-09-19] MEDS: Multivitamin Tab PO SCH (08:52)
[2020-09-19] MEDS: Aspirin 325 MG Tab.EC PO SCH (08:52)
[2020-09-19] MEDS: METRONIDAZOLE 500 MG PO SCH ×3 (08:52→20:31)
[2020-09-19] MEDS: metFORMIN 500 MG Tab PO SCH ×2 (08:52→17:32)
[2020-09-19] MEDS: Lisinopril 20 MG Tab PO SCH (08:52)
[2020-09-19] MEDS: Simvastatin 40 MG Tab PO SCH (20:31)
[2020-09-19] MEDS: amLODIPine 5 MG Tab PO SCH (20:32)
[2020-09-19] MEDS: Insulin Glargine,Human Rec. Analog 100 Units/ML 3 ML Pen SUBCUT SCH (20:32)
[2020-09-20] MEDS: Cefepime 2 GM Vial IVPUSH SCH ×2 (04:10→18:27)
[2020-09-20] MEDS: Sodium Chloride 0.9% 10 ML Syringe FLUSH SCH ×3 (04:13→18:28)
[2020-09-20] MEDS: VANCOmycin 1.5 GM/300 ML 300 ML IV SCH ×2 (04:20→16:45)
[2020-09-20] MEDS: Pantoprazole 40 MG Tab.CR PO SCH (05:01)
[2020-09-20] MEDS: Carvedilol 3.125 MG Tab PO SCH ×2 (08:21→18:25)
[2020-09-20] MEDS: Lisinopril 20 MG Tab PO SCH (08:22)
[2020-09-20] MEDS: Aspirin 325 MG Tab.EC PO SCH (08:22)
[2020-09-20] MEDS: metFORMIN 500 MG Tab PO SCH ×2 (08:22→18:33)
[2020-09-20] MEDS: METRONIDAZOLE 500 MG PO SCH ×3 (08:22→21:28)
[2020-09-20] MEDS: Multivitamin Tab PO SCH (08:23)
[2020-09-20] MEDS: Simvastatin 40 MG Tab PO SCH (21:29)
[2020-09-20] MEDS: Insulin Glargine,Human Rec. Analog 100 Units/ML 3 ML Pen SUBCUT SCH (21:32)
[2020-09-20] MEDS: amLODIPine 5 MG Tab PO SCH (21:33)
[2020-09-21] MEDS: VANCOmycin 1.5 GM/300 ML 300 ML IV SCH ×2 (03:29→15:28)
[2020-09-21] MEDS: Cefepime 2 GM Vial IVPUSH SCH ×2 (04:59→17:08)
[2020-09-21] MEDS: Pantoprazole 40 MG Tab.CR PO SCH (07:18)
[2020-09-21] MEDS: metFORMIN 500 MG Tab PO SCH ×2 (08:35→17:13)
[2020-09-21] MEDS: Multivitamin Tab PO SCH (08:35)
[2020-09-21] MEDS: Aspirin 325 MG Tab.EC PO SCH (08:35)
[2020-09-21] MEDS: METRONIDAZOLE 500 MG PO SCH ×3 (08:37→20:42)
[2020-09-21] MEDS: Lisinopril 20 MG Tab PO SCH (08:39)
[2020-09-21] MEDS: Carvedilol 3.125 MG Tab PO SCH ×2 (08:39→17:21)
[2020-09-21] MEDS: Acetaminophen 325 MG Tab PO PRN (16:43)
[2020-09-21] MEDS: Sodium Chloride 0.9% 10 ML Syringe FLUSH SCH ×2 (17:10→17:17)
[2020-09-21] MEDS: Simvastatin 40 MG Tab PO SCH (20:42)
[2020-09-21] MEDS: amLODIPine 5 MG Tab PO SCH (20:42)
[2020-09-21] MEDS: Insulin Glargine,Human Rec. Analog 100 Units/ML 3 ML Pen SUBCUT SCH (20:43)
[2020-09-22] MEDS: VANCOmycin 1.5 GM/300 ML 300 ML IV SCH ×2 (03:29→16:05)
[2020-09-22] MEDS: Cefepime 2 GM Vial IVPUSH SCH ×2 (04:54→17:50)
[2020-09-22] MEDS: Pantoprazole 40 MG Tab.CR PO SCH (06:23)
--- NOTE | 2020-09-22 08:22 | PCM.PN ---
- General Info Date of Service: 09/22/20 Admission Dx/Problem (Free Text): Patient is without complaints other than he like to get out the hospital. Denies fevers, chills, chest pain, shortness of breath. - Patient Data Vitals - Most Recent: Last Vital Signs Temp 98.6 F 09/21/20 08:00 Pulse 80 09/21/20 17:21 Resp 20 09/21/20 08:00 BP 150/88 H 09/21/20 20:42 Pulse Ox 97 09/21/20 08:00 Weight - Most Recent: 189 lb 12.8 oz Lab Results Last 24 Hours: Laboratory Results - last 24 hr 09/21/20 09/21/20 09/22/20 Range/Units 12:12 18:50 06:26 POC Glucose 278 H 254 H 218 H (80-116) mg/dL Med Orders - Current: Current Medications Acetaminophen (Acetaminophen 325 Mg Tab) 650 mg PO Q4H PRN PRN Reason: Pain Last Admin: 09/21/20 16:43 Dose: 650 mg Documented by: Amlodipine Besylate (Amlodipine 5 Mg Tab) 5 mg PO BEDTIME [facility] Last Admin: 09/21/20 20:42 Dose: 5 mg Documented by: Aspirin (Aspirin 325 Mg Tab.Ec) 325 mg PO DAILY [facility] Last Admin: 09/21/20 08:35 Dose: 325 mg Documented by: Carvedilol (Carvedilol 3.125 Mg Tab) 3.125 mg PO BIDMEALS [facility] Last Admin: 09/21/20 17:21 Dose: 3.125 mg Documented by: Cefepime HCl (Cefepime 2 Gm Vial) 2 gm IVPUSH Q12H [facility] Stop: 10/11/20 17:01 Last Admin: 09/22/20 04:54 Dose: 2 gm Documented by: Dextrose/Water (50% Dextrose In Water 50 Ml Syringe) 50 ml IVPUSH ASDIRECTED PRN PRN Reason: Hypoglycemia Glucagon (Glucagon,Human Recombinant 1 Mg Vial) 1 mg IM ASDIRECTED PRN PRN Reason: Hypoglycemia Heparin Sodium (Porcine) (Heparin Sodium 100 Units/Ml 5 Ml Syringe) 300 units FLUSH ASDIRECTED PRN PRN Reason: LINE PATENCY Last Admin: 09/16/20 15:03 Dose: 300 units Documented by: Heparin Sodium (Porcine) (Heparin Sodium 100 Units/Ml 5 Ml Syringe) 300 units FLUSH Q12H [facility] Last Admin: 09/22/20 05:10 Dose: 300 units Documented by: Vancomycin HCl (Vancomycin 1.5 Gm/300 Ml) 300 mls @ 200 mls/hr IV Q12H [facility] Stop: 10/11/20 21:00 Last Admin: 09/22/20 03:29 Dose: 200 mls/hr Documented by: Insulin Glargine (Insulin Glargine,Human Rec. Analog 100 Units/Ml 3 Ml Pen) 20 units SUBCUT BEDTIME [facility] Last Admin: 09/21/20 20:43 Dose: 20 unit Documented by: Lisinopril (Lisinopril 20 Mg Tab) 20 mg PO DAILY [facility] Last Admin: 09/21/20 08:39 Dose: 20 mg Documented by: Metformin HCl (Metformin 500 Mg Tab) 500 mg PO BIDMEALS [facility] Last Admin: 09/21/20 17:13 Dose: 500 mg Documented by: Metronidazole (Metronidazole 500 Mg Tab *Ptom) 500 mg PO TID [facility] Stop: 10/15/20 09:01 Last Admin: 09/21/20 20:42 Dose: 500 mg Documented by: Multivitamins/Minerals/Vitamin C (Multivitamin Tab) 1 tab PO DAILY [facility] Last Admin: 09/21/20 08:35 Dose: 1 tab Documented by: Pantoprazole Sodium (Pantoprazole 40 Mg Tab.Cr) 40 mg PO DAILY@0600 [facility] Last Admin: 09/22/20 06:23 Dose: 40 mg Documented by: Simvastatin (Simvastatin 40 Mg Tab) 40 mg PO BEDTIME [facility] Last Admin: 09/21/20 20:42 Dose: 40 mg Documented by: Sodium Chloride (Sodium Chloride 0.9% 10 Ml Syringe) 10 ml FLUSH ASDIRECTED [facility] Last Admin: 09/21/20 17:17 Dose: 10 ml Documented by: Discontinued Medications Glipizide (Glipizide 10 Mg Tab) 10 mg PO WITHBREAKFAST [facility] Last Admin: 09/18/20 10:56 Dose: Not Given Documented by: Non-Formulary Medication (Tadalafil [Cialis]) 10 mg PO DAILY PRN PRN Reason: SEXUAL ACTIVITY - Exam General: Alert, Oriented, Cooperative Lungs: Clear to Auscultation, Normal Respiratory Effort Cardiovascular: Regular Rate, Regular Rhythm, No Murmurs - Patient Data Lab Results Last 24 hrs: Laboratory Results - last 24 hr 09/21/20 09/21/20 09/22/20 Range/Units 12:12 18:50 06:26 POC Glucose 278 H 254 H 218 H (80-116) mg/dL Result Diagrams: 09/20/20 15:30 09/20/20 15:30 Sepsis Event Note - Evaluation Sepsis Screening Result: No Definite Risk - Focused Exam Vital Signs: Vital Signs BP 09/21/20 20:42 150/88 H - Problem List & Annotations (1) DM2 (diabetes mellitus, type 2) SNOMED Code(s): 54242019 Code(s): E11.9 - TYPE 2 DIABETES MELLITUS WITHOUT COMPLICATIONS Status: Acute Current Visit: Yes Qualifiers: Diabetes 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 flake cutter operator insulin use status (2) Encephalitis SNOMED Code(s): 68090784 Code(s): G04.90 - ENCEPHALITIS AND ENCEPHALOMYELITIS, UNSPECIFIED Status: Acute Current Visit: Yes (3) H/O craniotomy SNOMED Code(s): 221599944, 091411429 Code(s): Z98.890 - OTHER SPECIFIED POSTPROCEDURAL STATES Status: Acute Current Visit: Yes (4) Weakness SNOMED Code(s): 16714633 Code(s): R53.1 - WEAKNESS Status: Acute Current Visit: Yes (5) HTN (hypertension) SNOMED Code(s): 13119366 Code(s): I10 - ESSENTIAL (PRIMARY) HYPERTENSION Status: Chronic Current Visit: Yes Qualifiers: Hypertension type: essential hypertension Qualified Code(s): I10 - Essential (primary) hypertension (6) HLD (hyperlipidemia) SNOMED Code(s): 94003731 Code(s): E78.5 - HYPERLIPIDEMIA, UNSPECIFIED Status: Suspected Current Visit: Yes - Problem List Review Problem List Initiated/Reviewed/Updated: Yes - Plan Plan:: 1. Continue current care. 2. Watch blood sugars. 3. I encouraged the patient to complete his treatment here and not go home.
[2020-09-22] MEDS: Multivitamin Tab PO SCH (09:53)
[2020-09-22] MEDS: METRONIDAZOLE 500 MG PO SCH ×3 (09:53→21:00)
[2020-09-22] MEDS: Aspirin 325 MG Tab.EC PO SCH (09:54)
[2020-09-22] MEDS: Carvedilol 3.125 MG Tab PO SCH ×2 (09:54→17:17)
[2020-09-22] MEDS: metFORMIN 500 MG Tab PO SCH ×2 (09:54→17:14)
[2020-09-22] MEDS: Lisinopril 20 MG Tab PO SCH (09:54)
[2020-09-22] MEDS ORDERED: 50% Dextrose in Water 50 ML Syringe IVPUSH PRN (17:35)
[2020-09-22] MEDS ORDERED: Glucagon,Human Recombinant 1 MG Vial IM PRN (17:35)
[2020-09-22] MEDS: Sodium Chloride 0.9% 10 ML Syringe FLUSH SCH (17:49)
[2020-09-22] MEDS ORDERED: Insulin Lispro 100 Unit/ML 3 ML KwikPen SUBCUT ONE (18:03)
[2020-09-22] MEDS: Insulin Lispro 100 Unit/ML 3 ML KwikPen SUBCUT SCH (18:04)
[2020-09-22] MEDS: Simvastatin 40 MG Tab PO SCH (21:00)
[2020-09-22] MEDS: amLODIPine 5 MG Tab PO SCH (21:00)
[2020-09-22] MEDS: Insulin Glargine,Human Rec. Analog 100 Units/ML 3 ML Pen SUBCUT SCH (21:01)
[2020-09-23] MEDS: VANCOmycin 1.5 GM/300 ML 300 ML IV SCH ×2 (03:22→16:08)
[2020-09-23] MEDS: Sodium Chloride 0.9% 10 ML Syringe FLUSH SCH ×3 (04:53→18:03)
[2020-09-23] MEDS: Cefepime 2 GM Vial IVPUSH SCH ×2 (04:54→18:02)
[2020-09-23] MEDS: Pantoprazole 40 MG Tab.CR PO SCH (05:00)
[2020-09-23] MEDS: metFORMIN 500 MG Tab PO SCH ×2 (08:37→17:30)
[2020-09-23] MEDS: Carvedilol 3.125 MG Tab PO SCH ×2 (08:39→17:30)
[2020-09-23] MEDS: METRONIDAZOLE 500 MG PO SCH ×3 (08:41→22:02)
[2020-09-23] MEDS: Multivitamin Tab PO SCH (08:42)
[2020-09-23] MEDS: Aspirin 325 MG Tab.EC PO SCH (08:42)
[2020-09-23] MEDS: Lisinopril 20 MG Tab PO SCH (08:43)
[2020-09-23] MEDS: Insulin Lispro 100 Unit/ML 3 ML KwikPen SUBCUT SCH ×3 (08:44→17:24)
[2020-09-23] MEDS: amLODIPine 5 MG Tab PO SCH (21:56)
[2020-09-23] MEDS: Simvastatin 40 MG Tab PO SCH (21:56)
[2020-09-23] MEDS: Insulin Glargine,Human Rec. Analog 100 Units/ML 3 ML Pen SUBCUT SCH (21:57)
[2020-09-24] MEDS: VANCOmycin 1.5 GM/300 ML 300 ML IV SCH ×2 (03:58→15:49)
[2020-09-24] MEDS: Sodium Chloride 0.9% 10 ML Syringe FLUSH SCH ×3 (04:00→05:39)
[2020-09-24] MEDS: Cefepime 2 GM Vial IVPUSH SCH ×2 (05:31→18:01)
[2020-09-24] MEDS: Pantoprazole 40 MG Tab.CR PO SCH (05:34)
[2020-09-24] MEDS: Carvedilol 3.125 MG Tab PO SCH ×2 (09:40→18:02)
[2020-09-24] MEDS: Aspirin 325 MG Tab.EC PO SCH (09:40)
[2020-09-24] MEDS: Lisinopril 20 MG Tab PO SCH (09:40)
[2020-09-24] MEDS: METRONIDAZOLE 500 MG PO SCH ×3 (09:41→21:08)
[2020-09-24] MEDS: Insulin Lispro 100 Unit/ML 3 ML KwikPen SUBCUT SCH ×3 (09:42→18:00)
[2020-09-24] MEDS: metFORMIN 500 MG Tab PO SCH ×2 (09:44→18:00)
[2020-09-24] MEDS: Multivitamin Tab PO SCH (09:46)
--- NOTE | 2020-09-24 12:58 | PN ---
DATE SEEN: 09/24/2020 HISTORY: Cosmo is a 60-year-old man who has had previous brain tumor resection followed by CONTRACTS INTERN shunt. He was hospitalized at [facility] in [place] on 08/30 because of an infected CONTRACTS INTERN shunt. Neurosurgical consultation was held with a decision to maintain the shunt and he has been followed by Infectious Disease, Dr. Faith for antibiotic treatment. He is in swing bed at [place] at this time. He has had moderate cognitive dysfunction and been refractory and resistant to cares intermittently. MEDICATIONS: Current medications include: 1. Insulin for his diabetes. 2. Amlodipine. 3. Carvedilol. 4. Lisinopril. 5. He is on metformin. Antibiotics include: 1. Cefepime 2 g every 12 hours IV. 2. Metronidazole 500 mg p.o. t.i.d. 3. Vancomycin 1.5 g IV every 12 hours. PHYSICAL EXAMINATION: VITAL SIGNS: Today, blood pressure 147/93, pulse 81 and regular, respirations easy. GENERAL: He appears comfortable, but resistant and declines any additional examination or intervention. ASSESSMENT: 1. 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 2. Type 2 diabetes with significant hyperglycemia. 3. History of paroxysmal atrial fibrillation, not on anticoagulation due to his brain disease. PLAN: We will increase his insulin and diabetic control. Continue antibiotics as directed by Dr. Faith and follow up closely. /[id number] RO/MODL
[2020-09-24] MEDS: amLODIPine 5 MG Tab PO SCH (21:09)
[2020-09-24] MEDS: Insulin Glargine,Human Rec. Analog 100 Units/ML 3 ML Pen SUBCUT SCH (21:10)
[2020-09-24] MEDS: Simvastatin 40 MG Tab PO SCH (21:10)
[2020-09-25] MEDS: VANCOmycin 1.5 GM/300 ML 300 ML IV SCH ×2 (03:43→15:13)
[2020-09-25] MEDS: Sodium Chloride 0.9% 10 ML Syringe FLUSH SCH ×2 (05:05→05:15)
[2020-09-25] MEDS: Cefepime 2 GM Vial IVPUSH SCH ×2 (05:09→17:57)
[2020-09-25] MEDS: Pantoprazole 40 MG Tab.CR PO SCH (05:16)
[2020-09-25] MEDS: Multivitamin Tab PO SCH (09:02)
[2020-09-25] MEDS: metFORMIN 500 MG Tab PO SCH ×2 (09:02→17:59)
[2020-09-25] MEDS: Carvedilol 3.125 MG Tab PO SCH ×2 (09:02→17:58)
[2020-09-25] MEDS: METRONIDAZOLE 500 MG PO SCH ×3 (09:02→21:29)
[2020-09-25] MEDS: Aspirin 325 MG Tab.EC PO SCH (09:03)
[2020-09-25] MEDS: Lisinopril 20 MG Tab PO SCH (09:03)
[2020-09-25] MEDS: Insulin Lispro 100 Unit/ML 3 ML KwikPen SUBCUT SCH ×2 (09:04→09:10)
[2020-09-25] MEDS ORDERED: 50% Dextrose in Water 50 ML Syringe IVPUSH PRN (09:09)
[2020-09-25] MEDS ORDERED: Glucagon,Human Recombinant 1 MG Vial IM PRN (09:09)
[2020-09-25] MEDS: Insulin Glargine,Human Rec. Analog 100 Units/ML 3 ML Pen SUBCUT SCH ×2 (09:21→21:31)
[2020-09-25] MEDS: Simvastatin 40 MG Tab PO SCH (21:29)
[2020-09-25] MEDS: amLODIPine 5 MG Tab PO SCH (21:30)
[2020-09-26] MEDS: VANCOmycin 1.5 GM/300 ML 300 ML IV SCH ×2 (03:24→16:20)
[2020-09-26] MEDS: Cefepime 2 GM Vial IVPUSH SCH ×2 (04:58→18:08)
[2020-09-26] MEDS: Pantoprazole 40 MG Tab.CR PO SCH (05:00)
[2020-09-26] MEDS: Lisinopril 20 MG Tab PO SCH (09:17)
[2020-09-26] MEDS: METRONIDAZOLE 500 MG PO SCH ×3 (09:17→21:59)
[2020-09-26] MEDS: Multivitamin Tab PO SCH (09:18)
[2020-09-26] MEDS: Aspirin 325 MG Tab.EC PO SCH (09:18)
[2020-09-26] MEDS: Carvedilol 3.125 MG Tab PO SCH ×2 (09:18→18:07)
[2020-09-26] MEDS: metFORMIN 500 MG Tab PO SCH ×2 (09:18→18:07)
[2020-09-26] MEDS: Insulin Glargine,Human Rec. Analog 100 Units/ML 3 ML Pen SUBCUT SCH ×2 (09:19→22:03)
[2020-09-26] MEDS ORDERED: Insulin Glargine,Human Rec. Analog 100 Units/ML 3 ML Pen SUBCUT ONE (09:22)
[2020-09-26] MEDS: Sodium Chloride 0.9% 10 ML Syringe FLUSH SCH ×2 (16:20→18:08)
[2020-09-26] MEDS: Simvastatin 40 MG Tab PO SCH (22:02)
[2020-09-26] MEDS: amLODIPine 5 MG Tab PO SCH (22:07)
[2020-09-27] MEDS: VANCOmycin 1.5 GM/300 ML 300 ML IV SCH ×2 (03:20→15:38)
[2020-09-27] MEDS: Cefepime 2 GM Vial IVPUSH SCH ×2 (05:19→17:35)
[2020-09-27] MEDS: Sodium Chloride 0.9% 10 ML Syringe FLUSH SCH ×3 (05:27→15:41)
[2020-09-27] MEDS: Pantoprazole 40 MG Tab.CR PO SCH (05:30)
[2020-09-27] MEDS: metFORMIN 500 MG Tab PO SCH ×2 (08:58→17:36)
[2020-09-27] MEDS: Aspirin 325 MG Tab.EC PO SCH (08:59)
[2020-09-27] MEDS: Carvedilol 3.125 MG Tab PO SCH ×2 (08:59→17:37)
[2020-09-27] MEDS: METRONIDAZOLE 500 MG PO SCH ×3 (09:00→21:24)
[2020-09-27] MEDS: Lisinopril 20 MG Tab PO SCH (09:00)
[2020-09-27] MEDS: Multivitamin Tab PO SCH (09:01)
[2020-09-27] MEDS: Insulin Glargine,Human Rec. Analog 100 Units/ML 3 ML Pen SUBCUT SCH (09:03)
[2020-09-27] MEDS ORDERED: Insulin Glargine,Human Rec. Analog 100 Units/ML 3 ML Pen SUBCUT SCH (21:00)
[2020-09-27] MEDS: amLODIPine 5 MG Tab PO SCH (21:24)
[2020-09-27] MEDS: Simvastatin 40 MG Tab PO SCH (21:24)
[2020-09-28] MEDS: VANCOmycin 1.5 GM/300 ML 300 ML IV SCH ×2 (02:30→15:22)
[2020-09-28] MEDS: Cefepime 2 GM Vial IVPUSH SCH ×2 (05:07→17:01)
[2020-09-28] MEDS: Pantoprazole 40 MG Tab.CR PO SCH (05:09)
[2020-09-28] MEDS: Carvedilol 3.125 MG Tab PO SCH ×2 (08:35→17:27)
[2020-09-28] MEDS: metFORMIN 500 MG Tab PO SCH ×2 (08:36→17:28)
[2020-09-28] MEDS: METRONIDAZOLE 500 MG PO SCH ×3 (08:37→20:16)
[2020-09-28] MEDS: Aspirin 325 MG Tab.EC PO SCH (08:37)
[2020-09-28] MEDS: Lisinopril 20 MG Tab PO SCH (08:38)
[2020-09-28] MEDS: Multivitamin Tab PO SCH (08:39)
[2020-09-28] MEDS ORDERED: Insulin Glargine,Human Rec. Analog 100 Units/ML 3 ML Pen SUBCUT SCH (09:00)
[2020-09-28] MEDS: Sodium Chloride 0.9% 10 ML Syringe FLUSH SCH ×2 (15:20→17:01)
[2020-09-28] MEDS: Simvastatin 40 MG Tab PO SCH (20:16)
[2020-09-28] MEDS: amLODIPine 5 MG Tab PO SCH (20:16)
[2020-09-28] MEDS: Insulin Glargine,Human Rec. Analog 100 Units/ML 3 ML Pen SUBCUT SCH (20:18)
[2020-09-29] MEDS: VANCOmycin 1.5 GM/300 ML 300 ML IV SCH ×2 (02:30→15:46)
[2020-09-29] MEDS: Pantoprazole 40 MG Tab.CR PO SCH (05:00)
[2020-09-29] MEDS: Cefepime 2 GM Vial IVPUSH SCH ×2 (05:05→17:22)
[2020-09-29] MEDS: Carvedilol 3.125 MG Tab PO SCH ×2 (08:29→17:29)
[2020-09-29] MEDS: METRONIDAZOLE 500 MG PO SCH ×3 (08:30→20:36)
[2020-09-29] MEDS: metFORMIN 500 MG Tab PO SCH ×2 (08:30→17:30)
[2020-09-29] MEDS: Aspirin 325 MG Tab.EC PO SCH (08:30)
[2020-09-29] MEDS: Multivitamin Tab PO SCH (08:31)
[2020-09-29] MEDS: Lisinopril 20 MG Tab PO SCH (08:31)
[2020-09-29] MEDS: Insulin Glargine,Human Rec. Analog 100 Units/ML 3 ML Pen SUBCUT SCH ×2 (08:37→20:41)
[2020-09-29] MEDS: amLODIPine 5 MG Tab PO SCH (20:36)
[2020-09-29] MEDS: Simvastatin 40 MG Tab PO SCH (20:36)
[2020-09-30] MEDS: VANCOmycin 1.5 GM/300 ML 300 ML IV SCH ×2 (03:08→15:32)
[2020-09-30] MEDS: Sodium Chloride 0.9% 10 ML Syringe FLUSH SCH ×3 (05:15→17:29)
[2020-09-30] MEDS: Cefepime 2 GM Vial IVPUSH SCH ×2 (05:42→17:19)
[2020-09-30] MEDS: Pantoprazole 40 MG Tab.CR PO SCH (05:45)
[2020-09-30] MEDS: Aspirin 325 MG Tab.EC PO SCH (08:29)
[2020-09-30] MEDS: Lisinopril 20 MG Tab PO SCH (08:29)
[2020-09-30] MEDS: Multivitamin Tab PO SCH (08:29)
[2020-09-30] MEDS: Carvedilol 3.125 MG Tab PO SCH ×2 (08:29→17:19)
[2020-09-30] MEDS: metFORMIN 500 MG Tab PO SCH ×2 (08:29→17:19)
[2020-09-30] MEDS: Insulin Glargine,Human Rec. Analog 100 Units/ML 3 ML Pen SUBCUT SCH ×2 (08:30→21:15)
[2020-09-30] MEDS: METRONIDAZOLE 500 MG PO SCH ×3 (08:37→21:11)
[2020-09-30] MEDS ORDERED: Sodium Chloride 0.9% 250 ML IV SCH (15:30)
[2020-09-30] MEDS: Simvastatin 40 MG Tab PO SCH (21:12)
[2020-09-30] MEDS: amLODIPine 5 MG Tab PO SCH (21:12)
[2020-09-30] MEDS ORDERED: Insulin Glargine,Human Rec. Analog 100 Units/ML 3 ML Pen SUBCUT ONE (21:14)
[2020-10-01] MEDS: VANCOmycin 1.5 GM/300 ML 300 ML IV SCH (03:25)
[2020-10-01] MEDS: Cefepime 2 GM Vial IVPUSH SCH ×2 (05:31→17:25)
[2020-10-01] MEDS: Pantoprazole 40 MG Tab.CR PO SCH (05:32)
[2020-10-01] MEDS: Carvedilol 3.125 MG Tab PO SCH ×2 (08:13→17:25)
[2020-10-01] MEDS: Aspirin 325 MG Tab.EC PO SCH (08:14)
[2020-10-01] MEDS: metFORMIN 500 MG Tab PO SCH ×2 (08:14→17:24)
[2020-10-01] MEDS: Multivitamin Tab PO SCH (08:15)
[2020-10-01] MEDS: Lisinopril 20 MG Tab PO SCH (08:15)
[2020-10-01] MEDS: METRONIDAZOLE 500 MG PO SCH ×3 (08:15→21:21)
[2020-10-01] MEDS: Insulin Glargine,Human Rec. Analog 100 Units/ML 3 ML Pen SUBCUT SCH ×2 (08:21→21:21)
[2020-10-01] MEDS: Sodium Chloride 0.9% 10 ML Syringe FLUSH SCH (17:25)
[2020-10-01] MEDS: amLODIPine 5 MG Tab PO SCH (21:21)
[2020-10-01] MEDS: Simvastatin 40 MG Tab PO SCH (22:21)
[2020-10-02] MEDS: Pantoprazole 40 MG Tab.CR PO SCH (05:55)
[2020-10-02] MEDS: Cefepime 2 GM Vial IVPUSH SCH ×2 (05:55→16:58)
[2020-10-02] MEDS: Carvedilol 3.125 MG Tab PO SCH ×2 (08:19→17:16)
[2020-10-02] MEDS: Aspirin 325 MG Tab.EC PO SCH (08:19)
[2020-10-02] MEDS: metFORMIN 500 MG Tab PO SCH ×2 (08:19→17:16)
[2020-10-02] MEDS: METRONIDAZOLE 500 MG PO SCH ×3 (08:20→21:03)
[2020-10-02] MEDS: Insulin Glargine,Human Rec. Analog 100 Units/ML 3 ML Pen SUBCUT SCH ×2 (08:20→21:05)
[2020-10-02] MEDS: Multivitamin Tab PO SCH (08:22)
[2020-10-02] MEDS: Lisinopril 20 MG Tab PO SCH (08:22)
[2020-10-02] MEDS: Sodium Chloride 0.9% 10 ML Syringe FLUSH SCH ×2 (16:58→17:11)
[2020-10-02] MEDS: amLODIPine 5 MG Tab PO SCH (21:04)
[2020-10-02] MEDS: Simvastatin 40 MG Tab PO SCH (21:04)
[2020-10-03] MEDS: Cefepime 2 GM Vial IVPUSH SCH ×2 (05:35→17:17)
[2020-10-03] MEDS: Sodium Chloride 0.9% 10 ML Syringe FLUSH SCH ×2 (05:40→17:17)
[2020-10-03] MEDS: Pantoprazole 40 MG Tab.CR PO SCH (05:55)
[2020-10-03] MEDS: Carvedilol 3.125 MG Tab PO SCH ×2 (08:08→17:14)
[2020-10-03] MEDS: metFORMIN 500 MG Tab PO SCH ×2 (08:09→17:15)
[2020-10-03] MEDS: Aspirin 325 MG Tab.EC PO SCH (08:09)
[2020-10-03] MEDS: METRONIDAZOLE 500 MG PO SCH ×3 (08:10→20:14)
[2020-10-03] MEDS: Insulin Glargine,Human Rec. Analog 100 Units/ML 3 ML Pen SUBCUT SCH ×2 (08:10→20:16)
[2020-10-03] MEDS: Lisinopril 20 MG Tab PO SCH (08:11)
[2020-10-03] MEDS: Multivitamin Tab PO SCH (08:12)
[2020-10-03] MEDS: Simvastatin 40 MG Tab PO SCH (20:14)
[2020-10-03] MEDS: amLODIPine 5 MG Tab PO SCH (20:14)
[2020-10-04] MEDS: Cefepime 2 GM Vial IVPUSH SCH ×2 (05:50→18:03)
[2020-10-04] MEDS: Sodium Chloride 0.9% 10 ML Syringe FLUSH SCH ×3 (05:55→18:13)
[2020-10-04] MEDS: Pantoprazole 40 MG Tab.CR PO SCH (06:00)
[2020-10-04] MEDS: Carvedilol 3.125 MG Tab PO SCH ×2 (08:52→18:00)
[2020-10-04] MEDS: Aspirin 325 MG Tab.EC PO SCH (08:53)
[2020-10-04] MEDS: metFORMIN 500 MG Tab PO SCH ×2 (08:53→18:00)
[2020-10-04] MEDS: METRONIDAZOLE 500 MG PO SCH ×3 (08:53→21:48)
[2020-10-04] MEDS: Lisinopril 20 MG Tab PO SCH (08:54)
[2020-10-04] MEDS: Multivitamin Tab PO SCH (08:54)
[2020-10-04] MEDS: Insulin Glargine,Human Rec. Analog 100 Units/ML 3 ML Pen SUBCUT SCH ×2 (08:56→21:54)
[2020-10-04] MEDS: amLODIPine 5 MG Tab PO SCH (21:48)
[2020-10-04] MEDS: Simvastatin 40 MG Tab PO SCH (21:49)
[2020-10-04] MEDS ORDERED: Insulin Glargine,Human Rec. Analog 100 Units/ML 3 ML Pen SUBCUT ONE (21:53)
[2020-10-05] MEDS: Pantoprazole 40 MG Tab.CR PO SCH (05:16)
[2020-10-05] MEDS: Cefepime 2 GM Vial IVPUSH SCH (05:16)
[2020-10-05] MEDS: metFORMIN 500 MG Tab PO SCH (07:36)
[2020-10-05] MEDS: Carvedilol 3.125 MG Tab PO SCH (07:38)
[2020-10-05] MEDS: Lisinopril 20 MG Tab PO SCH ×2 (07:39→08:12)
[2020-10-05] MEDS: METRONIDAZOLE 500 MG PO SCH ×3 (07:39→13:53)
[2020-10-05] MEDS: Aspirin 325 MG Tab.EC PO SCH ×2 (07:39→08:11)
[2020-10-05] MEDS: Multivitamin Tab PO SCH ×2 (07:40→08:12)
[2020-10-05] MEDS: Insulin Glargine,Human Rec. Analog 100 Units/ML 3 ML Pen SUBCUT SCH ×2 (07:40→08:11)
--- NOTE | 2020-10-05 17:49 | PCM.DCSUM1 ---
Discharge Summary - Hospital Course HPI Initial Comments: Cosmo is a pleasant 60 yo male who is coming from [facility]. 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 He is being admitted to swing bed for IV antibiotics (Cefepime,Flagyl and Vancomycin) until 10/11,as well as PT and OT. He is 11 days post suboccipital wound washout and cranioplasty. He has a h/o DM2, HTN, HLD, MDD. Dr Faith with [facility] is following with weekly labs and he will see him on 10/05. Diagnosis: Stroke: No - Discharge Data Discharge Date: 10/05/20 Discharge Disposition: Home, Self-Care 01 Condition: Good - Referral to Home Health Primary Care Physician: Dejuan Simon MD - Patient Summary/Data Consults: Consultations 09/14/20 13:54 OT Evaluation and Treatment [CONS] Routine Please Evaluate and Treat. OT Reason for Consult: ADL's This query below is only for informational purposes and is not editable. PT Evaluation and Treatment [CONS] Routine Please Evaluate and Treat. PT Reason for Consult: Ambulation This query below is only for informational purposes and is not editable. Hospital Course: Cosmo admitted for IV Vancomycin, Cefepime & Metronidazole oral for infected IRRADI[employer] shunt. He had adjustment of his blood pressure medications: amlodipine and coreg were started, had good control of his blood pressures with these changes. He also had glipizide discontinued and Humalog sliding scale. Lantus was increased at bedtime to 45 units and had morning dose of 30 units was added. He had improved blood sugar control with these changes. He was on a regular diet per discharge from [place]. He had his Vancomycin discontinued on 10/04 after labs sent to Dr Faith showed leukopenia. He had follow up appt with Dr Faith today in [place], had repeat labs that showed normal WBC, ESR & CRP. He wrote to discontinue IV Cefepime and start Keflex 500 mg bid x 12 months. Continue Metronidazole until he finishes his bottle that he was prescribed from [place]. He declined home health services, his and daughter will be helping with his cares. See PT/OT notes for further details in regards to his therapy. - Patient Instructions Diet: Usual Diet as Tolerated Activity: As Tolerated Driving: Do Not Drive Showering/Bathing: May Shower Notify Provider of: Fever, Increased Pain, Swelling and Redness, Drainage, Nausea and/or Vomiting Other/Special Instructions: Follow up with Dr Ruggiero at [facility] on October 27 at 1130am. Follow up for MRI at [facility] on November 02 at 845am. Follow up with Dr Waller [facility] on November 02 at 1015am. Follow up at [facility] for simulator with Dr Waller on November 02 at 1230pm. - Discharge Plan *PRESCRIPTION DRUG MONITORING PROGRAM REVIEWED*: Not Applicable *COPY OF PRESCRIPTION DRUG MONITORING REPORT IN PATIENT VITALIY: Not Applicable Prescriptions/Med Rec: carvediloL [Carvedilol] 3.125 mg PO BIDMEALS 30 Days #60 tab cephALEXin [Cephalexin] 500 mg PO BID 90 Days #180 capsule Insulin Glarg,Human.Rec.Analog [Lantus Solostar] 0 units SUBCUT ASDIRECTED 40 Days #2 box amLODIPine [Norvasc] 5 mg PO BEDTIME 30 Days #30 tab L.acidoph,Paracasei, B.lactis [Probiotic] 1 each PO BID 90 Days #180 capsule Home Medications: Home Meds Aspirin [Ecotrin EC] 325 mg PO DAILY 09/14/20 [History] Multivitamin 1 tab PO DAILY 09/14/20 [History] Omeprazole 20 mg PO DAILY@0600 09/14/20 [History] Simvastatin [Zocor] 40 mg PO BEDTIME 09/14/20 [History] Tadalafil [Cialis] 10 mg PO DAILY PRN 09/14/20 [History] lisinopriL [Lisinopril] 20 mg PO DAILY 09/14/20 [History] metFORMIN [Glucophage] 500 mg PO BIDMEALS 09/14/20 [History] Insulin Glarg,Human.Rec.Analog [Lantus Solostar] 0 units SUBCUT ASDIRECTED 40 Days #2 box 10/05/20 [Rx] L.acidoph,Paracasei, B.lactis [Probiotic] 1 each PO BID 90 Days #180 capsule 10/05/20 [Rx] amLODIPine [Norvasc] 5 mg PO BEDTIME 30 Days #30 tab 10/05/20 [Rx] carvediloL [Carvedilol] 3.125 mg PO BIDMEALS 30 Days #60 tab 10/05/20 [Rx] cephALEXin [Cephalexin] 500 mg PO BID 90 Days #180 capsule 10/05/20 [Rx] metroNIDAZOLE [Flagyl] 500 mg PO TID #0 tab 10/05/20 [Rx] Oxygen Therapy Mode: Room Air Patient Handouts: Viral Encephalitis, Fall Prevention in Hospitals, Adult, Venous Thromboembolism Prevention Referrals: Dejuan Simon MD [Primary Care Provider] - - Discharge Summary/Plan Comment DC Time >30 min.: No - General Info Date of Service: 10/05/20 Subjective Update: He is feeling well, just returned from [place] seeing [facility]. His lab were improved with WBC, ESR & CRP today so IV antibiotics were discontinued and will be on suppression treatment with Keflex 500 mg bid x 12 months. He is to finish his doses of Metronidazole. Denies any fevers, chills, shortness of breath, chest pain. No abdominal pain, nausea, vomiting or constipation. He does have softer stools secondary to antibiotics but not on any probiotics. His reports they have a daughter that will be helping her out with him, declined Home Health services. They would like to go home today since he would not need any further IV medications. - Patient Data Vitals - Most Recent: Last Vital Signs Temp 98.3 F 10/05/20 08:00 Pulse 84 10/05/20 08:00 Resp 18 10/05/20 08:00 BP 146/92 H 10/05/20 08:00 Pulse Ox 98 10/05/20 08:00 Weight - Most Recent: 191 lb 1.6 oz Lab Results - Last 24 hrs: Laboratory Results - last 24 hr 10/04/20 10/05/20 Range/Units 20:15 05:19 POC Glucose 243 H D 119 H D (80-116) mg/dL Med Orders - Current: Current Medications Discontinued Medications Acetaminophen (Acetaminophen 325 Mg Tab) 650 mg PO Q4H PRN PRN Reason: Pain Last Admin: 09/21/20 16:43 Dose: 650 mg Documented by: Amlodipine Besylate (Amlodipine 5 Mg Tab) 5 mg PO BEDTIME [place] Last Admin: 10/04/20 21:48 Dose: 5 mg Documented by: Aspirin (Aspirin 325 Mg Tab.Ec) 325 mg PO DAILY [place] Last Admin: 10/05/20 08:11 Dose: Not Given Documented by: Carvedilol (Carvedilol 3.125 Mg Tab) 3.125 mg PO BIDMEALS [facility] Last Admin: 10/05/20 07:38 Dose: 3.125 mg Documented by: Cefepime HCl (Cefepime 2 Gm Vial) 2 gm IVPUSH Q12H [facility] Stop: 10/11/20 17:01 Last Admin: 10/05/20 05:16 Dose: 2 gm Documented by: Dextrose/Water (50% Dextrose In Water 50 Ml Syringe) 50 ml IVPUSH ASDIRECTED PRN PRN Reason: Hypoglycemia Dextrose/Water (50% Dextrose In Water 50 Ml Syringe) 50 ml IVPUSH ASDIRECTED PRN PRN Reason: Hypoglycemia Dextrose/Water (50% Dextrose In Water 50 Ml Syringe) 50 ml IVPUSH ASDIRECTED PRN PRN Reason: Hypoglycemia Glipizide (Glipizide 10 Mg Tab) 10 mg PO WITHBREAKFAST [facility] Last Admin: 09/18/20 10:56 Dose: Not Given Documented by: Glucagon (Glucagon,Human Recombinant 1 Mg Vial) 1 mg IM ASDIRECTED PRN PRN Reason: Hypoglycemia Glucagon (Glucagon,Human Recombinant 1 Mg Vial) 1 mg IM ASDIRECTED PRN PRN Reason: Hypoglycemia Glucagon (Glucagon,Human Recombinant 1 Mg Vial) 1 mg IM ASDIRECTED PRN PRN Reason: Hypoglycemia Heparin Sodium (Porcine) (Heparin Sodium 100 Units/Ml 5 Ml Syringe) 300 units FLUSH ASDIRECTED PRN PRN Reason: LINE PATENCY Last Admin: 09/16/20 15:03 Dose: 300 units Documented by: Heparin Sodium (Porcine) (Heparin Sodium 100 Units/Ml 5 Ml Syringe) 300 units FLUSH Q12H [facility] Last Admin: 09/23/20 04:53 Dose: 300 units Documented by: Vancomycin HCl (Vancomycin 1.5 Gm/300 Ml) 300 mls @ 200 mls/hr IV Q12H [facility] Stop: 10/11/20 21:00 Last Admin: 10/01/20 03:25 Dose: 200 mls/hr Documented by: Sodium Chloride (Normal Saline) 250 mls @ 50 mls/hr IV ASDIRECTED [facility] Last Admin: 09/30/20 17:29 Dose: 50 mls/hr Documented by: Insulin Glargine (Insulin Glargine,Human Rec. Analog 100 Units/Ml 3 Ml Pen) 20 units SUBCUT BEDTIME [facility] Last Admin: 09/23/20 21:57 Dose: 20 unit Documented by: Insulin Glargine (Insulin Glargine,Human Rec. Analog 100 Units/Ml 3 Ml Pen) 35 units SUBCUT BEDTIME [facility] Last Admin: 09/26/20 22:03 Dose: 35 units Documented by: Insulin Glargine (Insulin Glargine,Human Rec. Analog 100 Units/Ml 3 Ml Pen) 20 units SUBCUT DAILY [facility] Last Admin: 09/27/20 09:03 Dose: 20 units Documented by: Insulin Glargine (Insulin Glargine,Human Rec. Analog 100 Units/Ml 3 Ml Pen) 40 units SUBCUT BEDTIME [facility] Last Admin: 09/27/20 21:25 Dose: 40 units Documented by: Insulin Glargine (Insulin Glargine,Human Rec. Analog 100 Units/Ml 3 Ml Pen) 25 units SUBCUT DAILY [facility] Last Admin: 09/28/20 08:40 Dose: 25 units Documented by: Insulin Glargine (Insulin Glargine,Human Rec. Analog 100 Units/Ml 3 Ml Pen) 30 units SUBCUT DAILY [facility] Last Admin: 10/05/20 08:11 Dose: Not Given Documented by: Insulin Glargine (Insulin Glargine,Human Rec. Analog 100 Units/Ml 3 Ml Pen) 45 units SUBCUT BEDTIME [facility] Last Admin: 10/04/20 21:54 Dose: 45 units Documented by: Insulin Glargine (Insulin Glargine,Human Rec. Analog 100 Units/Ml 3 Ml Pen) 300 units SUBCUT .STK-MED ONE Stop: 09/26/20 09:23 Insulin Glargine (Insulin Glargine,Human Rec. Analog 100 Units/Ml 3 Ml Pen) 300 units SUBCUT .STK-MED ONE Stop: 09/14/20 20:49 Insulin Glargine (Insulin Glargine,Human Rec. Analog 100 Units/Ml 3 Ml Pen) 300 units SUBCUT .STK-MED ONE Stop: 09/30/20 21:15 Insulin Glargine (Insulin Glargine,Human Rec. Analog 100 Units/Ml 3 Ml Pen) 300 units SUBCUT .STK-MED ONE Stop: 10/04/20 21:54 Insulin Human Lispro (Insulin Lispro 100 Unit/Ml 3 Ml Kwikpen) 0 unit SUBCUT TIDMEALS [facility]; Protocol Last Admin: 09/25/20 09:10 Dose: Not Given Documented by: Insulin Human Lispro (Insulin Lispro 100 Unit/Ml 3 Ml Kwikpen) 300 unit SUBCUT .STK-MED ONE Stop: 09/22/20 18:04 Lisinopril (Lisinopril 20 Mg Tab) 20 mg PO DAILY [facility] Last Admin: 10/05/20 08:12 Dose: Not Given Documented by: Metformin HCl (Metformin 500 Mg Tab) 500 mg PO BIDMEALS [facility] Last Admin: 10/05/20 07:36 Dose: 500 mg Documented by: Metronidazole (Metronidazole 500 Mg Tab *Ptom) 500 mg PO TID [facility] Stop: 10/15/20 09:01 Last Admin: 10/05/20 13:53 Dose: 500 mg Documented by: Multivitamins/Minerals/Vitamin C (Multivitamin Tab) 1 tab PO DAILY [facility] Last Admin: 10/05/20 08:12 Dose: Not Given Documented by: Non-Formulary Medication (Tadalafil [Cialis]) 10 mg PO DAILY PRN PRN Reason: SEXUAL ACTIVITY Pantoprazole Sodium (Pantoprazole 40 Mg Tab.Cr) 40 mg PO DAILY@0600 [facility] Last Admin: 10/05/20 05:16 Dose: 40 mg Documented by: Simvastatin (Simvastatin 40 Mg Tab) 40 mg PO BEDTIME [facility] Last Admin: 10/04/20 21:49 Dose: 40 mg Documented by: Sodium Chloride (Sodium Chloride 0.9% 10 Ml Syringe) 10 ml FLUSH ASDIRECTED [facility] Last Admin: 10/04/20 18:13 Dose: 10 ml Documented by: - Exam General: Reports: Alert, Oriented, Cooperative, No Acute Distress Neck: Reports: Other (Midline occiputal scar well healed) Lungs: Reports: Clear to Auscultation, Normal Respiratory Effort Cardiovascular: Reports: Regular Rate, Regular Rhythm GI/Abdominal Exam: Normal Bowel Sounds, Soft, Non-Tender, No Distention (Male) Exam: Deferred Rectal (Males) Exam: Deferred Extremities: No Pedal Edema
== END 2020-10-05 14:20 | disposition home or self-care (01) | DRG 949 ==
LOC: FB.MS 12:46
PROVIDERS: ADMIT Family Medicine; ATTEND Family Medicine
DX: T85.730D Infection and inflammatory reaction due to ventricular intracranial (communicating) shunt, subsequent encounter (principal); G04.90 Encephalitis and encephalomyelitis, unspecified; I10 Essential (primary) hypertension; E78.5 Hyperlipidemia, unspecified; K21.9 Gastro-esophageal reflux disease without esophagitis; E11.3293 Type 2 diabetes mellitus with mild nonproliferative diabetic retinopathy without macular edema, bilateral; E78.2 Mixed hyperlipidemia; D43.2 Neoplasm of uncertain behavior of brain, unspecified; F32.9 Major depressive disorder, single episode, unspecified; D72.819 Decreased white blood cell count, unspecified; F17.200 Nicotine dependence, unspecified, uncomplicated; H54.7 Unspecified visual loss; E11.65 Type 2 diabetes mellitus with hyperglycemia; G31.84 Mild cognitive impairment of uncertain or unknown etiology; Z98.890 Other specified postprocedural states; Z79.4 Long term (current) use of insulin; Z79.899 Other long term (current) drug therapy; Z79.82 Long term (current) use of aspirin
CPT/HCPCS: 36415; 80053; 80202; 82565; 82947; 85025; 85651; 86140; 97116-GP; 97161-GP; 97165-GO; 97530-GO; 97535-GO; A9270-GY; J0692; J1642; J1815; J1815-GY; J3370; J7050